=== PATIENT | female | born 1965 | race Caucasian/White ===

== ENCOUNTER 2021-06-22 12:53 | Emergency (ER) | payer OTHER, SELFPAY ==
--- NOTE | ~2021-06-22 | CT_ITS ---
EXAMINATION: CT abdomen pelvis w con EXAM DATE: 06/22/2021 15:27 INDICATION: RUQ abdominal pain RUQ pain x mo worsening today with hx of liver cancer. TECHNIQUE: Spiral CT of the abdomen and pelvis was performed following intravenous injection of 100 m L Omnipaque 350. Axial, coronal and sagittal images of the abdomen and pelvis were reviewed. The do se-length product (DLP) for this examination was 1462.34 mGy-cm. The exposure was tailored according to patient size (auto mA exposure control), and iterative reconstruction (ASIR) was used as addition al dose reduction technique. There is no prior study for comparison. FINDINGS: There are several subcentimeter liver hypodensities, appearance consistent with cysts. No s uspicious liver mass identified. The liver, spleen, adrenal glands and pancreas are otherwise unrema rkable. Gallbladder is unremarkable. No biliary obstruction. Portal and splenic veins are patent. Kidneys enhance symmetrically. There is no hydronephrosis. The uterus is not identified and has l ikely been surgically resected. The bladder is unremarkable. There is no retroperitoneal or pelvic lymphadenopathy. The appendix is normal. The stomach and small bowel are unremarkable. There is expected amount of c olonic stool. No free intraperitoneal gas. The heart is normal in size. There are no pericardial or pleural effusions. The lung bases are unremarkable. The bones are unremarkable. IMPRESSION: 1. No acute intra-abdominal findings. Reviewed, dictated and finalized at location A. 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
[2021-06-22 13:17] VITALS: BP 110/60; PULSE 65; RESP 18; TEMP 35.8; O2SAT 97
[2021-06-22] MEDS: KETOROLAC (*BKC) 60 MG/2 ML VIAL IM (13:59)
[2021-06-22 14:06] LABS: Basophils Absolute Auto 0.03 K/mm3 (0.00-0.10); Basophils Percent Auto 0.6 % (0.0-1.0); Eosinophils Absolute Auto 0.09 K/mm3 (0.02-0.50); Eosinophils Percent Auto 1.9 % (1.0-6.0); Hemoglobin 11.2 g/dL (12.0-15.0); Immature Granulocyte Absolute 0.01 K/mm3 (0.00-0.00); Immature Granulocyte Percent A 0.2 % (0.0-0.0); Lymphocytes Absolute Auto 2.13 K/mm3 (1.10-4.50); Lymphocytes Percent Auto 43.8 % (18.0-42.0); Mean Corpuscular HGB Conc 32.9 g/dL (32.0-36.0); Mean Corpuscular Hemoglobin 31.2 pg (27.0-31.0); Mean Corpuscular Volume 94.7 fL (78.0-102.0); Mean Platelet Volume 11.2 fl (9.2-11.8); Monocytes Absolute Auto 0.34 K/mm3 (0.10-0.90); Neutrophils Absolute Auto 2.3 K/mm3 (1.7-7.2); Neutrophils Percent Auto 46.5 % (50.0-70.0); Platelet Count Result 255 K/mm3 (150-420); Red Blood Count 3.59 M/mm3 (4.20-5.40); Red Cell Distribution Width 13.2 % (11.6-14.4); White Blood Count 4.9 K/mm3 (4.8-10.8)
[2021-06-22 14:07] LABS: Add Urine Microscopic? NO; Appearance Urine Clear (Clear); Bilirubin Urine Negative (Negative); Blood Urine Negative (Negative); Color Urine Light Yellow (Yellow); Glucose Urine UA Negative (Negative); Ketones Urine Negative (Negative); Leukocyte Esterase Ur Negative (Negative); Nitrate Urine Negative (Negative); Protein Urine Negative (Negative); Specific Grav Ur <= 1.005 (1.010-1.020); Urobilinogen Urine 0.2 mg/dL (0.2-1.0)
[2021-06-22 14:24] LABS: Alanine Aminotransferase 29 U/L (14-59); Albumin Level 3.5 g/dL (3.4-5.0); Alkaline Phosphatase 92 U/L (46-116); Anion Gap 9 mmol/L (8-16); Aspartate Amino Transferase 15 U/L (15-37); Bilirubin,Total 0.5 mg/dL (0.00-1.00); Blood Urea Nitrogen 12 mg/dL (7-18); Calcium 9.1 mg/dL (8.5-10.1); Carbon Dioxide 31 mmol/L (21-32); Chloride 103 mmol/L (98-108); Estimated CRCL calculation 74 ml/min; Estimated Glomerular Filt Rate > 60; Glucose 108 mg/dL (70-99); Lipase 44 U/L (73-393); Osmolality Calculated 296 mOsm/kg (285-295); Sodium 143 mmol/L (136-145); Total Protein 7.1 g/dL (6.4-8.2)
[2021-06-22 14:27] LABS: SARS-CoV-2 Ag Negative (Negative)
--- NOTE | 2021-06-22 15:21 | PC.NURSE ---
report given to jocelin
--- NOTE | 2021-06-22 16:08 | ED.ABDPAIN ---
HPI - Abdominal Pain General Chief Complaint: Abdominal Pain Stated Complaint: pain in back and abdomen Time Seen by Provider: 06/22/21 12:57 Source: patient and RN notes reviewed Mode of arrival: ambulatory Limitations: no limitations History of Present Illness MD elicited complaint: abdominal pain Pertinent past history: gastritis Onset (ago): day(s) (1) Pain Consistency: constant and colicky Location: epigastric Severity: mild Pain scale (0-10): 7 Quality: cramping and aching Radiation: epigastric Migration to: no migration Exacerbating factors: nothing Relieving factors: nothing Associated symptoms: nausea Related Data Patient : No Home Medications Medication Instructions Recorded Confirmed amitriptyline 25 mg PO DAILY 06/22/21 06/22/21 benazepril 40 mg PO DAILY 06/22/21 06/22/21 carvedilol 12.5 mg PO DAILY 06/22/21 06/22/21 furosemide 20 mg PO DAILY 06/22/21 06/22/21 gabapentin 600 mg PO DAILY 06/22/21 06/22/21 nifedipine 30 mg PO DAILY 06/22/21 06/22/21 promethazine 25 mg PO DAILY PRN 06/22/21 06/22/21 quetiapine 50 mg PO DAILY 06/22/21 06/22/21 Allergies Allergy/AdvReac Type Severity Reaction Status Date / Time Penicillins Allergy Unknown Verified 07/13/21 12:16 [id number] Reductase Allergy Unknown Verified 07/13/21 12:16 Inhibitor Sulfa (Sulfonamide Allergy Unknown Verified 07/13/21 12:16 Antibiotics) Review of Systems Review of Systems: All systems reviewed & are unremarkable except as noted in HPI and below Gastrointestinal: Gastrointestinal: Reports abdominal pain and Reports nausea PMFSH Past Medical History Medical History Anemia Congestive heart failure Elective GERD (gastroesophageal reflux disease) Heart attack Heart disease HPV in female Hypertension Miscarriage Surgical History Surgical History H/O laparoscopy History of cholecystectomy History of dilation and curettage History of hysterectomy [place] teeth removed Family History Family History Father Carcinoma of colon Hypertension Grandparent Hypertension Anxiety Social History Social History Smoking status: Former smoker Alcohol intake: never Substance use: never Agree to blood products: Yes Exam Const: General: no acute distress and alert Nutritional Appearance: obese Orientation/consciousness: patient oriented x3 Limitations: no limitations HENMT: Head: normal to inspection Ears: external ears normal and TM's normal bilaterally General nose exam: Normal external nose present and Normal nares present Mouth: Yes lip normal and Yes moist mucous membranes Eyes: Conjunctivae: conjunctivae normal Pupils: Equal, round and reactive pupils present EOM: EOMs intact bilaterally Neck: Neck: normal visual inspection and no lymphadenopathy Chest: Chest palpation & inspection: normal inspection of the chest Resp: Effort & Inspection: normal respiratory effort Auscultation: clear to auscultation bilaterally Cardio: Rate: regular rate Rhythm: regular rhythm GI: GI Palp: Yes Soft to palpation and Yes Tenderness to palpation present (GI) Auscultation: normal bowel sounds : General: Yes no CVA tenderness Back/Spine/Pelvis: Back: no CVA tenderness Skin: General skin exam: normal color Rashes: no rashes Neuro: General: patient oriented x3, moves all extremities, no meningeal signs, no focal motor deficits and CN's II-XI intact bilaterally Extrem: General: normal to inspection and no pedal edema Psych: Appearance: grossly normal Mental Status: mental status grossly normal Affect: normal affect Attitude: cooperative Thought content: Yes Normal thought content present Course Course Emergency Course: pt was less painful in the ED. Reevaluat
--- NOTE | 2021-08-27 01:24 | PC.NURSE ---
RN received call from [facility] ER asking for pt information on any visits within the last three months. [place] [facility] faxed a medical file release and this RN faxed the chart. The medical file release form was placed into pt medical records.
== END 2021-06-22 16:50 | disposition home or self-care (01) ==
PROVIDERS: Emergency Provider Emergency Medicine; PCP Nurse Practitioner
DX: K29.00 Acute gastritis without bleeding (principal); Z20.822 Contact with and (suspected) exposure to COVID-19
CPT/HCPCS: 36415; 74177; 80053; 81003; 83690; 85025; 87426; 96372; 99283; 99284; C9803; J1885; Q9967

== ENCOUNTER 2022-05-29 08:24 | Emergency (ER) | payer OTHER, SELFPAY ==
[2022-05-29 08:25] VITALS: BP 130/88; PULSE 79; PULSE 85; RESP 18; RESP 20; TEMP 36.3; O2SAT 98
--- NOTE | 2022-05-29 08:36 | ED.SKABFB ---
HPI - Skin/Abscess/Foreign Bdy General Chief complaint: Extremity Injury, Lower Stated complaint: Doctor refered celulitis right leg Time Seen by Provider: 05/29/22 08:33 Source: patient Mode of arrival: ambulatory Limitations: no limitations History of Present Illness HPI narrative: 56-year-old female with a history of hypertension, CAG, CHF, GERD presents to the ER with -- right leg cellulitis noted 5 days ago for which she was prescribed doxycycline by physician. Patient has worsening pain and cellulitis -- she had blood work and was noted to have a positive D-dimer. she went on to have a negative venous Dopplers and PE study. complaint: rash Onset (ago): day(s) ( started 5 days ago) Tetanus up to date: yes Location: RLE Severity: mild Quality: aching ( aching in her right lower leg. patient able to walk and bear weight) Pain Consistency: constant Relieving factors: none Exacerbating factors: none Context: none Associated symptoms: denies other symptoms Treatments prior to arrival: none ( patient is currently on doxycycline.) Related Data Home Medications Medication Instructions Recorded Confirmed amitriptyline 25 mg tablet 25 mg PO DAILY 06/22/21 06/22/21 benazepril 40 mg tablet 40 mg PO DAILY 06/22/21 06/22/21 carvedilol 12.5 mg tablet 12.5 mg PO DAILY 06/22/21 06/22/21 furosemide 20 mg tablet 20 mg PO DAILY 06/22/21 06/22/21 gabapentin 600 mg tablet 600 mg PO DAILY 06/22/21 06/22/21 nifedipine 30 mg tablet,extended 30 mg PO DAILY 06/22/21 06/22/21 release promethazine 25 mg tablet 25 mg PO DAILY PRN Nausea 06/22/21 06/22/21 quetiapine 50 mg tablet 50 mg PO DAILY 06/22/21 06/22/21 Allergies Allergy/AdvReac Type Severity Reaction Status Date / Time fenofibrate Allergy Itching Verified 05/29/22 08:48 Penicillins Allergy Unknown Verified 05/29/22 08:48 [id number] Reductase Allergy Unknown Verified 05/29/22 08:48 Inhibitor Sulfa (Sulfonamide Allergy Unknown Verified 05/29/22 08:48 Antibiotics) Review of Systems Review of Systems: All systems reviewed & are unremarkable except as noted in HPI and below Constitutional: Constitutional: Reports as per HPI and Reports no additional constitutional complaints Eyes: Eyes: Reports as per HPI and Reports no additional eye complaints ENT: Reports system reviewed and no additional complaints, except as documented and Reports as per HPI Cardiovascular: Cardiovascular: Reports as per HPI and Reports no additional cardiovascular complaints Respiratory: Respiratory: Reports as per HPI Gastrointestinal: Gastrointestinal: Reports as per HPI and Reports no additional gastrointestinal complaints Genitourinary: Genitourinary: Reports no additional female genitourinary complaints Musculoskeletal: Musculoskeletal: Reports no additional musculoskeletal complaints and Reports as per HPI Integumentary/Breasts: Skin/Breast: Reports system reviewed and no additional complaints, except as docu Comments: redness right leg Neurologic: Reports system reviewed and no additional complaints, except as documented and Reports as per HPI Psychiatric: Psychiatric: Reports as per HPI, Reports anxiety and Reports depression Endocrine: Endocrine: Reports no additional endocrine complaints and Reports as per HPI Hematologic/Lymphatic: Hematologic/Lymphatic: Reports no additional hematologic/lymphatic complaints and Reports as per HPI Allergic/Immunologic: Allergic/Immunologic: Reports no additional allergic/immunologic complaints and Reports as per HPI [facility] Past Medical History Medical History Anemia Congestive heart failure Elective GERD (gastroesophageal reflux disease) Heart attack Heart disease HPV in female Hypertension Miscarriage Surgical History Surgical History H/O laparoscopy History of cholecystectomy History of dilatio
== END 2022-05-29 09:20 | disposition home or self-care (01) ==
PROVIDERS: Emergency Provider Internal Medicine Critical Care Medicine
DX: L03.115 Cellulitis of right lower limb (principal)
CPT/HCPCS: 99281

== ENCOUNTER 2022-09-27 16:21 | Emergency (ER) | payer OTHER, SELFPAY ==
[2022-09-27] VITALS (12 sets, daily range): BP systolic 136–161; BP diastolic 86–98; PULSE 64–82; RESP 9–21; TEMP 36.7; O2SAT 97–98
--- NOTE | ~2022-09-27 | XR_ITS ---
EXAMINATION: XR chest 2V Exam Date/Time: 09/27/2022 18:25 CDT HISTORY: LEFT SIDED CHEST PAIN WITH LEFT ARM RADIATION 2 DAYS. Comparison: None available. RESULT: Lines, tubes, and devices: Cholecystectomy clips. Lungs and pleura: Low volumes with crowding. Streaky bibasilar opacities likely representing atelect asis/scar. Cardiomediastinal silhouette: Stable. Other: No acute osseous or upper abdominal finding. IMPRESSION: No acute cardiopulmonary process. Reviewed, dictated and finalized at location K.
--- NOTE | 2022-09-27 16:32 | ECG_ITS ---
Measurements Intervals [place] Rate: 67 P: -13 CT: 157 QRS: 23 QRSD: 76 T: 25 QT: 373 QTc: 395 Interpretive Statements SINUS RHYTHM BASELINE ARTIFACT LOW QRS VOLTAGE IN PRECORDIAL LEADS BORDERLINE ECG NO PREVIOUS ECG AVAILABLE FOR COMPARISON Electronically Signed On 09-27-2022 18:20:45 CDT by Jeremy Buck M.D.
--- NOTE | 2022-09-27 16:57 | ED.GENADULT ---
HPI - General Adult General Chief complaint: Dizziness Stated complaint: chest pain and dizziness Time Seen by Provider: 09/27/22 16:46 History of Present Illness HPI narrative: The patient is a 57-year-old woman with reportedly a myocardial infarction 2 years ago, no records available. She had a cardiac catheterization 8 years ago per her report. She states she has coronary artery disease, obesity (123 kg), depression, hypertension, congestive heart failure on lasix therapy, gastritis. Status post prior laparoscopic hysterectomy with bilateral salpingo-oophorectomy and a cholecystectomy. She takes aspirin 81 mg 3 tablets daily. The patient has had chest pain for the last 2 years, intermittent, off and on. For the last 3 days, the patient has had worsening of her chest pain, still mild, increasing in intensity, radiating to the left shoulder and down the left arm for the last 3 days. Associated with dizziness which has been ongoing for 1 month, and near-syncope, ongoing for 1 week. Much of the history is difficult to obtain since the patient changes her story at different times during the questioning. Has had night sweats last night but no fevers or chills. No nausea vomiting. No cough. No dyspnea. The patient demands that she go to the labor contract analyst due to her chest pain. Related Data Home Medications Medication Instructions Recorded Confirmed amitriptyline 25 mg tablet 25 mg PO DAILY 06/22/21 09/27/22 benazepril 40 mg tablet 40 mg PO DAILY 06/22/21 09/27/22 carvedilol 12.5 mg tablet 12.5 mg PO DAILY 06/22/21 09/27/22 furosemide 20 mg tablet 20 mg PO DAILY 06/22/21 09/27/22 gabapentin 600 mg tablet 600 mg PO DAILY 06/22/21 09/27/22 nifedipine 30 mg tablet,extended 30 mg PO DAILY 06/22/21 09/27/22 release quetiapine 50 mg tablet 50 mg PO DAILY 06/22/21 09/27/22 paroxetine HCl 20 mg tablet 20 mg PO DAILY 09/27/22 09/27/22 potassium chloride 10 mEq 20 meq PO DAILY 09/27/22 09/27/22 tablet,extended release Allergies Allergy/AdvReac Type Severity Reaction Status Date / Time fenofibrate Allergy Itching Verified 09/27/22 16:47 Penicillins Allergy Unknown Verified 09/27/22 16:47 [id number]-[id number] Reductase Allergy Unknown Verified 09/27/22 16:47 Inhibitor Sulfa (Sulfonamide Allergy Unknown Verified 09/27/22 16:47 Antibiotics) Review of Systems Review of Systems: All systems reviewed & are unremarkable except as noted in HPI and below Constitutional: Constitutional: Reports as per HPI, Reports no additional constitutional complaints, Denies chills, Denies excessive sweating, Reports fatigue, Denies fever(s), Denies headache(s) and Reports weakness Eyes: Eyes: Reports as per HPI, Reports no additional eye complaints, Denies change in vision and Denies photophobia ENT: Reports system reviewed and no additional complaints, except as documented, Reports as per HPI, Denies dysphagia, Denies vertigo, Reports dizziness, Denies headache(s), Denies lip swelling, Denies nasal congestion, Denies sore throat, Denies throat swelling and Denies tongue swelling Cardiovascular: Cardiovascular: Reports as per HPI, Reports no additional cardiovascular complaints, Reports chest pain, Denies syncope, Denies rapid heart rate, Reports radiating jaw, neck or arm pain and Denies dyspnea Respiratory: Respiratory: Reports as per HPI, Reports no additional respiratory complaints, Denies chest congestion, Denies cough, Denies dyspnea and Denies wheezing Gastrointestinal: Gastrointestinal: Reports as per HPI, Reports no additional gastrointestinal complaints, Denies abdominal pain, Denies constipation, Denies dysphagia, Denies diarrhea, Denies nausea and Denies vomiting Genitourinary: Genitourinary: Reports as per HPI, Denies hematuria, Denies urinary frequency, Denies dysuria, Denies urinary incontinence and Denies urinary urgency Musculoskeletal: Musculoskeletal: Reports no additional musculoskeletal complaints, Denies back pain, Reports myal
--- NOTE | 2022-09-27 17:23 | PC.NURSE ---
PT UP TO RR WITHOUT DIFFICULTY. PT REPORTS SHE REMAINS PAIN FREE AT THIS TIME. FAMILY AT BEDSIDE. NAD NOTED. WILL CONTINUE TO MONITOR.
--- NOTE | 2022-09-27 17:54 | PC.NURSE ---
PT IS AGAIN INSISTING ON GETTING A CARDIAC CATH, CONTINUES TO DENY ANY CP AT THIS TIME. WILL CONTINUE TO MONITOR.
[2022-09-27 17:57] LABS: Appearance Urine Clear (Clear); Bilirubin Urine Negative (Negative); Blood Urine Trace-Intact (Negative); Color Urine Yellow (Yellow); Glucose Urine UA Negative (Negative); Ketones Urine Negative (Negative); Leukocyte Esterase Ur Negative LEU/UL (Negative); Nitrate Urine Negative (Negative); Protein Urine Negative (Negative); Specific Grav Ur 1.015 (1.010-1.020); Urobilinogen Urine 0.2 mg/dL (0.2-1.0)
[2022-09-27 18:05] LABS: Basophils Absolute Auto 0.02 K/mm3 (0.00-0.10); Basophils Percent Auto 0.3 % (0.0-1.0); Eosinophils Absolute Auto 0.16 K/mm3 (0.02-0.50); Eosinophils Percent Auto 2.6 % (1.0-6.0); Hematocrit 34.5 % (35.0-49.0); Hemoglobin 11.4 g/dL (12.0-15.0); Immature Granulocyte Absolute 0.03 K/mm3 (0.00-0.00); Immature Granulocyte Percent A 0.5 % (0.0-0.0); Lymphocytes Absolute Auto 2.16 K/mm3 (1.10-4.50); Lymphocytes Percent Auto 34.4 % (18.0-42.0); Mean Corpuscular Hemoglobin 30.5 pg (27.0-31.0); Mean Corpuscular Volume 92.2 fL (78.0-102.0); Mean Platelet Volume 11.1 fl (9.2-11.8); Monocytes Absolute Auto 0.37 K/mm3 (0.10-0.90); Monocytes Percent Auto 5.9 % (2.0-11.0); Neutrophils Absolute Auto 3.5 K/mm3 (1.7-7.2); Neutrophils Percent Auto 56.3 % (50.0-70.0); Platelet Count Result 294 K/mm3 (150-420); Red Blood Count 3.74 M/mm3 (4.20-5.40); Red Cell Distribution Width 13.9 % (11.6-14.4); White Blood Count 6.3 K/mm3 (4.8-10.8)
[2022-09-27 18:10] LABS: Add Urine Microscopic? YES; Bacteria Urine 1+ /hpf; RBC Urine 0-2 /hpf (0-2); Squamous Epithelial Cell Urine Few /hpf (Few); WBC Urine 0-3 /hpf (0-3)
[2022-09-27 18:17] LABS: D Dimer 0.34 mg/L (0.19-0.50)
[2022-09-27] MEDS: SODIUM CHLORIDE 0.9% IV 1,000 ML 999 ML IV CONT (18:24)
[2022-09-27 18:25] LABS: Alanine Aminotransferase 37 U/L (14-59); Albumin Level 3.7 g/dL (3.4-5.0); Alkaline Phosphatase 95 U/L (46-116); Anion Gap 8 mmol/L (8-16); Aspartate Amino Transferase 16 U/L (15-37); Bilirubin,Total 0.5 mg/dL (0.00-1.00); Blood Urea Nitrogen 11 mg/dL (7-18); Calcium 9.3 mg/dL (8.5-10.1); Carbon Dioxide 32 mmol/L (21-32); Chloride 103 mmol/L (98-108); Creatine Kinase 43 U/L (26-192); Estimated CRCL calculation 77 ml/min; Estimated Glomerular Filt Rate > 60; Glucose 110 mg/dL (70-99); Osmolality Calculated 296 mOsm/kg (285-295); Potassium 3.6 mmol/L (3.5-5.1); Sodium 143 mmol/L (136-145); Total Protein 7.4 g/dL (6.4-8.2)
[2022-09-27] MEDS: MECLIZINE HCL 25 MG TABLET 50 MG PO (18:25)
--- NOTE | 2022-09-27 18:28 | PC.NURSE ---
PT NOW REPORTS HER PAIN IS 7/10 AND IS DEMANDING [facility] FOR PAIN. PT IS DEMANDING INSTRUMENTATION DESIGNER AND CARDIAC CATH. PT IS TALKING OVER STAFF AND BEING BELLIGERENT. NAD AT THIS TIME. ERP IS AWARE OF PT COMPLAINTS. PT IS IN XRAY AT THIS TIME. WILL CONTINUE TO MONITOR.
[2022-09-27 18:31] LABS: CRP < 0.5 mg/dL (0.0-0.9); Troponin I < 4.0 ng/L (0.00-60.4)
[2022-09-27 19:07] LABS: Erythrocyte Sedimentation Rate 44 mm/hr (0-20)
--- NOTE | 2022-09-27 19:48 | PC.NURSE ---
This RN called the number listed for the handcrew foreman of the pt, Dr. Tyson. The number listed forwarded me to the cardiology Nurse practitioner neuropsychology medical consultant INFORMATION SPECIALIST Troy Velasquez. After discussing that the pt is requesting a Cardiac cath and believes that she has a blockage, and then explaining to the INFORMATION SPECIALIST that the lab results that we took on the pt, which included a normal troponin and a negative D Dimmer. Nurse practitioner Eva, suggested that we take another troponin level at around 2100 and if it is negative to have the patient follow up with her handcrew foreman tomorrow at [facility].
[2022-09-27 21:25] LABS: Troponin I < 4.0 ng/L (0.00-60.4)
== END 2022-09-27 21:49 | disposition home or self-care (01) ==
PROVIDERS: Emergency Provider Emergency Medicine; PCP Family Medicine
DX: R07.9 Chest pain, unspecified (principal); I25.2 Old myocardial infarction; I25.10 Atherosclerotic heart disease of native coronary artery without angina pectoris; I11.0 Hypertensive heart disease with heart failure; I50.9 Heart failure, unspecified; Z79.82 Long term (current) use of aspirin; Z87.891 Personal history of nicotine dependence
CPT/HCPCS: 36415; 71046; 80053; 81001; 82550; 84484; 85025; 85380; 85652; 86140; 93005; 96360; 96361; 99283; A9270; J7030

== ENCOUNTER 2022-10-03 17:36 | Emergency (ER) | payer OTHER, SELFPAY ==
--- NOTE | ~2022-10-03 | XR_ITS ---
EXAMINATION: XR chest 2V 10/03/2022 18:30 INDICATION: Chest pain. CHF. PROCEDURE: 2 view chest COMPARISON: 09/27/2022 FINDINGS: The lungs are clear. The cardiomediastinal silhouette is within normal limits. There are no pleural effusions. There is no pneumothorax suspected. IMPRESSION: 1: NO ACUTE CARDIOPULMONARY DISEASE. Reviewed, dictated and finalized at location A.
--- NOTE | ~2022-10-03 | CT_ITS ---
EXAMINATION: CTA chest PE protocol DATE: 10/03/2022 21:08 CDT INDICATION: Chest pain and shortness of breath TECHNIQUE: Computed tomographic angiography (CTA) of the chest was performed with 100 mL Omnipaque-35 0 intravenous contrast. The dose-length product was 851.94 mGy-cm. Maximum intensity projection 3D-re constructions of the aorta and other arteries were constructed by the technologist on a separate work station. Automated exposure control and iterative reconstruction technique were employed. COMPARISON: None. FINDINGS: Study is technically adequate without evidence for pulmonary embolism. Cardiomegaly. No sig nificant pleural or pericardial effusion. No thoracic lymphadenopathy. No evidence for aortic aneurys m or dissection. There is a calcified granuloma left lung base. There are a few small subpleural nodu les measuring 2 mm or less, likely benign. There is atelectasis of the lung bases. No endobronchial l esions. No pneumothorax. Small subcentimeter hypodensities of the liver, likely benign. Status post c holecystectomy. Mild thoracic spondylosis. IMPRESSION: 1. No evidence for pulmonary embolism. 2: Small bilateral subpleural nodules measuring 2 mm or less, likely benign. Reviewed, dictated and finalized at location A.
--- NOTE | 2022-10-03 17:37 | ECG_ITS ---
Measurements Intervals [place] Rate: 73 P: 73 DE: 164 QRS: 45 QRSD: 69 T: 63 QT: 352 QTc: 390 Interpretive Statements SINUS RHYTHM LOW QRS VOLTAGE IN PRECORDIAL LEADS [QRS DEFLECTION < 1.0 mV IN CHEST LEADS] COMPARED TO ECG 09/27/2022 16:35:49 NO SIGNIFICANT CHANGES Electronically Signed On 10-03-2022 18:15:24 CDT by Enedelia Simms M.D.
[2022-10-03 17:44] VITALS: BP 145/71; PULSE 16; RESP 16; TEMP 36.4; O2SAT 100
[2022-10-03 18:15] LABS: Basophils Absolute Auto 0.1 K/mm3 (0.0-0.1); Basophils Percent Auto 0.8 % (0.2-1.2); Eosinophils Absolute Auto 0.1 K/mm3 (0-0.3); Eosinophils Percent Auto 1.8 % (0-4.4); Hematocrit 37.5 % (37.0-47.0); Hemoglobin 12.3 g/dL (12.0-15.0); Immature Granulocyte Absolute 0.02 K/mm3 (0.00-0.031); Immature Granulocyte Percent A 0.3 % (0-0.5); Lymphocytes Absolute Auto 2.47 K/mm3 (0.9-3.2); Lymphocytes Percent Auto 40.5 % (18.3-44.2); Mean Corpuscular HGB Conc 32.8 g/dl (32-36); Mean Corpuscular Hemoglobin 30.8 pg (26-34); Monocytes Absolute Auto 0.5 K/mm3 (0.1-0.6); Monocytes Percent Auto 8.2 % (2.6-8.5); Neutrophils Percent Auto 48.4 % (45.5-73.1); Platelet Count Result 313 k/mm3 (150-375); Red Blood Count 3.99 M/mm3 (4.2-5.4); Red Cell Distribution Width 14.5 % (11.5-14.5); White Blood Count 6.1 K/mm3 (4.5-10.0)
[2022-10-03 18:24] LABS: Alanine Aminotransferase 26 U/L (6-35); Albumin Level 4.6 g/dL (3.5-5.1); Alkaline Phosphatase 89 U/L (38-126); Anion Gap 5 mmol/L (8-16); Aspartate Amino Transferase 27 U/L (14-36); Bilirubin,Total 0.5 mg/dL (0.2-1.3); Blood Urea Nitrogen 13 mg/dL (7-17); Calcium 9.3 mg/dL (8.4-10.2); Carbon Dioxide 32 mmol/L (22-30); Chloride 100 mmol/L (98-107); Estimated CRCL calculation 85 ml/min; Estimated Glomerular Filt Rate > 60; Glucose 115 mg/dL (65-110); Lipase 58 U/L (23-300); Potassium 4.1 mmol/L (3.4-5.0); Sodium 137 mmol/L (137-145)
[2022-10-03 18:27] LABS: Prothrombin Time 12.7 Seconds (11.1-14.7)
[2022-10-03 18:28] LABS: Partial Thromboplastin Time 27.6 SECONDS (22.3-36.8)
[2022-10-03 18:36] LABS: Troponin I < 0.012 ng/mL (0.000-0.034)
[2022-10-03 20:07] VITALS: O2SAT 100
[2022-10-03] MEDS: ASPIRIN 81 MG CHEWABLE TABLET 324 MG PO (20:13)
--- NOTE | 2022-10-03 20:25 | ED.CHESTPAIN ---
HPI - Chest Pain General Chief Complaint: Chest Pain Stated Complaint: chest pain Time Seen by Provider: 10/03/22 20:25 History of Present Illness HPI narrative: 57-year-old female here for evaluation of chest pain over the past month. Patient states the pain is present in the left side of her chest and occasionally radiates into her left arm. Patient is a poor historian and is difficult to orient. She tells me that this pain has been going on over the past month, she was admitted at [facility] for cardiac stress testing that was normal, results reviewed on patient's phone. She has had continued pain ever since. She presented to the [facility] emergency department 6 days ago demanding cardiac catheterization for her symptoms, which she is doing again today. She has a history of a heart attack but she tells me she has never had a cardiac catheterization or stents. When asked why she believes she had a heart attack she states she does not know. She said no leg swelling, fevers or chills, cough or congestion, other symptoms. Related Data Home Medications Medication Instructions Recorded Confirmed amitriptyline 25 mg tablet 25 mg PO DAILY 06/22/21 10/03/22 benazepril 40 mg tablet 40 mg PO DAILY 06/22/21 10/03/22 carvedilol 12.5 mg tablet 12.5 mg PO DAILY 06/22/21 10/03/22 furosemide 20 mg tablet 20 mg PO DAILY 06/22/21 10/03/22 gabapentin 600 mg tablet 600 mg PO DAILY 06/22/21 10/03/22 nifedipine 30 mg tablet,extended 30 mg PO DAILY 06/22/21 10/03/22 release quetiapine 50 mg tablet 50 mg PO DAILY 06/22/21 10/03/22 paroxetine HCl 20 mg tablet 20 mg PO DAILY 09/27/22 10/03/22 potassium chloride 10 mEq 20 meq PO DAILY 09/27/22 10/03/22 tablet,extended release Allergies Allergy/AdvReac Type Severity Reaction Status Date / Time fenofibrate Allergy Itching Verified 10/03/22 20:15 Penicillins Allergy Unknown Verified 10/03/22 20:15 [id number]-[id number]-AfO Reductase Allergy Unknown Verified 10/03/22 20:15 Inhibitor Sulfa (Sulfonamide Allergy Unknown Verified 10/03/22 20:15 Antibiotics) Review of Systems Review of Systems: Gen: Denies fevers or chills Eyes: Denies eye pain or visual change ENT: Denies congestion Respiratory: Denies shortness of breath or cough CV: Reports chest pain GI: Denies abdominal pain nausea, emesis or diarrhea denies burning, urgency, frequency or hematuria Musculoskeletal: Denies back pain or muscle pain Neuro: Denies numbness, tingling, weakness or focal weakness Skin: Denies rash Except as documented, all other systems reviewed and negative [facility] Past Medical History Medical History Anemia Congestive heart failure Elective GERD (gastroesophageal reflux disease) Heart attack Heart disease HPV in female Hypertension Miscarriage Surgical History Surgical History H/O laparoscopy History of cholecystectomy History of dilation and curettage History of hysterectomy [place] teeth removed Family History Family History Father Carcinoma of colon Hypertension Grandparent Hypertension Anxiety Social History Social History Smoking status: Former smoker Alcohol intake: never Substance use: never Agree to blood products: Yes Exam Narrative: APPEARANCE: Well appearing, no pain in distress. Obese. Head: Normocephalic and atraumatic. EYES: PERRLA/EOMI, conjunctivae clear NOSE: No nasal drainage EARS: External ear normal in appearance THROAT: Oropharynx is clear. Mucous membranes are moist. NECK: Supple. No adenopathy, no masses. RESPIRATORY: Airway patent, respirations nonlabored. Clear to auscultation bilaterally, no rales, rhonchi, wheezing. CARDIOVASCULAR: Regular rate and rhythm without murmurs, rubs, or gallops. ABDOMINAL:
[2022-10-03 20:26] VITALS: PULSE 59
[2022-10-03 21:09] LABS: NT Pro B Type Natriuretic Pept 53 pg/mL (19.9-100)
[2022-10-03 21:27] LABS: Troponin I < 0.012 ng/mL (0.000-0.034)
[2022-10-03 21:34] VITALS: BP 126/75; PULSE 64; RESP 14; O2SAT 100
== END 2022-10-03 21:43 | disposition home or self-care (01) ==
PROVIDERS: Emergency Medicine; Emergency Provider Physician Assistant; PCP Family Medicine
DX: R07.89 Other chest pain (principal); I50.9 Heart failure, unspecified; I11.0 Hypertensive heart disease with heart failure; I25.2 Old myocardial infarction; K21.9 Gastro-esophageal reflux disease without esophagitis; Z90.49 Acquired absence of other specified parts of digestive tract; Z90.710 Acquired absence of both cervix and uterus; Z86.2 Personal history of diseases of the blood and blood-forming organs and certain disorders involving the immune mechanism; Z87.891 Personal history of nicotine dependence; R91.8 Other nonspecific abnormal finding of lung field
CPT/HCPCS: 36415; 71046; 71275; 80053; 83690; 83880; 84484; 85025; 85610; 85730; 93005; 99284; A9270; Q9967

== ENCOUNTER 2023-08-23 13:59 | Emergency (ER) | payer MEDICARE, MEDICAID, SELFPAY ==
[2023-08-23] VITALS (15 sets, daily range): BP systolic 120–150; BP diastolic 59–122; PULSE 71–111; RESP 15–21; TEMP 36.8–36.9; O2SAT 93–100
--- NOTE | ~2023-08-23 | CT_ITS ---
EXAMINATION: CT abdomen pelvis w con DATE: 08/23/2023 15:41 INDICATION: Abdominal pain. TECHNIQUE: Computed tomography (CT) of the abdomen and pelvis was performed with 100 mL Omnipaque 350 intravenous contrast. Automated exposure control and iterative reconstruction technique were employe d. The dose-length product was 1725.23 mGy-cm. COMPARISON: CT abdomen and pelvis 06/22/2021 FINDINGS: The visualized portions of the lung bases demonstrate mild atelectasis. A calcified left dara ng nodule is consistent with old granulomatous disease. No pleural effusion. The heart size is normal . There are coronary artery calcifications. No pericardial effusion. There are cysts in the liver scar suring up to 14 mm. There are changes of cholecystectomy. The spleen, pancreas, adrenal glands, and k idneys are normal. There are no dilated loops of bowel. The appendix is normal. There are no patholog ically enlarged lymph nodes. There is no free intraperitoneal fluid. There is mild thoracic and lumba r spondylosis. IMPRESSION: 1. No etiology for the patient's symptoms. Reviewed, dictated and finalized at location E. 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
--- NOTE | 2023-08-23 14:19 | ECG_ITS ---
Measurements Intervals [place] Rate: 85 P: 76 RI: 160 QRS: 48 QRSD: 79 T: 54 QT: 346 QTc: 412 Interpretive Statements SINUS RHYTHM LOW QRS VOLTAGE IN PRECORDIAL LEADS BORDERLINE ST-T WAVE ABNORMALITY- ANTERIOR LEADS BORDERLINE ECG COMPARED TO ECG 10/03/2022 17:41:41 NO SIGNIFICANT CHANGES Electronically Signed On 08-23-2023 18:37:29 BALLISTIC TECHNICIAN by Mike Andrade D.O.
[2023-08-23] MEDS: SODIUM CHLORIDE 0.9% IV 1,000 ML 999 ML IV CONT (14:41)
[2023-08-23 14:43] LABS: Appearance Urine Clear (Clear); Basophils Absolute Auto 0.05 K/mm3 (0.00-0.10); Basophils Percent Auto 0.7 % (0.0-1.0); Bilirubin Urine Negative (Negative); Blood Urine Trace-Intact (Negative); Color Urine Light Yellow (Yellow); Eosinophils Absolute Auto 0.09 K/mm3 (0.02-0.50); Eosinophils Percent Auto 1.3 % (1.0-6.0); Glucose Urine UA Negative (Negative); Hematocrit 36.6 % (35.0-49.0); Hemoglobin 12.4 g/dL (12.0-15.0); Immature Granulocyte Absolute 0.02 K/mm3 (0.00-0.00); Immature Granulocyte Percent A 0.3 % (0.0-0.0); Ketones Urine Trace (Negative); Leukocyte Esterase Ur Negative LEU/UL (Negative); Lymphocytes Absolute Auto 2.16 K/mm3 (1.10-4.50); Lymphocytes Percent Auto 32.3 % (18.0-42.0); Mean Corpuscular HGB Conc 33.9 g/dL (32.0-36.0); Mean Corpuscular Hemoglobin 30.4 pg (27.0-31.0); Mean Corpuscular Volume 89.7 fL (78.0-102.0); Mean Platelet Volume 10.6 fl (9.2-11.8); Monocytes Absolute Auto 0.45 K/mm3 (0.10-0.90); Monocytes Percent Auto 6.7 % (2.0-11.0); Neutrophils Absolute Auto 3.9 K/mm3 (1.7-7.2); Neutrophils Percent Auto 58.7 % (50.0-70.0); Nitrate Urine Negative (Negative); Platelet Count Result 342 K/mm3 (150-420); Protein Urine Negative (Negative); Red Blood Count 4.08 M/mm3 (4.20-5.40); Red Cell Distribution Width 13.2 % (11.6-14.4); Specific Grav Ur <= 1.005 (1.010-1.020); Urobilinogen Urine 0.2 mg/dL (0.2-1.0); White Blood Count 6.7 K/mm3 (4.8-10.8); pH Urine 5.5 (5.0-8.0)
[2023-08-23 14:48] LABS: Add Urine Microscopic? YES; RBC Urine 0-2 /hpf (0-2); Squamous Epithelial Cell Urine Moderate /hpf (Few); WBC Urine 0-3 /hpf (0-3)
[2023-08-23 14:49] LABS: Bacteria Urine 4+ /hpf
[2023-08-23 15:02] LABS: Lactic Acid Reflex 1.4 mmol/L (0.4-2.0)
[2023-08-23 15:08] LABS: Alanine Aminotransferase 68 U/L (14-59); Albumin Level 4.1 g/dL (3.4-5.0); Alkaline Phosphatase 139 U/L (46-116); Anion Gap 12 mmol/L (8-16); Aspartate Amino Transferase 27 U/L (15-37); Bilirubin Direct 0.2 mg/dL (0-0.2); Bilirubin,Total 0.7 mg/dL (0.00-1.00); Blood Urea Nitrogen 7 mg/dL (7-18); Calcium 9.6 mg/dL (8.5-10.1); Carbon Dioxide 29 mmol/L (21-32); Chloride 100 mmol/L (98-108); Estimated CRCL calculation 72 ml/min; Estimated Glomerular Filt Rate 60; Glucose 122 mg/dL (70-99); Osmolality Calculated 291 mOsm/kg (285-295); Partial Thromboplastin Time 27.9 SEC (23.90-30.70); Potassium 3.6 mmol/L (3.5-5.1); Sodium 141 mmol/L (136-145); Total Protein 7.8 g/dL (6.4-8.2)
[2023-08-23 15:09] LABS: CRP 1.3 mg/dL (0.0-0.9); Lipase 17 U/L (16-77); NT Pro B Type Natriuretic Pept 43 pg/mL (0-125); Troponin I 4.3 ng/L (0.00-60.4)
[2023-08-23] MEDS: ONDANSETRON INJ 4 MG/2 ML VIAL IV PUSH (15:48)
--- NOTE | 2023-08-23 15:53 | ED.GENADULT ---
HPI - General Adult General Chief complaint: Chest Pain Stated complaint: SOB; right chest pain Time Seen by Provider: 08/23/23 14:12 Source: patient Mode of arrival: ambulatory Limitations: no limitations History of Present Illness HPI narrative: this is a 57-year-old female with some vague symptoms with no abdominal pain not having any nausea or vomiting no fever chills no shortness of breath. The patient was seen at [facility] not too long ago and was sent home from the ER and advised to follow-up with her primary. The patient presents today with vague symptoms she denies abdominal pain denied any nausea or vomiting no diarrhea constipation no chest pain or shortness of breath. 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 Onset (ago): week(s) Severity: mild Related Data Home Medications Medication Instructions Recorded Confirmed amitriptyline 25 mg tablet 25 mg PO DAILY 06/22/21 08/23/23 benazepril 40 mg tablet 40 mg PO DAILY 06/22/21 08/23/23 carvedilol 12.5 mg tablet 12.5 mg PO DAILY 06/22/21 08/23/23 furosemide 20 mg tablet 20 mg PO DAILY 06/22/21 08/23/23 gabapentin 600 mg tablet 600 mg PO DAILY 06/22/21 08/23/23 nifedipine 30 mg tablet,extended 30 mg PO DAILY 06/22/21 08/23/23 release quetiapine 50 mg tablet 50 mg PO DAILY 06/22/21 08/23/23 paroxetine HCl 20 mg tablet 20 mg PO DAILY 09/27/22 08/23/23 potassium chloride 10 mEq 20 meq PO DAILY 09/27/22 08/23/23 tablet,extended release Allergies Allergy/AdvReac Type Severity Reaction Status Date / Time fenofibrate Allergy Itching Verified 08/23/23 14:09 Penicillins Allergy Unknown Verified 08/23/23 14:09 Lvuwwev-WXQ-GpH Reductase Allergy Unknown Verified 08/23/23 14:09 Inhibitor Sulfa (Sulfonamide Allergy Unknown Verified 08/23/23 14:09 Antibiotics) Review of Systems Review of Systems: All systems reviewed & are unremarkable except as noted in HPI and below PMFSH Past Medical History Medical History Anemia Congestive heart failure Elective GERD (gastroesophageal reflux disease) Heart attack Heart disease HPV in female Hypertension Miscarriage Surgical History Surgical History H/O laparoscopy History of cholecystectomy History of dilation and curettage History of hysterectomy Perry teeth removed Family History Family History Father Carcinoma of colon Hypertension Grandparent Hypertension Anxiety Social History Social History Smoking status: Former smoker Alcohol intake: never Substance use: never Agree to blood products: Yes Exam Const: General: healthy appearing and no acute distress Nutritional Appearance: well nourished and obese Limitations: no limitations HENMT: Head: normal to inspection Eyes: Conjunctivae: conjunctivae normal EOM: EOMs intact bilaterally Neck: Neck: normal visual inspection Chest: Chest palpation & inspection: normal inspection of the chest Resp: Effort & Inspection: normal respiratory effort Auscultation: clear to auscultation bilaterally Cardio: Rate: regular rate Rhythm: regular rhythm GI: GI Palp: Yes Soft to palpation Auscultation: normal bowel sounds : General: Yes bladder normal to palpation Skin: General skin exam: normal color Rashes: no rashes Neuro: General: patient oriented x3 and moves all extremities Extrem: General: normal to inspection Course Course Emergency Course: Labs reviewed with patient did have mildly elevated liver function test, patient did receive IV fluids and did complain afterwards that she felt a little nauseated and Zofran was administered. The
--- NOTE | 2023-08-23 16:00 | PC.NURSE ---
On 08/23/23, the student, Lily Acosta, provided care and completed [facility] documentation on this patient. I have reviewed the student's documentation and agree with the findings.
[2023-08-24 09:35] LABS: Hemoglobin A1C 5.8 % (<5.7)
== END 2023-08-23 16:05 | disposition home or self-care (01) ==
PROVIDERS: Emergency Provider Emergency Medicine; PCP Family Medicine
DX: K29.70 Gastritis, unspecified, without bleeding (principal); I11.0 Hypertensive heart disease with heart failure; I50.9 Heart failure, unspecified; I25.2 Old myocardial infarction; Z87.891 Personal history of nicotine dependence; Z79.899 Other long term (current) drug therapy
CPT/HCPCS: 36415; 74177; 80048; 80076; 81001; 83036; 83605; 83690; 83880; 84484; 85025; 85610; 85730; 86140; 93005; 96361; 96374; 99284; J2405; J7030; Q9967

== ENCOUNTER 2024-08-22 01:08 | Emergency (ER) | payer MEDICARE, MEDICAID, SELFPAY ==
[2024-08-22] VITALS (14 sets, daily range): BP systolic 126–139; BP diastolic 82–83; PULSE 75–90; RESP 14–18; TEMP 36.3–36.4; O2SAT 96–100
--- OUTSIDE RECORDS SUMMARY | 2024-08-22 01:12 | XMS_ITS ---
Author Organization Unknown Address [address] [place] [address] [phone] Phone Care Team Providers Care State Tested Nursing Assistant Name Role Phone OLGA Hampton Attending Unavailable CESAR ESPINOZA Primary Unavailable Immunization Immunization Date Status Additional Notes Code Code System Hep B, adult 11/26/2015 Completed 43 CVX Hep A, adult 09/23/2015 Completed 52 CVX influenza, unspecified formulation 06/22/2013 Completed 88 CVX influenza, unspecified formulation 05/24/2017 Completed 88 CVX Td (adult), 5 Lf tetanus toxoid, preservative free, adsorbed 06/18/2014 Completed 113 CVX Tdap 03/09/2022 Completed 115 CVX Influenza, split virus, trivalent, PF 03/20/2015 Completed 140 CVX Influenza, split virus, quadrivalent, PF 06/23/2014 Completed 150 CVX Influenza, split virus, quadrivalent, PF 03/17/2016 Completed 150 CVX Influenza, split virus, quadrivalent, PF 03/17/2020 Completed 150 CVX Influenza, split virus, quadrivalent, PF 03/23/2021 Completed 150 CVX Influenza, split virus, quadrivalent, preservative 04/10/2019 Completed 158 C VX COVID-19, mRNA, LNP-S, PF, 1 00 mcg/0.5mL dose or 50 mcg/0.25mL dose 06/25/2020 Completed 207 CVX COVID-19, mRNA, LNP-S, PF, 1 00 mcg/0.5mL dose or 50 mcg/0.25mL dose 08/24/2020 Completed 207 CVX Results US ABDOMEN COMPLETE - Comple raul: 10/08/2023 08:10 LOINC: EXAM DESCRIPTION: US ABDOMEN COMPLETE REASON FOR STUDY: Right upper quadrant pain, history of cholecystectomy. Symptoms for few years. TECHNIQUE: Dynamic and static images acquired of the abdomen and recorded on PACS. Additional selected color Doppler and spectral images recorded. COMPARISON: 12/06/2020. FINDINGS: PANCREAS: Visualized portions of the pancreas are within normal limits. Portions of the pancreatic body and tail are obscured due to bowel gas. LIVER: Measures 12.7 cm and is slightly increased in echogenicity. There has an anechoic cyst left hepatic lobe 1.2 x 1.0 x 1.2 cm. LIVER VASCULATURE: Normal directional flow of the main portal and hepatic veins. GALLBLADDER: Surgically absent. BILIARY: No intrahepatic ductal dilatation. Common bile duct measures 0.3 cm. INFERIOR VENA CAVA: Unremarkable. AORTA: No abdominal aortic aneurysm. RIGHT KIDNEY: Kidney measures 10.7 cm. There is normal echogenicity and normal cortical thickness. There is no hydronephrosis. No cystic or solid mass. LEFT KIDNEY: Kidney measures 8.7 cm. There is normal echogenicity and normal cortical thickness. There is no hydronephrosis. No cystic or solid mass. SPLEEN: Not optimally seen, measured at 10.4 cm with no focal lesion. PERITONEAL AND PLEURAL SPACES: No ascites or pleural effusion. OTHER: No other significant abnormality. IMPRESSION: ? ? No evidence of an acute abnormality. ? ? Cholecystectomy. ? ? Mild hepatic steatosis. ? ? Left hepatic lobe cyst. THIS IS AN ELECTRONICALLY VERIFIED FINAL REPORT 10/08/2023 8:10 AM - Electronically signed by Rajat Pugh M.D. CH: GABY Report ID: [id number] Reading Location: [id number] Social History Type Status Start Date End Date Code Code Syst em Smoking History Never smoker (Never Smoked) 938010209 SNOMED CT Sex Female Medications Medication Start Date End Date Route Frequency Dose Code Code System Medication Instructions Home Meds Lasix 20MG Oral Tablet 06/02/2016 Unknown ORAL ONCE A DAY 20 MILLIGRAMS RxNorm TAKE 20 MILLIGRAMS ORAL ONCE A DAY POTASSIUM 10 MEQ XR 06/02/2016 Unknown ORAL DAILY WITH MEAL 1 TABLET RxNorm TAKE 1 TABLET ORAL DAILY WITH MEAL Amitriptyl ine 25MG Oral Tablet 10/31/2019 Unknown ORAL NEEDED AT BEDTIME 25 MILLIGRAMS [id number] RxNorm TAKE 25 MILLIGRAMS ORAL NEEDED AT BEDTIME Benazepril Hydrochlor lety 20MG Oral Tablet 10/31/2019 Unknown ORAL ONCE A DAY 2 TABLET 690879 RxNorm TAKE 2 TABLET ORAL ONCE A DAY Carvedilol 12.5MG Oral Tablet 10/31/2019 Unknown ORAL TWICE A DAY 12.5 MILLIGRAMS 19990818 RxNorm TAKE 12.5 MILLIGRAMS ORAL TWICE A DAY Paxil 20MG Oral Tablet 10/31/2019 Unknown ORAL AT BEDTIME 20 MILLIGRAMS 303563 RxNorm TAKE 20 MILLIGRAMS ORAL AT BEDTIME Vitamin D3 1000IU Oral Tablet 10/31/2019 Unknown ORAL ONCE A DAY 1000 INTERNATIONAL UNITS 19921117 RxNorm TAKE 1000 INTERNATIONAL UNITS ORAL ONCE A DAY Vitamin E 400 IU Oral Tablet 10/31/2019 10/15/19 24 ORAL ONCE A DAY 2 CAPSULE RxNorm TAKE 2 CAPSULE ORAL ONCE A DAY Gabapentin 600MG Oral Tablet 11/05/2020 Unknown ORAL AT BEDTIME 600 MILLIGRAMS 586665 RxNorm TAKE 600 MILLIGRAMS ORAL AT BEDTIME NIFEdipine 30MG Oral Tablet, Extended Release 11/05/2020 10/15/19 24 ORAL ONCE A DAY 30 MILLIGRAMS 5692039 RxNorm TAKE 30 MILLIGRAMS ORAL ONCE A DAY Omeprazole 40MG Oral Capsule, Delayed Release 11/05/2020 Unknown ORAL TWICE A DAY 40 MILLIGRAMS 20020727 RxNorm TAKE 40 MILLIGRAMS ORAL TWICE A DAY SEROquel 25MG QUEtiapine Oral Tablet 11/05/2020 Unknown ORAL AT BEDTIME 25 MG QUEtiapine 927827 RxNorm TAKE 25 MG QUEtiapine ORAL AT BEDTIME Aspirin 81MG Oral Tablet, Enteric Coated 11/02/2023 Unknown ORAL 81 MILLIGRAMS 749193 RxNorm TAKE 81 MILLIGRAMS ORAL Multivitam in Oral Tablet 11/02/2023 Unknown ORAL ONCE A DAY 1 unit(s) RxNorm TAKE 1 EACH ORAL ONCE A DAY NIFEdipine 30MG Oral Tablet, Extended Release 11/02/2023 Unknown ORAL ONCE A DAY 90 MILLIGRAMS 3545600 RxNorm TAKE 90 MILLIGRAMS ORAL ONCE A DAY Assessment You had the following problems:ABNORMAL FINDINGS ON DIAGNOSTIC IMAGING OF LIVER AND BILIARY TRACTOTHER FATIGUEDIZZINESS Hospital Discharge Instructions Should you have any questions prior to discharge, please contact a member of your healthcare team. If you have left the hospital and have any questions, please contact your primary care physician. Reason For Referral No Data Found Problems Problem Start Date Resolved Date Status Code Code System ABNORMAL FINDINGS ON DIAGNOS TIC IMAGING OF LIVER AND BILIARY TRACT active 632964000 SNOMED-CT OTHER FATIGUE active 72701693 SNOMED -CT DIZZINESS active 302859498 SNOMED-CT Allergies and Adverse Reactions Allergy Substance Reaction Severity Start Date Concern Status Code Code System SULFA (sulfonamide) ANAPHYLACTIC (SNOMED-CT: null) Moderate Active 69262 RxNorm PENICILLINS (CLASS) Itching (SNOMED-CT: 529739973) Moderate Active 94482 RxNorm PREDNISONE Vomiting (SNOMED-CT: 291453022) Moderate Active 8640 RxNorm FENOFIBRATE TORSADES (SNOMED-CT: null) Active 8703 RxNorm DIFLUCAN ABD pain (SNOMED-CT: 89381640) Moderate Active 20270620 RxNorm Plan of Treatment US Abdomen Complete (66465) 10/08/2023 Colonoscopy 11/02/2023 Encounters Encounter Diagnosis Start Date Code Code Sys tem Fatty (change of) liver, not elsewhere classified 09/17 SNOMED-CT Personal Care Team Section Performer Name Performer Role Active Date Inactive DEYSI Webb DIRECTOR [employer]ER[employer] AGENCY PCP - Primary care physician 2021-10-17 4 2022-01-10 RAJANI TSANG PCP - Primary care physician 20202021-11-08 RAVIN CASTAÑEDA PCP - Primary care physician 2022-01-10 2023-05-27 ALEXIS GUERRERO PCP - Primary care physician Imaging Narrative Notes
--- OUTSIDE RECORDS SUMMARY | 2024-08-22 01:12 | XMS_ITS ---
Author Organization Unknown Address [id number] [place] [address] [phone] Phone Care Team Providers Care Neon Sign Erector Name Role Phone ERASMO HENLEY Attending Unavailable CESAR ESPINOZA Primary Unavailable Immunization [...] mcg/0.25mL dose 08/24/2020 Completed 207 CVX Results URINALYSIS w/Microscopy/C&S if indicated - Collect Date/Time: 06/07/2024 21:38 [facility] ID: [id number] [place], [place], [id number] LOINC: 28140-9 Test Value Unit Reference Range Code Code System Flag UR SOURCE VOIDED 72475-9 LOINC COLOR YELLOW YELLOW 5778-6 LOINC CLARITY CLOUDY CLEAR 36524-8 LOINC SPEC GRAVITY >=1.030 1.000-1.030 5811-5 LOINC A PH 5.5 5.0 - 6.5 5803-2 LOINC LEUK EST NEGATIVE NEGATIVE 5799-2 LOINC NITRATE NEGATIVE NEGATIVE PROTEIN TRACE NEGATIVE 5804-0 LOINC GLUCOSE NEGATIVE NEGATIVE 86402-4 LOINC KETONES NEGATIVE NEGATIVE 15132-6 LOINC UROBILINOGEN 0.2 0.2 - 1.0 5818-0 LOINC BILIRUBIN NEGATIVE NEGATIVE 33108-1 LOINC BLOOD 1+ NEGATIVE 12411-8 LOINC WBC 0-2 0 - 2 36336-3 LOINC RBC 2-5 0 - 2 27124-5 LOINC EPITHELIAL MODERATE RARE-FEW 76604-4 LOINC A BACTERIA 3+ NONE SEEN 61551-7 LOINC A MUCUS MANY NONE SEEN 8247-9 LOINC A YEAST NOT PRESENT NOT PRESENT 95389-0 LOINC CASTS SEE BELOW 04129-3 LOINC CRYSTALS NONE SEEN 38116-8 LOINC CULTURE? NO 8251-1 LOINC DIAGNOSIS N/A TV Trich genital swab/urine PCR CEPHEID - Collect Date/Time: 06/07/2024 21:38 [facility] ID: [id number] [place], [place], [id number] LOINC: 37774-4 Test Value Unit Reference Range Code Code System Flag TV TRICH SOURCE: URINE TV TRICH NOT DETECTED SEND TO [facility]? NO Social History Type Status Start Date End Date Code Code Syst em Smoking History Never smoker (Never Smoked) 972325135 SNOMED CT Sex Female Medications Medication Start [...] Unknown ORAL NEEDED AT BEDTIME 25 MILLIGRAMS 769566 RxNorm TAKE 25 MILLIGRAMS ORAL NEEDED AT BEDTIME Benazepril Hydrochlor lety 20MG Oral Tablet 10/31/2019 Unknown ORAL ONCE A DAY 2 TABLET 544734 RxNorm TAKE 2 TABLET ORAL ONCE A DAY Carvedilol 12.5MG Oral Tablet 10/31/2019 Unknown ORAL TWICE A DAY 12.5 MILLIGRAMS 19990818 RxNorm TAKE 12.5 MILLIGRAMS ORAL TWICE A DAY Paxil 20MG Oral Tablet 10/31/2019 Unknown ORAL AT BEDTIME 20 MILLIGRAMS 471488 RxNorm TAKE 20 MILLIGRAMS ORAL AT BEDTIME Vitamin D3 1000IU Oral Tablet 10/31/2019 Unknown ORAL ONCE A DAY 1000 INTERNATIONAL UNITS 490966 RxNorm TAKE 1000 INTERNATIONAL UNITS ORAL ONCE A DAY Gabapentin 600MG Oral Tablet 11/05/2020 Unknown ORAL AT BEDTIME 600 MILLIGRAMS 938680 RxNorm TAKE 600 MILLIGRAMS ORAL AT BEDTIME Omeprazole 40MG Oral Capsule, Delayed Release 11/05/2020 Unknown ORAL TWICE A DAY 40 MILLIGRAMS 20020727 RxNorm TAKE 40 MILLIGRAMS ORAL TWICE A DAY SEROquel 25MG QUEtiapine Oral Tablet 11/05/2020 Unknown ORAL AT BEDTIME 25 MG QUEtiapine 394394 RxNorm TAKE 25 MG QUEtiapine ORAL AT BEDTIME Aspirin 81MG Oral Tablet, Enteric Coated 11/02/2023 Unknown ORAL 81 MILLIGRAMS 981730 RxNorm TAKE 81 MILLIGRAMS ORAL Multivitam in Oral Tablet 11/02/2023 Unknown ORAL ONCE A DAY 1 unit(s) RxNorm TAKE 1 EACH ORAL ONCE A DAY NIFEdipine 30MG Oral Tablet, Extended Release 11/02/2023 Unknown ORAL ONCE A DAY 90 MILLIGRAMS 7285985 RxNorm TAKE 90 MILLIGRAMS ORAL ONCE A [...] IMAGING OF LIVER AND BILIARY TRACT active 008046280 SNOMED-CT OTHER FATIGUE active 97971081 SNOMED -CT DIZZINESS active 213695984 SNOMED-CT Allergies and Adverse Reactions Allergy Substance Reaction Severity Start Date Concern Status Code Code System SULFA (sulfonamide) ANAPHYLACTIC (SNOMED-CT: null) Moderate Active 42321 RxNorm PENICILLINS (CLASS) Itching (SNOMED-CT: 041419821) Moderate Active 68920 RxNorm PREDNISONE Vomiting (SNOMED-CT: 096264081) Moderate Active 8640 RxNorm FENOFIBRATE TORSADES (SNOMED-CT: null) Active 8703 RxNorm DIFLUCAN ABD pain (SNOMED-CT: 27248202) Moderate Active 20270620 RxNorm Plan of Treatment US Abdomen Complete (85072) 10/08/2023 Colonoscopy 11/02/2023 Encounters Encounter Diagnosis Start Date Code Code Sys tem Acute cystitis without hematuria 06/07/2024 SNOMED-CT Personal Care Team Section Performer Name Performer Role Active Date Inactive DEYSI Webb OPERATING ROOM COORDINATOR PCP - Primary care physician 2021-10-17 4 2022-01-10 RAJANI TSANG OPERATING ROOM COORDINATOR PCP - Primary care physician 20202021-11-08 RAVIN CASTAÑEDA PCP - Primary care physician 2022-01-10 2023-05-27 ALEXIS GUERRERO PCP - Primary care physician
--- OUTSIDE RECORDS SUMMARY | 2024-08-22 01:12 | XMS_ITS | Data Portability ---
Author Organization [facility], [address] ([place]) Address [address] 4[address] [place] [address] Care Team Providers Care Barrel Plater Name Role Phone MIRANDA SILVA Primary Care Provider Assessment Encounter Date Assessment Date Assessment LastModified by Organization Details LastModified Time 12/13/2023 12/13/2023 Patient was told that she has a rectal prolapse and she states that she can feel things from time to time with bowel movements. What ever is happening spontaneously reduces. I do suspect it is more likely that she has prolapsing internal hemorrhoid disease rather than a true full-thickness rectal prolapse. We discussed dietary fiber and how to get the right amount on a regular basis which I suspect will minimize her symptoms. I did offer her a defocography to get more information but she declined at this time. Follow-up as needed. [email or web address] Not available 12/13/2023 11:06:44 Plan of Treatment Reminders Order Date Submit Date Provider Last Modified By Organization Details Last Modified Time Details Appointments None record ed. Lab None record ed. Referral None record ed. Procedures None record ed. Surgeries None record ed. Imaging None record ed. Medication Orders None record ed. Patient TargetsNo targets recorded. Patient InstructionsNo instructions recorded. Reason for Referral None Reported. Results Created Date Observation Date Name Description Value Unit Range Abnormal Flag Note LastModifiedBy Organization Detail LastModifiedTime 04/15/20 24 09/28/2023 feliciano gonzales/marleni woody tic resul t No observ ation record ed. [email or web address] Not Available 21:27:53 Result Notes None recorded. Problems Name Problem SNOMED Code Status Onset Date Resolution Date Notes Provider Name and Address Organization Details Recorded Time Rectal prolapse 49974647 Active 024 Darrian Delaney MD [address] [place] [address], [phone] , [facility] 11:06:58 Problem Notes None recorded. Procedures Surgical History None recorded. Imaging Results Imaging Date Name Status LastModified by Organiz ation Details LastModified Time 09/28/2023 imaging/diag nostic result completed [email or web address] Information not available 04/15/2024 21:27:53 Procedure Notes None recorded. Medical Equipment None Reported. Allergies Allergen ID Allergen Name Allergen Category Reaction Reaction Severity Criticality Documentation Date Start Date Code Code System Note Provider Name and Address Organization Details Recorded Time 4050557 fenofibra te medicatio n chest pain Not available Not available 07/18/20232017 8703 RxNorm React ion: Chest Pain; Not Available Not Available Not Available 8943634 prednison e medicatio n other Not available Not available 07/18/20232016 8640 RxNorm React ion: GI Upset ; Not Available Not Available Not Available 4544747 Product containin g 3-hydroxy -3-methyl glutaryl- coenzyme A reductase inhibitor (product) medicatio n other Not available Not available 07/18/20232016 70805 009 SNOMED React ion: GI Upset ; Not Available Not Available Not Available 5696044 codeine sulfate medicatio n hallucina tions Not available Not available 07/18/20232007 76163 RxNorm React ion: Hallu cinat ions; Not Available Not Available Not Available 187592 metronida zole medicatio n hives Not available Not available 07/16/20232011 6922 RxNorm React ion: Hives ; Not Available Not Available Not Available 452411 Substance with sulfonami de structure and antibacte rial mechanism of action (substanc e) medicatio n dyspnea Not available Not available 07/16/20232006 35724 8003 SNOMED React ion: Hives ; Short ness of breat h; Not Available Not Available Not Available 705102 Diflucan medicatio n Not available Not available Not available 07/16/2023201881 3 RxNorm React ion: Other : GFR dropp ed to 44; Not Available Not Available Not Available 095809 Product containin g penicilli n (product) medicatio n dyspnea Not available Not available 07/16/20232007 12095 8001 SNOMED React ion: Short ness of breat h; Not Available Not Available Not Available 460786 peanut allergeni c extract food,medi cation anaphylax is Not available Not available 07/16/20232011 72707 8 RxNorm React ion: Throa t Swell ing; Short ness of breat h; Comme nt: Peanu ts ; Not Available Not Available Not Available 641635 tramadol hydrochlo ride medicatio n other Not available Not available 07/16/20232014 35079 RxNorm React ion: Unkno wn to Patie nt; Comme nt: Annot ation s: TERRELL OHARA 2017 2:16P M does not work for pt; ; Not Available Not Available Not Available Medications Name Sig Start Date Stop Date Status Note LastModified by Organization Details LastModified Time celecoxib 200 mg capsule TAKE 1 CAPSULE BY MOUTH TWICE DAILY FOR 7 DAYS THEN NEEDED active Not Available Not Available No t Available gabapentin 600 mg tablet active Not Available Not Available Not Available doxycycline hyclate 100 mg capsule 12/12 completed Not Available Not Available Not Available carvedilol 12.5 mg tablet active Not Available Not Available Not Available valacyclovi r 1 gram tablet TAKE 1 TABLET BY MOUTH THREE TIMES DAILY FOR 7 DAYS. active Not Available Not Available No t Available Nystop 100,000 unit/gram topical powder APPLY TO THE AFFECTED AREA TWICE DAILY active Not Available Not Available No t Available potassium chloride ER 10 mEq tablet,exte nded release active Not Available Not Available Not Available nifedipine ER 30 mg tablet,exte nded release active Not Available Not Available Not Available levofloxaci n 250 mg tablet TAKE 1 TABLET BY MOUTH DAILY FOR UTI active Not Available Not Available No t Available amitriptyli ne 25 mg tablet TAKE 1 TABLET BY MOUTH DAILY active Not Available Not Available No t Available nifedipine ER 60 mg tablet,exte nded release 24 hr active Not Available Not Available Not Available dicyclomine 20 mg tablet 12/12 completed Not Available Not Available Not Available nifedipine ER 90 mg tablet,exte nded release 24 hr TAKE 1 TABLET BY MOUTH EVERY DAY active Not Available Not Available No t Available ascorbic acid (vitamin C) 250 mg tablet TAKE 1 TABLET BY MOUTH ONCE DAILY ALONG WITH THE IRON TABLET active Not Available Not Available No t Available paroxetine 20 mg tablet TAKE 1 TABLET BY MOUTH DAILY active Not Available Not Available No t Available gabapentin 300 mg capsule TAKE 1 CAPSULE BY MOUTH AT BEDTIME active Not Available Not Available No t Available furosemide 20 mg tablet TAKE 1 TABLET BY MOUTH DAILY NEEDED active Not Available Not Available No t Available benazepril 40 mg tablet active Not Available Not Available Not Available ondansetron 4 mg disintegrat ing tablet DISSOLVE 1 TABLET ON THE TONGUE EVERY 6 HOURS NEEDED FOR NAUSEA OR VOMITING active Not Available Not Available No t Available metformin ER 500 mg tablet,exte nded release 24 hr TAKE 1 TABLET BY MOUTH DAILY DIRECTED 12/12 completed Not Available Not Available Not Available aripiprazol e 5 mg tablet TAKE 1 TABLET BY MOUTH DAILY active Not Available Not Available No t Available nitrofurant oin monohydrate /macrocryst als 100 mg capsule 12/12 completed Not Available Not Available Not Available aripiprazol e 2 mg tablet TAKE 1 TABLET BY MOUTH DAILY active Not Available Not Available No t Available FeroSul 325 mg (65 mg iron) tablet TAKE 1 TABLET BY MOUTH DAILY WITH VITAMIN TABLET active Not Available Not Available No t Available cholecalcif odette (vitamin D3) 125 mcg (5,000 unit) tablet TAKE 1 TABLET BY MOUTH DAILY active Not Available Not Available No t Available Lucira Check-It COVID-19 Home Test kit COVID active Not Available Not Available Not Available Vitals Date Recorded Body height Body mass index (BMI) Body weight Systolic blood pressure Diastolic blood pressure Provider Name and Address Organization Details Last Updated DateTime 12/13/2023 157.48 cm 50.1 kg/m2 160487.3 1 g 110 mm[Hg] 82 mm[Hg] [facility] 10:26:15 Social History None recorded. Functional Status None recorded. Mental Status None recorded. Family History Nothing Reported. Medical History No medical history recorded. Gynecological HistoryNo gynecological history recorded. Obstetrics History GPAL:G 0 P 0 0 0 0 Past Encounters Encounter ID Performer Location Encounter Start Date Encounter Closed Date Diagnosis/Indication Diagnosis SNOMED-CT Code Diagnosis ICD10 Code Diagnosis Note [id number] Darrian Delaney MD [address] ([place]) [address] [place] [address] 12/13/2023 10:04:18 12/13/2023 11:07:24 Rectal prolapse 31152993 K62.3 Health Concerns Section Related Observation LastModified by Organization Detai ls LastModified Time None Recorded Concern Status LastModified by Organization Details LastModified Time None Recorded Advance Directives Directive None Recorded Payers Encounter Date Sequence Insurance Name Policy Number Policy Nelson Covered Member ID Nelson Member ID Guarantor Name 12/13/2023 1 [facility] (MEDICARE REPLACEMENT/A DVANTAGE - PPO) [id number] Felicita Cr Jose [id number] Felicita Cr Jose 12/13/2023 2 [place] [facility]ID Felicita Cr Jose [id number] Felicita Cr Jose Notes Date Note Type Note Provider Name and Address Organization Details Recorded Time 12/13/2023 text/html Felicita states bernie tineo has noticed a prolapse when she passes her stool. She states she was in the ER for rectal bleeding that was attributed to her Aspirin intake and when she was there she was told she had a prolapse. She states she has not had any further bleeding since stopping the Aspirin. She states she can feel the prolapse with every bowel movement. She denies any pain when passing her stool. She states the prolapse will go back in on its own. She has bowel movements daily. Her last colonoscopy was August [address] Hoffmann.-History of Present Illness documented by nursing staff, verified and amended as necessary by the Attending Provider who electronically signs this note. Darrian Delaney MD [address] [facility], [place], [address], [facility] 12/13/2023 11:07:06 OBGyn Episode No OBEpisode recorded.
--- OUTSIDE RECORDS SUMMARY | 2024-08-22 01:12 | XMS_ITS ---
Author Organization Unknown Address [address] [place] [phone] Phone Care Team Providers Care Television Tube Inspector Name Role Phone ULYSSES Cope Attending Unavailable WELLINGTON ROD CRM COORDINATOR Unavailable CESAR ESPINOZA Primary Unavailable Immunization Immunization [...] 50 mcg/0.25mL dose 08/24/2020 Completed 207 CVX Social History Type Status Start Date End Date Code Code Syst em Smoking History Never smoker (Never Smoked) 270081386 SNOMED CT Sex Female Vital Signs Vital Sign Value Unit Edwards Value Edwards Unit Date/Time Recent/Initial? Code Code System Body Mass Index 49.20 kg/m2 11/02/2023 09:15 Most Recent 10057 -5 [facility] Body Mass Index 47.55 kg/m2 10/15/2023 14:01 Initial 14590 -5 [facility] Systolic Blood Pressure 129 mm[Hg] 11/02/2023 09:11 Initial 8480- 6 [facility] Diastolic Blood Pressure 63 mm[Hg] 11/02/2023 09:11 Initial 8462- 4 [facility] Body Surface Area 2.31 m2 11/02/2023 09:15 Most Recent 3140- 1 [facility] Body Surface Area 2.27 m2 10/15/2023 14:01 Initial 3140- 1 [facility] Height 157.480 0 cm 62.00 in 11/02/2023 09:15 Most Recent 8302- 2 [facility] Height 157.480 0 cm 62.00 in 10/15/2023 14:01 Initial 8302- 2 [facility] O2 Saturation 95 % 2023 09:11 Initial 28439 -5 [facility] Pulse 66.0 /min 11/02/2023 09:11 Initial 8867- 4 [facility] Respiration 14 /min 11/02/19 09:11 Initial 9279- 1 [facility] Temperature 36.5 Amalia 97.7 F 11/02/19 24 09:11 Initial 8310- 5 [facility] Weight 122.02 kg 269.00 lbs 11/02/2023 09:15 Most Recent 42632 -7 [facility] Weight 117.93 kg 260.00 lbs 10/15/2023 14:01 Initial 02759 -7 [facility] Medications Medication Start Date End Date Route [...] Unknown ORAL NEEDED AT BEDTIME 25 MILLIGRAMS 008631 RxNorm TAKE 25 MILLIGRAMS ORAL NEEDED AT BEDTIME Benazepril Hydrochlor lety 20MG Oral Tablet 10/31/2019 Unknown ORAL ONCE A DAY 2 TABLET 698953 RxNorm TAKE 2 TABLET ORAL ONCE A DAY Carvedilol 12.5MG Oral Tablet 10/31/2019 Unknown ORAL TWICE A DAY 12.5 MILLIGRAMS 19990818 RxNorm TAKE 12.5 MILLIGRAMS ORAL TWICE A DAY Paxil 20MG Oral Tablet 10/31/2019 Unknown ORAL AT BEDTIME 20 MILLIGRAMS 796862 RxNorm TAKE 20 MILLIGRAMS ORAL AT BEDTIME Vitamin D3 1000IU Oral Tablet 10/31/2019 Unknown ORAL ONCE A DAY 1000 INTERNATIONAL UNITS 215919 RxNorm TAKE 1000 INTERNATIONAL UNITS ORAL ONCE A DAY Gabapentin 600MG Oral Tablet 11/05/2020 Unknown ORAL AT BEDTIME 600 MILLIGRAMS 436163 RxNorm TAKE 600 MILLIGRAMS ORAL AT BEDTIME Omeprazole 40MG Oral Capsule, Delayed Release 11/05/2020 Unknown ORAL TWICE A DAY 40 MILLIGRAMS 20020727 RxNorm TAKE 40 MILLIGRAMS ORAL TWICE A DAY SEROquel 25MG QUEtiapine Oral Tablet 11/05/2020 Unknown ORAL AT BEDTIME 25 MG QUEtiapine 197353 RxNorm TAKE 25 MG QUEtiapine ORAL AT BEDTIME Aspirin 81MG Oral Tablet, Enteric Coated 11/02/2023 Unknown ORAL 81 MILLIGRAMS 133795 RxNorm TAKE 81 MILLIGRAMS ORAL Multivitam in Oral Tablet 11/02/2023 Unknown ORAL ONCE A DAY 1 unit(s) RxNorm TAKE 1 EACH ORAL ONCE A DAY NIFEdipine 30MG Oral Tablet, Extended Release 11/02/2023 Unknown ORAL ONCE A DAY 90 MILLIGRAMS 0579544 RxNorm TAKE 90 MILLIGRAMS ORAL ONCE A [...] physician. Reason For Referral No Data Found Procedures Procedure Name Date Status Code Code Syste m Anesthesia for lower intesti nal endoscopic procedures, endoscope introduce 11/02/2023 completed 78015 CPT Colonoscopy, flexible; diagn ostic, including collection of specimen(s) by 11/02/2023 completed 37824 CPT Problems Problem Start Date Resolved Date Status Code Code System ABNORMAL FINDINGS ON DIAGNOS TIC IMAGING OF LIVER AND BILIARY TRACT active 505063066 SNOMED-CT OTHER FATIGUE active 09143219 SNOMED -CT DIZZINESS active 825481746 SNOMED-CT Allergies and Adverse Reactions Allergy Substance Reaction Severity Start Date Concern Status Code Code System SULFA (sulfonamide) ANAPHYLACTIC (SNOMED-CT: null) Moderate Active 71530 RxNorm PENICILLINS (CLASS) Itching (SNOMED-CT: 847617450) Moderate Active 34957 RxNorm PREDNISONE Vomiting (SNOMED-CT: 455839808) Moderate Active 8640 RxNorm FENOFIBRATE TORSADES (SNOMED-CT: null) Active 8703 RxNorm DIFLUCAN ABD pain (SNOMED-CT: 62672269) Moderate Active 20270620 RxNorm Plan of Treatment US Abdomen Complete (33040) 10/08/2023 Colonoscopy 11/02/2023 Encounters Encounter Diagnosis Start Date Code Code Sys clayton Melena 11/02/2023 SNOMED-CT Personal Care Team Section Performer Name Performer Role Active Date Inactive DEYSI Webb [facility] PCP - Primary care physician 2021-10-17 4 2022-01-10 RAJANI TSANG [facility] PCP - Primary care physician 20202021-11-08 RAVIN CASTAÑEDA PCP - Primary care physician 2022-01-10 2023-05-27 ALEXIS GUERRERO PCP - Primary care physician
--- OUTSIDE RECORDS SUMMARY | 2024-08-22 01:12 | XMS_ITS | Encounter Summary ---
Author Organization [facility] Address [facility] [place] [address] Care Team Providers Care Automatic Beam Warper Tender Name Role Phone Jr Morales MD Primary Care Provider Bernardo Leos MD Primary Care Provider Unavailable Bianca Ellis MD Primary Care Provider [phone] Tonya Valladares [facility] Primary Care Provider [phone] Sagar Pineda MD Primary Care Provider [phone] Bianca Mckeon COUNTER TACKER-C Primary Care Provider [phone] Earl Moon MD Primary Care Provider [phone] Earl Moon MD Primary Care Provider [phone] Earl Moon MD Unavailable [phone] Rosario Andrews MD Unavailable Alessio Ro MD Unavailable [phone] Jey Hoang MD Unavailable [phone] Encounter Details Date Type Department Care Team (Late st Contact Info) Description 09/01/2017 Abstract [facility] CONVERSION [address] [place] [address] , Luis Galeas MD Social History Tobacco Use Types Packs/Day Years Used Date Smoking Tobacco: Never Smokeless Tobacco: Never Alcohol Use Standard Drinks/Week Comments No 0 (1 standard drink = 0.6 oz pur e alcohol) Comments Unknown Sex and Gender Information Value Date Recorded Sex Assigned at Not on file Legal Sex Female 7:07 PM CDT Gender Identity Not on file Sexual Orientation Not on file 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 Not on file documented as of this encounter Plan of Treatment Not on file documented as of this encounter Visit Diagnoses Not on filedocumented in this encounter Additional Health Concerns Infection Onset Date Last Indicated Resolved Time COVID-19 Rule Out 08/23/2022 08/23/2022 08/23/2022 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 COVID-19 Rule Out 03/29/2023 03/29/2023 03/29/2023 6:17 AM CDT COVID-19 Rule Out 09/27/2023 09/27/2023 09/27/2023 11:04 AM CDT documented as of this encounter Care Teams Automatic Beam Warper Tender Relationship Specialty Start Date End Date Jr Morales MD [address] [place] [address] PCP - General INTERNAL MEDICINE 11/09/16 09/05/17 Bernardo Leos MD [address] [address] PCP - General INTERNAL MEDICINE 09/06/17 08/27/19 Bianca Ellis MD [address] [place] [address] PCP - General FAMILY PRACTICE 08/28/19 07/23/21 Tonya Valladares, JULISSA- [address] [place] [address] PCP - General NURSE PRACTITIONER 07/24/21 08/23/22 Sagar Pineda MD [address] [place] [address] PCP - General FAMILY PRACTICE 08/24/22 03/01/23 Bianca Mckeon COUNTER TACKER-C [address] [place] [address] PCP - General Nurse Practitioner [facility] 03/02/2308/18 Earl Moon MD [address] [place] [address] PCP - General FAMILY PRACTICE 08/20/23 09/21/23 Earl Moon MD [address] [place] [address] PCP - General FAMILY PRACTICE 09/22/23 Earl Moon MD [address] [place] [address] FAMILY PRACTICE 09/22/23 Rosario Andrews MD [address] [place] [address] CLINICAL CARDIAC ELECTROPHYSIOLOGY 12/08/16 10/23/22 Alessio Ro MD [address] [place] [address] HEART & VASCULAR CARE 12/20/20 Jey Hoang MD [address] [facility] [address] [place] [address] Physician INTERVENTIONAL CARDIOLOGY 12/06/2205/19/24 documented as of this encounter
--- OUTSIDE RECORDS SUMMARY | 2024-08-22 01:13 | XMS_ITS | Encounter Summary ---
Author Organization [facility] Address [facility] [place] [address] Care Team Providers Care Market Risk Manager Name Role Phone Bianca Ellis MD Primary Care Provider [phone] Tonya Valladares [facility] Primary Care Provider [phone] Sagar Pineda MD Primary Care Provider [phone] Bianca Mckeon MANAGER VEHICLE-C Primary Care Provider Earl Moon MD Primary Care Provider [phone] Earl Moon MD Primary Care Provider [phone] Earl Moon MD Unavailable [phone] Rosario Andrews MD Unavailable Alessio Ro MD Unavailable [phone] Jey Hoang MD Unavailable [phone] Encounter Details Date Type Department Care Team (Late st Contact Info) Description 11/24/2020 Isoflux Message [facility] Patient [facility]s [address] [place] [address] [email or web address] Provider Date of service 11/05/20 Social History Tobacco Use Types Packs/Day Years Used Date Smoking Tobacco: Never Smokeless Tobacco: Never Alcohol Use Standard Drinks/Week Comments No 0 (1 standard drink = 0.6 oz pur e alcohol) Comments No Sex and Gender Information Value Date Recorded Sex Assigned at Not on file Legal Sex Female 7:07 PM CDT Gender Identity Not on file Sexual Orientation Not on file 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 COVID-19 Rule Out 03/29/2023 03/29/2023 03/29/2023 6:17 AM CDT COVID-19 Rule Out 09/27/2023 09/27/2023 09/27/2023 11:04 AM CDT documented as of this encounter Care Teams Market Risk Manager Relationship Specialty Start Date End Date Bianca Ellis MD [address] [place] [address] PCP - General FAMILY PRACTICE 08/28/19 07/23/21 Tonya Valladares FNP-CHRISTINA [address] [place] [address] PCP - General NURSE PRACTITIONER 07/24/21 08/23/22 Sagar Pineda MD [address] [place] [address] PCP - General FAMILY PRACTICE 08/24/22 03/01/23 Bianca Mckeon NP-C [address] [place] [address] PCP - General Nurse Practitioner [facility] 03/02/2308/18 Earl Moon MD [address] [place] [address] PCP - General FAMILY PRACTICE 08/20/23 09/21/23 Earl Moon MD [address] [place] [address] PCP - General FAMILY PRACTICE 09/22/23 Earl Moon MD [address] [place] [address] [facility] PRACTICE 09/22/23 Rosario Andrews MD [address] [place] [address] CLINICAL CARDIAC ELECTROPHYSIOLOGY 12/08/16 10/23/22 Alessio Ro MD [address] [place] [address] HEART & VASCULAR CARE 12/20/20 Jey Hoang MD [address] [facility] [address] [address] Physician INTERVENTIONAL CARDIOLOGY 12/06/2205/19/24 documented as of this encounter
--- OUTSIDE RECORDS SUMMARY | 2024-08-22 01:13 | XMS_ITS ---
Author Organization Unknown Address [id number] [place] [phone] Phone Care Team Providers Care Human Resources Supervisor Name Role Phone RIA VARELA Attending Unavailable RICARDO Felipe Primary Unavailable Immunization Immunization Date Status Additional [...] mcg/0.25mL dose 08/24/2020 Completed 207 CVX Results TROPONIN LEVEL - Collect Avinash e/Time: 05/27/2023 11:54 [facility] ID: [id number] [place], [place], [address] LOINC: 24481-2 Test Value Unit Reference Range Code Code System Flag TROPONIN < 0.012 ng/mL L=0.000 H=0.033 19902-1 LOINC URINALYSIS w/Microscopy/C&S if indicated - Collect Date/Time: 05/27/2023 10:31 [facility] ID: [id number] [place], [place], [address] LOINC: 30978-2 Test Value Unit Reference Range Code Code System Flag UR SOURCE UNKNOWN 65449-2 LOINC COLOR YELLOW YELLOW 5778-6 LOINC CLARITY SL CLOUDY CLEAR 77516-9 LOINC SPEC GRAVITY 1.010 1.000-1.030 5811-5 LOINC PH 7.0 5.0 - 6.5 5803-2 LOINC LEUK EST NEGATIVE NEGATIVE 5799-2 LOINC NITRATE NEGATIVE NEGATIVE PROTEIN NEGATIVE NEGATIVE 5804-0 LOINC GLUCOSE NEGATIVE NEGATIVE 15931-6 LOINC KETONES NEGATIVE NEGATIVE 46670-4 LOINC UROBILINOGEN 0.2 NEGATIVE 5818-0 LOINC BILIRUBIN NEGATIVE NEGATIVE 98905-3 LOINC BLOOD TRACE-INT NEGATIVE 08845-4 LOINC WBC 0-2 0 - 2 33931-2 LOINC RBC 0-2 0 - 2 94717-2 LOINC EPITHELIAL MANY RARE-FEW 13656-3 LOINC A ~ COMMENT Prob. contamination due to improper collec ~~ COMMENT RECOLLECT REQUESTED BACTERIA 2+ NONE SEEN 52513-7 LOINC A MUCUS NONE SEEN NONE SEEN 8247-9 LOINC YEAST NOT PRESENT NOT PRESENT 70862-9 LOINC CASTS NONE SEEN 92005-5 LOINC CRYSTALS NONE SEEN 34158-1 LOINC CULTURE? NO 8251-1 LOINC DIAGNOSIS N/A CBC W/ DIFF - Collect Date/T doron: 05/27/2023 09:20 [facility] ID: [id number] [id number] [place], [place], [address] LOINC: 26298-8 Test Value Unit Reference Range Code Code System Flag WBC 5.8 10^3uL L=4.8 H=10.8 RBC 4.02 10^6uL L=4.20 H=5.40 L HEMOGLOBIN 12.3 g/dL L=12.0 H=16.0 718-7 LOINC HEMATOCRIT 36.2 VOL% L=37.0 H=47.0 4544-3 LOINC L MCV 90.0 fL L=81.0 H=99.0 MCH 30.6 pg L=27.0 H=32.0 MCHC 34.0 g/dL L=32.0 H=36.0 PLATELETS 308 10^3uL L=100 H=400 55815-0 LOINC RDW 13.3 % L=11.7 H=15.5 %GRAN 57.0 % L=40.0 H=70.0 73786-4 LOINC %LYMPH 33.3 % L=20.0 H=45.0 736-9 LOINC %MONO 7.5 % L=2.0 H=10.0 87832-2 LOINC %EOS 1.4 % L=0.0 H=6.0 713-8 LOINC %BASO 0.5 % L=0.0 H=3.0 706-2 LOINC #NEUT 3.3 10^3uL L=1.9 H=7.6 06031-0 LOINC #LYMPH 1.9 10^3uL L=0.9 H=4.9 37382-9 LOINC #MONO 0.4 10^3uL L=0.1 H=0.9 93803-3 LOINC #EOS 0.1 10^3uL L=0.0 H=0.6 712-0 LOINC #BASO 0.03 10^3uL L=0.00 H=0.10 69249-6 LOINC #IM GRANS 0.0 10^3uL L=0.0 H=7.0 09461-1 LOINC %IM GRANS 0.3 % L=0.0 H=5.0 51602-2 LOINC %NRB 0.0 L=0.0 H=0.2 15701-0 LOINC #NRB 0.000 L=0.000 H=0.012 72856-8 LOINC MANUAL DIFF NOT INDICATED RBC MORPH NOT INDICATED COMPREHENSIVE METABOLIC PANE L - Collect Date/Time: 05/27/2023 09:20 [facility] ID: [id number] [address] [place], [place], [address] LOINC: 39528-3 Test Value Unit Reference Range Code Code System Flag FASTING UNKNOWN BUN 12 mg/dL L=7 H=20 3094-0 LOINC CREATININE 0.90 mg/dL L=0.52 H=1.04 2160-0 LOINC GLUCOSE 127 mg/dL L=74 H=106 2345-7 LOINC H SODIUM 137 mmol/L L=132 H=144 2951-2 LOINC POTASSIUM 3.5 mmol/L L=3.5 H=5.1 2823-3 LOINC CHLORIDE 99 mmol/L L=98 H=107 2075-0 LOINC CO2 29.0 mmol/L L=22.0 H=30.0 2028-9 LOINC ANION GAP 13 L=10 H=20 86602-6 LOINC OSMOLALITY 285 mOs/kG L=280 H=296 58870-6 LOINC BUN/CREAT 13.3 3097-3 LOINC CALCIUM 9.5 mg/dL L=8.3 H=10.5 29385-1 LOINC AST 23 U/L L=15 H=46 1920-8 LOINC ALT 25 U/L L=9 H=72 1742-6 LOINC ALKALINE PHOS 85 U/L L=38 H=126 6768-6 LOINC TOTAL BILI 0.7 mg/dL L=0.2 H=1.3 1975-2 LOINC ALBUMIN 4.6 G/dL L=3.5 H=5.0 1751-7 LOINC TOTAL PROTEIN 7.9 g/L L=6.3 H=8.2 2885-2 LOINC A/G RATIO 1.4 67948-3 LOINC AGE 57 40247-9 LOINC eGFR NON-AFR 69 ml/min eGFR AFR AMER 83 ml/min TROPONIN LEVEL - Collect Avinash e/Time: 05/27/2023 09:20 [facility] ID: [id number] [place], [place], [address] LOINC: 72659-4 Test Value Unit Reference Range Code Code System Flag TROPONIN < 0.012 ng/mL L=0.000 H=0.033 29122-2 LOINC MAGNESIUM - Collect Date/Greg e: 05/27/2023 09:20 [facility] ID: [id number] [address] [place], [place], [address] LOINC: 89540-8 Test Value Unit Reference Range Code Code System Flag MAGNESIUM 1.9 mg/dL L=1.6 H=2.3 93689-7 LOINC CHEST 1V - Completed: 2022 09:10 LOINC: EXAM DESCRIPTION: CHEST 1V REASON FOR STUDY: onset x4 weeks, Lt. sided chest pain Duration: . TECHNIQUE: Frontal radiographic view(s) of the chest. COMPARISON: Chest radiograph dated 06/01/2019. FINDINGS: LUNGS: Low lung volumes. No focal opacity, pleural effusion, or pneumothorax. HEART/MEDIASTINUM: Cardiac silhouette normal in size. Mediastinal and hilar contours appear normal. LINES/TUBES: None. BONES: No acute osseous abnormality. IMPRESSION: No acute cardiopulmonary abnormality. THIS IS AN ELECTRONICALLY VERIFIED FINAL REPORT 05/27/2023 10:09 AM - Electronically signed by Carlos Light M.D. MF: [email or web address] Report ID: [id number] Reading Location: [id number] CT BRAIN WO CONTRAST - Compl eted: 05/27/2023 11:29 LOINC: EXAM DESCRIPTION: CT BRAIN WO CONTRAST REASON FOR STUDY: headache off and on x2 years Duration: . TECHNIQUE: Axial images acquired through the brain without intravenous contrast. Images stored on PACS. Automated exposure control was used as a dose optimization technique for this examination. COMPARISON: Head CT dated 07/23/2020. FINDINGS: BRAIN: No hemorrhage, edema or mass effect. No recent infarct. Normal white matter. EXTRA-AXIAL SPACES: No fluid collections. No masses. CALVARIUM: No fracture. SINUSES/MASTOIDS: No fluid or mucosal thickening. ORBITS: No significant abnormality. OTHER: No other significant abnormality. IMPRESSION: No acute intracranial findings. THIS IS AN ELECTRONICALLY VERIFIED FINAL REPORT 05/27/2023 12:15 PM - Electronically signed by Carlos Light M.D. MF: [email or web address] Report ID: [id number] Reading Location: [id number] Social History Type Status Start Date End Date Code Code Syst em Smoking History Never smoker (Never Smoked) 503775129 SNOMED CT Sex Female Medications Medication Start [...] Unknown ORAL NEEDED AT BEDTIME 25 MILLIGRAMS 491127 RxNorm TAKE 25 MILLIGRAMS ORAL NEEDED AT BEDTIME Benazepril Hydrochlor lety 20MG Oral Tablet 10/31/2019 Unknown ORAL ONCE A DAY 2 TABLET 537368 RxNorm TAKE 2 TABLET ORAL ONCE A DAY Carvedilol 12.5MG Oral Tablet 10/31/2019 Unknown ORAL TWICE A DAY 12.5 MILLIGRAMS 19990818 RxNorm TAKE 12.5 MILLIGRAMS ORAL TWICE A DAY Paxil 20MG Oral Tablet 10/31/2019 Unknown ORAL AT BEDTIME 20 MILLIGRAMS 374043 RxNorm TAKE 20 MILLIGRAMS ORAL AT BEDTIME Vitamin D3 1000IU Oral Tablet 10/31/2019 Unknown ORAL ONCE A DAY 1000 INTERNATIONAL UNITS 686278 RxNorm TAKE 1000 INTERNATIONAL UNITS ORAL ONCE A DAY Vitamin E 400 IU Oral Tablet 10/31/2019 10/15/19 24 ORAL ONCE A DAY 2 CAPSULE RxNorm TAKE 2 CAPSULE ORAL ONCE A DAY Gabapentin 600MG Oral Tablet 11/05/2020 Unknown ORAL AT BEDTIME 600 MILLIGRAMS 660381 RxNorm TAKE 600 MILLIGRAMS ORAL AT BEDTIME NIFEdipine 30MG Oral Tablet, Extended Release 11/05/2020 10/15/19 24 ORAL ONCE A DAY 30 MILLIGRAMS 18110618 RxNorm TAKE 30 MILLIGRAMS ORAL ONCE A DAY Omeprazole 40MG Oral Capsule, Delayed Release 11/05/2020 Unknown ORAL TWICE A DAY 40 MILLIGRAMS 20020727 RxNorm TAKE 40 MILLIGRAMS ORAL TWICE A DAY SEROquel 25MG QUEtiapine Oral Tablet 11/05/2020 Unknown ORAL AT BEDTIME 25 MG QUEtiapine 157682 RxNorm TAKE 25 MG QUEtiapine ORAL AT BEDTIME Aspirin 81MG Oral Tablet, Enteric Coated 11/02/2023 Unknown ORAL 81 MILLIGRAMS 646744 RxNorm TAKE 81 MILLIGRAMS ORAL Multivitam in Oral Tablet 11/02/2023 Unknown ORAL ONCE A DAY 1 unit(s) RxNorm TAKE 1 EACH ORAL ONCE A DAY NIFEdipine 30MG Oral Tablet, Extended Release 11/02/2023 Unknown ORAL ONCE A DAY 90 MILLIGRAMS 18110618 RxNorm TAKE 90 MILLIGRAMS ORAL ONCE A [...] IMAGING OF LIVER AND BILIARY TRACT active 768561020 SNOMED-CT OTHER FATIGUE active 77807558 SNOMED -CT DIZZINESS active 354009429 SNOMED-CT Allergies and Adverse Reactions Allergy Substance Reaction Severity Start Date Concern Status Code Code System SULFA (sulfonamide) ANAPHYLACTIC (SNOMED-CT: null) Moderate Active 38420 RxNorm PENICILLINS (CLASS) Itching (SNOMED-CT: 598395983) Moderate Active 95126 RxNorm PREDNISONE Vomiting (SNOMED-CT: 026539067) Moderate Active 8640 RxNorm FENOFIBRATE TORSADES (SNOMED-CT: null) Active 8703 RxNorm DIFLUCAN ABD pain (SNOMED-CT: 51102579) Moderate Active 20270620 RxNorm Plan of Treatment US Abdomen Complete (85425) 10/08/2023 Colonoscopy 11/02/2023 Encounters Encounter Diagnosis Start Date Code Code Sys tem Chest pain, unspecified 05/27/2023 SNOM ED-CT Personal Care Team Section Performer Name Performer Role Active Date Inactive Da DEYSI Montejo SUPERVISOR DRY PASTE PCP - Primary care physician 2021-10-17 4 2022-01-10 RAJANI TSANG PCP - Primary care physician 20202021-11-08 RAVIN CASTAÑEDA PCP - Primary care physician 2022-01-10 2023-05-27 ALEXIS GUERRERO PCP - Primary care physician Imaging Narrative Notes
--- OUTSIDE RECORDS SUMMARY | 2024-08-22 01:13 | XMS_ITS | Encounter Summary ---
Author Organization [facility] Address [facility] [place] [address] Care Team Providers Care Kinesiology Internship Name Role Phone Bernardo Leos MD Primary Care Provider Unavailable Bianca Ellis MD Primary Care Provider [phone] Tonya Valladares [facility] Primary Care Provider [phone] Sagar Pineda MD Primary Care Provider [phone] Bianca Mckeon CLINICAL ADMISSIONS MANAGER-C Primary Care Provider [phone] Earl Moon MD Primary Care Provider [phone] Earl Moon MD Primary Care Provider [phone] Earl Moon MD Unavailable [phone] Rosario Andrews MD Unavailable Alessio Ro MD Unavailable Jey Hoang MD Unavailable [phone] Encounter Details Date Type Department Care Team (Late st Contact Info) Description 11/23/2018 Abstract [facility] [address] [place] [address] Luis Ng MD Social History Tobacco Use Types Packs/Day [...] Rule Out 08/23/2022 08/23/2022 08/23/2022 8:00 PM RN CHILD COVID-19 Rule Out 03/29/2023 03/29/2023 03/29/2023 6:17 AM CDT COVID-19 Rule Out 09/27/2023 09/27/2023 09/27/2023 11:04 AM CDT documented as of this encounter Care Teams Kinesiology Internship Relationship Specialty Start Date End Date Bernardo Leos MD PCP - General INTERNAL MEDICINE 09/06/17 08/27/19 Bianca Ellis MD [address] [place] [address] PCP - General FAMILY PRACTICE 08/28/19 07/23/21 [facility] [address] [place] [address] PCP - General NURSE PRACTITIONER 07/24/21 08/23/22 Sagar Pineda MD [address] [place] [address] PCP - General FAMILY PRACTICE 08/24/22 03/01/23 Bianca Mckeon, CLINICAL ADMISSIONS MANAGER-C [address] [place] [address] PCP - General Nurse Practitioner Family 03/02/2308/18 Earl Moon MD [address] [place] [address] PCP - General FAMILY PRACTICE 08/20/23 09/21/23 Earl Moon MD [address] [place] [address] PCP - General FAMILY PRACTICE 09/22/23 Earl Moon MD [address] [place] [address] FAMILY PRACTICE 09/22/23 Rosario Andrews MD [address] [place] [address] CLINICAL CARDIAC ELECTROPHYSIOLOGY 12/08/16 10/23/22 Alessio Ro MD [address] [place] [address] HEART & VASCULAR CARE 12/20/20 Jey Hoang MD [address] [facility] [address] [place] [address] Physician INTERVENTIONAL CARDIOLOGY 12/06/2205/19/24 documented as of this encounter
--- OUTSIDE RECORDS SUMMARY | 2024-08-22 01:13 | XMS_ITS | Encounter Summary ---
Author Organization [facility] Address [facility] [place] [address] Care Team Providers Care Cat Scan Tech Name Role Phone Martha Martinez DO Primary Care Provider [phone] Non-Staff, Provider Primary Care Provider Jr Beck MD Primary Care Provider Bernardo Leos MD Primary Care Provider Unavailable Bianca Ellis MD Primary Care Provider [phone] Tonya Valladares [facility] Primary Care Provider [phone] Sagar Pineda MD Primary Care Provider [phone] Bianca Mckeon A P SUPERVISOR-C Primary Care Provider Earl Moon MD Primary Care Provider [phone] Earl Moon MD Primary Care Provider [phone] Earl Moon MD Unavailable [phone] Rosario Andrews MD Unavailable Alessio Ro MD Unavailable [phone] Jey Hoang MD Unavailable Encounter Details Date Type Department Care Team (Late st Contact Info) Description 02/23/2015 Abstract [facility] [address] [place] [phone] Blanco Crawford MD [address] [facility] [address] [place] [address] Social History Tobacco Use Types Packs/Day Years Used Date Smoking Tobacco: Never Alcohol Use Standard Drinks/Week Comments [...] Rule Out 08/23/2022 08/23/2022 08/23/2022 8:00 PM WEIGH BOSS COVID-19 Rule Out 03/29/2023 03/29/2023 03/29/2023 6:17 AM CDT COVID-19 Rule Out 09/27/2023 09/27/2023 09/27/2023 11:04 AM CDT documented as of this encounter Care Teams Cat Scan Tech Relationship Specialty Start Date End Date Martha Martinez DO PCP - General FAMILY PRACTICE 07/18/16 07/18/16 Non-Staff, Provider PCP - General 07/19/16 11/08/16 Jr Morales MD [address] [facility] [address] [place] [address] PCP - General INTERNAL MEDICINE 11/09/16 09/05/17 Bernardo Leos MD [address] [address] PCP - General INTERNAL MEDICINE 09/06/17 08/27/19 Bianca Ellis MD [address] [place] [address] PCP - General FAMILY PRACTICE 08/28/19 07/23/21 Tonya Valladares FNP- [address] [place] [address] PCP - General NURSE PRACTITIONER 07/24/21 08/23/22 Sagar Pineda MD [address] [place] [address] PCP - General FAMILY PRACTICE 08/24/22 03/01/23 Bianca Mckeon, A P SUPERVISOR-C [address] [place] [address] PCP - General Nurse Practitioner [facility] 03/02/2308/18 Earl Moon MD [address] [place] [address] PCP - General FAMILY PRACTICE 08/20/23 09/21/23 Earl Moon MD [address] [place] [address] PCP - General FAMILY PRACTICE 09/22/23 Earl Moon MD [address] [place] [address] FAMILY PRACTICE 09/22/23 Rosario Andrews MD [address] [place] [address] CLINICAL CARDIAC ELECTROPHYSIOLOGY 12/08/16 10/23/22 Alessio Ro MD [address] [place] [phone] HEART & VASCULAR CARE 12/20/20 Jey Hoang MD [address] [facility] [address] [place] [address] Physician INTERVENTIONAL CARDIOLOGY 12/06/2205/19/24 documented as of this encounter
--- OUTSIDE RECORDS SUMMARY | 2024-08-22 01:13 | XMS_ITS ---
Author Organization Unknown Address [address] [place] [phone] Phone Care Team Providers Care Plant Production Manager Name Role Phone NAM SPEARS Attending Unavailable CESAR ESPINOZA Primary Unavailable Immunization [...] mcg/0.25mL dose 08/24/2020 Completed 207 CVX Results GROUP A STREP BY PCR - Colle ct Date/Time: 08/23/2023 12:25 [facility] ID: [id number] [address] [place], [place], [address] LOINC: 91602-5 Test Value Unit Reference Range Code Code System Flag GRP A STREP PCR NEGATIVE NORMAL: NEGATIVE RESPIRATORY 4 PLEX COVID FLU RSV PCR - Collect Date/Time: 08/23/2023 12:25 [facility] ID: [id number] [address] [place], [place], [address] LOINC: 57484-6 Test Value Unit Reference Range Code Code System Flag SARS CoV2 PCR NEGATIVE FLU A PCR NEGATIVE FLU B PCR NEGATIVE RSV PCR NEGATIVE SEND TO [facility]? YES A Social History Type Status Start Date End Date Code Code Syst em Smoking History Never smoker (Never Smoked) 280060174 SNOMED CT Sex Female Medications Medication Start [...] Unknown ORAL NEEDED AT BEDTIME 25 MILLIGRAMS 701176 RxNorm TAKE 25 MILLIGRAMS ORAL NEEDED AT BEDTIME Benazepril Hydrochlor lety 20MG Oral Tablet 10/31/2019 Unknown ORAL ONCE A DAY 2 TABLET 361406 RxNorm TAKE 2 TABLET ORAL ONCE A DAY Carvedilol 12.5MG Oral Tablet 10/31/2019 Unknown ORAL TWICE A DAY 12.5 MILLIGRAMS 19990818 RxNorm TAKE 12.5 MILLIGRAMS ORAL TWICE A DAY Paxil 20MG Oral Tablet 10/31/2019 Unknown ORAL AT BEDTIME 20 MILLIGRAMS 008436 RxNorm TAKE 20 MILLIGRAMS ORAL AT BEDTIME [...] 11/05/2020 Unknown ORAL AT BEDTIME 600 MILLIGRAMS 294647 RxNorm TAKE 600 MILLIGRAMS ORAL AT BEDTIME [...] Unknown ORAL AT BEDTIME 25 MG QUEtiapine 789295 RxNorm TAKE 25 MG QUEtiapine ORAL AT BEDTIME Aspirin 81MG Oral Tablet, Enteric Coated 11/02/2023 Unknown ORAL 81 MILLIGRAMS 522512 RxNorm TAKE 81 MILLIGRAMS ORAL Multivitam in [...] IMAGING OF LIVER AND BILIARY TRACT active 562062114 SNOMED-CT OTHER FATIGUE active 72893132 SNOMED -CT DIZZINESS active 947029496 SNOMED-CT Allergies and Adverse Reactions Allergy Substance Reaction Severity Start Date Concern Status Code Code System SULFA (sulfonamide) ANAPHYLACTIC (SNOMED-CT: null) Moderate Active 86672 RxNorm PENICILLINS (CLASS) Itching (SNOMED-CT: 544453054) Moderate Active 19456 RxNorm PREDNISONE Vomiting (SNOMED-CT: 180376639) Moderate Active 8640 RxNorm FENOFIBRATE TORSADES (SNOMED-CT: null) Active 8703 RxNorm DIFLUCAN ABD pain (SNOMED-CT: 51654956) Moderate Active 20270620 RxNorm Plan of Treatment US Abdomen Complete (44683) 10/08/2023 Colonoscopy 11/02/2023 Encounters Encounter Diagnosis Start Date Code Code Sys tem Left without being seen 08/23/2023 [id number] SN OMED-CT Personal Care Team Section Performer Name Performer Role Active Date Inactive DEYSI Webb STEM TEACHER PCP - Primary care physician 2021-10-17 4 2022-01-10 RAJANI TSANG PCP - Primary care physician 20202021-11-08 RAVIN CASTAÑEDA PCP - Primary care physician 2022-01-10 2023-05-27 ALEXIS GUERRERO PCP - Primary care physician
--- OUTSIDE RECORDS SUMMARY | 2024-08-22 01:14 | XMS_ITS ---
Author Organization Unknown Address [address] [place] [phone] Phone Care Team Providers Care Scuba Dive Training Instructor Name Role Phone AMBROCIO FELDMAN Attending Unavailable CESAR ESPINOZA Primary Unavailable Immunization [...] mcg/0.25mL dose 08/24/2020 Completed 207 CVX Results CBC W/ DIFF - Collect Date/T doron: 10/03/2023 11:23 [facility] ID: [id number] [address] [place], [place], [address] LOINC: 72405-1 Test Value Unit Reference Range Code Code System Flag WBC 5.2 10^3uL L=4.8 H=10.8 RBC 3.68 10^6uL L=4.20 H=5.40 L HEMOGLOBIN 11.2 g/dL L=12.0 H=16.0 718-7 LOINC L HEMATOCRIT 34.3 VOL% L=37.0 H=47.0 4544-3 LOINC L MCV 93.2 fL L=81.0 H=99.0 MCH 30.4 pg L=27.0 H=32.0 MCHC 32.7 g/dL L=32.0 H=36.0 PLATELETS 340 10^3uL L=100 H=400 49061-2 LOINC RDW 14.3 % L=11.7 H=15.5 %GRAN 37.4 % L=40.0 H=70.0 63089-7 LOINC L %LYMPH 47.6 % L=20.0 H=45.0 736-9 LOINC H %MONO 8.2 % L=2.0 H=10.0 93840-4 LOINC %EOS 5.2 % L=0.0 H=6.0 713-8 LOINC %BASO 1.0 % L=0.0 H=3.0 706-2 LOINC #NEUT 2.0 10^3uL L=1.9 H=7.6 10573-4 LOINC #LYMPH 2.5 10^3uL L=0.9 H=4.9 19004-9 LOINC #MONO 0.4 10^3uL L=0.1 H=0.9 75778-3 LOINC #EOS 0.3 10^3uL L=0.0 H=0.6 712-0 LOINC #BASO 0.05 10^3uL L=0.00 H=0.10 91271-1 LOINC #IM GRANS 0.0 10^3uL L=0.0 H=7.0 64524-1 LOINC %IM GRANS 0.6 % L=0.0 H=5.0 27085-7 LOINC %NRB 0.0 L=0.0 H=0.2 90433-4 LOINC #NRB 0.000 L=0.000 H=0.012 05523-0 LOINC MANUAL DIFF NOT INDICATED RBC MORPH NOT INDICATED COMPREHENSIVE METABOLIC PANE L - Collect Date/Time: 10/03/2023 11:23 [facility] ID: [id number] [address] [place], [place], [address] LOINC: 97999-4 Test Value Unit Reference Range Code Code System Flag FASTING NO BUN 12 mg/dL L=7 H=20 3094-0 LOINC CREATININE 0.90 mg/dL L=0.52 H=1.04 2160-0 LOINC GLUCOSE 130 mg/dL L=74 H=106 2345-7 LOINC H SODIUM 141 mmol/L L=132 H=144 2951-2 LOINC POTASSIUM 3.8 mmol/L L=3.5 H=5.1 2823-3 LOINC CHLORIDE 103 mmol/L L=98 H=107 2075-0 LOINC CO2 28.0 mmol/L L=22.0 H=30.0 8-9 LOINC ANION GAP 14 L=10 H=20 42192-7 LOINC OSMOLALITY 294 mOs/kG L=280 H=296 99698-4 LOINC BUN/CREAT 13.3 3097-3 LOINC CALCIUM 9.6 mg/dL L=8.3 H=10.5 14750-4 LOINC AST 66 U/L L=15 H=46 1920-8 LOINC H ALT 84 U/L L=9 H=72 1742-6 LOINC H ALKALINE PHOS 93 U/L L=38 H=126 6768-6 LOINC TOTAL BILI 0.5 mg/dL L=0.2 H=1.3 1975-2 LOINC ALBUMIN 4.3 G/dL L=3.5 H=5.0 1751-7 LOINC TOTAL PROTEIN 7.5 g/L L=6.3 H=8.2 2885-2 LOINC A/G RATIO 1.3 33445-1 LOINC AGE 58 27383-1 LOINC eGFR NON-AFR 69 ml/min eGFR AFR AMER 83 ml/min MAGNESIUM - Collect Date/Greg e: 10/03/2023 11:23 [facility] ID: [id number] [address] [place], [place], [address] LOINC: 05465-3 Test Value Unit Reference Range Code Code System Flag MAGNESIUM 1.6 mg/dL L=1.6 H=2.3 46634-0 LOINC Social History Type Status Start Date End Date Code Code Syst em Smoking History Never smoker (Never Smoked) 586152988 SNOMED CT Sex Female Medications Medication Start [...] Unknown ORAL NEEDED AT BEDTIME 25 MILLIGRAMS 401904 RxNorm TAKE 25 MILLIGRAMS ORAL NEEDED AT BEDTIME Benazepril Hydrochlor lety 20MG Oral Tablet 10/31/2019 Unknown ORAL ONCE A DAY 2 TABLET 954984 RxNorm TAKE 2 TABLET ORAL ONCE A DAY Carvedilol 12.5MG Oral Tablet 10/31/2019 Unknown ORAL TWICE A DAY 12.5 MILLIGRAMS 19990818 RxNorm TAKE 12.5 MILLIGRAMS ORAL TWICE A DAY Paxil 20MG Oral Tablet 10/31/2019 Unknown ORAL AT BEDTIME 20 MILLIGRAMS 969009 RxNorm TAKE 20 MILLIGRAMS ORAL AT BEDTIME Vitamin D3 1000IU Oral Tablet 10/31/2019 Unknown ORAL ONCE A DAY 1000 INTERNATIONAL UNITS 538847 RxNorm TAKE 1000 INTERNATIONAL UNITS ORAL ONCE A DAY Vitamin E 400 IU Oral Tablet 10/31/2019 10/15/19 24 ORAL ONCE A DAY 2 CAPSULE RxNorm TAKE 2 CAPSULE ORAL ONCE A DAY Gabapentin 600MG Oral Tablet 11/05/2020 Unknown ORAL AT BEDTIME 600 MILLIGRAMS 237204 RxNorm TAKE 600 MILLIGRAMS ORAL AT BEDTIME [...] Unknown ORAL AT BEDTIME 25 MG QUEtiapine [id number] RxNorm TAKE 25 MG QUEtiapine ORAL AT BEDTIME Aspirin 81MG Oral Tablet, Enteric Coated 11/02/2023 Unknown ORAL 81 MILLIGRAMS [id number] RxNorm TAKE 81 MILLIGRAMS ORAL Multivitam in [...] IMAGING OF LIVER AND BILIARY TRACT active [id number] SNOMED-CT OTHER FATIGUE active 48879357 SNOMED -CT DIZZINESS active 509002303 SNOMED-CT Allergies and Adverse Reactions Allergy Substance Reaction Severity Start Date Concern Status Code Code System SULFA (sulfonamide) ANAPHYLACTIC (SNOMED-CT: null) Moderate Active 11400 RxNorm PENICILLINS (CLASS) Itching (SNOMED-CT: 974364299) Moderate Active 24222 RxNorm PREDNISONE Vomiting (SNOMED-CT: 662257656) Moderate Active 8640 RxNorm FENOFIBRATE TORSADES (SNOMED-CT: null) Active 8703 RxNorm DIFLUCAN ABD pain (SNOMED-CT: 08473887) Moderate Active 20270620 RxNorm Plan of Treatment US Abdomen Complete (87672) 10/08/2023 Colonoscopy 11/02/2023 Encounters Encounter Diagnosis Start Date Code Code Sys tem Poisoning by unspecified jovany gs, medicaments and biological substances, accidental (unintentional), initial encounter 10/03/2023 SNOMED-CT Personal Care Team Section Performer Name Performer Role Active Date Inactive Da DEYSI Montejo PCP - Primary care physician 2021-10-17 4 2022-01-10 RAJANI TSANG PCP - Primary care physician 20202021-11-08 RAVIN CASTAÑEDA PCP - Primary care physician 2022-01-10 2023-05-27 ALEXIS GUERRERO PCP - Primary care physician
--- OUTSIDE RECORDS SUMMARY | 2024-08-22 01:14 | XMS_ITS | Clinical Summary ---
Author Organization [facility] Address [address] [place] [address] Phone Care Team Providers Care Home Care Manager Name Role Phone Eral Moon MD Primary Care Provider Jorgito Yarbrough MD Unavailable [phone] Allergies Active Allergy Reactions Criticality Noted Date Comments Fluconazole Anaphylaxis 08/28/2018 Fenofibrate Other (see Comments) 08/28/2018 Torsades Peanut Allergen Powder-Dnfp Shortness of Breath 10/29/2023 Penicillins Itching 08/28/2018 Statins Diarrhea 10/29/2023 Sulfa Antibiotics Anaphylaxis 08/28/2018 Medications amitriptyline (ELAVIL) 25 MG Tablet Take 1 Tab by mouth. 12/14/2016 Active benazepril (LOTENSIN) 40 MG Tablet TK 2 TS PO QD 06/10/2018 Active carvedilol (COREG) 12.5 MG Tablet TK 1 T PO BID 7 08/15/2018 Active cholecalciferol (VITAMIN D-[address]) 1000 UNIT Tablet Take 1 Tab by mouth. Active dicyclomine (BENTYL) 20 MG Tablet TK 1 T PO QID 05/18/2016 Active ferrous sulfate 325 (65 Fe) MG Tablet Take 1 Tab by mouth. 12/22/2011 Active fluticasone (FLONASE) 50 MCG/ACT Suspension 2 Sprays by Nasal route. 02/26/2018 Active furosemide (LASIX) 20 MG Tablet TK 1 T PO QD 7 08/04/2018 Active gabapentin (NEURONTIN) 600 MG Tablet TK 1 T PO QD HS 5 07/03/2018 Active hydrocortisone (ANUSOL-HC) 2.5 % Cream U REC BID 1 08/12/2018 Active ibuprofen (MOTRIN) 800 MG Tablet Take 1 Tab by mouth. 02/14/2018 Active Multiple Vitamin (DAILY VITAMINS) Tablet Take 1 Tab by mouth. 12/22/2011 Active omeprazole (PRILOSEC) 20 MG CAPSULE DELAYED RELEASE Take 20 mg by mouth. Active PARoxetine (PAXIL) 20 MG Tablet TK 1 T PO HS 3 07/24/2018 Active potassium chloride CR (KLORCON) 10 MEQ Tablet Controlled Release Take 10 mEq by mouth. Active promethazine (PHENERGAN) 25 MG Tablet Take 1 Tab by mouth every 6 hours as needed for Nausea - 2nd line. 20 Tab 02/26/2019 Active esomeprazole (NexIUM) 20 MG CAPSULE DELAYED RELEASE Take 20 mg by mouth daily. Active NIFEdipine CR (PROCARDIA-XL) 30 MG TABLET SR 24 HR Take 30 mg by mouth daily. Active ondansetron (ZOFRAN) 4 MG Tablet Take 4 mg by mouth every 8 hours as needed. Active ARIPiprazole (Abilify) 5 MG Tablet Take 5 mg by mouth daily. Active Active Problems No known active problems Encounters Date Type Department Care Team Description 05/28/2024 Telephone [facility] [address] [place] [address] Earl Moon MD from Last 3 Months Family History Medical History Relation Name Comments Colon Cancer Father Other-comment Mother diverticulitis Relation Name Status Comments Father Alive Mother Alive Social History Tobacco Use Types Packs/Day Years Used Date Smoking Tobacco: Never Smokeless Tobacco: Never Tobacco Cessation:Counseling Given: Not Answered Alcohol Use Standard Drinks/Week Comments Never 0 (1 standard drink = 0.6 oz pur e alcohol) AUDIT-C Answer Date Recorded Frequency of Alcohol Consumption Never 08/28/2018 Average Number of Drinks Not on file 019 Frequency of Binge Drinking Not on file 08/16 Sexually Active Control Partners Comments Not Currently Comments No Sex and Gender Information Value Date Recorded Sex Assigned at Not on file Legal Sex Female 2:36 PM CDT Gender Identity Not on file Sexual Orientation Not on file Last Filed Vital Signs Vital Sign Reading Time Taken Comments Blood Pressure 128/84 05/01/2024 10:43 AM PHYSIOTHERAPIST'S ASSISTANT Pulse 83 05/01/2024 10:43 AM PHYSIOTHERAPIST'S ASSISTANT Temperature 36.4 C (97.5 F) 05/01/2024 10:43 AM PHYSIOTHERAPIST'S ASSISTANT Respiratory Rate 16 05/01/2024 10:43 AM PHYSIOTHERAPIST'S ASSISTANT Oxygen Saturation 99% 05/01/2024 10:43 AM PHYSIOTHERAPIST'S ASSISTANT Inhaled Oxygen Concentration - - Weight 124.5 kg (274 lb 8 oz) 05/01/2024 10:43 A M PHYSIOTHERAPIST'S ASSISTANT Height 157.5 cm (5' 2 ) 05/01/2024 10:43 AM PHYSIOTHERAPIST'S ASSISTANT Body Mass Index 50.21 05/01/2024 10:43 AM PHYSIOTHERAPIST'S ASSISTANT Plan of Treatment Upcoming Encounters Date Type Department Care Team (Late st Contact Info) Description 04/27/2025 10:00 AM PHYSIOTHERAPIST'S ASSISTANT Office Visit [facility] [address] [place] [address] Jorgito Yarbrough MD [address] [place] [address] Health Maintenance Due Date Last Done Comments Hepatitis C Virus (HCV) Screening 1966 Mammogram 1966 Pap Smear 09/25/1987 Cervical Cancer Screening (CCS) 1996 HPV/Cotest 1996 Colonoscopy 09/25/2011 Hepatitis B Immunization (2 of 3 - 19+ 3-dose series) 12/24/2015 11/26/2015 Cologuard 2016 Pneumococcal Immunization (50+ years) (1 of 1 - PCV) 2016 Zoster Immunization (1 of 2) 2016 Colorectal Cancer Screening 09/21/2023 Influenza Immunization (#1) 2024 10/0 11/2020, 03/17/2020, 04/10/2019, Additional history exists SARS-COV-2 Immunization ( season) 2024 08/24/2020, 06/25/2020 Immunochemical Fecal Occult Blood 09/19/2024 09/20/2023 Respiratory Syncytial Virus (RSV) Immunization (Adult) (1 - 1-dose 75+ series) 2041 DTaP/Tdap/Td Immunization Discontinued 2021, 06/18/2014, 11/05/2011 TdaP Immunization Completed 03/09/2022, 11/05/2011 Meningococcal Immunization (ACWY) Aged Out No longer eligible based on patient's age to complete this topic Rotavirus Immunization Aged Out No lo nger eligible based on patient's age to [place] [address] MEDICA[place] [id number] [facility] Care Teams Home Care Manager Relationship Specialty Start Date End Date Earl Moon MD [address] [place] [address] PCP - General Pediatrics 08/22/23 Jorgito Yarbrough MD [address] [place] [address] Consulting Physician Neurology 05/06/24
--- OUTSIDE RECORDS SUMMARY | 2024-08-22 01:14 | XMS_ITS | Encounter Summary ---
Author Organization [facility] Address [facility] [place] [address] Care Team Providers Care As400 Programmer Analyst Name Role Phone Bianca Mckeon [employer]NAGER-C Primary Care Provider Earl Moon MD Primary Care Provider Earl Moon MD Primary Care Provider Earl Moon MD Unavailable [phone] Alessio Ro MD Unavailable [phone] Jey Hoang MD Unavailable [phone] Encounter Details Date Type Department Care Team (Late st Contact Info) Description 04/18/2023 Hospital Orders Only [facility] Consultant Pre/Post [address] [place], [place] [id number] Jey Hoang MD [address] [facility] [address] [place], [place] [id number] Social History Tobacco Use Types Packs/Day Years Used Date Smoking Tobacco: Never Smokeless Tobacco: Never Comments:Non smoker Alcohol Use Standard Drinks/Week Comments No 0 (1 standard drink = 0.6 oz pur e alcohol) PHQ-2 Answer Date Recorded Patient Health Questionnaire-2 Score 0 04/02/2023 Comments No Sex and Gender Information Value [...] Last Indicated Resolved Time COVID-19 Rule Out 09/27/2023 09/27/2023 09/27/2023 11:04 AM CDT documented as of this encounter Care Teams As400 Programmer Analyst Relationship Specialty Start Date End Date Bianca Mckeon [employer]GER-C [address] [place] [phone] PCP - General Nurse Practitioner Family 03/02/2308/18 Earl Moon MD [address] [place] [address] PCP - General FAMILY PRACTICE 08/20/23 09/21/23 Earl Moon MD [address] [place] [address] PCP - General FAMILY PRACTICE 09/22/23 Earl Moon MD [address] [place] [address] FAMILY PRACTICE 09/22/23 Alessio Ro MD [address] [place] [address] HEART & VASCULAR CARE 12/20/20 Jey Hoang MD [address] [facility] [address] [place] [address] Physician INTERVENTIONAL CARDIOLOGY 12/06/2205/19/24 documented as of this encounter
--- OUTSIDE RECORDS SUMMARY | 2024-08-22 01:14 | XMS_ITS | Clinical Summary ---
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 Name Role Phone Earl Moon MD Primary Care Provider [phone] Earl Moon MD Unavailable [phone] Alessio Ro MD Unavailable [phone] Allergies Active Allergy Reactions Criticality Noted Date Comments Fluconazole Other (see comment) 2023 Kidney failure Fenofibrate Anaphylaxis High 09/06/2017 Fenofibrate Unknown,Anaphylaxis, O ther (see comment) High 05/23/2017 Torsades Torsades Fenofibrate Other (see comment) High 2023 Rhabdomyolysis Cardiogenic shock Fluconazole Other (see comment),Anaphylaxis High 07/22/2018 Kidney injury Kidney injury Metronidazole Other (see comment) Low 12/30/2020 KIDNEY FAILURE Peanut Oil Unknown,Rash Low 07/17/2016 Peanut-Containing Drug Products Shortness of Breath High 2023 Penicillins Rash,Itching,Anaphyl a xis High 02/16/2014 Penicillins Itching 2023 Statins Anaphylaxis High 09/06/2017 Statins Diarrhea 2023 Sulfa Antibiotics Anaphylaxis,Angioede m a,Other (see comment) High 02/16/2014 Sulfa Antibiotics Anaphylaxis High 2023 Medications Multiple Vitamin (DAILY VITAMINS) Tab Take 1 tablet by mouth daily. 2 Active furosemide 20 MG tablet Lasix (furosemide) Tablet 20 mg; take 1 tablet by mouth daily, PRN; 3; 22-Dec-2011; Active 2 Active potassium chloride 10 MEQ Tab CR tablet Take 1 tablet (10 mEq total) by mouth daily. Active amitriptyline 25 MG tablet Take 1 tablet (25 mg total) by mouth daily. 11 7 Active gabapentin 600 MG tablet Take 1 tablet (600 mg total) by mouth. Active QUEtiapine 25 MG tablet Take 1 tablet (25 mg total) by mouth. prn Active aspirin 81 MG chewable tablet CHEW AND SWALLOW ONE TABLET EVERY DAY 1 Active vitamin D2, ergocalciferol, 97724 UNITS capsule Take 1 capsule (50,000 Units total) by mouth once a week. 1 Active PARoxetine 20 MG tablet Take 1 tablet (20 mg total) by mouth daily. 1 Active NYSTOP powder 2 (two) times daily. 3 Active omeprazole (PRILOSEC) 40 MG capsule Take 1 capsule (40 mg total) by mouth daily. Active NIFEdipine ER (ADALAT CC) 30 MG 24 hr tablet Take 1 tablet (30 mg total) by mouth daily. 90 tablet 3 3 Active benazepril (LOTENSIN) 40 MG tablet 3 Active loratadine (CLARITIN) 10 MG tablet Take 1 tablet (10 mg total) by mouth daily. Active carvedilol (COREG) 12.5 MG tablet TAKE 1 TABLET(12.5 MG) BY MOUTH TWICE DAILY WITH MEALS 3 Active amitriptyline (ELAVIL) 25 MG tablet Take 1 tablet (25 mg total) by mouth daily. 4 Active benazepril (LOTENSIN) 40 MG tablet Take 1 tablet (40 mg total) by mouth daily. 4 Active carvedilol (COREG) 12.5 MG tablet Take 1 tablet (12.5 mg total) by mouth 2 (two) times daily. 4 Active furosemide (LASIX) 20 MG tablet Take 1 tablet (20 mg total) by mouth daily. 4 Active gabapentin (NEURONTIN) 600 MG tablet Take 1 tablet (600 mg total) by mouth nightly at bedtime. 4 Active PARoxetine (PAXIL) 20 MG tablet Take 1 tablet (20 mg total) by mouth daily. 4 Active potassium chloride CR (K-TAB) 10 MEQ Tab CR tablet Take 1 tablet (10 mEq total) by mouth daily. 4 Active ondansetron (ZOFRAN-ODT) 4 MG disintegrating tablet Take 1 tablet (4 mg total) by mouth every 8 (eight) hours as needed for Nausea. 4 Active esomeprazole (NEXIUM) 20 MG capsule Take 1 capsule (20 mg total) by mouth every morning before breakfast. Active Active Problems Problem Noted Date Diagnosed Date Overdose 09/22/2023 Morbid (severe) obesity due to excess calories ([facility]) 01/29/2023 Body mass index (BMI) 50.0-59.9, adult ([facility]) 01/29/2023 CHF (congestive heart failure) ([facility]) 01/29/2023 Hyperlipidemia 02/10/2021 Overview (01/29/2023): Last Assessment & Plan: Patient is allergic to statins. Currently on aspirin. Right upper quadrant abdominal pain 02/07/2020 Urinary tract infection symptoms 02/07/2020 GERD (gastroesophageal reflux disease) 0 Overview (01/29/2023): Last Assessment & Plan: On PPI Hypertension 01/08/2020 Overview (01/29/2023): History of hypertension treated with medication History of hypertension treated with medication Last Assessment & Plan: Continue carvedilol, Lasix, lisinopril nifedipine. Acute NV ([facility]) 01/08/2020 Chest pain, unspecified type 01/08/2020 Overview (01/29/2023): Last Assessment & Plan: Patient developed chest pain status post cardiac stress test. Per chart review treadmill cardiac stress test was negative for any signs of ischemia. Cardiology consulted. Continue with aspirin, currently on Nitro-Bid. Telemetry monitoring. Will trend troponins. Continue Coreg, lisinopril and nifedipine. Last Assessment & Plan: Patient presented with chest pain. Had negative cardiac stress test with echocardiogram earlier today which was negative. Will check for D-dimers. If elevated will obtain CTA of chest to rule out PE sins the patient has a history of of portal vein thrombosis in the past. Episodic mood disorder 01/08/2020 Morbid obesity ([facility]) 01/08/2020 Chronic constipation 03/18/2018 NAFL (nonalcoholic fatty liver) 09/05/2017 Melena 07/02/2017 Palpitations 12/01/2016 Overview (01/29/2023): Last Assessment & Plan: Patient reported recurrent palpitations recently. EKG today showed sinus tachycardia with heart rate in low 110s. Currently heart rate ranging in 80s to 90s. Will monitor on telemetry. Obesity 07/19/2016 Anemia 05/11/2015 Chronic bilateral lower abdominal pain 5 Bizarre behavior 03/28/2015 Amenorrhea 04/15/2012 Irritable bowel syndrome 04/15/2012 Endometriosis 04/15/2012 Chronic diarrhea of unknown origin 08/22/2011 Mitral and aortic valve disease 07/25/2011 Costochondritis 03/11/2011 Depression 01/05/2011 Encounters Date Type Department Care Team Description 06/09/2024 8:35 AM INTEL RECRUITER Office Visit [facility] Priority [facility] - [address] [place] [address] Diane Stevenson NP UTI Symptoms (Patient c/o lower back pain, blood in urine, x 4 days. Pt states she was seen at [place] [facility] and dx her with UTI Sunday and treated her but just today took antibiotics. ) 06/09/2024 Travel from Last 3 Months Immunizations Name Administration Dates Next Due Afluria 36 MONTHS+ (Prefille d Syringe IIV4) 04/10/2019 Hepatitis A (Havrix [address]) 09/23/2015 Hepatitis B (Generic: Adult) 11/26/2015 Influenza (Generic) 05/24/2017,03/20/2015,2013 Influenza Adult (Generic) 03/23/2021,,04/10/2019,2015,06/23/2014 Td, Adsorbed, Preservative F ree, Adult Use, Lf Unspecified 06/18/2014 Tdap (Generic) 03/09/2022,01/16/2018,11/05/2011 Family History Medical History Relation Comments [place] Maternal Grandfather Relation Status Comments Maternal Grandfather Social History Tobacco Use Types Packs/Day Years Used Date Smoking Tobacco: Never Passive Smoke Exposure: Never Smokeless Tobacco: Never Tobacco Cessation:Counseling Given: No Comments:Non smoker Alcohol Use Standard Drinks/Week Comments No 0 (1 standard drink = 0.6 oz pur e alcohol) PHQ-2 Answer Date Recorded Patient Health Questionnaire-2 Score 0 06/09/2024 Comments No Sex and Gender Information Value Date Recorded Sex Assigned at Not on file Legal Sex Female 7:07 PM CDT Gender Identity Not on file Sexual Orientation Not on file 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 Not on file Last Filed Vital Signs Vital Sign Reading Time Taken Comments Blood Pressure 110/60 06/09/2024 9:39 AM INTEL RECRUITER Pulse 83 06/09/2024 9:39 AM INTEL RECRUITER Temperature 37 C (98.6 F) 06/09/2024 9:39 AM INTEL RECRUITER Respiratory Rate 20 06/09/2024 9:39 AM INTEL RECRUITER Oxygen Saturation 96% 06/09/2024 9:39 AM INTEL RECRUITER Inhaled Oxygen Concentration - - Weight 119.8 kg (264 lb 1.8 oz) 09/30/2023 5:00 AM CDT Height 175.3 cm (5' 9 ) 09/22/2023 10:1 7 PM CDT Body Mass Index 39 09/22/2023 10:17 PM CDT Plan of Treatment Health Maintenance Due Date Last Done Comments Annual Physical 1969 Pneumococcal Vaccine: Pediatrics (0 to 5 Years) and At-Risk Patients (6 to 64 Years) (1 of 2 - PCV) 1972 Hepatitis C 1984 Mammogram Screening 2006 Hepatitis B Vaccines (2 of 3 - 19+ 3-dose series) 12/24/2015 11/26/2015 Zoster Vaccines (1 of 2) 2016 COVID-19 Vaccine (3 - season) 2024 08/24/2020, 06/25/2020 Influenza Adult (#1) 2024 03/23/2021, 03/17/2020, 04/10/2019, Additional history exists ASCVD LDL 05/22/2024 05/22/2023, 08/0 12/2022, 11/09/2010 PHQ-2 (Physician [place]) 06/18/2024 06/09/2024 Colorectal Cancer Screening FIT/FOBT (1 Year) 09/19/2024 09/20/2023, 04/29/2017, 10/29/2016, Additional history exists DTaP, Tdap and Td Vaccines (5 - Td or Tdap) 03/09/2032 03/09/2022, 01/16/2018, 06/18/2014, Additional history exists Meningococcal B Vaccine Aged Out No l onger eligible based on patient's age to complete this topic Meningococcal Vaccine Aged Out No [place] eligible based on patient's age to complete this topic RSV Immunizations Under 20 Months Aged Out No longer eligible based on patient's age to complete this topic Goals Goal Patient Goal Type Associated Problems Recent Progress Patient-Stated? Author Family Patient and family will have open conversation regarding patient goals and wishes for treatment Lifestyle No Nahomi Pittman, RN Safety Patient/family will have appropriate support at home upon discharge Lifestyle No Juan C Mosley, journalism instructor Procedure Name Priority Date/Time Associated Diagnosis Comments URINALYSIS, AUTO, COMPLETE Routine 06/09/2024 9:30 AM INTEL RECRUITER UTI symptoms OCCULT BLOOD, FECES STAT 09/20/2023 9:35 AM CDT LIPID PANEL Routine 05/22/2023 12:15 PM INTEL RECRUITER Mixed hyperlipidemia from Last 3 Months or Most Recently Relevant to Health Maintenance Results * (ABNORMAL) URINALYSIS (06/09/2024 9:30 AM INTEL RECRUITER) COLOR (U) YELLOW 06/09/2024 10:37 AM INTEL RECRUITER [facility] TRANSPARENCY HAZY(A) CLEAR 06/09/2024 10:37 AM INTEL RECRUITER [facility] SPECIFIC GRAVITY (U) 1.025 1.003 - 1.040 06/09/2024 10:37 AM INTEL RECRUITER [facility] U PH 5.5 5.0 - 9.0 06/09/2024 10:37 AM INTEL RECRUITER [facility] PROTEIN RANDOM (U) NEGATIVE NEGATIVE 06/09/2024 10:[address] [facility] GLUCOSE (U) NEGATIVE NEGATIVE 06/09/2024 10:[address] [facility] KETONES MG/DL (U) 1+(A) NEGATIVE 06/09/2024 10:[address] [facility] BILIRUBIN (U) NEGATIVE NEGATIVE 06/09/2024 10:[address] [facility] BLOOD (U) 1+(A) NEGATIVE 06/09/2024 10:[address] [facility] UROBILINOGEN 0.2 0.0 - 2.0 EU/DL 06/09/2024 10:[address] [facility] NITRITES NEGATIVE NEGATIVE 06/09/2024 10:[address] [facility] LEUKOCYTES (U) NEGATIVE NEGATIVE 06/09/2024 10:[address] [facility] RBC/HPF 0-3 0 - 3 /HPF 06/09/2024 10:[address] [facility] WBC/HPF 0-3 0 - 3 /HPF 06/09/2024 10:37 AM [facility] EPI/HPF 15-20 /HPF 06/09/2024 10:37 AM INTEL RECRUITER [facility] BACTERIA (U) 1+(A) NONE SEEN 06/09/2024 10:37 AM [facility]CR[facility] [place] URINE SPECIMEN OBTAINED BY CLEAN CATCH PROCEDURE / Unknown 06/09/2024 9:30 AM INTEL RECRUITER Diane Stevenson SCOW CAPTAIN URINE ORDERABLES Final Result [facility] [employer] [address] [place] [address], [place] [phone] * OCCULT BLOOD, FECES (09/20/2023 9:35 AM CDT) OCCULT BLOOD FECAL NEGATIVE NEGATIVE 09/20/2023 9:48 AM CDT [facility] STOOL SPECIMEN / Unknown 09/20/2023 9:35 AM CDT Sabina Cohen MD BODY FLUIDS AND STOOLS ARIANA DELANEY Final Result [facility] [address] [place] [address], [place] [phone] * LIPID PANEL (05/22/2023 12:15 PM INTEL RECRUITER) CHOLESTEROL 288 MG/DL 05/22/2023 1:10 PM INTEL RECRUITER [facility] Comment:HIGH: > OR = 240 TRIGLYCERIDES 136 MG/DL 05/22/2023 1:10 PM INTEL RECRUITER [facility] Comment:<150 NORMAL HDL 83 >49 MG/DL 05/22/2023 1:10 PM INTEL RECRUITER [facility] LDL (CALCULATED) 178 MG/DL 05/22/20 1:10 PM INTEL RECRUITER [facility] Comment:160-189 HIGH VLDL CALCULATION 27 MG/DL 05/22/20 1:10 PM INTEL RECRUITER [facility] Comment:REFERENCE RANGE NOT ESTABLISHED CHOL/HDL RATIO 3.5 05/22/2023 1:10 PM INTEL RECRUITER [facility] Comment:REFERENCE RANGE NOT ESTABLISHED LDL/HDL 2.1 05/22/2023 1:10 PM INTEL RECRUITER [facility] Comment:REFERENCE RANGE NOT ESTABLISHED NON HDL CHOLESTEROL 205 MG/DL 05/22/2023 1:10 PM INTEL RECRUITER [facility] Comment:REFERENCE RANGE NOT ESTABLISHED 05/22/2023 12:1 5 PM INTEL RECRUITER us Jey Hoang MD LABORATORY Final Result [facility] [address] 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 Advance Directives and Living Will 08/15/2017 POWER OF ARTIFICIAL FLOWERS SUPERVISOR FO R HEALTH CARE Advance Directives and Living Will 08/11/2017 POWER OF [employer]IAL [employer]ERS SUPERVISOR FO R HEALTH CARE Advance Directives and Living Will 08/10/2017 POWER OF [employer]IAL [employer]ERS SUPERVISOR FO R HEALTH CARE Advance Directives and Living Will 08/06/2017 POWER OF [employer]IAL [employer]ERS SUPERVISOR FO R HEALTH CARE Advance Directives and Living Will 07/21/2017 POWER OF [employer]IAL [employer]OWERS SUPERVISOR FO R HEALTH CARE Advance Directives and Living Will 07/17/2017 POWER OF [employer]IAL [employer]ERS SUPERVISOR FO R HEALTH CARE Advance Directives and Living Will 07/14/2017 POWER OF [employer]IAL [employer]ERS SUPERVISOR FO R HEALTH CARE Advance Directives and Living Will 06/10/2017 POWER OF [employer]IAL [employer]OWERS SUPERVISOR FO R HEALTH CARE Advance Directives and Living Will 06/04/2017 POWER OF [employer]ERS SUPERVISOR FO R HEALTH CARE Advance Directives and Living Will 05/24/2017 POWER OF [employer]ERS SUPERVISOR FO R HEALTH CARE Advance Directives and Living Will 05/23/2017 POWER OF [employer]IAL [employer]ERS SUPERVISOR FO R HEALTH CARE Advance Directives and Living Will 05/21/2017 POWER OF [employer]IAL [employer]OWERS SUPERVISOR FO R HEALTH CARE Advance Directives and Living Will 05/01/2017 POWER OF [employer]IAL [employer]ERS SUPERVISOR FO R HEALTH CARE Advance Directives and Living Will 04/30/2017 POWER OF [employer]IAL [employer]ERS SUPERVISOR FO R HEALTH CARE Advance Directives and Living Will 04/29/2017 POWER OF [employer]IAL [employer]ERS SUPERVISOR FO R HEALTH CARE Advance Directives and Living Will 04/28/2017 POWER OF [employer]IAL [employer]ERS SUPERVISOR FO R HEALTH CARE Advance Directives and Living Will 03/20/2017 POWER OF [employer]IAL [employer]ERS SUPERVISOR FO R HEALTH CARE Advance Directives and Living Will 03/17/2017 POWER OF [employer]IAL [employer]ERS SUPERVISOR FO R HEALTH CARE Advance Directives and Living Will 03/14/2017 POWER OF [employer]IAL [employer]OWERS SUPERVISOR FO R HEALTH CARE Advance Directives and Living Will 03/14/2017 POWER OF [employer]IAL [employer]ERS SUPERVISOR FO R HEALTH CARE Advance Directives and Living Will 03/12/2017 POWER OF [employer]IAL [employer]ERS SUPERVISOR FO R HEALTH CARE Advance Directives and Living Will 02/15/2017 POWER OF [employer]IAL [employer]ERS SUPERVISOR FO R HEALTH CARE Advance Directives and Living Will 02/12/2017 POWER OF [employer]IAL [employer]ERS SUPERVISOR FO R HEALTH CARE Advance Directives and Living Will 02/11/2017 POWER OF [employer]IAL [employer]ERS SUPERVISOR FO R HEALTH CARE Advance Directives and Living Will 01/16/2017 POWER OF ARTIFICIAL [employer]OWERS SUPERVISOR FO R HEALTH CARE Advance Directives and Living Will 12/18/2016 POWER OF ART[employer]IAL [employer]OWERS SUPERVISOR FO R HEALTH CARE Advance Directives and Living Will 12/17/2016 POWER OF [employer]IAL [employer]OWERS SUPERVISOR FO R HEALTH CARE Advance Directives and Living Will 12/01/2016 POWER OF [employer]IAL [employer]OWERS SUPERVISOR FO R HEALTH CARE Advance Directives and Living Will 11/08/2016 POWER OF ART[employer]IAL [employer]OWERS SUPERVISOR FO R HEALTH CARE Advance Directives and Living Will 11/07/2016 POWER OF ARTIFICIAL [employer]OWERS SUPERVISOR FO R HEALTH CARE Advance Directives and Living Will 11/02/2016 POWER OF ART[employer]IAL FLOWERS SUPERVISOR FO R HEALTH CARE Advance Directives and Living Will 10/28/2016 POWER OF [employer]IAL [employer]OWERS SUPERVISOR FO R HEALTH CARE Advance Directives and Living Will 10/05/2016 POWER OF ARTIFICIAL FLOWERS SUPERVISOR FO R HEALTH CARE Advance Directives and Living Will 09/16/2016 POWER OF ARTIFICIAL FLOWERS SUPERVISOR FO R HEALTH CARE Advance Directives and Living Will 07/05/2016 POWER OF ART[employer]IAL [employer]OWERS SUPERVISOR FO R HEALTH CARE Advance Directives and Living Will 04/19/2016 POWER OF ARTIFICIAL FLOWERS SUPERVISOR FO R HEALTH CARE Advance Directives and Living Will 04/19/2016 POWER OF ARTIFICIAL FLOWERS SUPERVISOR FO R HEALTH CARE Advance Directives and Living Will 03/16/2016 POWER OF ARTIFICIAL FLOWERS SUPERVISOR FO R HEALTH CARE * Full Code (Latest Code Status on File) Date Activated Date Inactivated Comments 09/23/2023 12:50 AM 09/30/2023 2:03 PM Care Teams [employer]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
--- OUTSIDE RECORDS SUMMARY | 2024-08-22 01:14 | XMS_ITS | Referral Summary ---
Author Organization [facility] Address [address] [place] [address] Care Team Providers Care Supervisor Travel Information Center Name Role Phone Earl Moon MD Primary Care Provide r Encounters Date Type Department Care Team Description 07/30/2024 Telephone [facility] Sleep Medicine at [address] [place] [address] Coty Phillips MD 07/29/2024 11:45 AM ELECTRICAL INTEGRATOR Office Visit [facility] Medical [facility] Sleep Medicine at [address] [place] [address] Coty Phillips MD Obstructive sleep apnea (Primary Dx); Hypersomnia; Obesity, unspecified class, unspecified obesity type, unspecified whether serious comorbidity present; Insomnia, unspecified type 05/27/[address] [facility] [address] [place] [address] [address] [place] [address] Coty Phillips MD 05/26/2024 9:45 AM ELECTRICAL INTEGRATOR Office Visit [facility] Medical [facility] Sleep Medicine at [address] [place] [address] Coty Phillips MD Obstructive sleep apnea (Primary Dx); Hypersomnia; Obesity, unspecified class, unspecified obesity type, unspecified whether serious comorbidity present; Insomnia, unspecified type from Last 3 Months Allergies Active Allergy Reactions Criticality Noted Date Comments Fluconazole Other (See comments) Low 12/30/2020 KIDNEY FAILURE Fenofibrate Anaphylaxis High 12/30/2020 Metronidazole Other (See comments) Low 12/30/2020 KIDNEY FAILURE Peanut Oil Rash,Unknown Medium 07/17/2016 Penicillins Hives Medium 12/30/2020 Txanpbz-Jju-Puf Reductase Inhibitors Anaphylaxis High 09/06/2017 Sulfa (Sulfonamide Antibiotics) Anaphylaxis High 12/30/2020 Medications amitriptyline (ELAVIL) 25 mg tablet Take 1 tablet (25 mg total) by mouth nightly Active aspirin 81 mg enteric coated tablet Take 1 tablet (81 mg total) by mouth daily Active gabapentin (NEURONTIN) 600 mg tablet Take 1 tablet (600 mg total) by mouth nightly Active omeprazole (PriLOSEC) 40 mg capsule Take 1 capsule (40 mg total) by mouth daily Active PARoxetine (PAXIL) 20 mg tablet Take 1 tablet (20 mg total) by mouth every morning Active cholecalcifero l (VITAMIN D-3) 50,000 unit capsule Take 1 capsule (50,000 Units total) by mouth once a week Active furosemide (LASIX) 20 mg tablet Take 1 tablet (20 mg total) by mouth daily 30 tablet 11 2 Active NIFEdipine (NIFEdipine XL) 30 mg 24 hr tablet Take 1 tablet (30 mg total) by mouth daily 30 tablet 11 2 Active potassium chloride ER 10 mEq CR tablet TAKE 1 TABLET(10 MEQ) BY MOUTH TWICE DAILY 60 tablet 6 3 Active benazepriL (LOTENSIN) 40 mg tablet TAKE 1 TABLET(40 MG) BY MOUTH DAILY 30 tablet 11 4 Active carvediloL (COREG) 12.5 mg tablet TAKE 1 TABLET(12.5 MG) BY MOUTH TWICE DAILY WITH MEALS 180 tablet 3 4 Active loratadine (CLARITIN) 10 mg tablet Take 1 tablet (10 mg total) by mouth daily 07/29/19 25 Discontinued QUEtiapine (SEROquel) 25 mg tablet Take 1 tablet (25 mg total) by mouth nightly 07/29/19 25 Discontinued Active Problems Problem Noted Date Diagnosed Date Obstructive sleep apnea 05/13/2024 Chest pain, unspecified type 02/14/2022 Assessment & Plan (02/14/2022 11:12 PM CDT): Patient presented with chest pain. Had negative cardiac stress test with echocardiogram earlier today which was negative. Will check for D-dimers. If elevated will obtain CTA of chest to rule out PE sins the patient has a history of of portal vein thrombosis in the past. Hyperlipidemia 02/10/2021 Assessment & Plan (02/14/2022 11:17 PM CDT): Patient is allergic to statins. Currently on aspirin. Right upper quadrant abdominal pain 02/07/2020 Urinary tract infection symptoms 02/07/2020 Acute [place] 01/08/2020 Angina pectoris 01/08/2020 Assessment & Plan (02/14/2022 11:07 PM CDT): Patient developed chest pain status post cardiac stress test. Per chart review treadmill cardiac stress test was negative for any signs of ischemia. Cardiology consulted. Continue with aspirin, currently on Nitro-Bid. Telemetry monitoring. Will trend troponins. Continue Coreg, lisinopril and nifedipine. Episodic mood disorder 01/08/2020 GERD (gastroesophageal reflux disease) 0 Assessment & Plan (02/14/2022 11:16 PM CDT): On PPI Hypertension 01/08/2020 Overview (02/10/2021): History of hypertension treated with medication Assessment & Plan (02/14/2022 11:17 PM CDT): Continue carvedilol, Lasix, lisinopril nifedipine. Morbid obesity 01/08/2020 Chronic constipation 03/18/2018 NAFL (nonalcoholic fatty liver) 09/05/2017 Melena 07/02/2017 Palpitations 12/01/2016 Assessment & Plan (02/14/2022 11:19 PM CDT): Patient reported recurrent palpitations recently. EKG today [...] valve disease 07/25/2011 Costochondritis 03/11/2011 Depression 01/05/2011 CHF (congestive heart failure) Social History Tobacco Use Types Packs/Day Years Used Date Smoking Tobacco: Never Smokeless Tobacco: Never Tobacco Cessation:Counseling Given: Not Answered Personal Safety Answer Date Recorded Have you ever been in or are you currently in a harmful physical or emotional relationship or is someone making you feel afraid or unsafe? Denies 05/01/2024 Comments No Sex and Gender Information Value Date Recorded Sex Assigned at Not on file Legal Sex Female 8:58 AM CDT Gender Identity Not on file Sexual Orientation Not on file Last Filed Vital Signs Vital Sign Reading Time Taken Comments Blood Pressure 140/102 07/29/2024 11:44 AM ELECTRICAL INTEGRATOR Pulse 92 07/29/2024 11:44 AM ELECTRICAL INTEGRATOR Temperature 36.1 C (97 F) 05/01/2024 12:38 PM ELECTRICAL INTEGRATOR Respiratory Rate 12 05/01/2024 5:15 PM ELECTRICAL INTEGRATOR Oxygen Saturation 99% 07/29/2024 11:44 AM ELECTRICAL INTEGRATOR Inhaled Oxygen Concentration - - Weight 126.1 kg (278 lb) 07/29/2024 11:44 AM ELECTRICAL INTEGRATOR Height 157.5 cm (5' 2.01 ) 07/29/2024 11:[address] Body Mass Index 50.83 07/29/2024 11:44 AM ELECTRICAL INTEGRATOR Plan of Treatment Not on file Insurance IDPA MEDICARE [employer] [facility]IC[facility] [employer] Advance Directives For more information, please contact: [phone] * Full Code (Latest Code Status on File) Date Activated Date Inactivated Comments 02/15/2022 5:37 AM 02/15/2022 8:34 PM Care Teams Supervisor Travel Information Center Relationship Specialty Start Date End Date Earl Moon MD [address] [place] [address] PCP - General Family Medicine 04/01/24
--- OUTSIDE RECORDS SUMMARY | 2024-08-22 01:14 | XMS_ITS | Clinical Summary ---
Author Organization [facility] Address [address] [place] [address] Care Team Providers Care Land Planner Name Role Phone Earl Moon MD Primary Care Provide r Allergies Active Allergy Reactions Criticality Noted Date Comments Fluconazole Other (See comments) Low 12/30/2020 KIDNEY FAILURE Fenofibrate Anaphylaxis High 12/30/2020 Metronidazole Other (See comments) Low 12/30/2020 KIDNEY FAILURE Peanut Oil Rash,Unknown Medium 07/17/2016 Penicillins Hives Medium 12/30/2020 Ruybtqi-Fif-Pbp Reductase Inhibitors Anaphylaxis High 09/06/2017 Sulfa (Sulfonamide [...] 02/07/2020 Urinary tract infection symptoms 02/07/2020 Acute [place] 01/08/2020 Angina pectoris 01/08/2020 Assessment & Plan [...] 03/11/2011 Depression 01/05/2011 CHF (congestive heart failure) Encounters Date Type Department Care Team Description 07/30/2024 Telephone [facility] Medical [facility] Sleep Medicine at [address] [place] [address] Coty Phillips MD 07/29/2024 11:45 AM WHEEL LACER AND TRUER Office Visit [facility] Medical [facility] Sleep Medicine at [address] [place] [address] Coty Phillips MD Obstructive sleep apnea (Primary Dx); Hypersomnia; Obesity, unspecified class, unspecified obesity type, unspecified whether serious comorbidity present; Insomnia, unspecified type 05/27/2024 Telephone [facility] [address] [place] [address] [address] [place] [address] Coty Phillips MD 05/26/2024 9:45 AM WHEEL LACER AND TRUER Office Visit [facility] Sleep Medicine at [address] [place] [address] Coty Phillips MD Obstructive sleep apnea (Primary Dx); Hypersomnia; Obesity, unspecified class, unspecified obesity type, unspecified whether serious comorbidity present; Insomnia, unspecified type from Last 3 Months Surgical History Surgery Date Site/Laterality Comments CHOLECYSTECTOMY HYSTERECTOMY Medical History Medical History Date Comments [place] (myocardial infarction) (HCC) Liver disease CHF (congestive heart failure) (HCC) Social History Tobacco Use Types Packs/Day Years [...] on file Sexual Orientation Not on file Obstetrics History Last Filed Vital Signs Vital Sign Reading Time Taken Comments Blood Pressure 140/102 07/29/2024 11:44 AM WHEEL LACER AND TRUER Pulse 92 07/29/2024 11:44 AM WHEEL LACER AND TRUER Temperature 36.1 C (97 F) 05/01/2024 12:38 PM WHEEL LACER AND TRUER Respiratory Rate 12 05/01/2024 5:15 PM WHEEL LACER AND TRUER Oxygen Saturation 99% 07/29/2024 11:44 AM WHEEL LACER AND TRUER Inhaled Oxygen Concentration - - Weight 126.1 kg (278 lb) 07/29/2024 11:44 AM WHEEL LACER AND TRUER Height 157.5 cm (5' 2.01 ) 07/29/2024 11:[address] Body Mass Index 50.83 07/29/2024 11:44 AM WHEEL LACER AND TRUER Plan of Treatment Health Maintenance Due Date Last Done Comments Breast Cancer Screening-Mammogram 1966 Colon Cancer Screening-Colonoscopy 1966 Depression Screening 1966 Hepatitis C Screening 1966 Regular Well Visit/Exam 18-64 1984 Pneumococcal vaccine <65 (1 of 2 - PCV) 1985 Zoster Vaccine (1 of 2) 2016 Influenza Vaccine (#1) 2024 , 03/17/2020, 04/10/2019, Additional history exists DTaP/Tdap/Td Vaccine (5 - Td or Tdap) 03/09/2032 03/09/2022, 01/16/2018, 06/18/2014, Additional history exists Insurance [employer] MED[employer] SOLUTIONS [employer] Advance Directives For more information, please contact: [phone] * Full Code (Latest Code Status on File) Date Activated Date Inactivated Comments 02/15/2022 5:37 AM 02/15/2022 8:34 PM Care Teams Land Planner Relationship Specialty Start Date End Date Earl Moon MD [address] [place] [address] PCP - General Family Medicine 04/01/24
--- OUTSIDE RECORDS SUMMARY | 2024-08-22 01:14 | XMS_ITS | Encounter Summary ---
Author Organization [facility] Address [facility] [place] [address] Care Team Providers Care Painting Machine Operator Name Role Phone MikeBianca Lizbeth MID LEVEL CLINICIAN-C Primary Care Provider [phone] Earl Moon MD Primary Care Provider Earl Moon MD Primary Care Provider Earl Moon MD Unavailable [phone] Alessio Ro MD Unavailable [phone] Jey Hoang MD Unavailable [phone] Encounter Details Date Type Department Care Team ([facility] Contact Info) Description 04/23/2023 Prep for Procedure [facility] eld [address] [place] [address] Jey Hoang MD [address] [facility] [address] [place] [address] Social History Tobacco Use Types Packs/Day Years [...] documented as of this encounter Care Teams Painting Machine Operator Relationship Specialty Start Date End Date Bianca Mckeon NP-C [address] [place] [address] PCP - General Nurse Practitioner Family 03/02/2308/18 Earl Moon MD [address] [place] [address] PCP - General FAMILY PRACTICE 08/20/23 09/21/23 Earl Moon MD [address] [place] [address] PCP - General FAMILY PRACTICE 09/22/23 Earl Moon MD [address] [place] [address] FAMILY PRACTICE 09/22/23 Alessio Ro MD [address] [place] [address] HEART & VASCULAR CARE 12/20/20 Jey Hoang MD [address] [address] Physician INTERVENTIONAL CARDIOLOGY 12/06/2205/19/24 documented as of this encounter
--- NOTE | 2024-08-22 01:22 | ECG_ITS ---
Test Date: 2024-08-22 01:27:20 Measurements Intervals [place] Rate: 78 P: 69 DE: 166 QRS: 43 QRSD: 77 T: 54 QT: 356 QTc: 406 Interpretive Statements SINUS RHYTHM LOW QRS VOLTAGE IN PRECORDIAL LEADS [QRS DEFLECTION < 1.0 mV IN CHEST LEADS] No previous ECG available for comparison Electronically Signed On 08-22-2024 16:14:05 SUPERVISOR WELDING EQUIPMENT REPAIRER by Enedelia Simms M.D.
--- NOTE | 2024-08-22 01:27 | PC.NURSE ---
endoscopy tech at patient bedside for registration and EKG performed. patient awake and alert, talking without difficulty and VSS.
--- OUTSIDE RECORDS SUMMARY | 2024-08-22 01:40 | XMS_ITS ---
Author Organization Unknown Address [id number] [place] [phone] Phone Care Team Providers Care Underwriting Account Representative Name Role Phone ERASMO HENLEY Attending Unavailable [...] if indicated - Collect Date/Time: 06/07/2024 21:38 [facility] ID: [id number] [id number] [place], [place], [id number] LOINC: 28733-3 Test Value Unit Reference Range Code Code System Flag UR SOURCE VOIDED 23720-8 LOINC COLOR YELLOW YELLOW 5778-6 LOINC CLARITY CLOUDY CLEAR 89158-5 LOINC SPEC GRAVITY >=1.030 1.000-1.030 5811-5 LOINC A PH 5.5 5.0 - 6.5 5803-2 LOINC LEUK EST NEGATIVE NEGATIVE 5799-2 LOINC NITRATE NEGATIVE NEGATIVE PROTEIN TRACE NEGATIVE 5804-0 LOINC GLUCOSE NEGATIVE NEGATIVE 72188-2 LOINC KETONES NEGATIVE NEGATIVE 86169-5 LOINC UROBILINOGEN 0.2 0.2 - 1.0 5818-0 LOINC BILIRUBIN NEGATIVE NEGATIVE 32495-8 LOINC BLOOD 1+ NEGATIVE 04858-5 LOINC WBC 0-2 0 - 2 67291-5 LOINC RBC 2-5 0 - 2 39153-5 LOINC EPITHELIAL MODERATE RARE-FEW 38723-6 LOINC A BACTERIA 3+ NONE SEEN 47997-2 LOINC A MUCUS MANY NONE SEEN 8247-9 LOINC A YEAST NOT PRESENT NOT PRESENT 07009-5 LOINC CASTS SEE BELOW 89749-8 LOINC CRYSTALS NONE SEEN 02432-9 LOINC CULTURE? NO 8251-1 LOINC DIAGNOSIS N/A TV Trich genital swab/urine PCR CEPHEID - Collect Date/Time: 06/07/2024 21:38 [facility] ID: [id number] [place], [place], [id number] LOINC: 90947-4 Test Value Unit Reference Range Code Code System Flag TV TRICH SOURCE: URINE TV TRICH NOT DETECTED SEND TO [facility]? NO Social History Type Status Start Date End Date Code Code Syst em Smoking History Never smoker (Never Smoked) 054287854 SNOMED CT Sex Female Medications Medication Start [...] Unknown ORAL NEEDED AT BEDTIME 25 MILLIGRAMS 204512 RxNorm TAKE 25 MILLIGRAMS ORAL NEEDED AT BEDTIME Benazepril Hydrochlor lety 20MG Oral Tablet 10/31/2019 Unknown ORAL ONCE A DAY 2 TABLET 059825 RxNorm TAKE 2 TABLET ORAL ONCE A DAY Carvedilol 12.5MG Oral Tablet 10/31/2019 Unknown ORAL TWICE A DAY 12.5 MILLIGRAMS 19990818 RxNorm TAKE 12.5 MILLIGRAMS ORAL TWICE A DAY Paxil 20MG Oral Tablet 10/31/2019 Unknown ORAL AT BEDTIME 20 MILLIGRAMS 173022 RxNorm TAKE 20 MILLIGRAMS ORAL AT BEDTIME Vitamin D3 1000IU Oral Tablet 10/31/2019 Unknown ORAL ONCE A DAY 1000 INTERNATIONAL UNITS 359903 RxNorm TAKE 1000 INTERNATIONAL UNITS ORAL ONCE A DAY Gabapentin 600MG Oral Tablet 11/05/2020 Unknown ORAL AT BEDTIME 600 MILLIGRAMS 697681 RxNorm TAKE 600 MILLIGRAMS ORAL AT BEDTIME Omeprazole 40MG Oral Capsule, Delayed Release 11/05/2020 Unknown ORAL TWICE A DAY 40 MILLIGRAMS 20020727 RxNorm TAKE 40 MILLIGRAMS ORAL TWICE A DAY SEROquel 25MG QUEtiapine Oral Tablet 11/05/2020 Unknown ORAL AT BEDTIME 25 MG QUEtiapine 989443 RxNorm TAKE 25 MG QUEtiapine ORAL AT BEDTIME Aspirin 81MG Oral Tablet, Enteric Coated 11/02/2023 Unknown ORAL 81 MILLIGRAMS 634236 RxNorm TAKE 81 MILLIGRAMS ORAL Multivitam in Oral Tablet 11/02/2023 Unknown ORAL ONCE A DAY 1 unit(s) RxNorm TAKE 1 EACH ORAL ONCE A DAY NIFEdipine 30MG Oral Tablet, Extended Release 11/02/2023 Unknown ORAL ONCE A DAY 90 MILLIGRAMS 9239725 RxNorm TAKE 90 MILLIGRAMS ORAL ONCE A [...] IMAGING OF LIVER AND BILIARY TRACT active 625427628 SNOMED-CT OTHER FATIGUE active 04584647 SNOMED -CT DIZZINESS active 719178020 SNOMED-CT Allergies and Adverse Reactions Allergy Substance Reaction Severity Start Date Concern Status Code Code System SULFA (sulfonamide) ANAPHYLACTIC (SNOMED-CT: null) Moderate Active 21410 RxNorm PENICILLINS (CLASS) Itching (SNOMED-CT: 777056146) Moderate Active 12134 RxNorm PREDNISONE Vomiting (SNOMED-CT: 461628825) Moderate Active 8640 RxNorm FENOFIBRATE TORSADES (SNOMED-CT: null) Active 8703 RxNorm DIFLUCAN ABD pain (SNOMED-CT: 81471088) Moderate Active 20270620 RxNorm Plan of Treatment US Abdomen Complete (36618) 10/08/2023 Colonoscopy 11/02/2023 Encounters Encounter Diagnosis Start Date Code Code Sys tem Acute cystitis without hematuria 06/07/2024 SNOMED-CT Personal Care Team Section Performer Name Performer Role Active Date Inactive DEYSI Webb SERICULTURE TEACHER PCP - Primary care physician 2021-10-17 4 2022-01-10 RAJANI TSANG SERICULTURE TEACHER PCP - Primary care physician 20202021-11-08 RAVIN CASTAÑEDA PCP - Primary care physician 2022-01-10 2023-05-27 ALEXIS GUERRERO PCP - Primary care physician
--- OUTSIDE RECORDS SUMMARY | 2024-08-22 01:40 | XMS_ITS ---
Author Organization Unknown Address [address] [place] [phone] Phone Care Team Providers Care Hourly Manager Name Role Phone OLGA Hampton Attending Unavailable [...] Rajat Pugh M.D. CH: GABY Report ID: [id number] Reading Location: [id number] Social History Type Status Start Date End Date Code Code Syst em Smoking History Never smoker (Never Smoked) 053796208 SNOMED CT Sex Female Medications Medication Start [...] Unknown ORAL NEEDED AT BEDTIME 25 MILLIGRAMS 403502 RxNorm TAKE 25 MILLIGRAMS ORAL NEEDED AT BEDTIME Benazepril Hydrochlor lety 20MG Oral Tablet 10/31/2019 Unknown ORAL ONCE A DAY 2 TABLET 121014 RxNorm TAKE 2 TABLET ORAL ONCE A DAY Carvedilol 12.5MG Oral Tablet 10/31/2019 Unknown ORAL TWICE A DAY 12.5 MILLIGRAMS 19990818 RxNorm TAKE 12.5 MILLIGRAMS ORAL TWICE A DAY Paxil 20MG Oral Tablet 10/31/2019 Unknown ORAL AT BEDTIME 20 MILLIGRAMS 220101 RxNorm TAKE 20 MILLIGRAMS ORAL AT BEDTIME [...] 11/05/2020 Unknown ORAL AT BEDTIME 600 MILLIGRAMS 887084 RxNorm TAKE 600 MILLIGRAMS ORAL AT BEDTIME NIFEdipine 30MG Oral Tablet, Extended Release 11/05/2020 10/15/19 24 ORAL ONCE A DAY 30 MILLIGRAMS 8238270 RxNorm TAKE 30 MILLIGRAMS ORAL ONCE A DAY Omeprazole 40MG Oral Capsule, Delayed Release 11/05/2020 Unknown ORAL TWICE A DAY 40 MILLIGRAMS 20020727 RxNorm TAKE 40 MILLIGRAMS ORAL TWICE A DAY SEROquel 25MG QUEtiapine Oral Tablet 11/05/2020 Unknown ORAL AT BEDTIME 25 MG QUEtiapine 687220 RxNorm TAKE 25 MG QUEtiapine ORAL AT BEDTIME Aspirin 81MG Oral Tablet, Enteric Coated 11/02/2023 Unknown ORAL 81 MILLIGRAMS 325417 RxNorm TAKE 81 MILLIGRAMS ORAL Multivitam in Oral Tablet 11/02/2023 Unknown ORAL ONCE A DAY 1 unit(s) RxNorm TAKE 1 EACH ORAL ONCE A DAY NIFEdipine 30MG Oral Tablet, Extended Release 11/02/2023 Unknown ORAL ONCE A DAY 90 MILLIGRAMS 3358500 RxNorm TAKE 90 MILLIGRAMS ORAL ONCE A [...] IMAGING OF LIVER AND BILIARY TRACT active 666019882 SNOMED-CT OTHER FATIGUE active 57902728 SNOMED -CT DIZZINESS active 625644577 SNOMED-CT Allergies and Adverse Reactions Allergy Substance Reaction Severity Start Date Concern Status Code Code System SULFA (sulfonamide) ANAPHYLACTIC (SNOMED-CT: null) Moderate Active 50207 RxNorm PENICILLINS (CLASS) Itching (SNOMED-CT: 032033473) Moderate Active 37262 RxNorm PREDNISONE Vomiting (SNOMED-CT: 815040163) Moderate Active 8640 RxNorm FENOFIBRATE TORSADES (SNOMED-CT: null) Active 8703 RxNorm DIFLUCAN ABD pain (SNOMED-CT: 84220831) Moderate Active 20270620 RxNorm Plan of Treatment US Abdomen Complete (30595) 10/08/2023 Colonoscopy 11/02/2023 Encounters Encounter Diagnosis Start Date Code Code Sys tem Fatty (change of) liver, not elsewhere classified 09/17 SNOMED-CT Personal Care Team Section Performer Name Performer Role Active Date Inactive DEYSI Webb TRADEMARK AFFIXER PCP - Primary care physician 2021-10-17 4 2022-01-10 RAJANI TSANG PCP - Primary care physician 20202021-11-08 RAVIN CASTAÑEDA PCP - Primary care physician 2022-01-10 2023-05-27 ALEXIS GUERRERO PCP - Primary care physician Imaging Narrative Notes
--- OUTSIDE RECORDS SUMMARY | 2024-08-22 01:40 | XMS_ITS ---
Author Organization Unknown Address [address] [place] [address] [phone] Phone Care Team Providers Care Maintenance Porter Name Role Phone ULYSSES Cope Attending Unavailable [facility] RN Unavailable CESAR ESPINOZA Primary Unavailable Immunization Immunization [...] em Smoking History Never smoker (Never Smoked) 685590669 SNOMED CT Sex Female Vital Signs Vital Sign Value Unit Cache Value Cache Unit Date/Time Recent/Initial? Code Code System Body Mass Index 49.20 kg/m2 11/02/2023 09:15 Most Recent 11366 -5 [facility] Body Mass Index 47.55 kg/m2 10/15/2023 14:01 Initial 39634 -5 [facility] Systolic Blood Pressure 129 mm[Hg] 11/02/2023 09:11 Initial 8480- 6 [facility] Diastolic Blood Pressure 63 mm[Hg] 11/02/2023 09:11 Initial 8462- 4 [facility] Body Surface Area 2.31 m2 11/02/2023 09:15 Most Recent 3140- 1 [facility] Body Surface Area 2.27 m2 10/15/2023 14:01 Initial 3140- 1 [facility] Height 157.480 0 cm 62.00 in 11/02/2023 09:15 Most Recent 8302- 2 [facility] Height 157.480 0 cm 62.00 in 10/15/2023 14:01 Initial 8302- 2 [facility] O2 Saturation 95 % 2023 09:11 Initial 80907 -5 [facility] Pulse 66.0 /min 11/02/2023 09:11 Initial 8867- 4 [facility] Respiration 14 /min 11/02/19 09:11 Initial 9279- 1 [facility] Temperature 36.5 Amalia 97.7 F 11/02/19 24 09:11 Initial 8310- 5 INC Weight 122.02 kg 269.00 lbs 11/02/2023 09:15 Most Recent 59864 -7 [facility] Weight 117.93 kg 260.00 lbs 10/15/2023 14:01 Initial 44293 -7 [facility] Medications Medication Start Date End Date Route [...] Unknown ORAL NEEDED AT BEDTIME 25 MILLIGRAMS 373881 RxNorm TAKE 25 MILLIGRAMS ORAL NEEDED AT BEDTIME Benazepril Hydrochlor lety 20MG Oral Tablet 10/31/2019 Unknown ORAL ONCE A DAY 2 TABLET 542091 RxNorm TAKE 2 TABLET ORAL ONCE A DAY Carvedilol 12.5MG Oral Tablet 10/31/2019 Unknown ORAL TWICE A DAY 12.5 MILLIGRAMS 19990818 RxNorm TAKE 12.5 MILLIGRAMS ORAL TWICE A DAY Paxil 20MG Oral Tablet 10/31/2019 Unknown ORAL AT BEDTIME 20 MILLIGRAMS 243505 RxNorm TAKE 20 MILLIGRAMS ORAL AT BEDTIME Vitamin D3 1000IU Oral Tablet 10/31/2019 Unknown ORAL ONCE A DAY 1000 INTERNATIONAL UNITS 561933 RxNorm TAKE 1000 INTERNATIONAL UNITS ORAL ONCE A DAY Gabapentin 600MG Oral Tablet 11/05/2020 Unknown ORAL AT BEDTIME 600 MILLIGRAMS 459512 RxNorm TAKE 600 MILLIGRAMS ORAL AT BEDTIME Omeprazole 40MG Oral Capsule, Delayed Release 11/05/2020 Unknown ORAL TWICE A DAY 40 MILLIGRAMS 20020727 RxNorm TAKE 40 MILLIGRAMS ORAL TWICE A DAY SEROquel 25MG QUEtiapine Oral Tablet 11/05/2020 Unknown ORAL AT BEDTIME 25 MG QUEtiapine 353079 RxNorm TAKE 25 MG QUEtiapine ORAL AT BEDTIME Aspirin 81MG Oral Tablet, Enteric Coated 11/02/2023 Unknown ORAL 81 MILLIGRAMS 649498 RxNorm TAKE 81 MILLIGRAMS ORAL Multivitam in Oral Tablet 11/02/2023 Unknown ORAL ONCE A DAY 1 unit(s) RxNorm TAKE 1 EACH ORAL ONCE A DAY NIFEdipine 30MG Oral Tablet, Extended Release 11/02/2023 Unknown ORAL ONCE A DAY 90 MILLIGRAMS 9946202 RxNorm TAKE 90 MILLIGRAMS ORAL ONCE A [...] nal endoscopic procedures, endoscope introduce 11/02/2023 completed 43660 CPT Colonoscopy, flexible; diagn ostic, including collection of specimen(s) by 11/02/2023 completed 22525 CPT Problems Problem Start Date Resolved Date Status Code Code System ABNORMAL FINDINGS ON DIAGNOS TIC IMAGING OF LIVER AND BILIARY TRACT active 209023860 SNOMED-CT OTHER FATIGUE active 93622335 SNOMED -CT DIZZINESS active 971319678 SNOMED-CT Allergies and Adverse Reactions Allergy Substance Reaction Severity Start Date Concern Status Code Code System SULFA (sulfonamide) ANAPHYLACTIC (SNOMED-CT: null) Moderate Active 33030 RxNorm PENICILLINS (CLASS) Itching (SNOMED-CT: 160659035) Moderate Active 87304 RxNorm PREDNISONE Vomiting (SNOMED-CT: 034445642) Moderate Active 8640 RxNorm FENOFIBRATE TORSADES (SNOMED-CT: null) Active 8703 RxNorm DIFLUCAN ABD pain (SNOMED-CT: 12583203) Moderate Active 20270620 RxNorm Plan of Treatment US Abdomen Complete (35171) 10/08/2023 Colonoscopy 11/02/2023 Encounters Encounter Diagnosis Start Date Code Code Sys clayton Melena 11/02/2023 SNOMED-CT Personal Care Team Section Performer Name Performer Role Active Date Inactive DEYSI Webb [facility] PCP - Primary care physician 2021-10-17 4 2022-01-10 RAJANI TSANG FLUTE TEACHER PCP - Primary care physician 20202021-11-08 RAVIN CASTAÑEDA PCP - Primary care physician 2022-01-10 2023-05-27 ALEXIS GUERRERO PCP - Primary care physician
--- OUTSIDE RECORDS SUMMARY | 2024-08-22 01:40 | XMS_ITS ---
Author Organization Unknown Address [address] [place] [address] [phone] Phone Care Team Providers Care Electroplater Name Role Phone NAM SPEARS Attending Unavailable [...] PCR - Colle ct Date/Time: 08/23/2023 12:25 [facility] ID: [id number] [address] [place], [place], [id number] LOINC: 05518-4 Test Value Unit Reference Range Code Code System Flag GRP A STREP PCR NEGATIVE NORMAL: NEGATIVE RESPIRATORY 4 PLEX COVID FLU RSV PCR - Collect Date/Time: 08/23/2023 12:25 [facility] ID: [id number] [address] [place], [place], [id number] LOINC: 03824-9 Test Value Unit Reference Range Code Code System Flag SARS CoV2 PCR NEGATIVE FLU A PCR NEGATIVE FLU B PCR NEGATIVE RSV PCR NEGATIVE SEND TO [facility]? YES A Social History Type Status Start Date End Date Code Code Syst em Smoking History Never smoker (Never Smoked) 513289361 SNOMED CT Sex Female Medications Medication Start [...] Unknown ORAL NEEDED AT BEDTIME 25 MILLIGRAMS 731219 RxNorm TAKE 25 MILLIGRAMS ORAL NEEDED AT BEDTIME Benazepril Hydrochlor lety 20MG Oral Tablet 10/31/2019 Unknown ORAL ONCE A DAY 2 TABLET 215900 RxNorm TAKE 2 TABLET ORAL ONCE A DAY Carvedilol 12.5MG Oral Tablet 10/31/2019 Unknown ORAL TWICE A DAY 12.5 MILLIGRAMS 19990818 RxNorm TAKE 12.5 MILLIGRAMS ORAL TWICE A DAY Paxil 20MG Oral Tablet 10/31/2019 Unknown ORAL AT BEDTIME 20 MILLIGRAMS 569021 RxNorm TAKE 20 MILLIGRAMS ORAL AT BEDTIME [...] 11/05/2020 Unknown ORAL AT BEDTIME 600 MILLIGRAMS 724212 RxNorm TAKE 600 MILLIGRAMS ORAL AT BEDTIME [...] Unknown ORAL AT BEDTIME 25 MG QUEtiapine 677196 RxNorm TAKE 25 MG QUEtiapine ORAL AT BEDTIME Aspirin 81MG Oral Tablet, Enteric Coated 11/02/2023 Unknown ORAL 81 MILLIGRAMS 906803 RxNorm TAKE 81 MILLIGRAMS ORAL Multivitam in [...] IMAGING OF LIVER AND BILIARY TRACT active 165404916 SNOMED-CT OTHER FATIGUE active 07248948 SNOMED -CT DIZZINESS active 261669502 SNOMED-CT Allergies and Adverse Reactions Allergy Substance Reaction Severity Start Date Concern Status Code Code System SULFA (sulfonamide) ANAPHYLACTIC (SNOMED-CT: null) Moderate Active 15686 RxNorm PENICILLINS (CLASS) Itching (SNOMED-CT: 848795579) Moderate Active 65146 RxNorm PREDNISONE Vomiting (SNOMED-CT: 195969375) Moderate Active 8640 RxNorm FENOFIBRATE TORSADES (SNOMED-CT: null) Active 8703 RxNorm DIFLUCAN ABD pain (SNOMED-CT: 49825077) Moderate Active 20270620 RxNorm Plan of Treatment US Abdomen Complete (14215) 10/08/2023 Colonoscopy 11/02/2023 Encounters Encounter Diagnosis Start Date Code Code Sys tem Left without being seen 08/23/2023 [id number] SN OMED-CT Personal Care Team Section Performer Name Performer Role Active Date Inactive Da DEYSI Montejo PCP - Primary care physician 2021-10-17 4 2022-01-10 RAJANI TSANG PCP - Primary care physician 20202021-11-08 RAVIN CASTAÑEDA PCP - Primary care physician 2022-01-10 2023-05-27 ALEXIS GUERRERO PCP - Primary care physician
--- OUTSIDE RECORDS SUMMARY | 2024-08-22 01:40 | XMS_ITS | Encounter Summary ---
Author Organization [facility] Address [facility] [place] [address] Care Team Providers Care Bituminous Paving Machine Operator Name Role Phone Jr Morales MD Primary Care Provider Bernardo Leos MD Primary Care Provider Unavailable Bianca Ellis MD Primary Care Provider [phone] Tonya Valladares [facility] Primary Care Provider [phone] Sagar Pineda MD Primary Care Provider [phone] Bianca Mckeon [employer] Primary Care Provider Earl Moon MD Primary Care Provider [phone] Earl Moon MD Primary Care Provider [phone] Earl Moon MD Unavailable [phone] Rosario Andrews MD Unavailable Alessio Ro MD Unavailable [phone] Jey Hoang MD Unavailable [phone] Encounter Details Date Type Department Care Team (Late st Contact Info) Description 09/01/2017 Abstract [facility] [address] [place] [address] , Luis Galeas MD Social History Tobacco [...] Rule Out 08/23/2022 08/23/2022 08/23/2022 8:00 PM FIRST AID NURSE COVID-19 Rule Out 03/29/2023 03/29/2023 03/29/2023 6:17 AM CDT COVID-19 Rule Out 09/27/2023 09/27/2023 09/27/2023 11:04 AM CDT documented as of this encounter Care Teams Bituminous Paving Machine Operator Relationship Specialty Start Date End Date Jr Morales MD [address] [place] [address] PCP - General INTERNAL MEDICINE 11/09/16 09/05/17 Bernardo Leos MD [address] [address] PCP - General INTERNAL MEDICINE 09/06/17 08/27/19 Bianca Ellis MD [address] [place] [address] PCP - General FAMILY PRACTICE 08/28/19 07/23/21 Tonya Valladares, JULISSA- [address] [place] [address] PCP - General NURSE PRACTITIONER 07/24/21 08/23/22 Sagar Pineda MD [address] [place] [address] PCP - General FAMILY PRACTICE 08/24/22 03/01/23 Bianca Mckeon [employer] [address] [place] [address] PCP - General Nurse Practitioner [facility] 03/02/2308/18 Earl Moon MD [address] [place] [address] PCP - General FAMILY PRACTICE 08/20/23 09/21/23 Earl Moon MD [address] [place] [address] PCP - General FAMILY PRACTICE 09/22/23 Earl Moon MD [address] [place] [address] FAMILY PRACTICE 09/22/23 Rosario Andrews MD [address] [place] [phone] CLINICAL CARDIAC ELECTROPHYSIOLOGY 12/08/16 10/23/22 Alessio Ro MD [address] [place] [address] HEART & VASCULAR CARE 12/20/20 Jey Hoang MD [address] [facility] [address] [place] [address] Physician INTERVENTIONAL CARDIOLOGY 12/06/2205/19/24 documented as of this encounter
--- OUTSIDE RECORDS SUMMARY | 2024-08-22 01:41 | XMS_ITS | Encounter Summary ---
Author Organization [facility] Address [facility] [place] [address] Care Team Providers Care Fast Food Supervisor Name Role Phone Martha Martinez DO Primary Care Provider [phone] Non-Staff, Provider Primary Care Provider Jr Beck MD Primary Care Provider Bernardo Leos MD Primary Care Provider Unavailable Bianca Ellis MD Primary Care Provider [phone] Tonya Valladares [facility] Primary Care Provider [phone] Sagar Pineda MD Primary Care Provider [phone] Bianca Mckeon PATTERNATOR-C Primary Care Provider Earl Moon MD Primary Care Provider [phone] Earl Moon MD Primary Care Provider [phone] Earl Moon MD Unavailable [phone] Rosario Andrews MD Unavailable Alessio Ro MD Unavailable [phone] Jey Hoang MD Unavailable Encounter Details Date Type Department Care Team (Late st Contact Info) Description 02/23/2015 Abstract [facility] [address] [place] [phone] Blanco Crawford MD [address] [facility] [address] [place] [address] Social History Tobacco Use Types [...] Rule Out 08/23/2022 08/23/2022 08/23/2022 8:00 PM EMERGENCY DEPARTMENT AIDE COVID-19 Rule Out 03/29/2023 03/29/2023 03/29/2023 6:17 AM CDT COVID-19 Rule Out 09/27/2023 09/27/2023 09/27/2023 11:04 AM CDT documented as of this encounter Care Teams Fast Food Supervisor Relationship Specialty Start Date End Date Martha Martinez DO PCP - General FAMILY PRACTICE 07/18/16 07/18/16 Non-Staff, Provider PCP - General 07/19/16 11/08/16 Jr Morales MD [address] [facility] [address] [place] [address] PCP - General INTERNAL MEDICINE 11/09/16 09/05/17 Bernardo Leos MD [address] [address] PCP - General INTERNAL MEDICINE 09/06/17 08/27/19 Bianca Ellis MD [address] [place] [address] PCP - General FAMILY PRACTICE 08/28/19 07/23/21 Tonya Valladares FNP- [address] [place] [address] PCP - General NURSE PRACTITIONER 07/24/21 08/23/22 aSgar Pineda MD [address] [place] [address] PCP - General FAMILY PRACTICE 08/24/22 03/01/23 Bianca Mckeon, PATTERNATOR-C [address] [place] [address] PCP - General Nurse Practitioner [facility] 03/02/2308/18 Earl Moon MD [address] [place] [address] PCP - General FAMILY PRACTICE 08/20/23 09/21/23 Earl Moon MD [address] [place] [address] PCP - General FAMILY PRACTICE 09/22/23 Earl Moon MD [address] [place] [address] FAMILY PRACTICE 09/22/23 Rosario Andrews MD [address] [place] [address] CLINICAL CARDIAC ELECTROPHYSIOLOGY 12/08/16 10/23/22 Alessio Ro MD [address] [place] [address] HEART & VASCULAR CARE 12/20/20 Jey Hoang MD [address] [facility] [address] [place] [address] Physician INTERVENTIONAL CARDIOLOGY 12/06/2205/19/24 documented as of this encounter
--- OUTSIDE RECORDS SUMMARY | 2024-08-22 01:41 | XMS_ITS | Clinical Summary ---
Author Organization [facility] Address [address] [place] [address] Phone Care Team Providers Care Felt Pad Cutter Name Role Phone Earl Moon MD Primary Care Provider Jorgito Yarbrough MD Unavailable [phone] Allergies Active Allergy Reactions Criticality Noted Date [...] 05/28/2024 Telephone [facility] [address] [place] [phone] Earl Moon MD from Last 3 [...] Comments Blood Pressure 128/84 05/01/2024 10:43 AM CHILD CARE COORDINATOR Pulse 83 05/01/2024 10:43 AM CHILD CARE COORDINATOR Temperature 36.4 C (97.5 F) 05/01/2024 10:43 AM CHILD CARE COORDINATOR Respiratory Rate 16 05/01/2024 10:43 AM CHILD CARE COORDINATOR Oxygen Saturation 99% 05/01/2024 10:43 AM CHILD CARE COORDINATOR Inhaled Oxygen Concentration - - Weight 124.5 kg (274 lb 8 oz) 05/01/2024 10:43 A M CHILD CARE COORDINATOR Height 157.5 cm (5' 2 ) 05/01/2024 10:43 AM CHILD CARE COORDINATOR Body Mass Index 50.21 05/01/2024 10:43 AM CHILD CARE COORDINATOR Plan of Treatment Upcoming Encounters Date Type Department Care Team (Late st Contact Info) Description 04/27/2025 10:00 AM CHILD CARE COORDINATOR Office Visit [facility] [address] [place] [address] Jorgito Yarbrough MD [address] [place] [address] Health Maintenance Due Date Last Done Comments [...] patient's age to complete this topic Insurance MED[place]ID [place] [id number] [facility] Care Teams Felt Pad Cutter Relationship Specialty Start Date End Date Earl Moon MD [address] [place] [address] PCP - General Pediatrics 08/22/23 Jorgito Yarbrough MD [address] [place] [address] Consulting Physician Neurology 05/06/24
--- OUTSIDE RECORDS SUMMARY | 2024-08-22 01:41 | XMS_ITS | Clinical Summary ---
Author Organization [facility] Address [facility] [place] [address] Care Team Providers Care Senior Health Consultant Name Role Phone Earl Moon MD Primary Care Provider [phone] Earl Moon MD Unavailable [phone] Alessio Ro MD Unavailable [phone] Allergies Active Allergy Reactions Criticality Noted Date [...] EVERY DAY 1 Active vitamin D2, ergocalciferol, 14548 UNITS capsule Take 1 capsule (50,000 Units [...] Morbid (severe) obesity due to excess calories ([facility]) 01/29/2023 Body mass index (BMI) 50.0-59.9, adult ([facility]) 01/29/2023 CHF (congestive heart failure) ([facility]) 01/29/2023 Hyperlipidemia 02/10/2021 Overview (01/29/2023): [...] Plan: Continue carvedilol, Lasix, lisinopril nifedipine. Acute [place] ([facility]) 01/08/2020 Chest pain, unspecified type [...] past. Episodic mood disorder 01/08/2020 Morbid obesity ([facility]) 01/08/2020 Chronic constipation 03/18/2018 NAFL [...] Department Care Team Description 06/09/2024 8:35 AM PROPOSAL REVIEW ANALYST Office Visit [facility] Priority Care - SChidi Carrillo [address] [place] [address] Diane Stevenson NP UTI Symptoms (Patient c/o lower back pain, blood in urine, x 4 days. Pt states she was seen at [place] [facility] and dx her with UTI Sunday [...] 03/09/2022,01/16/2018,11/05/2011 Family History Medical History Relation Comments [place] Maternal Grandfather Relation Status Comments Maternal Grandfather [...] Comments Blood Pressure 110/60 06/09/2024 9:39 AM PROPOSAL REVIEW ANALYST Pulse 83 06/09/2024 9:39 AM PROPOSAL REVIEW ANALYST Temperature 37 C (98.6 F) 06/09/2024 9:39 AM PROPOSAL REVIEW ANALYST Respiratory Rate 20 06/09/2024 9:39 AM PROPOSAL REVIEW ANALYST Oxygen Saturation 96% 06/09/2024 9:39 AM PROPOSAL REVIEW ANALYST Inhaled Oxygen Concentration - - Weight 119.8 [...] 05/22/2024 05/22/2023, 08/0 12/2022, 11/09/2010 PHQ-2 (Physician [place]) 06/18/2024 06/09/2024 Colorectal Cancer Screening FIT/FOBT (1 [...] upon discharge Lifestyle No Juan C Mosley, leg breaker Procedure Name Priority Date/Time Associated Diagnosis Comments URINALYSIS, AUTO, COMPLETE Routine 06/09/2024 9:30 AM PROPOSAL REVIEW ANALYST UTI symptoms OCCULT BLOOD, FECES STAT 09/20/2023 9:35 AM CDT LIPID PANEL Routine 05/22/2023 12:15 PM PROPOSAL REVIEW ANALYST Mixed hyperlipidemia from Last 3 Months or Most Recently Relevant to Health Maintenance Results * (ABNORMAL) URINALYSIS (06/09/2024 9:30 AM PROPOSAL REVIEW ANALYST) COLOR (U) YELLOW 06/09/2024 10:37 AM PROPOSAL REVIEW ANALYST [facility] TRANSPARENCY HAZY(A) CLEAR 06/09/2024 10:37 AM PROPOSAL REVIEW ANALYST [facility] SPECIFIC GRAVITY (U) 1.025 1.003 - 1.040 06/09/2024 10:37 AM PROPOSAL REVIEW ANALYST [facility] U PH 5.5 5.0 - 9.0 06/09/2024 10:37 AM PROPOSAL REVIEW ANALYST [facility] PROTEIN RANDOM (U) NEGATIVE NEGATIVE 06/09/2024 10:37 AM [facility] GLUCOSE (U) NEGATIVE NEGATIVE 06/09/2024 10:37 AM [facility] KETONES MG/DL (U) 1+(A) NEGATIVE 06/09/2024 10:37 AM [facility] BILIRUBIN (U) NEGATIVE NEGATIVE 06/09/2024 10:37 AM [facility] BLOOD (U) 1+(A) NEGATIVE 06/09/2024 10:37 AM [facility] UROBILINOGEN 0.2 0.0 - 2.0 EU/DL 06/09/2024 10:37 AM [facility] NITRITES NEGATIVE NEGATIVE 06/09/2024 10:37 AM [facility] LEUKOCYTES (U) NEGATIVE NEGATIVE 06/09/2024 10:37 AM [facility] RBC/HPF 0-3 0 - 3 /HPF 06/09/2024 10:37 AM [facility] WBC/HPF 0-3 0 - 3 /HPF 06/09/2024 10:37 AM PROPOSAL REVIEW ANALYST [facility] ERDEONNA [place] EPI/HPF 15-20 /HPF 06/09/2024 10:37 AM PROPOSAL REVIEW ANALYST [facility] BACTERIA (U) 1+(A) NONE SEEN 06/09/2024 10:37 AM PROPOSAL REVIEW ANALYST [facility] ERRTHURufus [place] URINE SPECIMEN OBTAINED BY CLEAN CATCH PROCEDURE / Unknown 06/09/2024 9:30 AM PROPOSAL REVIEW ANALYST Diane Stevenson CLOTH WINDER URINE ORDERABLES Final Result [facility] [place] [address] [place] [address], [place] [phone] * OCCULT BLOOD, FECES (09/20/2023 9:35 AM CDT) OCCULT BLOOD FECAL NEGATIVE NEGATIVE 09/20/2023 9:48 AM CDT [facility] STOOL SPECIMEN / Unknown 09/20/2023 9:35 AM CDT Sabina Cohen MD BODY FLUIDS AND STOOLS ARIANA DELANEY Final Result [facility] [address] [place] [address], [place] [phone] * LIPID PANEL (05/22/2023 12:15 PM PROPOSAL REVIEW ANALYST) CHOLESTEROL 288 MG/DL 05/22/2023 1:10 PM PROPOSAL REVIEW ANALYST [facility] Comment:HIGH: > OR = 240 TRIGLYCERIDES 136 MG/DL 05/22/2023 1:10 PM PROPOSAL REVIEW ANALYST [facility] Comment:<150 NORMAL HDL 83 >49 MG/DL 05/22/2023 1:10 PM PROPOSAL REVIEW ANALYST [facility] LDL (CALCULATED) 178 MG/DL 05/22/20 1:10 PM PROPOSAL REVIEW ANALYST [facility] Comment:160-189 HIGH VLDL CALCULATION 27 MG/DL 05/22/20 1:10 PM PROPOSAL REVIEW ANALYST [facility] Comment:REFERENCE RANGE NOT ESTABLISHED CHOL/HDL RATIO 3.5 05/22/2023 1:10 PM PROPOSAL REVIEW ANALYST [facility] Comment:REFERENCE RANGE NOT ESTABLISHED LDL/HDL 2.1 05/22/2023 1:10 PM PROPOSAL REVIEW ANALYST [facility] Comment:REFERENCE RANGE NOT ESTABLISHED NON HDL CHOLESTEROL 205 MG/DL 05/22/2023 1:10 PM PROPOSAL REVIEW ANALYST [facility] Comment:REFERENCE RANGE NOT ESTABLISHED 05/22/2023 12:1 5 PM PROPOSAL REVIEW ANALYST us Jey Hoang MD LABORATORY Final Result [facility] [address] [place] [address], [id number] from Last 3 Months or Most Recently Relevant to Health Maintenance Insurance MEDICAID [facility] MEDICAID DEPT OF [address] [place] [address] Advance Directives Documents on File Type Date Recorded Patient Psychiatric Assistant Expl anation Advance Directives and Living Will 08/15/2017 POWER OF CASH TELLER FO R HEALTH CARE Advance Directives and Living Will 08/11/2017 POWER OF CASH TELLER FO R HEALTH CARE Advance Directives and Living Will 08/10/2017 POWER OF CASH TELLER FO R HEALTH CARE Advance Directives and Living Will 08/06/2017 POWER OF CASH TELLER FO R HEALTH CARE Advance Directives and Living Will 07/21/2017 POWER OF CASH TELLER FO R HEALTH CARE Advance Directives and Living Will 07/17/2017 POWER OF CASH TELLER FO R HEALTH CARE Advance Directives and Living Will 07/14/2017 POWER OF CASH TELLER FO R HEALTH CARE Advance Directives and Living Will 06/10/2017 POWER OF CASH TELLER FO R HEALTH CARE Advance Directives and Living Will 06/04/2017 POWER OF CASH TELLER FO R HEALTH CARE Advance Directives and Living Will 05/24/2017 POWER OF CASH TELLER FO R HEALTH CARE Advance Directives and Living Will 05/23/2017 POWER OF CASH TELLER FO R HEALTH CARE Advance Directives and Living Will 05/21/2017 POWER OF CASH TELLER FO R HEALTH CARE Advance Directives and Living Will 05/01/2017 POWER OF CASH TELLER FO R HEALTH CARE Advance Directives and Living Will 04/30/2017 POWER OF CASH TELLER FO R HEALTH CARE Advance Directives and Living Will 04/29/2017 POWER OF CASH TELLER FO R HEALTH CARE Advance Directives and Living Will 04/28/2017 POWER OF CASH TELLER FO R HEALTH CARE Advance Directives and Living Will 03/20/2017 POWER OF CASH TELLER FO R HEALTH CARE Advance Directives and Living Will 03/17/2017 POWER OF CASH TELLER FO R HEALTH CARE Advance Directives and Living Will 03/14/2017 POWER OF CASH TELLER FO R HEALTH CARE Advance Directives and Living Will 03/14/2017 POWER OF CASH TELLER FO R HEALTH CARE Advance Directives and Living Will 03/12/2017 POWER OF CASH TELLER FO R HEALTH CARE Advance Directives and Living Will 02/15/2017 POWER OF CASH TELLER FO R HEALTH CARE Advance Directives and Living Will 02/12/2017 POWER OF CASH TELLER FO R HEALTH CARE Advance Directives and Living Will 02/11/2017 POWER OF CASH TELLER FO R HEALTH CARE Advance Directives and Living Will 01/16/2017 POWER OF CASH TELLER FO R HEALTH CARE Advance Directives and Living Will 12/18/2016 POWER OF CASH TELLER FO R HEALTH CARE Advance Directives and Living Will 12/17/2016 POWER OF CASH TELLER FO R HEALTH CARE Advance Directives and Living Will 12/01/2016 POWER OF CASH TELLER FO R HEALTH CARE Advance Directives and Living Will 11/08/2016 POWER OF CASH TELLER FO R HEALTH CARE Advance Directives and Living Will 11/07/2016 POWER OF CASH TELLER FO R HEALTH CARE Advance Directives and Living Will 11/02/2016 POWER OF CASH TELLER FO R HEALTH CARE Advance Directives and Living Will 10/28/2016 POWER OF CASH TELLER FO R HEALTH CARE Advance Directives and Living Will 10/05/2016 POWER OF CASH TELLER FO R HEALTH CARE Advance Directives and Living Will 09/16/2016 POWER OF CASH TELLER FO R HEALTH CARE Advance Directives and Living Will 07/05/2016 POWER OF CASH TELLER FO R HEALTH CARE Advance Directives and Living Will 04/19/2016 POWER OF CASH TELLER FO R HEALTH CARE Advance Directives and Living Will 04/19/2016 POWER OF CASH TELLER FO R HEALTH CARE Advance Directives and Living Will 03/16/2016 POWER OF CASH TELLER FO R HEALTH CARE * Full Code (Latest Code Status on File) Date Activated Date Inactivated Comments 09/23/2023 12:50 AM 09/30/2023 2:03 PM Care Teams Senior Health Consultant Relationship Specialty Start Date End Date Earl Moon MD [address] [place] [address] PCP - General FAMILY PRACTICE 09/22/23 Earl Moon MD [address] [place] [address] FAMILY PRACTICE 09/22/23 Alessio Ro MD [address] [place] [address] HEART & VASCULAR CARE 12/20/20
--- OUTSIDE RECORDS SUMMARY | 2024-08-22 01:41 | XMS_ITS | Encounter Summary ---
Author Organization [facility] Address Critical access hospital[address] [place] [address] Care Team Providers Care Frozen Yogurt Maker Name Role Phone Bianca Mckeon ORGANISATION AND METHODS ANALYST-C Primary Care Provider Earl Moon MD Primary Care Provider Earl Moon MD Primary Care Provider [phone] Earl Moon MD Unavailable [phone] Alessio Ro MD Unavailable Jey Hoang MD Unavailable [phone] Encounter Details Date Type Department Care Team (Late st Contact Info) Description 04/18/2023 Hospital Orders Only [place] Boiler Water Tester Pre/Post [address] [place], [place] [id number] Jey Hoang MD [address] [facility] [address] [place], [place] [address] Social History Tobacco Use Types Packs/Day Years [...] documented as of this encounter Care Teams Frozen Yogurt Maker Relationship Specialty Start Date End Date Bianca Mckeon ORGANISATION AND METHODS ANALYST-C [address] [place] [address] PCP - General Nurse Practitioner Family 03/02/2308/18 Earl Moon MD [address] [place] [address] PCP - General FAMILY PRACTICE 08/20/23 09/21/23 Earl Moon MD [address] [place] [address] PCP - General FAMILY PRACTICE 09/22/23 Earl Moon MD [address] [place] [address] FAMILY PRACTICE 09/22/23 Alessio Ro MD [address] [place] [address] HEART & VASCULAR CARE 12/20/20 Jey Hoang MD [address] [facility] [address] [place] [address] Physician INTERVENTIONAL CARDIOLOGY 12/06/2205/19/24 documented as of this encounter
--- OUTSIDE RECORDS SUMMARY | 2024-08-22 01:41 | XMS_ITS | Encounter Summary ---
Author Organization [facility] Address [facility] [place] [address] Care Team Providers Care Flanging Roll Operator Name Role Phone Bianca Ellis MD Primary Care Provider [phone] Tonya Valladares [facility] Primary Care Provider [phone] Sagar Pineda MD Primary Care Provider [phone] Bianca Mckeon SUPERVISOR PLATE FORMING-C Primary Care Provider Earl Moon MD Primary Care Provider [phone] Earl Moon MD Primary Care Provider [phone] Earl Moon MD Unavailable [phone] Rosario Andrews MD Unavailable Alessio Ro MD Unavailable [phone] Jey Hoang MD Unavailable [phone] Encounter Details Date Type Department Care Team (Late st Contact Info) Description 11/24/2020 Be my eyes Message [facility] Patient Accounts [address] [place] [address] [facility] Provider Date of service 11/05/20 [...] Rule Out 08/23/2022 08/23/2022 08/23/2022 8:00 PM FILTER WORKER COVID-19 Rule Out 03/29/2023 03/29/2023 03/29/2023 6:17 AM CDT COVID-19 Rule Out 09/27/2023 09/27/2023 09/27/2023 11:04 AM CDT documented as of this encounter Care Teams Flanging Roll Operator Relationship Specialty Start Date End Date Bianca Ellis MD [address] [place] [address] PCP - General FAMILY PRACTICE 08/28/19 07/23/21 Toyna Valladares FNP-CHRISTINA [address] [place] [address] PCP - General NURSE PRACTITIONER 07/24/21 08/23/22 Sagar Pineda MD [address] [place] [address] PCP - General FAMILY PRACTICE 08/24/22 03/01/23 Bianca Mckeon NP-C [address] [place] [address] PCP - General Nurse Practitioner [facility] 03/02/2308/18 Earl Moon MD [address] [place] [address] PCP - General FAMILY PRACTICE 08/20/23 09/21/23 Earl Moon MD [address] [place] [address] PCP - General FAMILY PRACTICE 09/22/23 Earl Moon MD [address] [place] [address] [facility] PRACTICE 09/22/23 Rosario Andrews MD [address] [place] [address] CLINICAL CARDIAC ELECTROPHYSIOLOGY 12/08/16 10/23/22 Alessio Ro MD [address] [place] [address] HEART & VASCULAR CARE 12/20/20 Jey Hoang MD [address] [facility] [address] [address] Physician INTERVENTIONAL CARDIOLOGY 12/06/2205/19/24 documented as of this encounter
--- OUTSIDE RECORDS SUMMARY | 2024-08-22 01:41 | XMS_ITS | Encounter Summary ---
Author Organization [facility] Address [facility] [place] [address] Care Team Providers Care Telecommunications Repairer Name Role Phone Bernardo Leos MD Primary Care Provider Unavailable Bianca Ellis MD Primary Care Provider [phone] Tonya Valladares [facility] Primary Care Provider [phone] Sagar Pinead MD Primary Care Provider [phone] Bianca Mckeon HEALTHCARE MANAGEMENT-C Primary Care Provider Earl Moon MD Primary Care Provider [phone] Earl Moon MD Primary Care Provider [phone] Earl Moon MD Unavailable [phone] Rosario Andrews MD Unavailable Alessio Ro MD Unavailable Jey Hoang MD Unavailable [phone] Encounter Details Date Type Department Care Team (Late st Contact Info) Description 11/23/2018 Abstract SFL CONVERSION [address] [place] [address] Luis Ng MD Social History Tobacco Use [...] Rule Out 08/23/2022 08/23/2022 08/23/2022 8:00 PM SECONDARY ENGLISH TEACHER COVID-19 Rule Out 03/29/2023 03/29/2023 03/29/2023 6:17 AM CDT COVID-19 Rule Out 09/27/2023 09/27/2023 09/27/2023 11:04 AM CDT documented as of this encounter Care Teams Telecommunications Repairer Relationship Specialty Start Date End Date Bernardo Leos MD PCP - General INTERNAL MEDICINE 09/06/17 08/27/19 Bianca Ellis MD [address] [place] [address] PCP - General FAMILY PRACTICE 08/28/19 07/23/21 Tonya Valladares [facility] [address] [place] [address] PCP - General NURSE PRACTITIONER 07/24/21 08/23/22 Sagar Pineda MD [address] [place] [address] PCP - General FAMILY PRACTICE 08/24/22 03/01/23 Bianca Mckeon, HEALTHCARE MANAGEMENT-C [address] [place] [address] PCP - General Nurse Practitioner Family 03/02/2308/18 Earl Moon MD [address] [place] [address] PCP - General FAMILY PRACTICE 08/20/23 09/21/23 Earl Moon MD [address] [place] [address] PCP - General FAMILY PRACTICE 09/22/23 Earl Moon MD [address] [place] [address] FAMILY PRACTICE 09/22/23 Rosario Andrews MD [address] [place] [address] CLINICAL CARDIAC ELECTROPHYSIOLOGY 12/08/16 10/23/22 Alessio Ro MD [address] [place] [address] HEART & VASCULAR CARE 12/20/20 Jey Hoang MD [address] [facility] [address] [place] [address] Physician INTERVENTIONAL CARDIOLOGY 12/06/2205/19/24 documented as of this encounter
--- OUTSIDE RECORDS SUMMARY | 2024-08-22 01:41 | XMS_ITS ---
Author Organization Unknown Address [address] [place] [phone] Phone Care Team Providers Care Dental Amalgam Processor Name Role Phone RIA VARELA Attending Unavailable [...] LEVEL - Collect Avinash e/Time: 05/27/2023 11:54 [facility] [address] [address] ID: [id number] [place], [place], [id number] LOINC: 45302-0 Test Value Unit Reference Range Code Code System Flag TROPONIN < 0.012 ng/mL L=0.000 H=0.033 82583-9 LOINC URINALYSIS w/Microscopy/C&S if indicated - Collect Date/Time: 05/27/2023 10:31 [facility] [address] [address] ID: [id number] [place], [place], [id number] LOINC: 05214-2 Test Value Unit Reference Range Code Code System Flag UR SOURCE UNKNOWN 70252-9 LOINC COLOR YELLOW YELLOW 5778-6 LOINC CLARITY SL CLOUDY CLEAR 10944-8 LOINC SPEC GRAVITY 1.010 1.000-1.030 5811-5 LOINC PH 7.0 5.0 - 6.5 5803-2 LOINC LEUK EST NEGATIVE NEGATIVE 5799-2 LOINC NITRATE NEGATIVE NEGATIVE PROTEIN NEGATIVE NEGATIVE 5804-0 LOINC GLUCOSE NEGATIVE NEGATIVE 60489-4 LOINC KETONES NEGATIVE NEGATIVE 08623-0 LOINC UROBILINOGEN 0.2 NEGATIVE 5818-0 LOINC BILIRUBIN NEGATIVE NEGATIVE 73287-2 LOINC BLOOD TRACE-INT NEGATIVE 70237-6 LOINC WBC 0-2 0 - 2 66396-7 LOINC RBC 0-2 0 - 2 77661-0 LOINC EPITHELIAL MANY RARE-FEW 98066-7 LOINC A ~ COMMENT Prob. contamination due to improper collec ~~ COMMENT RECOLLECT REQUESTED BACTERIA 2+ NONE SEEN 90234-8 LOINC A MUCUS NONE SEEN NONE SEEN 8247-9 LOINC YEAST NOT PRESENT NOT PRESENT 71597-4 LOINC CASTS NONE SEEN 55698-0 LOINC CRYSTALS NONE SEEN 18813-4 LOINC CULTURE? NO 8251-1 LOINC DIAGNOSIS N/A CBC W/ DIFF - Collect Date/T doron: 05/27/2023 09:20 [facility] [address] ID: [id number] [place], [place], [id number] LOINC: 48358-0 Test Value Unit Reference Range Code Code System Flag WBC 5.8 10^3uL L=4.8 H=10.8 RBC 4.02 10^6uL L=4.20 H=5.40 L HEMOGLOBIN 12.3 g/dL L=12.0 H=16.0 718-7 LOINC HEMATOCRIT 36.2 VOL% L=37.0 H=47.0 4544-3 LOINC L MCV 90.0 fL L=81.0 H=99.0 MCH 30.6 pg L=27.0 H=32.0 MCHC 34.0 g/dL L=32.0 H=36.0 PLATELETS 308 10^3uL L=100 H=400 40884-3 LOINC RDW 13.3 % L=11.7 H=15.5 %GRAN 57.0 % L=40.0 H=70.0 35528-9 LOINC %LYMPH 33.3 % L=20.0 H=45.0 736-9 LOINC %MONO 7.5 % L=2.0 H=10.0 06177-5 LOINC %EOS 1.4 % L=0.0 H=6.0 713-8 LOINC %BASO 0.5 % L=0.0 H=3.0 706-2 LOINC #NEUT 3.3 10^3uL L=1.9 H=7.6 77995-3 LOINC #LYMPH 1.9 10^3uL L=0.9 H=4.9 16149-5 LOINC #MONO 0.4 10^3uL L=0.1 H=0.9 38667-6 LOINC #EOS 0.1 10^3uL L=0.0 H=0.6 712-0 LOINC #BASO 0.03 10^3uL L=0.00 H=0.10 47898-6 LOINC #IM GRANS 0.0 10^3uL L=0.0 H=7.0 21467-4 LOINC %IM GRANS 0.3 % L=0.0 H=5.0 04343-0 LOINC %NRB 0.0 L=0.0 H=0.2 15215-0 LOINC #NRB 0.000 L=0.000 H=0.012 29349-3 LOINC MANUAL DIFF NOT INDICATED RBC MORPH NOT INDICATED COMPREHENSIVE METABOLIC PANE L - Collect Date/Time: 05/27/2023 09:20 [facility] [address] ID: [id number] [place], [place], [address] LOINC: 84491-3 Test Value Unit Reference Range Code Code [...] 2028-9 LOINC ANION GAP 13 L=10 H=20 01851-7 LOINC OSMOLALITY 285 mOs/kG L=280 H=296 56972-6 LOINC BUN/CREAT 13.3 3097-3 LOINC CALCIUM 9.5 mg/dL L=8.3 H=10.5 34199-2 LOINC AST 23 U/L L=15 H=46 1920-8 LOINC ALT 25 U/L L=9 H=72 1742-6 LOINC ALKALINE PHOS 85 U/L L=38 H=126 6768-6 LOINC TOTAL BILI 0.7 mg/dL L=0.2 H=1.3 1975-2 LOINC ALBUMIN 4.6 G/dL L=3.5 H=5.0 1751-7 LOINC TOTAL PROTEIN 7.9 g/L L=6.3 H=8.2 2885-2 LOINC A/G RATIO 1.4 26610-3 LOINC AGE 57 94851-0 LOINC eGFR NON-AFR 69 ml/min eGFR AFR AMER 83 ml/min TROPONIN LEVEL - Collect Avinash e/Time: 05/27/2023 09:20 [facility] [address] ID: [id number] [place], [place], [address] LOINC: 04161-7 Test Value Unit Reference Range Code Code System Flag TROPONIN < 0.012 ng/mL L=0.000 H=0.033 78303-1 [facility] - Collect Date/Greg e: 05/27/2023 09:20 [facility] [address] [address] ID: [id number] [place], [place], [address] LOINC: 10446-6 Test Value Unit Reference Range Code Code System Flag MAGNESIUM 1.9 mg/dL L=1.6 H=2.3 14899-9 LOINC CHEST 1V - Completed: 2022 09:10 [...] Carlos Light M.D. MF: [email or web address] Report ID: [id number] Reading Location: [id number] CT BRAIN WO CONTRAST - Compl eted: [...] Carlos Light M.D. MF: [email or web address] Report ID: [id number] Reading Location: [id number] Social History Type Status Start Date End Date Code Code Syst em Smoking History Never smoker (Never Smoked) 230618671 SNOMED CT Sex Female Medications Medication Start [...] Unknown ORAL NEEDED AT BEDTIME 25 MILLIGRAMS 739744 RxNorm TAKE 25 MILLIGRAMS ORAL NEEDED AT BEDTIME Benazepril Hydrochlor lety 20MG Oral Tablet 10/31/2019 Unknown ORAL ONCE A DAY 2 TABLET 806981 RxNorm TAKE 2 TABLET ORAL ONCE A DAY Carvedilol 12.5MG Oral Tablet 10/31/2019 Unknown ORAL TWICE A DAY 12.5 MILLIGRAMS 163002 RxNorm TAKE 12.5 MILLIGRAMS ORAL TWICE A DAY Paxil 20MG Oral Tablet 10/31/2019 Unknown ORAL AT BEDTIME 20 MILLIGRAMS 202856 RxNorm TAKE 20 MILLIGRAMS ORAL AT BEDTIME Vitamin D3 1000IU Oral Tablet 10/31/2019 Unknown ORAL ONCE A DAY 1000 INTERNATIONAL UNITS 144941 RxNorm TAKE 1000 INTERNATIONAL UNITS ORAL ONCE A DAY Vitamin E 400 IU Oral Tablet 10/31/2019 10/15/19 24 ORAL ONCE A DAY 2 CAPSULE RxNorm TAKE 2 CAPSULE ORAL ONCE A DAY Gabapentin 600MG Oral Tablet 11/05/2020 Unknown ORAL AT BEDTIME 600 MILLIGRAMS 862700 RxNorm TAKE 600 MILLIGRAMS ORAL AT BEDTIME [...] Unknown ORAL AT BEDTIME 25 MG QUEtiapine 124957 RxNorm TAKE 25 MG QUEtiapine ORAL AT BEDTIME Aspirin 81MG Oral Tablet, Enteric Coated 11/02/2023 Unknown ORAL 81 MILLIGRAMS 464200 RxNorm TAKE 81 MILLIGRAMS ORAL Multivitam in [...] IMAGING OF LIVER AND BILIARY TRACT active 660483150 SNOMED-CT OTHER FATIGUE active 87321434 SNOMED -CT DIZZINESS active 330820620 SNOMED-CT Allergies and Adverse Reactions Allergy Substance Reaction Severity Start Date Concern Status Code Code System SULFA (sulfonamide) ANAPHYLACTIC (SNOMED-CT: null) Moderate Active 82657 RxNorm PENICILLINS (CLASS) Itching (SNOMED-CT: 518331327) Moderate Active 34407 RxNorm PREDNISONE Vomiting (SNOMED-CT: 287977455) Moderate Active 8640 RxNorm FENOFIBRATE TORSADES (SNOMED-CT: null) Active 8703 RxNorm DIFLUCAN ABD pain (SNOMED-CT: 27438382) Moderate Active 20270620 RxNorm Plan of Treatment US Abdomen Complete (71361) 10/08/2023 Colonoscopy 11/02/2023 Encounters Encounter Diagnosis Start Date Code Code Sys tem Chest pain, unspecified 05/27/2023 [facility] ED-[facility] Personal Care Team Section Performer Name Performer Role Active Date Inactive Da DEYSI Montejo EXHIBITS COORDINATOR PCP - Primary care physician 2021-10-17 4 2022-01-10 RAJANI TSANGP PCP - Primary care physician 20202021-11-08 RAVIN CASTAÑEDA PCP - Primary care physician 2022-01-10 2023-05-27 ALEXIS GUERRERO PCP - Primary care physician Imaging Narrative Notes
--- OUTSIDE RECORDS SUMMARY | 2024-08-22 01:41 | XMS_ITS | Encounter Summary ---
Author Organization [facility] Address [facility] [place] [address] Care Team Providers Care Sales Representative Business Courses Name Role Phone MikeBianca Lizbeth PROTOTYPE ENGINEER MANAGER-C Primary Care Provider Earl Moon MD Primary Care Provider [phone] Earl Moon MD Primary Care Provider Earl Moon MD Unavailable [phone] Alessio Ro MD Unavailable Jey Hoang MD Unavailable Encounter Details Date Type Department Care Team ([facility] Contact Info) Description 04/23/2023 Prep for Procedure [facility] eld [address] [place] [address] Jey Hoang MD [address] [facility] [address] [place] [address] Social History Tobacco Use Types Packs/Day Years [...] documented as of this encounter Care Teams Sales Representative Business Courses Relationship Specialty Start Date End Date Bianca Mckeon NP-C [address] [place] [address] PCP - General Nurse Practitioner Family 03/02/2308/18 Earl Moon MD [address] [place] [address] PCP - General FAMILY PRACTICE 08/20/23 09/21/23 Earl Moon MD [address] [place] [address] PCP - General FAMILY PRACTICE 09/22/23 Earl Moon MD [address] [place] [address] FAMILY PRACTICE 09/22/23 Alessio Ro MD [address] [place] [address] HEART & VASCULAR CARE 12/20/20 Jey Hoang MD [address] [address] Physician INTERVENTIONAL CARDIOLOGY 12/06/2205/19/24 documented as of this encounter
--- OUTSIDE RECORDS SUMMARY | 2024-08-22 01:41 | XMS_ITS ---
Author Organization Unknown Address [address] [place] [phone] Phone Care Team Providers Care Metaphysicist Name Role Phone AMBROCIO FELDMAN Attending Unavailable [...] DIFF - Collect Date/T doron: 10/03/2023 11:23 [facility] ID: [id number] [address] [place], [place], [id number] LOINC: 87193-4 Test Value Unit Reference Range Code Code System Flag WBC 5.2 10^3uL L=4.8 H=10.8 RBC 3.68 10^6uL L=4.20 H=5.40 L HEMOGLOBIN 11.2 g/dL L=12.0 H=16.0 718-7 LOINC L HEMATOCRIT 34.3 VOL% L=37.0 H=47.0 4544-3 LOINC L MCV 93.2 fL L=81.0 H=99.0 MCH 30.4 pg L=27.0 H=32.0 MCHC 32.7 g/dL L=32.0 H=36.0 PLATELETS 340 10^3uL L=100 H=400 34982-3 LOINC RDW 14.3 % L=11.7 H=15.5 %GRAN 37.4 % L=40.0 H=70.0 98934-5 LOINC L %LYMPH 47.6 % L=20.0 H=45.0 736-9 LOINC H %MONO 8.2 % L=2.0 H=10.0 29663-5 LOINC %EOS 5.2 % L=0.0 H=6.0 713-8 LOINC %BASO 1.0 % L=0.0 H=3.0 706-2 LOINC #NEUT 2.0 10^3uL L=1.9 H=7.6 24195-6 LOINC #LYMPH 2.5 10^3uL L=0.9 H=4.9 28063-4 LOINC #MONO 0.4 10^3uL L=0.1 H=0.9 93568-4 LOINC #EOS 0.3 10^3uL L=0.0 H=0.6 712-0 LOINC #BASO 0.05 10^3uL L=0.00 H=0.10 58702-5 LOINC #IM GRANS 0.0 10^3uL L=0.0 H=7.0 18857-3 LOINC %IM GRANS 0.6 % L=0.0 H=5.0 43501-6 LOINC %NRB 0.0 L=0.0 H=0.2 26879-0 LOINC #NRB 0.000 L=0.000 H=0.012 95397-3 LOINC MANUAL DIFF NOT INDICATED RBC MORPH NOT INDICATED COMPREHENSIVE METABOLIC PANE L - Collect Date/Time: 10/03/2023 11:23 [facility] ID: [id number] [address] [place], [place], [id number] LOINC: 35423-3 Test Value Unit Reference Range Code Code [...] 8-9 LOINC ANION GAP 14 L=10 H=20 68997-7 LOINC OSMOLALITY 294 mOs/kG L=280 H=296 70764-9 LOINC BUN/CREAT 13.3 3097-3 LOINC CALCIUM 9.6 mg/dL L=8.3 H=10.5 99088-9 LOINC AST 66 U/L L=15 H=46 1920-8 LOINC H ALT 84 U/L L=9 H=72 1742-6 LOINC H ALKALINE PHOS 93 U/L L=38 H=126 6768-6 LOINC TOTAL BILI 0.5 mg/dL L=0.2 H=1.3 1975-2 LOINC ALBUMIN 4.3 G/dL L=3.5 H=5.0 1751-7 LOINC TOTAL PROTEIN 7.5 g/L L=6.3 H=8.2 2885-2 LOINC A/G RATIO 1.3 58892-3 LOINC AGE 58 30931-3 LOINC eGFR NON-AFR 69 ml/min eGFR AFR AMER 83 ml/min MAGNESIUM - Collect Date/Greg e: 10/03/2023 11:23 [facility] ID: [id number] [address] [place], [place], [id number] LOINC: 79598-7 Test Value Unit Reference Range Code Code System Flag MAGNESIUM 1.6 mg/dL L=1.6 H=2.3 40423-8 LOINC Social History Type Status Start Date End Date Code Code Syst em Smoking History Never smoker (Never Smoked) 596854920 SNOMED CT Sex Female Medications Medication Start [...] Unknown ORAL NEEDED AT BEDTIME 25 MILLIGRAMS 703367 RxNorm TAKE 25 MILLIGRAMS ORAL NEEDED AT BEDTIME Benazepril Hydrochlor lety 20MG Oral Tablet 10/31/2019 Unknown ORAL ONCE A DAY 2 TABLET 200833 RxNorm TAKE 2 TABLET ORAL ONCE A DAY Carvedilol 12.5MG Oral Tablet 10/31/2019 Unknown ORAL TWICE A DAY 12.5 MILLIGRAMS 387757 RxNorm TAKE 12.5 MILLIGRAMS ORAL TWICE A DAY Paxil 20MG Oral Tablet 10/31/2019 Unknown ORAL AT BEDTIME 20 MILLIGRAMS 748340 RxNorm TAKE 20 MILLIGRAMS ORAL AT BEDTIME Vitamin D3 1000IU Oral Tablet 10/31/2019 Unknown ORAL ONCE A DAY 1000 INTERNATIONAL UNITS 993577 RxNorm TAKE 1000 INTERNATIONAL UNITS ORAL ONCE A DAY Vitamin E 400 IU Oral Tablet 10/31/2019 10/15/19 24 ORAL ONCE A DAY 2 CAPSULE RxNorm TAKE 2 CAPSULE ORAL ONCE A DAY Gabapentin 600MG Oral Tablet 11/05/2020 Unknown ORAL AT BEDTIME 600 MILLIGRAMS 712616 RxNorm TAKE 600 MILLIGRAMS ORAL AT BEDTIME [...] Unknown ORAL AT BEDTIME 25 MG QUEtiapine 969583 RxNorm TAKE 25 MG QUEtiapine ORAL AT BEDTIME Aspirin 81MG Oral Tablet, Enteric Coated 11/02/2023 Unknown ORAL 81 MILLIGRAMS 041137 RxNorm TAKE 81 MILLIGRAMS ORAL Multivitam in [...] IMAGING OF LIVER AND BILIARY TRACT active 108924614 SNOMED-CT OTHER FATIGUE active 16533589 SNOMED -CT DIZZINESS active 812430104 SNOMED-CT Allergies and Adverse Reactions Allergy Substance Reaction Severity Start Date Concern Status Code Code System SULFA (sulfonamide) ANAPHYLACTIC (SNOMED-CT: null) Moderate Active 89104 RxNorm PENICILLINS (CLASS) Itching (SNOMED-CT: 129248456) Moderate Active 18426 RxNorm PREDNISONE Vomiting (SNOMED-CT: 291837926) Moderate Active 8640 RxNorm FENOFIBRATE TORSADES (SNOMED-CT: null) Active 8703 RxNorm DIFLUCAN ABD pain (SNOMED-CT: 50875801) Moderate Active 20270620 RxNorm Plan of Treatment US Abdomen Complete (94034) 10/08/2023 Colonoscopy 11/02/2023 Encounters Encounter Diagnosis Start Date Code Code Sys tem Poisoning by unspecified jovany gs, medicaments and biological substances, accidental (unintentional), initial encounter 10/03/2023 SNOMED-CT Personal Care Team Section Performer Name Performer Role Active Date Inactive DEYSI Webb PULVERIZER TENDER PCP - Primary care physician 2021-10-17 4 2022-01-10 RAJANI TSANG PCP - Primary care physician 20202021-11-08 RAVIN CASTAÑEDA PCP - Primary care physician 2022-01-10 2023-05-27 ALEXIS GUERRERO PCP - Primary care physician
--- NOTE | 2024-08-22 01:42 | PC.NURSE ---
engineering technical writer at bedside, gave patient warm blanket per request. call light remains within reach.
--- NOTE | 2024-08-22 01:50 | PC.NURSE ---
RN to bedside to answer patient questions with male model at bedside. patient argumentative with RN stating that she knows my EKG was not normal. patient assured her EKG was looked at by the ER provider, who is trained to interpret the reading. patient awake and alert, states she wants a director financial systems to read my EKG because she knows it was not normal. patient continued on despite RN providing reassurance and education including no director financial systems currently available at this facility at this time. patient continued asking RN several questions to which RN addressed with patient. RN provided update to ERP about patient inquiries and requests.
[2024-08-22 01:56] LABS: Basophils Absolute Auto 0.05 K/mm3 (0.00-0.10); Basophils Percent Auto 0.7 % (0.0-1.0); Eosinophils Absolute Auto 0.08 K/mm3 (0.02-0.50); Eosinophils Percent Auto 1.2 % (1.0-6.0); Hematocrit 37.3 % (35.0-49.0); Hemoglobin 12.6 g/dL (12.0-15.0); Immature Granulocyte Absolute 0.02 K/mm3 (0.00-0.00); Immature Granulocyte Percent A 0.3 % (0.0-0.0); Lymphocytes Absolute Auto 2.96 K/mm3 (1.10-4.50); Lymphocytes Percent Auto 43.9 % (18.0-42.0); Mean Corpuscular HGB Conc 33.8 g/dL (32-36); Mean Corpuscular Volume 91.9 fL (78.0-102.0); Mean Platelet Volume 10.1 fl (9.2-11.8); Monocytes Absolute Auto 0.57 K/mm3 (0.10-0.90); Monocytes Percent Auto 8.4 % (2.0-11.0); Neutrophils Absolute Auto 3.07 K/mm3 (1.70-7.20); Neutrophils Percent Auto 45.5 % (50.0-70.0); Platelet Count Result 309 K/mm3 (150-420); Red Blood Count 4.06 M/mm3 (4.20-5.40); Red Cell Distribution Width 13.2 % (11.6-14.4); White Blood Count 6.8 K/mm3 (4.8-10.8)
--- NOTE | 2024-08-22 02:00 | ED.CHESTPAIN ---
HPI - Chest Pain General Chief Complaint: Chest Pain Stated Complaint: chest pain Time Seen by Provider: 08/22/24 01:12 Source: patient Mode of arrival: ambulatory Limitations: no limitations History of Present Illness HPI narrative: this is a 58-year-old female with a history of obstructive sleep apnea the presents with some chest discomfort that is reproducible on examination with no nausea vomiting no diaphoresis no shortness of breath no fever chills does have a mild headache with no blurry vision no neurological deficits. Patient also has a history of anxiety. MD complaint: chest discomfort Onset (ago): day(s) Timing of current episode: episodic Prior episodes: Yes Onset: during rest Pain location: other ( reproducible chest pain) Related Data Home Medications ?Medication ?Instructions ?Recorded ?Confirmed ?Last Taken ?Type amitriptyline 25 mg tablet 25 mg PO DAILY 06/22/21 08/23/23 Unknown History benazepril 40 mg tablet 40 mg PO DAILY 06/22/21 08/23/23 Unknown History carvedilol 12.5 mg tablet 12.5 mg PO DAILY 06/22/21 08/23/23 Unknown History furosemide 20 mg tablet 20 mg PO DAILY 06/22/21 08/23/23 Unknown History gabapentin 600 mg tablet 600 mg PO DAILY 06/22/21 08/23/23 Unknown History nifedipine 30 mg tablet,extended 30 mg PO DAILY 06/22/21 08/23/23 Unknown History release quetiapine 50 mg tablet 50 mg PO DAILY 06/22/21 08/23/23 Unknown History paroxetine HCl 20 mg tablet 20 mg PO DAILY 09/27/22 08/23/23 Unknown History potassium chloride 10 mEq 20 meq PO DAILY 09/27/22 08/23/23 Unknown History tablet,extended release Allergies Allergy/AdvReac Type Severity Reaction Status Date / Time fenofibrate Allergy Itching Verified 08/22/24 01:26 peanut Allergy Unknown Verified 08/22/24 01:26 Penicillins Allergy Unknown Verified 08/22/24 01:26 Bvfpyct-SKY-AbL Reductase Allergy Unknown Verified 08/22/24 01:26 Inhibitor Sulfa (Sulfonamide Allergy Unknown Verified 08/22/24 01:26 Antibiotics) Review of Systems Review of Systems: All systems reviewed & are unremarkable except as noted in HPI and below PMFSH Past Medical History Medical History Hypertension HPV in female Miscarriage Elective Heart disease Heart attack GERD (gastroesophageal reflux disease) Congestive heart failure Anemia Surgical History Surgical History History of cholecystectomy H/O laparoscopy [place] teeth removed History of hysterectomy History of dilation and curettage Family History Family History Father Carcinoma of colon Hypertension Grandparent Hypertension Anxiety Social History Social History Smoking status: Former smoker Alcohol intake: never Substance use: never Agree to blood products: Yes Exam Const: General: healthy appearing and no acute distress Nutritional Appearance: well nourished and obese Orientation/consciousness: patient oriented x3 Limitations: no limitations Eyes: Conjunctivae: conjunctivae normal Neck: Neck: normal visual inspection and no lymphadenopathy Chest: Chest palpation & inspection: normal inspection of the chest Resp: Effort & Inspection: normal respiratory effort Auscultation: clear to auscultation bilaterally Cardio: Rate: regular rate Rhythm: regular rhythm GI: GI Palp: Yes Soft to palpation Auscultation: normal bowel sounds : General: Yes bladder normal to palpation Urinary Catheter: Urinary Catheter: patent and draining Back/Spine/Pelvis: Back: no CVA tenderness Skin: General skin exam: normal color Rashes: no rashes Neuro: General: patient oriented x3, moves all extremities, no meningeal signs and no focal motor deficits Extrem: General: normal to inspection and no pedal edema Psych: Affect: Anxious affect present Course Course Emergency Course: EKG performed shows normal sinus rhythm with a rate of 78. labs and reviewed for patient. Vital Signs Vital signs: Vital Signs Temperature 36.3 C L 08/22/24 01:12 Pulse Rate 86 08/22/24 01:12 Respiratory Rate 16 08/22/24 01:12 Blood Pressure 139/83 08/22/24 01:12 Pulse Oximetry 99 08/22/24 01:12 Oxygen Delivery Room Air 08/22/24 01:12 Temperature 36.3 C L 08/22/24 01:12 Pulse Rate 86 08/22/24 01:12 Respiratory Rate 16 08/22/24 01:12 Blood Pressure 139/83 08/22/24 01:12 Pulse Oximetry 99 08/22/24 01:12 Oxygen Delivery Room Air 08/22/24 01:12 MDM - Chest Pain Lab Data 08/22/24 01:52 08/22/24 01:52 Labs: Lab Results 08/22/24 08/22/24 Range/Units 01:37 01:52 WBC 6.8 (4.8-10.8) K/mm3 RBC 4.06 L (4.20-5.40) M/mm3 Hgb 12.6 (12.0-15.0) g/dL Hct 37.3 (35.0-49.0) % MCV 91.9 (78.0-102.0) fL MCH 31.0 (27.0-31.0) pg MCHC 33.8 (32-36) g/dL RDW 13.2 (11.6-14.4) % Plt Count 309 (150-420) K/mm3 MPV 10.1 (9.2-11.8) fl Immature Gran % (Auto) 0.3 H (0.0-0.0) % Neut % (Auto) 45.5 L (50.0-70.0) % Lymph % (Auto) 43.9 H (18.0-42.0) % Logan % (Auto) 8.4 (2.0-11.0) % Eos % (Auto) 1.2 (1.0-6.0) % Baso % (Auto) 0.7 (0.0-1.0) % Lymph # (Auto) 2.96 (1.10-4.50) K/mm3 Logan # (Auto) 0.57 (0.10-0.90) K/mm3 Eos # (Auto) 0.08 (0.02-0.50) K/mm3 Baso # (Auto) 0.05 (0.00-0.10) K/mm3 Abs Immat Gran (auto) 0.02 H (0.00-0.00) K/mm3 Absolute Neuts (auto) 3.07 (1.70-7.20) K/mm3 Absolute Nucleated RBC 0.00 (0.00-0.00) K/mm3 Nucleated RBC % 0.0 (0-0.0) % Sodium Pending Potassium Pending Chloride Pending Carbon Dioxide Pending Anion Gap Pending BUN Pending Creatinine Pending Estim Creat Clear Calc Pending Estimated GFR Pending Glucose Pending Calculated Osmolality Pending Calcium Pending Total Bilirubin Pending AST Pending ALT Pending Alkaline Phosphatase Pending Troponin I Pending Total Protein Pending Albumin Pending Influenza A (RT-PCR) Pending Influenza B (RT-PCR) Pending RSV (RT-PCR) Pending SARS-CoV-2 RNA (RT-PCR) Pending Critical Care Time Critical Care Time Critical Care Time: No Discharge Plan Discharge Clinical Impression: Atypical chest pain Patient Disposition: Home, Self-Care Condition: Stable Instructions: Antibiotic Form, Chest Wall Pain (ED) Additional Instructions: Advised patient to follow-up with primary care physician/ lab systems analyst within the next 3 to 4 days for further evaluation treatment. Patient Language: Japanese Prescriptions: No Action ondansetron 4 mg tablet,disintegrating 4 mg PO Q6H PRN (Reason: nausea and vomiting) Qty: 10 0RF gabapentin 600 mg tablet 600 mg PO DAILY carvedilol 12.5 mg tablet 12.5 mg PO DAILY nifedipine 30 mg tablet extended release 30 mg PO DAILY amitriptyline 25 mg tablet 25 mg PO DAILY furosemide 20 mg tablet 20 mg PO DAILY benazepril 40 mg tablet 40 mg PO DAILY quetiapine 50 mg tablet 50 mg PO DAILY ibuprofen 800 mg tablet 800 mg PO TID Qty: 20 0RF omeprazole magnesium [Prilosec OTC] 20 mg tablet,delayed release (DR/EC) 20 mg PO BID Qty: 20 0RF potassium chloride 10 mEq tablet extended release 20 meq PO DAILY paroxetine HCl 20 mg tablet 20 mg PO DAILY Follow-up/Referrals: Earl Moon MD [Primary Care Provider] - Time of Disposition: 02:30
--- NOTE | 2024-08-22 02:01 | PC.NURSE ---
ERP Dr. Faustin at bedside for patient update as patient was argumentative with RN regarding interpretation of EKG completed.
--- NOTE | 2024-08-22 02:11 | PC.NURSE ---
RN called to patient bedside. patient reports she is having nausea, requesting Zofran .
[2024-08-22 02:15] LABS: Alanine Aminotransferase 29 U/L (14-59); Alkaline Phosphatase 115 U/L (46-116); Anion Gap 14 mmol/L (4-12); Aspartate Amino Transferase 16 U/L (15-37); Blood Urea Nitrogen 13 mg/dL (7-18); Calcium 9.3 mg/dL (8.5-10.1); Carbon Dioxide 27 mmol/L (21-32); Chloride 98 mmol/L (98-108); Estimated CRCL calculation 65 ml/min; Estimated Glomerular Filt Rate 53; Glucose 111 mg/dL (70-99); Osmolality Calculated 289 mOsm/kg (285-295); Potassium 3.3 mmol/L (3.5-5.1); Sodium 139 mmol/L (136-145); Total Protein 7.8 g/dL (6.4-8.2); Troponin I 5.4 ng/L (0.00-60.4)
[2024-08-22 02:16] LABS: Influenza A QL RT-PCR Negative (Negative); Influenza B QL RT-PCR Negative (Negative); RSV RNA, RT-PCR Negative (Negative); SARS-CoV-2 RNA PCR Negative (Negative)
[2024-08-22] MEDS: ONDANSETRON HCL ODT 4 MG TABLET PO (02:17)
--- NOTE | 2024-08-22 02:18 | PC.NURSE ---
patient medicated per order, see MAR. call light within reach. RN monitoring.
--- NOTE | 2024-08-22 02:31 | PC.NURSE ---
Dr. Faustin at bedside providing patient update regarding results and plan of care including discharge.
--- NOTE | 2024-08-22 02:45 | PC.NURSE ---
Patient being extremely argumentative with staff. Both RNs at bedside at this time. Patient insists on being admitted and that there is something wrong with her. Patient has been argumentative and extremely demanding since she arrived to the ED. ERP explained all of the patients results in great detail, patient verbalized understanding of results and was made aware that she was up for DC and did not voice any other concerns while ERP was in patient room. Patient was provided her DC instructions by primary RN and is now refusing to leave the facility. [place] [employer] department was called to assist with patient.
== END 2024-08-22 02:55 | disposition home or self-care (01) ==
PROVIDERS: Emergency Provider Emergency Medicine; PCP Family Medicine
DX: R07.89 Other chest pain (principal); I11.0 Hypertensive heart disease with heart failure; I50.9 Heart failure, unspecified; I25.2 Old myocardial infarction; Z87.891 Personal history of nicotine dependence; Z79.899 Other long term (current) drug therapy; Z20.822 Contact with and (suspected) exposure to COVID-19
CPT/HCPCS: 36415; 80053; 84484; 85025; 87637; 93005; 99284; A9270

== ENCOUNTER 2024-11-05 16:58 | Outpatient (CLI) | payer MEDICARE, MEDICAID, SELFPAY ==
--- OUTSIDE RECORDS SUMMARY | 2024-11-05 17:04 | XMS_ITS ---
Author Organization Unknown Address [address] [place] [phone] Phone Care Team Providers Care Translational Specialist Name Role Phone ULYSSES Cope Attending Unavailable WELLINGTON ROD PART MAKER Unavailable CESAR ESPINOZA Primary Unavailable Immunization Immunization [...] em Smoking History Never smoker (Never Smoked) 165854519 SNOMED CT Sex Female Vital Signs Vital Sign Value Unit [place] Value [place] Unit Date/Time Recent/Initial? Code Code System Body Mass Index 49.20 kg/m2 11/02/2023 09:15 Most Recent 08760 -5 [facility] Body Mass Index 47.55 kg/m2 10/15/2023 14:01 Initial 09953 -5 [facility] Systolic Blood Pressure 129 mm[Hg] 11/02/2023 09:11 Initial 8480- 6 [facility] Diastolic Blood Pressure 63 mm[Hg] 11/02/2023 09:11 Initial 8462- 4 [facility] Body Surface Area 2.31 m2 11/02/2023 09:15 Most Recent 3140- 1 [facility] Body Surface Area 2.27 m2 10/15/2023 14:01 Initial 3140- 1 [facility] Height 157.480 0 cm 62.00 in 11/02/2023 09:15 Most Recent 8302- 2 [facility] Height 157.480 0 cm 62.00 in 10/15/2023 14:01 Initial 8302- 2 [facility] O2 Saturation 95 % 2023 09:11 Initial 27583 -5 [facility] Pulse 66.0 /min 11/02/2023 09:11 Initial 8867- 4 [facility] Respiration 14 /min 11/02/19 09:11 Initial 9279- 1 [facility] Temperature 36.5 Amalia 97.7 F 11/02/19 24 09:11 Initial 8310- 5 INC Weight 122.02 kg 269.00 lbs 11/02/2023 09:15 Most Recent 07732 -7 [facility] Weight 117.93 kg 260.00 lbs 10/15/2023 14:01 Initial 81655 -7 [facility] Medications Medication Start Date End Date [...] Unknown ORAL NEEDED AT BEDTIME 25 MILLIGRAMS 135224 RxNorm TAKE 25 MILLIGRAMS ORAL NEEDED AT BEDTIME Benazepril Hydrochlor lety 20MG Oral Tablet 10/31/2019 Unknown ORAL ONCE A DAY 2 TABLET 161850 RxNorm TAKE 2 TABLET ORAL ONCE A DAY Carvedilol 12.5MG Oral Tablet 10/31/2019 Unknown ORAL TWICE A DAY 12.5 MILLIGRAMS 19990818 RxNorm TAKE 12.5 MILLIGRAMS ORAL TWICE A DAY Paxil 20MG Oral Tablet 10/31/2019 Unknown ORAL AT BEDTIME 20 MILLIGRAMS 209518 RxNorm TAKE 20 MILLIGRAMS ORAL AT BEDTIME Vitamin D3 1000IU Oral Tablet 10/31/2019 Unknown ORAL ONCE A DAY 1000 INTERNATIONAL UNITS 371816 RxNorm TAKE 1000 INTERNATIONAL UNITS ORAL ONCE A DAY Gabapentin 600MG Oral Tablet 11/05/2020 Unknown ORAL AT BEDTIME 600 MILLIGRAMS 760604 RxNorm TAKE 600 MILLIGRAMS ORAL AT BEDTIME Omeprazole 40MG Oral Capsule, Delayed Release 11/05/2020 Unknown ORAL TWICE A DAY 40 MILLIGRAMS 20020727 RxNorm TAKE 40 MILLIGRAMS ORAL TWICE A DAY SEROquel 25MG QUEtiapine Oral Tablet 11/05/2020 Unknown ORAL AT BEDTIME 25 MG QUEtiapine 864695 RxNorm TAKE 25 MG QUEtiapine ORAL AT BEDTIME Aspirin 81MG Oral Tablet, Enteric Coated 11/02/2023 Unknown ORAL 81 MILLIGRAMS 538284 RxNorm TAKE 81 MILLIGRAMS ORAL Multivitam in Oral Tablet 11/02/2023 Unknown ORAL ONCE A DAY 1 unit(s) RxNorm TAKE 1 EACH ORAL ONCE A DAY NIFEdipine 30MG Oral Tablet, Extended Release 11/02/2023 Unknown ORAL ONCE A DAY 90 MILLIGRAMS 5298576 RxNorm TAKE 90 MILLIGRAMS ORAL ONCE A [...] nal endoscopic procedures, endoscope introduce 11/02/2023 completed 73355 CPT Colonoscopy, flexible; diagn ostic, including collection of specimen(s) by 11/02/2023 completed 90944 CPT Problems Problem Start Date Resolved Date Status Code Code System ABNORMAL FINDINGS ON DIAGNOS TIC IMAGING OF LIVER AND BILIARY TRACT active 331327429 SNOMED-CT OTHER FATIGUE active 12811809 SNOMED -CT DIZZINESS active 271643494 SNOMED-CT Allergies and Adverse Reactions Allergy Substance Reaction Severity Start Date Concern Status Code Code System SULFA (sulfonamide) ANAPHYLACTIC (SNOMED-CT: null) Moderate Active 02289 RxNorm PENICILLINS (CLASS) Itching (SNOMED-CT: 994746422) Moderate Active 55817 RxNorm PREDNISONE Vomiting (SNOMED-CT: 801218534) Moderate Active 8640 RxNorm FENOFIBRATE TORSADES (SNOMED-CT: null) Active 8703 RxNorm DIFLUCAN ABD pain (SNOMED-CT: 13996369) Moderate Active 20270620 RxNorm Plan of Treatment US Abdomen Complete (58986) 10/08/2023 Colonoscopy 11/02/2023 Encounters Encounter Diagnosis Start Date Code Code Sys clayton Melena 11/02/2023 SNOMED-CT Personal Care Team Section Performer Name Performer Role Active Date Inactive DEYSI Webb DOWEL MAKER PCP - Primary care physician 2021-10-17 4 2022-01-10 RAJANI TSANG DOWEL MAKER PCP - Primary care physician 20202021-11-08 RAVIN CASTAÑEDA PCP - Primary care physician 2022-01-10 2023-05-27 ALEXIS GUERRERO PCP - Primary care physician
--- OUTSIDE RECORDS SUMMARY | 2024-11-05 17:04 | XMS_ITS ---
Author Organization Unknown Address [address] [place] [phone] Phone Care Team Providers Care Biodiesel Production Technician Name Role Phone RIA VARELA Attending Unavailable [...] LEVEL - Collect Avinash e/Time: 05/27/2023 11:54 [facility] ID: [id number] [place], [place], [id number] LOINC: 08444-7 Test Value Unit Reference Range Code Code System Flag TROPONIN < 0.012 ng/mL L=0.000 H=0.033 94094-6 LOINC URINALYSIS w/Microscopy/C&S if indicated - Collect Date/Time: 05/27/2023 10:31 [facility] ID: [id number] [place], [place], [address] LOINC: 60323-9 Test Value Unit Reference Range Code Code System Flag UR SOURCE UNKNOWN 80831-0 LOINC COLOR YELLOW YELLOW 5778-6 LOINC CLARITY SL CLOUDY CLEAR 57741-9 LOINC SPEC GRAVITY 1.010 1.000-1.030 5811-5 LOINC PH 7.0 5.0 - 6.5 5803-2 LOINC LEUK EST NEGATIVE NEGATIVE 5799-2 LOINC NITRATE NEGATIVE NEGATIVE PROTEIN NEGATIVE NEGATIVE 5804-0 LOINC GLUCOSE NEGATIVE NEGATIVE 04646-4 LOINC KETONES NEGATIVE NEGATIVE 55852-4 LOINC UROBILINOGEN 0.2 NEGATIVE 5818-0 LOINC BILIRUBIN NEGATIVE NEGATIVE 48550-2 LOINC BLOOD TRACE-INT NEGATIVE 19443-0 LOINC WBC 0-2 0 - 2 20335-7 LOINC RBC 0-2 0 - 2 79310-9 LOINC EPITHELIAL MANY RARE-FEW 38298-7 LOINC A ~ COMMENT Prob. contamination due to improper collec ~~ COMMENT RECOLLECT REQUESTED BACTERIA 2+ NONE SEEN 39914-4 LOINC A MUCUS NONE SEEN NONE SEEN 8247-9 LOINC YEAST NOT PRESENT NOT PRESENT 00228-1 LOINC CASTS NONE SEEN 09094-7 LOINC CRYSTALS NONE SEEN 91945-3 LOINC CULTURE? NO 8251-1 LOINC DIAGNOSIS N/A CBC W/ DIFF - Collect Date/T doron: 05/27/2023 09:20 [facility] ID: [id number] [place], [place], [address] LOINC: 91646-3 Test Value Unit Reference Range Code Code System Flag WBC 5.8 10^3uL L=4.8 H=10.8 RBC 4.02 10^6uL L=4.20 H=5.40 L HEMOGLOBIN 12.3 g/dL L=12.0 H=16.0 718-7 LOINC HEMATOCRIT 36.2 VOL% L=37.0 H=47.0 4544-3 LOINC L MCV 90.0 fL L=81.0 H=99.0 MCH 30.6 pg L=27.0 H=32.0 MCHC 34.0 g/dL L=32.0 H=36.0 PLATELETS 308 10^3uL L=100 H=400 34010-2 LOINC RDW 13.3 % L=11.7 H=15.5 %GRAN 57.0 % L=40.0 H=70.0 21742-6 LOINC %LYMPH 33.3 % L=20.0 H=45.0 736-9 LOINC %MONO 7.5 % L=2.0 H=10.0 39601-6 LOINC %EOS 1.4 % L=0.0 H=6.0 713-8 LOINC %BASO 0.5 % L=0.0 H=3.0 706-2 LOINC #NEUT 3.3 10^3uL L=1.9 H=7.6 21470-9 LOINC #LYMPH 1.9 10^3uL L=0.9 H=4.9 43615-6 LOINC #MONO 0.4 10^3uL L=0.1 H=0.9 42521-7 LOINC #EOS 0.1 10^3uL L=0.0 H=0.6 712-0 LOINC #BASO 0.03 10^3uL L=0.00 H=0.10 55611-2 LOINC #IM GRANS 0.0 10^3uL L=0.0 H=7.0 25185-4 LOINC %IM GRANS 0.3 % L=0.0 H=5.0 00700-1 LOINC %NRB 0.0 L=0.0 H=0.2 80172-8 LOINC #NRB 0.000 L=0.000 H=0.012 95250-5 LOINC MANUAL DIFF NOT INDICATED RBC MORPH NOT INDICATED COMPREHENSIVE METABOLIC PANE L - Collect Date/Time: 05/27/2023 09:20 [facility] ID: [id number] [place], [place], [address] LOINC: 38894-5 Test Value Unit Reference Range Code Code [...] 2028-9 LOINC ANION GAP 13 L=10 H=20 48374-3 LOINC OSMOLALITY 285 mOs/kG L=280 H=296 65577-6 LOINC BUN/CREAT 13.3 3097-3 LOINC CALCIUM 9.5 mg/dL L=8.3 H=10.5 74580-3 LOINC AST 23 U/L L=15 H=46 1920-8 LOINC ALT 25 U/L L=9 H=72 1742-6 LOINC ALKALINE PHOS 85 U/L L=38 H=126 6768-6 LOINC TOTAL BILI 0.7 mg/dL L=0.2 H=1.3 1975-2 LOINC ALBUMIN 4.6 G/dL L=3.5 H=5.0 1751-7 LOINC TOTAL PROTEIN 7.9 g/L L=6.3 H=8.2 2885-2 LOINC A/G RATIO 1.4 85011-2 LOINC AGE 57 89934-2 LOINC eGFR NON-AFR 69 ml/min eGFR AFR AMER 83 ml/min TROPONIN LEVEL - Collect Avinash e/Time: 05/27/2023 09:20 [facility] ID: [id number] [place], [place], [address] LOINC: 42792-7 Test Value Unit Reference Range Code Code System Flag TROPONIN < 0.012 ng/mL L=0.000 H=0.033 49030-6 LOINC MAGNESIUM - Collect Date/Greg e: 05/27/2023 09:20 [facility] ID: [id number] [place], [place], [address] LOINC: 74365-4 Test Value Unit Reference Range Code Code System Flag MAGNESIUM 1.9 mg/dL L=1.6 H=2.3 82847-0 LOINC CHEST 1V - Completed: 2022 09:10 [...] Carlos Light M.D. MF: [email or web address] Report ID: [id number] Reading Location: [id number] CT BRAIN WO CONTRAST - Compl eted: [...] Carlos Light M.D. MF: SHERI Report ID: [id number] Reading Location: [id number] Social History Type Status Start Date End Date Code Code Syst em Smoking History Never smoker (Never Smoked) 571172641 SNOMED CT Sex Female Medications Medication Start [...] Unknown ORAL NEEDED AT BEDTIME 25 MILLIGRAMS 478725 RxNorm TAKE 25 MILLIGRAMS ORAL NEEDED AT BEDTIME Benazepril Hydrochlor lety 20MG Oral Tablet 10/31/2019 Unknown ORAL ONCE A DAY 2 TABLET 901995 RxNorm TAKE 2 TABLET ORAL ONCE A DAY Carvedilol 12.5MG Oral Tablet 10/31/2019 Unknown ORAL TWICE A DAY 12.5 MILLIGRAMS 19990818 RxNorm TAKE 12.5 MILLIGRAMS ORAL TWICE A DAY Paxil 20MG Oral Tablet 10/31/2019 Unknown ORAL AT BEDTIME 20 MILLIGRAMS 467220 RxNorm TAKE 20 MILLIGRAMS ORAL AT BEDTIME Vitamin D3 1000IU Oral Tablet 10/31/2019 Unknown ORAL ONCE A DAY 1000 INTERNATIONAL UNITS 306155 RxNorm TAKE 1000 INTERNATIONAL UNITS ORAL ONCE A DAY Vitamin E 400 IU Oral Tablet 10/31/2019 10/15/19 24 ORAL ONCE A DAY 2 CAPSULE RxNorm TAKE 2 CAPSULE ORAL ONCE A DAY Gabapentin 600MG Oral Tablet 11/05/2020 Unknown ORAL AT BEDTIME 600 MILLIGRAMS 492333 RxNorm TAKE 600 MILLIGRAMS ORAL AT BEDTIME [...] Unknown ORAL AT BEDTIME 25 MG QUEtiapine 735800 RxNorm TAKE 25 MG QUEtiapine ORAL AT BEDTIME Aspirin 81MG Oral Tablet, Enteric Coated 11/02/2023 Unknown ORAL 81 MILLIGRAMS 288007 RxNorm TAKE 81 MILLIGRAMS ORAL Multivitam in [...] IMAGING OF LIVER AND BILIARY TRACT active 895871545 SNOMED-CT OTHER FATIGUE active 78616493 SNOMED -CT DIZZINESS active 087462798 SNOMED-CT Allergies and Adverse Reactions Allergy Substance Reaction Severity Start Date Concern Status Code Code System SULFA (sulfonamide) ANAPHYLACTIC (SNOMED-CT: null) Moderate Active 89081 RxNorm PENICILLINS (CLASS) Itching (SNOMED-CT: 467072616) Moderate Active 45225 RxNorm PREDNISONE Vomiting (SNOMED-CT: 441054897) Moderate Active 8640 RxNorm FENOFIBRATE TORSADES (SNOMED-CT: null) Active 8703 RxNorm DIFLUCAN ABD pain (SNOMED-CT: 68072106) Moderate Active 20270620 RxNorm Plan of Treatment US Abdomen Complete (17673) 10/08/2023 Colonoscopy 11/02/2023 Encounters Encounter Diagnosis Start Date Code Code Sys tem Chest pain, unspecified 05/27/2023 SNOM ED-CT Personal Care Team Section Performer Name Performer Role Active Date Inactive Da DEYSI Montejo VAL[facility]NER PCP - Primary care physician 2021-10-17 4 2022-01-10 RAJANI TSANG PCP - Primary care physician 20202021-11-08 RAVIN CASTAÑEDA PCP - Primary care physician 2022-01-10 2023-05-27 ALEXIS GUERRERO PCP - Primary care physician Imaging Narrative Notes
--- OUTSIDE RECORDS SUMMARY | 2024-11-05 17:04 | XMS_ITS ---
Author Organization Unknown Address [address] [place] [phone] Phone Care Team Providers Care Endoscopy Registered Nurse Name Role Phone AMBROCIO FELDMAN Attending Unavailable [...] DIFF - Collect Date/T doron: 10/03/2023 11:23 [facility] ID: [id number] [place], [place], [address] LOINC: 14106-0 Test Value Unit Reference Range Code Code System Flag WBC 5.2 10^3uL L=4.8 H=10.8 RBC 3.68 10^6uL L=4.20 H=5.40 L HEMOGLOBIN 11.2 g/dL L=12.0 H=16.0 718-7 LOINC L HEMATOCRIT 34.3 VOL% L=37.0 H=47.0 4544-3 LOINC L MCV 93.2 fL L=81.0 H=99.0 MCH 30.4 pg L=27.0 H=32.0 MCHC 32.7 g/dL L=32.0 H=36.0 PLATELETS 340 10^3uL L=100 H=400 66302-6 LOINC RDW 14.3 % L=11.7 H=15.5 %GRAN 37.4 % L=40.0 H=70.0 32276-9 LOINC L %LYMPH 47.6 % L=20.0 H=45.0 736-9 LOINC H %MONO 8.2 % L=2.0 H=10.0 77396-7 LOINC %EOS 5.2 % L=0.0 H=6.0 713-8 LOINC %BASO 1.0 % L=0.0 H=3.0 706-2 LOINC #NEUT 2.0 10^3uL L=1.9 H=7.6 39154-2 LOINC #LYMPH 2.5 10^3uL L=0.9 H=4.9 10014-1 LOINC #MONO 0.4 10^3uL L=0.1 H=0.9 54485-8 LOINC #EOS 0.3 10^3uL L=0.0 H=0.6 712-0 LOINC #BASO 0.05 10^3uL L=0.00 H=0.10 18975-4 LOINC #IM GRANS 0.0 10^3uL L=0.0 H=7.0 25310-5 LOINC %IM GRANS 0.6 % L=0.0 H=5.0 30628-3 LOINC %NRB 0.0 L=0.0 H=0.2 66943-5 LOINC #NRB 0.000 L=0.000 H=0.012 05477-6 LOINC MANUAL DIFF NOT INDICATED RBC MORPH NOT INDICATED COMPREHENSIVE METABOLIC PANE L - Collect Date/Time: 10/03/2023 11:23 [facility] ID: [id number] [place], [place], [address] LOINC: 19303-6 Test Value Unit Reference Range Code Code [...] 8-9 LOINC ANION GAP 14 L=10 H=20 87224-7 LOINC OSMOLALITY 294 mOs/kG L=280 H=296 95096-2 LOINC BUN/CREAT 13.3 3097-3 LOINC CALCIUM 9.6 mg/dL L=8.3 H=10.5 31482-1 LOINC AST 66 U/L L=15 H=46 1920-8 LOINC H ALT 84 U/L L=9 H=72 1742-6 LOINC H ALKALINE PHOS 93 U/L L=38 H=126 6768-6 LOINC TOTAL BILI 0.5 mg/dL L=0.2 H=1.3 1975-2 LOINC ALBUMIN 4.3 G/dL L=3.5 H=5.0 1751-7 LOINC TOTAL PROTEIN 7.5 g/L L=6.3 H=8.2 2885-2 LOINC A/G RATIO 1.3 07253-8 LOINC AGE 58 99922-8 LOINC eGFR NON-AFR 69 ml/min eGFR AFR AMER 83 ml/min MAGNESIUM - Collect Date/Greg e: 10/03/2023 11:23 [facility] ID: [id number] [address] [place], [place], [address] LOINC: 24365-4 Test Value Unit Reference Range Code Code System Flag MAGNESIUM 1.6 mg/dL L=1.6 H=2.3 [facility] Social History Type Status Start Date End Date Code Code Syst em Smoking History Never smoker (Never Smoked) 378024914 SNOMED CT Sex Female Medications Medication Start [...] Unknown ORAL NEEDED AT BEDTIME 25 MILLIGRAMS 607684 RxNorm TAKE 25 MILLIGRAMS ORAL NEEDED AT BEDTIME Benazepril Hydrochlor lety 20MG Oral Tablet 10/31/2019 Unknown ORAL ONCE A DAY 2 TABLET 654977 RxNorm TAKE 2 TABLET ORAL ONCE A DAY Carvedilol 12.5MG Oral Tablet 10/31/2019 Unknown ORAL TWICE A DAY 12.5 MILLIGRAMS 807844 RxNorm TAKE 12.5 MILLIGRAMS ORAL TWICE A DAY Paxil 20MG Oral Tablet 10/31/2019 Unknown ORAL AT BEDTIME 20 MILLIGRAMS 248780 RxNorm TAKE 20 MILLIGRAMS ORAL AT BEDTIME Vitamin D3 1000IU Oral Tablet 10/31/2019 Unknown ORAL ONCE A DAY 1000 INTERNATIONAL UNITS 377517 RxNorm TAKE 1000 INTERNATIONAL UNITS ORAL ONCE A DAY Vitamin E 400 IU Oral Tablet 10/31/2019 10/15/19 24 ORAL ONCE A DAY 2 CAPSULE RxNorm TAKE 2 CAPSULE ORAL ONCE A DAY Gabapentin 600MG Oral Tablet 11/05/2020 Unknown ORAL AT BEDTIME 600 MILLIGRAMS 157429 RxNorm TAKE 600 MILLIGRAMS ORAL AT BEDTIME [...] Unknown ORAL AT BEDTIME 25 MG QUEtiapine 021646 RxNorm TAKE 25 MG QUEtiapine ORAL AT BEDTIME Aspirin 81MG Oral Tablet, Enteric Coated 11/02/2023 Unknown ORAL 81 MILLIGRAMS 674248 RxNorm TAKE 81 MILLIGRAMS ORAL Multivitam in [...] IMAGING OF LIVER AND BILIARY TRACT active 793273208 SNOMED-CT OTHER FATIGUE active 99312331 SNOMED -CT DIZZINESS active 122961614 SNOMED-CT Allergies and Adverse Reactions Allergy Substance Reaction Severity Start Date Concern Status Code Code System SULFA (sulfonamide) ANAPHYLACTIC (SNOMED-CT: null) Moderate Active 59894 RxNorm PENICILLINS (CLASS) Itching (SNOMED-CT: 639256891) Moderate Active 33098 RxNorm PREDNISONE Vomiting (SNOMED-CT: 623597762) Moderate Active 8640 RxNorm FENOFIBRATE TORSADES (SNOMED-CT: null) Active 8703 RxNorm DIFLUCAN ABD pain (SNOMED-CT: 69253386) Moderate Active 20270620 RxNorm Plan of Treatment US Abdomen Complete (60798) 10/08/2023 Colonoscopy 11/02/2023 Encounters Encounter Diagnosis Start Date Code Code Sys tem Poisoning by unspecified jovany gs, medicaments and biological substances, accidental (unintentional), initial encounter 10/03/2023 SNOMED-CT Personal Care Team Section Performer Name Performer Role Active Date Inactive DEYSI Webb PCP - Primary care physician 2021-10-17 4 2022-01-10 RAJANI TSANG PCP - Primary care physician 20202021-11-08 RAVIN CASTAÑEDA PCP - Primary care physician 2022-01-10 2023-05-27 ALEXIS GUERRERO PCP - Primary care physician
--- OUTSIDE RECORDS SUMMARY | 2024-11-05 17:04 | XMS_ITS | Clinical Summary ---
Author Organization [facility] Address [address] [place] [address] Care Team Providers Care Communication Skills Instructor Name Role Phone Unavailable Primary Care Provider Unavailabl e Source Comments [facility],non-owned Affiliates and Associated Physician Practices is amultiple site organization consisting of ambulatory clinics and hospital sitesin [place], [place], [place] and [place]. This disclosure is being madepursuant to the Care Everywhere program and may not contain all information available regarding this patient. Last updated [employer] Allergies Active Allergy Reactions Criticality Noted Date Comments Fenofibrate Anaphylaxis High 09/19/2024 Hmg-Coa-R Inhibitors Anaphylaxis High 09/19/2024 Sulfur Anaphylaxis High 09/19/2024 Active Problems Problem Noted Date Diagnosed Date Abnormal findings on diagnos tic imaging of liver and biliary tract 09/19/2024 Fatigue 09/19/2024 CHF (congestive heart failure) 01/29/2023 Body mass index (BMI) 50.0-59.9, adult 3 Morbid (severe) obesity due to excess calories 0 01/29/2023 Hyperlipidemia 02/10/2021 Overview (09/19/2024): Last Assessment & Plan: Patient is allergic to statins. Currently on aspirin. Right upper quadrant abdominal pain 02/07/2020 Acute [place] 01/08/2020 Angina pectoris 01/08/2020 Chest pain 01/08/2020 Overview (09/19/2024): Last Assessment & Plan: Patient developed chest [...] in the past. Episodic mood disorder 01/08/2020 GERD (gastroesophageal reflux disease) 0 Overview (09/19/2024): Last Assessment & Plan: On PPI Hypertension 01/08/2020 Overview (09/19/2024): History of hypertension treated with medication History of hypertension treated with medication Last Assessment & Plan: Continue carvedilol, Lasix, lisinopril nifedipine. Chronic constipation 03/18/2018 NAFL (nonalcoholic fatty liver) 09/05/2017 Palpitations 12/01/2016 Overview (09/19/2024): Last Assessment & Plan: Patient reported recurrent palpitations recently. EKG today showed sinus tachycardia with heart rate in low 110s. Currently heart rate ranging in 80s to 90s. Will monitor on telemetry. Anemia 05/11/2015 Chronic bilateral lower abdominal pain 5 Bizarre behavior 03/28/2015 Amenorrhea 04/15/2012 Irritable bowel syndrome 04/15/2012 Depression 01/05/2011 Encounters Date Type Department Care Team Description 09/19/2024 1:49 PM CDT - 09/19/2024 6:34 PM [place] [address] Tri Neri MD Chest pain, unspecified type Discharge Disposition: Home or Self Care 09/19/2024 Travel 08/24/2024 12:17 AM [employer] - 08/24/2024 9:11 AM CDT Emergency ER at [address] [address] Hiram Flores MD Lickerman, Keric, MD Chest pain, unspecified type; Essential hypertension; Bipolar affective disorder, remission status unspecified Discharge Disposition: Home or Self Care from Last 3 Months Social History Tobacco Use Types Packs/Day Years Used Date Smoking Tobacco: Never Assessed AUDIT-C Answer Date Recorded Q1: How often do you have a drink containing alcohol? Never 08/24/2024 Q2: How many drinks containi ng alcohol do you have on a typical day when you are drinking? Patient does not drink Q3: How often do you have si x or more drinks on one occasion? Never 08/24/2024 PHQ-2 Answer Date Recorded Patient Health Questionnaire-2 Score 0 08/24/2024 Comments Unknown Sex and Gender Information Value Date Recorded Sex Assigned at Not on file Legal Sex Female 12:03 PM [employer] Gender Identity Not on file Sexual Orientation Not on file Last Filed Vital Signs Vital Sign Reading Time Taken Comments Blood Pressure 141/63 09/19/2024 6:01 PM CDT Pulse 81 09/19/2024 6:01 PM CDT Temperature 36.3 C (97.3 F) 09/19/2024 1:52 PM CDT Respiratory Rate 14 09/19/2024 6:01 PM CDT Oxygen Saturation 97% 09/19/2024 6:01 PM CDT Inhaled Oxygen Concentration - - Weight 122.5 kg (270 lb) 09/19/2024 1:46 PM CDT Height 157.5 cm (5' 2 ) 09/19/2024 1:46 PM CDT Body Mass Index 49.38 09/19/2024 1:46 PM CDT Plan of Treatment Health Maintenance Due Date Last Done Comments COLOGUARD (AGES 45-75) - COLON CA SCREENING 1966 COLON MONITORING 1966 COLONOSCOPY - COLON CA SCREENING 1966 CT COLONOGRAPHY - COLON CA SCREENING 1966 Colorectal Cancer Screening 1966 FIT - COLON CA SCREENING 1966 FLEX SIG - COLON CA SCREENING 1966 MAMMOGRAM 1966 PAP SMEAR 1966 HIV SCREENING 1981 HEPATITIS C SCREENING 09/19/1984 DTAP/TDAP/TD VACCINES (1 - Tdap) 1985 HEPATITIS B VACCINE (1 of 3 - 19+ 3-dose series) 1985 PNEUMOCOCCAL VACCINE 50+ (1 of 1 - PCV) 2016 ZOSTER VACCINE (1 of 2) 2016 COVID-19 VACCINE (3 - season) 2024 08/24/2020, 06/25/2020 MEDICARE AWV CALENDAR YEAR 2024 INFLUENZA VACCINE (Season Ended) 2025 03/23/2021, 03/17/2020, 04/10/2019, Additional history exists LIPID TESTING 05/22/2028 05/22/2023, 01/09/2020 DEPRESSION SCREENING Completed 08/24/2024 HIB VACCINE Aged Out No longer eligi ble based on patient's age to complete this topic HPV VACCINE Aged Out No longer eligi ble based on patient's age to complete this topic MENINGOCOCCAL (Group B) VACCINE SHARED DECISION-MAKING Aged Out No longer eligible based on patient's age to complete this topic MENINGOCOCCAL GROUPS A/C/Y/W VACCINE Aged Out No longer eligible based on patient's age to complete this topic Procedures Procedure Name Priority Date/Time Associated Diagnosis Comments CARDIAC EKG ORDER 09/23/2024 12: 44 AM CDT TROPONIN-I HIGH SENSITIVE REFLEX 1HOUR Timed 09/19/2024 5:12 PM CDT MAGNESIUM BLOOD STAT 09/19/2024 3:20 PM CDT TROPONIN-I HIGH SENSITIVE BASELINE + 1HR STAT 09/19/2024 3:20 PM CDT COMPREHENSIVE METABOLIC PANEL STAT 09/19/2024 3:20 PM CDT CBC W AUTO DIFFERENTIAL STAT 09/19/2024 3:20 PM CDT XR CHEST 1VW PORTABLE STAT 09/19/2024 3:04 PM CDT Chest pain, unspecified type EKG 12-LEAD STAT 09/19/2024 1:55 PM CDT Chest pain, unspecified type CARDIAC EKG ORDER 08/25/2024 9:3 4 PM CDT CARDIAC EKG ORDER 08/25/2024 8:5 8 PM CDT TROPONIN-I HIGH SENSITIVE STAT 08/24/2024 3:04 AM CDT XR CHEST 1VW PORTABLE STAT 08/24/2024 12:57 AM [employer] Chest pain, unspecified type LIPASE BLOOD STAT 08/24/2024 12:50 AM [employer] COMPREHENSIVE METABOLIC PANEL STAT 08/24/2024 12:50 AM [employer] CBC W AUTO DIFFERENTIAL STAT 08/24/2024 12:50 AM [employer] EKG 12-LEAD STAT 08/24/2024 12:15 AM [employer] Chest pain, unspecified type from Last 3 Months Results * CARDIAC EKG ORDER (09/23/2024 12:44 AM CDT) Only the most recent of3 resultswithin the time period is included. Narrative 09/23/2024 12:44 AM CDT Ordered by an unspecified provider. us Scanned Document CARDIAC SERVICES ORDERABLES Fin al Result * TROPONIN-I HIGH SENSITIVE REFLEX 1HOUR (09/19/2024 5:12 PM CDT) Troponin I High Sensitive <3 <=14 ng/L 09/19/2024 5:45 PM CDT [facility] Delta Troponin I HS 09/19/2024 5:45 PM CDT [facility] Comment:Delta value intentio yeny not calculated. Baseline to 1 hour specimen collection interval exceeded. Blood BLOOD SPECIMEN / Unknown Venipuncture / Unknown 09/19/2024 5:12 PM CDT 09/19/2024 5:18 PM CDT [facility] - CHEMI[facility] ORDERABLE S Final Result Performing Organization Address [facility] Co de Phone Number [facility] [phone] [place] [address] * TROPONIN-I HIGH SENSITIVE BASELINE + 1HR (09/19/2024 3:20 PM CDT) Pathologist [facility] [place] Troponin I High Sensitive <3 <=14 ng/L 09/19/2024 4:02 PM CDT [facility] Blood BLOOD SPECIMEN / Unknown Venipuncture / Unknown 09/19/2024 3:20 PM CDT 09/19/2024 3:32 PM CDT Rachell Gr [facility] - CHEMISTRY ORDERABLE S Final Result Performing Organization Address [facility] de Phone Number [facility] [phone] [place] [address] * CBC W AUTO DIFFERENTIAL (09/19/2024 3:20 PM CDT) Only the most recent of2 resultswithin the time period is included. Pathologist [facility] [place] WBC 6.2 4.0 - 10.7 x10E9/L 09/19/2024 3:48 PM CDT [facility] RBC Count 3.97 3.90 - 5.20 x10E12/L 09/19/2024 3:48 PM CDT [facility] Hemoglobin 12.3 11.9 - 15.8 g/dL 09/19/2024 3:48 PM CDT [facility] Hematocrit 36.3 34.8 - 46.1 % 09/19/2024 3:48 PM CDT [facility] MCV 91.4 80.0 - 98.0 fL 09/19/2024 3:48 PM CDT [facility] MCH 31.0 26.7 - 33.6 pg 09/19/2024 3:48 PM CDT [facility] MCHC 33.9 31.7 - 36.3 g/dL 09/19/2024 3:48 PM CDT [facility] RDW-CV 13.8 11.3 - 14.8 % 09/19/2024 3:48 PM CDT [facility] Platelet Count 316 150 - 420 x10E9/L 09/19/2024 3:48 PM CDT [facility] MPV 11.0 7.8 - 11.4 fL 09/19/2024 3:48 PM CDT [facility] Neutrophil % 64.3 41.0 - 74.0 % 09/19/2024 3:48 PM CDT [facility] Lymphocyte % 27.3 17.0 - 47.0 % 09/19/2024 3:48 PM CDT [facility] Monocyte % 5.8 3.0 - 11.0 % 09/19/2024 3:48 PM CDT [facility] Eosinophil % 1.5 0.0 - 7.0 % 09/19/2024 3:48 PM CDT [facility] Basophil % 0.5 0.0 - 1.6 % 09/19/2024 3:48 PM CDT [facility] Immature Granulocytes % 0.6 0.0 - 1.0 % 09/19/2024 3:48 PM CDT [facility] Neutrophil Absolute 3.98 1.60 - 7.50 x10E9/L 09/19/2024 3:48 PM CDT [facility] Lymphocyte Absolute 1.69 1.00 - 4.40 x10E9/L 09/19/2024 3:48 PM CDT [facility] Monocyte Absolute 0.36 0.15 - 1.00 x10E9/L 09/19/2024 3:48 PM CDT [facility] Eosinophil Absolute 0.09 0.00 - 0.60 x10E9/L 09/19/2024 3:48 PM CDT [facility] Basophil Absolute 0.03 0.00 - 0.13 x10E9/L 09/19/2024 3:48 PM CDT [facility] Blood BLOOD SPECIMEN / Unknown Venipuncture / Unknown 09/19/2024 3:20 PM CDT 09/19/2024 3:32 PM CDT us Rachell Gr [employer] [facility] [facility] - HEMATOLOGY ORDERABL ES Final Result [facility] [address] [place] [address] * (ABNORMAL) COMPREHENSIVE METABOLIC PANEL (09/19/2024 3:20 PM CDT) Only the most recent of2 resultswithin the time period is included. Glucose 135(H) 70 - 99 mg/dL 09/19/2024 3:57 PM CDT [facility] Sodium 140 136 - 145 mmol/L 09/19/2024 3:57 PM CDT [facility] Potassium 3.9 3.5 - 5.1 mmol/L 09/19/2024 3:57 PM CDT [facility] Chloride 104 98 - 107 mmol/L 09/19/2024 3:57 PM CDT [facility] CO2 26 22 - 29 mmol/L 09/19/2024 3:57 PM CDT [facility] Calcium 9.7 8.4 - 10.4 mg/dL 09/19/2024 3:57 PM CDT [facility] Anion Gap 10 6 - 16 mmol/L 09/19/2024 3:57 PM CDT [facility] BUN 14 7 - 26 mg/dL 09/19/2024 3:57 PM CDT [facility] Creatinine 0.82 0.57 - 1.11 mg/dL 09/19/2024 3:57 PM CDT [facility] Alkaline Phosphatase 106 40 - 150 U/L 09/19/2024 3:57 PM CDT [facility] ALT 29 6 - 57 U/L 09/19/2024 3:57 PM CDT [facility] AST 23 10 - 48 U/L 09/19/2024 3:57 PM CDT [facility] Protein Total 7.7 6.4 - 8.3 gm/dL 09/19/2024 3:57 PM CDT [facility] Albumin 4.1 3.4 - 5.0 gm/dL 09/19/2024 3:57 PM CDT [facility] Bilirubin Total 0.6 0.2 - 1.2 mg/dL 09/19/2024 3:57 PM CDT [facility] eGFR by CKD-EPI 83(L) >=90 mL/min/1.7 3 m2 09/19/2024 3:57 PM CDT [facility] Blood BLOOD SPECIMEN / Unknown Venipuncture / Unknown 09/19/2024 3:20 PM CDT 09/19/2024 3:32 PM CDT Rachell Gr [facility] - CHEMISTRY ORDERABLE S Final Result Performing Organization Address City/[facility] Co de Phone Number [facility] [phone] [place] [address] * MAGNESIUM BLOOD (09/19/2024 3:20 PM CDT) [facility] Signature Magnesium 2.0 1.6 - 2.6 mg/dL 09/19/2024 3:57 PM CDT [facility] Blood BLOOD SPECIMEN / Unknown Venipuncture / Unknown 09/19/2024 3:20 PM CDT 09/19/2024 3:32 PM CDT Rachell Gr [facility] - CHEMISTRY ORDERABLE S Final Result Performing Organization Address [facility] de Phone Number [facility] [address] [place] [address] * XR CHEST 1VW PORTABLE (09/19/2024 3:04 PM CDT) Only the most recent of2 resultswithin the time period is included. Anatomical Region Laterality Modality Chest Computed Radiogr aphy 09/19/2024 3:05 PM CDT Narrative 09/19/2024 3:06 PM CDT PROCEDURE: XR CHEST 1VW PORTABLE, DATE/TIME OF EXAM: 09/19/2024 3:04 PM, LOCATION [facility] INDICATION: R07.9: Chest pain, unspecified COMPARISON: Chest radiograph from 08/24/2024 FINDINGS/IMPRESSION: Left basilar interstitial opacities represent atelectasis and/or pneumonia. The cardiomediastinal silhouette is normal. The visible bony thorax is intact. > Interpreting Provider: Hardy Bravo MD on 09/19/2024 3:06 PM Procedure Note Hardy Bravo MD - 09/19/2024 PROCEDURE: XR CHEST 1VW PORTABLE, DATE/TIME OF EXAM: 09/19/2024 3:04 PM, LOCATION [facility] INDICATION: R07.9: Chest pain, unspecified COMPARISON: Chest radiograph from 08/24/2024 FINDINGS/IMPRESSION: Left basilar interstitial opacities represent atelectasis and/orpneumonia. The cardiomediastinal silhouette is normal. The visible bony thorax is intact. > Interpreting Provider: Hardy Bravo MD on 09/19/2024 3:06 PM Rachell Gr [employer] WORK[employer] [facility] DIAGNOSTIC IMAGING ORDERA BLES Final Result * EKG 12-LEAD (09/19/2024 1:55 PM CDT) Only the most recent of2 resultswithin the time period is included. Pathologist [facility] [place] Ventricular Rate 88 BPM [facility] QRS Duration ms 56 ms [facility] Q-T Interval ms 338 ms [facility] QTC Calculation (Bezet) 408 ms [facility] Calculated R Slayden 25 degrees [facility] Calculated T Slayden 56 degrees [facility] Interpretation EKG Accelerated Junctional rhythm Nonspecific ST and T wave abnormality Abnormal ECG Confirmed by SERA KWON MD ([id number]) on 09/20/2024 2:59:46 PM [facility] 09/19/2024 1:55 PM CDT 09/20/2024 2:59 PM CDT Tri Neri MD ECG ORDERABLES Edited Result - Final [facility] * TROPONIN-I HIGH SENSITIVE (08/24/2024 3:04 AM CDT) Pathologist [facility] Troponin I High Sensitive <3 <=14 ng/L 08/24/2024 3:32 AM CDT [facility] Blood BLOOD SPECIMEN / Unknown Venipuncture / Unknown 08/24/2024 3:04 AM CDT 08/24/2024 3:09 AM CDT Hiram Flores MD LAB - CHEMISTRY ORDERABLES Nela l Result Performing Organization Address City/[facility]/ZIP Co de Phone Number [facility] [address] [place] [address] * LIPASE BLOOD (08/24/2024 12:50 AM [employer]) Lipase 12 <60 U/L 08/24/2024 1:13 AM [employer] [facility] Blood BLOOD SPECIMEN / Unknown Venipuncture / Unknown 08/24/2024 12:50 AM [employer] 08/24/2024 12:54 AM [employer] Hiram Flores MD LAB - CHEMISTRY ORDERABLES Nela l Result Performing Organization Address City/[facility] Co de Phone Number [facility] [address] [place] [address] from Last 3 Months Insurance [facility] MANAGED MEDICARE [facility] [place]ICAID [place]
--- OUTSIDE RECORDS SUMMARY | 2024-11-05 17:04 | XMS_ITS | Data Portability ---
Author Organization [facility], [address] ([place]) Address [address] [place] [address] Care Team Providers Care Freight Sales Broker Name Role Phone MIRANDA SILVA Primary Care [...] LastModifiedBy Organization Detail LastModifiedTime 04/15/20 24 09/28/2023 harmani ng/marleni woody tic resul t No observ ation record ed. [email or web address] Not Available 21:27:53 Result Notes None recorded. Problems Name Problem SNOMED Code Status Onset Date Resolution Date Notes Provider Name and Address Organization Details Recorded Time Rectal prolapse 21809900 Active 024 Darrian Delaney MD [address] [place] [address], [phone] , [facility] 4 11:06:58 Problem Notes None recorded. Procedures Surgical History Date Name Laterality Status Provider Name and Address Organization Details Recorded Time Colonoscopy with biopsy completed Not Available Health Note 08/28/2024 11:13:12 Removal of gallbladder completed Not Available Health Note 08/28/2024 11:13:12 Partial hysterectomy completed Not Available Health Note 08/28/2024 11:13:12 Imaging Results Imaging Date Name Status LastModified by Organiz ation Details LastModified Time 09/28/2023 imaging/diag nostic result completed [email or web address] Information not available 04/15/2024 21:27:53 Procedure Notes None recorded. Medical Equipment None Reported. Allergies Allergen ID Allergen Name Allergen Category Reaction Reaction Severity Criticality Documentation Date Start Date Code Code System Note Provider Name and Address Organization Details Recorded Time 3142233 fenofibra te medicatio n chest pain Not available Not available 07/18/20232017 8703 RxNorm React ion: Chest Pain; Not Available [facility] 4 04:27:52 7062362 prednison e medicatio n other Not available Not available 07/18/20232016 8640 RxNorm React ion: GI Upset ; Not Available [facility] 4 04:27:53 8257889 Product containin g 3-hydroxy -3-methyl glutaryl- coenzyme A reductase inhibitor (product) medicatio n other Not available Not available 07/18/20232016 31658 009 SNOMED React ion: GI Upset ; Not Available [facility] 4 04:27:53 7534610 codeine sulfate medicatio n hallucina tions Not available Not available 07/18/20232007 21281 RxNorm React ion: Hallu cinat ions; Not Available [facility] 4 04:27:53 046530 metronida zole medicatio n hives Not available Not available 07/16/20232011 6922 RxNorm React ion: Hives ; Not Available [facility] 4 21:55:33 104826 Substance with sulfonami de structure and antibacte rial mechanism of action (substanc e) medicatio n dyspnea Not available Not available 07/16/20232006 68621 8003 SNOMED React ion: Hives ; Short ness of breat h; Not Available [facility] 4 21:55:33 190110 Diflucan medicatio n Not available Not available Not available 07/16/2023201881 3 RxNorm React ion: Other : GFR dropp ed to 44; Not Available [facility] 4 21:55:33 929696 Product containin g penicilli n (product) medicatio n dyspnea Not available Not available 07/16/20232007 12425 8001 SNOMED React ion: Short ness of breat h; Not Available [facility] 4 21:55:33 613118 peanut allergeni c extract food,medi cation anaphylax is Not available Not available 07/16/20232011 72752 8 RxNorm React ion: Throa t Swell ing; Short ness of breat h; Comme nt: Beatriz ts ; Not Available [facility] 4 21:55:34 147087 tramadol hydrochlo ride medicatio n other Not available Not available 07/16/20232014 46207 RxNorm React ion: Unkno wn to Jerome nt; Comme nt: Annot ation s: TERRELL OHARA 2017 2:16P M does not work for pt; ; Not Available [facility] 4 21:55:34 Medications Name Sig Start Date Stop Date Status Note LastModified by Organization Details LastModified Time celecoxib 200 mg capsule TAKE 1 CAPSULE BY MOUTH TWICE DAILY FOR 7 DAYS THEN NEEDED active Not Available Not Available No t Available gabapentin 600 mg tablet active Not Available Not Available Not Available doxycycline hyclate 100 mg capsule active Not Available Not Available N ot Available carvedilol 12.5 mg tablet active Not [...] Updated DateTime 12/13/2023 157.48 cm 50.1 kg/m2 393129.3 1 g 110 mm[Hg] 82 mm[Hg] Nicky Quiroz [facility] 10:26:15 Social History Question Answer Notes LastModified by [employer] Details LastModified Time Tobacco Smoking Status Never Smoker Not Available Health Note 08/28/2024 11:13:13 Do You Have An Advance Directive? Yes [email or web address] Information not available 08/28/2024 What Is Your Level Of Caffeine Consumption? Moderate [email or web address] Information not available 08/28/2024 What Is Your Code Status? Full Code [email or web address] Information not available 08/28/2024 How Many Times Per Week Do You Exercise? 1-2 Times Per Week [email or web address] Information not available 08/28/2024 What Was The Date Of Your Most Recent Tobacco Screening? 09/04/2024 [email or web address] Information not available 08/28/2024 What Is Your Relationship Status? Single [email or web address] Information not available 08/28/2024 Sex: Unknown Functional Status Question Answer Note LastModified by [employer] Details LastModified Time Do you use any illicit or recreational drugs? No [email or web address] Information not available 08/28/2024 What is your level of alcohol consumption? None [email or web address] Information not available 08/28/2024 Are you currently employed? 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 Occasional [email or web address] Information not available 08/28/2024 Mental Status None recorded. Family History Relationship Description Onset Age of this Age Resolved Age Notes LastModified by Organization Details LastModified Time Father Family history of malignant neoplasm [email or web address] Not available 2024 11:13:11 Paternal Grandfather Family history of malignant neoplasm [email or web address] Not available 2024 11:13:11 Paternal Grandmother Family history of malignant neoplasm [email or web address] Not available 2024 11:13:11 Medical History Condition Response Anxiety Disorder N Diabetes N Bleeding Disorder N Attention-deficit Hyperactivity Disorder N High Blood Pressure Y Arthritis N Hyperlipidemia N Cancer N Thyroid Problems N Stroke N COPD N Depression Y Asthma N Seizures N Anemia Y Heart Disease Y Fibromyalgia N Osteoporosis N Kidney Disease N Gynecological HistoryNo gynecological history recorded. Obstetrics History GPAL:G 0 P 0 0 0 0 Past Encounters Encounter ID Performer Location Encounter Start Date Encounter Closed Date Diagnosis/Indication Diagnosis SNOMED-CT Code Diagnosis ICD10 Code Diagnosis Note [id number] Darrian Delaney MD [address] [place]) [address] [place] [address] 12/13/2023 10:04:18 12/13/2023 11:07:24 Rectal prolapse 99846534 K62.3 Health Concerns Section Related Observation LastModified by Organization Detai ls LastModified Time None Recorded Concern Status LastModified by Organization Details LastModified Time None Recorded Advance Directives Directive Y: Payers Insurance Date Sequence Insurance Name Policy Number Policy Nelson Covered Member ID Nelson Member ID Guarantor Name 08/30/2024 2 [place] [facility] Felicita Cr Jose [id number] Felicita Cr Jose 08/30/2024 1 [facility] (MEDICARE REPLACEMENT/A DVANTAGE - PPO) [id number] Felicita Cr Jose [id number] Felicita Cr Jose Notes Date Note Type [...] this note. Darrian Delaney MD [address] [place] [address], [phone], [facility] 12/13/2023 11:07:06 OBGyn Episode No OBEpisode recorded.
--- OUTSIDE RECORDS SUMMARY | 2024-11-05 17:04 | XMS_ITS ---
Author Organization Unknown Address [address] [place] [phone] Phone Care Team Providers Care Filing And Polishing Supervisor Name Role Phone NAM SPEARS Attending Unavailable [...] PCR - Colle ct Date/Time: 08/23/2023 12:25 [facility] ID: [id number] [address] [place], [place], [id number] LOINC: 15903-9 Test Value Unit Reference Range Code Code System Flag GRP A STREP PCR NEGATIVE NORMAL: NEGATIVE RESPIRATORY 4 PLEX COVID FLU RSV PCR - Collect Date/Time: 08/23/2023 12:25 [facility] ID: [id number] [place], [place], [address] LOINC: 83022-8 Test Value Unit Reference Range Code Code System Flag SARS CoV2 PCR NEGATIVE FLU A PCR NEGATIVE FLU B PCR NEGATIVE RSV PCR NEGATIVE SEND TO [facility]? YES A Social History Type Status Start Date End Date Code Code Syst em Smoking History Never smoker (Never Smoked) 119854467 SNOMED CT Sex Female Medications Medication Start [...] Unknown ORAL NEEDED AT BEDTIME 25 MILLIGRAMS 924629 RxNorm TAKE 25 MILLIGRAMS ORAL NEEDED AT BEDTIME Benazepril Hydrochlor lety 20MG Oral Tablet 10/31/2019 Unknown ORAL ONCE A DAY 2 TABLET 627052 RxNorm TAKE 2 TABLET ORAL ONCE A DAY Carvedilol 12.5MG Oral Tablet 10/31/2019 Unknown ORAL TWICE A DAY 12.5 MILLIGRAMS 19990818 RxNorm TAKE 12.5 MILLIGRAMS ORAL TWICE A DAY Paxil 20MG Oral Tablet 10/31/2019 Unknown ORAL AT BEDTIME 20 MILLIGRAMS 290069 RxNorm TAKE 20 MILLIGRAMS ORAL AT BEDTIME [...] 11/05/2020 Unknown ORAL AT BEDTIME 600 MILLIGRAMS 936738 RxNorm TAKE 600 MILLIGRAMS ORAL AT BEDTIME [...] Unknown ORAL AT BEDTIME 25 MG QUEtiapine 076441 RxNorm TAKE 25 MG QUEtiapine ORAL AT BEDTIME Aspirin 81MG Oral Tablet, Enteric Coated 11/02/2023 Unknown ORAL 81 MILLIGRAMS 827367 RxNorm TAKE 81 MILLIGRAMS ORAL Multivitam in [...] IMAGING OF LIVER AND BILIARY TRACT active 796598106 SNOMED-CT OTHER FATIGUE active 52764598 SNOMED -CT DIZZINESS active 884023201 SNOMED-CT Allergies and Adverse Reactions Allergy Substance Reaction Severity Start Date Concern Status Code Code System SULFA (sulfonamide) ANAPHYLACTIC (SNOMED-CT: null) Moderate Active 92381 RxNorm PENICILLINS (CLASS) Itching (SNOMED-CT: 294404606) Moderate Active 70516 RxNorm PREDNISONE Vomiting (SNOMED-CT: 309834632) Moderate Active 8640 RxNorm FENOFIBRATE TORSADES (SNOMED-CT: null) Active 8703 RxNorm DIFLUCAN ABD pain (SNOMED-CT: 48507607) Moderate Active 20270620 RxNorm Plan of Treatment US Abdomen Complete (65286) 10/08/2023 Colonoscopy 11/02/2023 Encounters Encounter Diagnosis Start Date Code Code Sys tem Left without being seen 08/23/2023 [id number] SN OMED-CT Personal Care Team Section Performer Name Performer Role Active Date Inactive DEYSI Webb SERVICE VEHICLE OPERATOR PCP - Primary care physician 2021-10-17 4 2022-01-10 RAJANI TSANG PCP - Primary care physician 20202021-11-08 RAVIN CASTAÑEDA PCP - Primary care physician 2022-01-10 2023-05-27 ALEXIS GUERRERO PCP - Primary care physician
--- OUTSIDE RECORDS SUMMARY | 2024-11-05 17:04 | XMS_ITS | Clinical Summary ---
Author Organization [facility] Address [address] [place] [address] Phone Care Team Providers Care Pulp Drier Firer Name Role Phone Earl Moon MD Primary Care Provider Jorgito Yarbrough MD Unavailable [phone] Allergies Active Allergy Reactions Criticality Noted [...] Active Active Problems No known active problems Family History Medical History Relation Name Comments [...] Comments Blood Pressure 128/84 05/01/2024 10:43 AM FIN[employer]CIAL REPORT SERVICE SALES AGENT Pulse 83 05/01/2024 10:43 AM [employer] SALES AGENT Temperature 36.4 C (97.5 F) 05/01/2024 10:43 AM FIN[employer] REPORT SERVICE SALES AGENT Respiratory Rate 16 05/01/2024 10:43 AM [employer] RE[employer]ICE SALES AGENT Oxygen Saturation 99% 05/01/2024 10:43 AM FIN[employer] REPORT [employer]ICE SALES AGENT Inhaled Oxygen Concentration - - Weight 124.5 kg (274 lb 8 oz) 05/01/2024 10:43 A M [employer] SALES AGENT Height 157.5 cm (5' 2 ) 05/01/2024 10:43 AM FINANCIAL REPORT SERVICE SALES AGENT Body Mass Index 50.21 05/01/2024 10:43 AM FINANCIAL REPORT SERVICE SALES AGENT Plan of Treatment Upcoming Encounters Date Type Department Care Team (Late st Contact Info) Description 04/27/2025 10:00 AM FINAN[employer] REPORT SERVICE SALES AGENT Office Visit [facility] - Neurology - [place] [address] [place] [address] Jorgito Yarbrough MD [address] [place] [address] Health Maintenance Due Date Last Done Comments Hepatitis C Virus (HCV) Screening 1965 Mammogram 1965 Colonoscopy 09/25/2011 Hepatitis B Immunization (2 of 3 - 19+ 3-dose series) 12/24/2015 11/26/2015 Cologuard 2016 Pneumococcal Immunization (50+ years) (1 of 1 - PCV) 2016 Zoster Immunization (1 of 2) 2016 Colorectal Cancer Screening 09/21/2023 Influenza Immunization (#1) 2024 10/0 11/2020, 03/17/2020, 04/10/2019, Additional history exists SARS-COV-2 Immunization ( - 2023- season) 2024 08/24/2020, 06/25/2020 Immunochemical Fecal Occult [...] patient's age to complete this topic Insurance MEDICARE C [facility] [place] [address] [place] [address] [employer] Care Teams Pulp Drier Firer Relationship Specialty Start Date End Date Earl Moon MD [address] [place] [address] PCP - General Pediatrics 08/22/23 Jorgito Yarbrough MD [address] [place] [address] Consulting Physician Neurology 05/06/24
--- OUTSIDE RECORDS SUMMARY | 2024-11-05 17:05 | XMS_ITS ---
Author Organization Unknown Address [address] [place] [phone] Phone Care Team Providers Care Scheduling Specialist Name Role Phone ERASMO HENLEY Attending Unavailable [...] if indicated - Collect Date/Time: 06/07/2024 21:38 [facility] ID: [id number] [place], [place], [id number] LOINC: 29412-2 Test Value Unit Reference Range Code Code System Flag UR SOURCE VOIDED 01461-9 LOINC COLOR YELLOW YELLOW 5778-6 LOINC CLARITY CLOUDY CLEAR 00389-2 LOINC SPEC GRAVITY >=1.030 1.000-1.030 5811-5 LOINC A PH 5.5 5.0 - 6.5 5803-2 LOINC LEUK EST NEGATIVE NEGATIVE 5799-2 LOINC NITRATE NEGATIVE NEGATIVE PROTEIN TRACE NEGATIVE 5804-0 LOINC GLUCOSE NEGATIVE NEGATIVE 06336-9 LOINC KETONES NEGATIVE NEGATIVE 33932-8 LOINC UROBILINOGEN 0.2 0.2 - 1.0 5818-0 LOINC BILIRUBIN NEGATIVE NEGATIVE 58904-9 LOINC BLOOD 1+ NEGATIVE 80233-6 LOINC WBC 0-2 0 - 2 77936-7 LOINC RBC 2-5 0 - 2 54066-8 LOINC EPITHELIAL MODERATE RARE-FEW 25386-1 LOINC A BACTERIA 3+ NONE SEEN 08460-8 LOINC A MUCUS MANY NONE SEEN 8247-9 LOINC A YEAST NOT PRESENT NOT PRESENT 10519-5 LOINC CASTS SEE BELOW 61430-1 LOINC CRYSTALS NONE SEEN 10604-2 LOINC CULTURE? NO 8251-1 LOINC DIAGNOSIS N/A TV Trich genital swab/urine PCR CEPHEID - Collect Date/Time: 06/07/2024 21:38 [facility] ID: [id number] [place], [place], [address] LOINC: 08260-4 Test Value Unit Reference Range Code Code System Flag TV TRICH SOURCE: URINE TV TRICH NOT DETECTED SEND TO [facility]? NO Social History Type Status Start Date End Date Code Code Syst em Smoking History Never smoker (Never Smoked) 884411251 SNOMED CT Sex Female Medications Medication Start [...] Unknown ORAL NEEDED AT BEDTIME 25 MILLIGRAMS 406388 RxNorm TAKE 25 MILLIGRAMS ORAL NEEDED AT BEDTIME Benazepril Hydrochlor lety 20MG Oral Tablet 10/31/2019 Unknown ORAL ONCE A DAY 2 TABLET 707957 RxNorm TAKE 2 TABLET ORAL ONCE A DAY Carvedilol 12.5MG Oral Tablet 10/31/2019 Unknown ORAL TWICE A DAY 12.5 MILLIGRAMS 19990818 RxNorm TAKE 12.5 MILLIGRAMS ORAL TWICE A DAY Paxil 20MG Oral Tablet 10/31/2019 Unknown ORAL AT BEDTIME 20 MILLIGRAMS 471821 RxNorm TAKE 20 MILLIGRAMS ORAL AT BEDTIME Vitamin D3 1000IU Oral Tablet 10/31/2019 Unknown ORAL ONCE A DAY 1000 INTERNATIONAL UNITS 857157 RxNorm TAKE 1000 INTERNATIONAL UNITS ORAL ONCE A DAY Gabapentin 600MG Oral Tablet 11/05/2020 Unknown ORAL AT BEDTIME 600 MILLIGRAMS 180726 RxNorm TAKE 600 MILLIGRAMS ORAL AT BEDTIME Omeprazole 40MG Oral Capsule, Delayed Release 11/05/2020 Unknown ORAL TWICE A DAY 40 MILLIGRAMS 965456 RxNorm TAKE 40 MILLIGRAMS ORAL TWICE A DAY SEROquel 25MG QUEtiapine Oral Tablet 11/05/2020 Unknown ORAL AT BEDTIME 25 MG QUEtiapine 675507 RxNorm TAKE 25 MG QUEtiapine ORAL AT BEDTIME Aspirin 81MG Oral Tablet, Enteric Coated 11/02/2023 Unknown ORAL 81 MILLIGRAMS 848993 RxNorm TAKE 81 MILLIGRAMS ORAL Multivitam in Oral Tablet 11/02/2023 Unknown ORAL ONCE A DAY 1 unit(s) RxNorm TAKE 1 EACH ORAL ONCE A DAY NIFEdipine 30MG Oral Tablet, Extended Release 11/02/2023 Unknown ORAL ONCE A DAY 90 MILLIGRAMS 9363000 RxNorm TAKE 90 MILLIGRAMS ORAL ONCE A [...] IMAGING OF LIVER AND BILIARY TRACT active 911061946 SNOMED-CT OTHER FATIGUE active 27792788 SNOMED -CT DIZZINESS active 974314215 SNOMED-CT Allergies and Adverse Reactions Allergy Substance Reaction Severity Start Date Concern Status Code Code System SULFA (sulfonamide) ANAPHYLACTIC (SNOMED-CT: null) Moderate Active 43820 RxNorm PENICILLINS (CLASS) Itching (SNOMED-CT: 318797537) Moderate Active 66485 RxNorm PREDNISONE Vomiting (SNOMED-CT: 645601216) Moderate Active 8640 RxNorm FENOFIBRATE TORSADES (SNOMED-CT: null) Active 8703 RxNorm DIFLUCAN ABD pain (SNOMED-CT: 50081880) Moderate Active 20270620 RxNorm Plan of Treatment US Abdomen Complete (13135) 10/08/2023 Colonoscopy 11/02/2023 Encounters Encounter Diagnosis Start Date Code Code Sys tem Acute cystitis without hematuria 06/07/2024 SNOMED-CT Personal Care Team Section Performer Name Performer Role Active Date Inactive DEYSI Webb TECHNICAL SALES ADVISOR PCP - Primary care physician 2021-10-17 4 2022-01-10 RAJANI TSANG TECHNICAL SALES ADVISOR PCP - Primary care physician 20202021-11-08 RAVIN CASTAÑEDA PCP - Primary care physician 2022-01-10 2023-05-27 ALEXIS GUERRERO PCP - Primary care physician
--- OUTSIDE RECORDS SUMMARY | 2024-11-05 17:05 | XMS_ITS | Referral Summary ---
Author Organization [facility] Address [address] [place] [address] Care Team Providers Care Internal Recruiter Name Role Phone Earl Moon MD Primary Care Provide r Encounters Date Type Department Care Team Description 10/31/2024 Telephone Bryce Wood Room Hand [address] [place] [phone] Tonya Carrillo MA Monitor Results 10/27/2024 11:15 AM CDT Office Visit [facility] Sleep Medicine at [address] [phone] Coty Phillips MD Obstructive sleep apnea (Primary Dx); Hypersomnia; Obesity, unspecified class, unspecified obesity type, unspecified whether serious comorbidity present; Insomnia, unspecified type; Severe obesity (HCC); Body mass index (BMI) 50.0-59.9, adult (HCC) 10/13/2024 Orders Only Bryce [facility] Room Hand [address] [place] [phone] Alessio Ro MD Palpitations (Primary Dx) 10/08/2024 11:00 AM CDT Ancillary Procedure [facility] [address] [place] [phone] Palpitations 10/08/2024 10:30 AM CDT Ancillary Procedure Bryce Wood Room Hand [address] [place] [phone] 10/08/2024 10:45 AM CDT Office Visit [facility] [address] [place] [phone] Alessio Ro MD Palpitations (Primary Dx) 10/03/2024 12:31 PM CDT - 10/03/2024 11:59 PM CDT Hospital Encounter [facility] [address] [place] [phone] Chest pain, unspecified type; Congestive heart failure, unspecified HF chronicity, unspecified heart failure type (HCC) Discharge Disposition: Discharge to home or self care 09/22/2024 Orders Only Bryce Wood Room Hand [address] [place] [phone] Randee Bobby MD 09/22/2024 Telephone [facility] [address] [place] [phone] Pauly Fitzgerald 08/29/2024 Telephone Bryce [facility] Room Hand [address] [place] [phone] Tonya Carrillo MA Conversation with 08/28/2024 Orders Only [facility]ce [facility] Room Hand at [address] [phone] Alessio Ro MD Chest pain, unspecified type (Primary Dx); Congestive heart failure, unspecified HF chronicity, unspecified heart failure type (HCC) 08/27/2024 Results Follow-Up Bryce Wood Room Hand [address] [place] [phone] Jeronimo Simon NP Lipid panel, CBC with auto differential, Basic metabolic panel, Additional followed-up results: 2 08/27/2024 12:15 PM CDT Lab [address] [address] Dyslipidemia; SOB (shortness of breath); Coronary artery disease involving big sandy coronary artery of big sandy heart, unspecified whether angina present 08/27/2024 Orders Only Bryce Wood Room Hand [address] [place] [phone] Jeronimo Simon NP Dyslipidemia (Primary Dx); SOB (shortness of breath); Coronary artery disease involving big sandy coronary artery of big sandy heart, unspecified whether angina present 08/27/2024 10:45 AM CDT Office Visit [facility] [address] [place] [phone] Jeronimo Simon NP Palpitations (Primary Dx); BEBETO (obstructive sleep apnea); Amenorrhea; Bizarre behavior; Hypertension, unspecified type; Hyperlipidemia, unspecified hyperlipidemia type 08/26/2024 12:20 AM CDT - 08/26/2024 6:[address] [facility] Emergency Department [address] [place] [phone] Sis Bah MD CASSIUS (acute kidney injury) (Primary Dx); Dehydration; Chest pain, unspecified type Discharge Disposition: Discharge to home or self care 08/25/2024 Telephone Bryce Wood Room Hand at [address] [phone] Jazmin Reyes MA 08/25/2024 Telephone [facility] Room Hand [address] [place] [phone] Tonya Carrillo MA Emergency Room Visit ([facility]) 08/23/2024 5:51 PM FINISHING INSPECTOR - 08/23/2024 11:47 PM FINISHING INSPECTOR Emergency [facility] Emergency Department [address] [place] [phone] Ligia Gusman MD Koyejo, Joshua Yemi, MD Nonspecific chest pain (Primary Dx); Anxiety reaction Discharge Disposition: Discharge to home or self care from Last 3 Months Allergies Active Allergy Reactions Criticality Noted Date Comments Fluconazole Other (See comments) Low 12/30/2020 KIDNEY FAILURE Fenofibrate Anaphylaxis High 12/30/2020 Metronidazole Other (See comments) Low 12/30/2020 KIDNEY FAILURE Peanut Oil Rash,Unknown Medium 07/17/2016 Penicillins Hives Medium 12/30/2020 Cygiawa-Mbt-Wsf Reductase Inhibitors Anaphylaxis High 09/06/2017 Sulfa (Sulfonamide [...] TWICE DAILY 60 tablet 6 3 Active carvediloL (COREG) 12.5 mg tablet TAKE 1 TABLET(12.5 MG) BY MOUTH TWICE DAILY WITH MEALS 180 tablet 3 4 Active NIFEdipine (NIFEdipine XL) 30 mg 24 hr tablet Take 1 tablet (30 mg total) by mouth daily 90 tablet 3 5 09/19/19 26 Active benazepriL (LOTENSIN) 40 mg tablet TAKE 1 TABLET(40 MG) BY MOUTH DAILY 30 tablet 11 5 Active tirzepatide, weight loss, (Zepbound) 5 mg/0.5 mL pen injectorIndica tions:Weight Loss Management for Obese Patient (BMI >= 30),obstructiv e sleep apnea syndrome Inject 0.5 mL (5 mg total) under the skin every 7 days 2 mL 5 Active tirzepatide, weight loss, (ZEPBOUND) 2.5 mg/0.5 mL pen injectorIndica tions:Weight Loss Management for Obese Patient (BMI >= 30),obstructiv e sleep apnea syndrome Inject 0.5 mL (2.5 mg total) under the skin every 7 days 2 mL 5 11/27/19 25 Active naproxen (NAPROSYN) 500 mg tablet Take 1 tablet (500 mg total) by mouth 2 (two) times a day with meals 30 tablet 5 10/28/19 25 Discontinued hydrOXYzine (ATARAX) 25 mg tablet Take 1 tablet (25 mg total) by mouth every 8 (eight) hours as needed for anxiety 30 tablet 5 10/28/19 25 Discontinued Active Problems Problem Noted Date Diagnosed Date Severe obesity 10/27/2024 Body mass index (BMI) 50.0-59.9, adult Obstructive sleep apnea 05/13/2024 Chest pain, unspecified [...] 02/07/2020 Urinary tract infection symptoms 02/07/2020 Acute NM 01/08/2020 Angina pectoris 01/08/2020 Assessment & Plan [...] making you feel afraid or unsafe? Denies 08/25/2024 Comments No Sex and Gender Information Value Date Recorded Sex Assigned at Not on file Legal Sex Female 8:58 AM CDT Gender Identity Not on file Sexual Orientation Not on file Last Filed Vital Signs Vital Sign Reading Time Taken Comments Blood Pressure 126/84 10/27/2024 10:34 AM CDT Pulse 66 10/27/2024 10:34 AM CDT Temperature 37.1 C (98.8 F) 08/25/2024 7:41 PM CDT Respiratory Rate 16 10/08/2024 9:52 AM CDT Oxygen Saturation 98% 10/27/2024 10: 34 AM CDT Inhaled Oxygen Concentration - - Weight 128.1 kg (282 lb 6.4 oz) 025 10:34 AM CDT Height 157.5 cm (5' 2.01 ) 10/27/2024 1 0:34 AM CDT Body Mass Index 51.64 10/27/2024 10:34 AM CDT Plan of Treatment Not on file Procedures Procedure Name Priority Date/Time Associated Diagnosis Comments CT HEART MORPHOLOGY AND CORONARY ARTERIES W CONTRAST Schedule Routine, Read Routine (OP Routine) 10/03/2024 2:01 PM CDT Chest pain, unspecified type Congestive heart failure, unspecified HF chronicity, unspecified heart failure type (HCC) ECG 12-LEAD Routine 09/19/2024 2:30 PM CDT EGFR Routine 08/27/2024 12:36 PM CDT Dyslipidemia SOB (shortness of breath) Coronary artery disease involving big sandy coronary artery of big sandy heart, unspecified whether angina present BASIC METABOLIC PANEL Routine 08/27/2024 12:36 PM CDT Dyslipidemia SOB (shortness of breath) Coronary artery disease involving big sandy coronary artery of big sandy heart, unspecified whether angina present LIPID PANEL Routine 08/27/2024 12:36 PM CDT Dyslipidemia SOB (shortness of breath) Coronary artery disease involving big sandy coronary artery of big sandy heart, unspecified whether angina present DIFFERENTIAL AUTO Routine 08/27/2024 12: 35 PM CDT Dyslipidemia SOB (shortness of breath) Coronary artery disease involving big sandy coronary artery of big sandy heart, unspecified whether angina present CBC WITH AUTO DIFFERENTIAL Routine 08/27/2024 12:35 PM CDT Dyslipidemia SOB (shortness of breath) Coronary artery disease involving big sandy coronary artery of big sandy heart, unspecified whether angina present EGFR STAT 08/26/2024 5:41 AM CDT BASIC METABOLIC PANEL STAT 08/26/2024 5:41 AM CDT TROPONIN T HIGH-SENSITIVITY 2-HOUR Timed 08/26/2024 2:20 AM CDT XR CHEST 1 VIEW ED 08/26/2024 12:31 AM CDT MAGNESIUM Add-On 08/25/2024 11:39 PM CDT PRO B-TYPE NATRIURETIC PEPTIDE Add-On 08/25/2024 11:39 PM CDT EGFR STAT 08/25/2024 11:39 PM CDT DIFFERENTIAL AUTO STAT 08/25/2024 11: 39 PM CDT TROPONIN T HIGH-SENSITIVITY SERIES (BASELINE, 2HR, 4HR, 6HR) STAT 08/25/2024 11:39 PM CDT COMPREHENSIVE METABOLIC PANEL STAT 08/25/2024 11:39 PM CDT CBC WITH AUTO DIFFERENTIAL STAT 08/25/2024 11:39 PM CDT ECG 12-LEAD STAT 08/25/2024 7:[address] CHEST W CONTRAST ED 08/23/2024 9 :06 PM FINISHING INSPECTOR TROPONIN T HIGH-SENSITIVITY 2-HOUR Timed 08/23/2024 7:43 PM FINISHING INSPECTOR D-DIMER, QUANTITATIVE STAT 08/23/2024 6:50 PM FINISHING INSPECTOR EGFR STAT 08/23/2024 5:36 PM FINISHING INSPECTOR DIFFERENTIAL AUTO STAT 08/23/2024 5:3 6 PM FINISHING INSPECTOR TROPONIN T HIGH-SENSITIVITY SERIES (BASELINE, 2HR, 4HR, 6HR) STAT 08/23/2024 5:36 PM FINISHING INSPECTOR COMPREHENSIVE METABOLIC PANEL STAT 08/23/2024 5:36 PM FINISHING INSPECTOR CBC WITH AUTO DIFFERENTIAL STAT 08/23/2024 5:36 PM FINISHING INSPECTOR XR CHEST 1 VIEW ED 08/23/2024 5:24 PM FINISHING INSPECTOR ECG 12-LEAD STAT 08/23/2024 4:33 PM FINISHING INSPECTOR from Last 3 Months Results * CTA Heart and Coronary Arteries W Morphology when Performed (10/03/2024 2:01 PM CDT) Anatomical Region Laterality Modality Chest N/A Computed Tomogra phy 10/03/2024 3:12 PM CDT Impressions 10/03/2024 4:21 PM CDT 1. No obstructive or appreciable coronary artery disease. Due to body habitus there is increased noise limiting the evaluation for small noncalcified plaques. 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 3. Coronary artery calcium score 0. Dictated by: Vicente Verma M.D. The radiology attending physician has personally reviewed this study, and had reviewed and/or edited this written report and agrees with it. Electronically signed by: Jacques Peng M.D. Narrative 10/03/2024 4:21 PM CDT EXAMINATION: CORONARY CT ANGIOGRAM HISTORY: 51-year-old female with history of morbid obesity and obstructive sleep apnea and no anomalous left circumflex origin here for evaluation of chest pain. TECHNIQUE: CT angiography of the coronary arteries was performed after the administration of 95 mL of Optiray 350. Images were also obtained precontrast for the purposes of calcium scoring. 10 mg of metoprolol was administered intravenously prior to the examination. The patient's heart rate and blood pressure at the time of the examination were 67 beats per minute Images were transferred to a 3D workstation for additional post-processing. FINDINGS: The coronary arteries are right system dominant. 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 It then takes a retroaortic course before supplying the lateral wall. Right coronary system: No appreciable coronary artery disease. Left coronary system: The left coronary artery arises from the left coronary cusp, there is no appreciable coronary artery disease. Left circumflex artery arises from the right coronary cusp with the retroaortic course. There is no appreciable coronary artery disease. The calculated calcium score is 0. Other findings: Mild hiatal hernia. Small calcified pulmonary and hilar nodules. Procedure Note Jacques Peng MD - 10/03/2024 EXAMINATION: CORONARY CT ANGIOGRAM HISTORY: 51-year-old female with history of morbid obesity and obstructive sleep apnea and no anomalous left circumflex origin here for evaluation of chest pain. TECHNIQUE: CT angiography of the coronary arteries was performed after the administration of 95 mL of Optiray 350. Images were also obtained precontrast for the purposes of calcium scoring. 10 mg of metoprolol was administered intravenously prior to the examination. The patient's heart rate and blood pressure at the time of the examination were 67 beats per minute Images were transferred to a 3D workstation for additional post-processing. FINDINGS: The coronary arteries are right system dominant. 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 It then takes a retroaortic course before supplying the lateral wall. Right coronary system: No appreciable coronary artery disease. Left coronary system: The left coronary artery arises from the left coronary cusp, there is no appreciable coronary artery disease. Left circumflex artery arises from the right coronary cusp with the retroaortic course. There is no appreciable coronary artery disease. The calculated calcium score is 0. Other findings: Mild hiatal hernia. Small calcified pulmonary and hilar nodules. IMPRESSION: 1. No obstructive or appreciable coronary artery disease. Due to body habitus there is increased noise limiting the evaluation for small noncalcified plaques. 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 3. Coronary artery calcium score 0. Dictated by: Vicente Verma M.D. The radiology attending physician has personally reviewed this study, and had reviewed and/or edited this written report and agrees with it. Electronically signed by: Jacques Peng M.D. Alessio Ro MD IMG CT PROCEDURES Nela l Result * ECG 12 lead (09/19/2024 2:30 PM CDT) Historical Provider ECG ORDERABLES Final Res ult * eGFR (08/27/2024 12:36 PM CDT) eGFR 79 >=60 mL/min/1. 73 m2 Comment: Interpretive Data Reference Interval Normal >/= 90 mL/min/1.73m2 Mildly decreased* 60 - 89 mL/min/1.73m2 Mildly to moderately decreased 45 - 59 mL/min/1.73m2 Moderately to severely decreased 30 - 44 mL/min/1.73m2 Severely decreased 15 - 29 mL/min/1.73m2 Kidney Failure < 15 mL/min/1.73m2 *Relative to young adult level Estimated glomerular filtration rate is determined by the 2020 CKD-EPI equation recommended by the National Kidney Foundation (A Unifying Approach to GFR Estimation: Recommendations of the NKF-ASK Task Force on Reassessing the Inclusion of Race in Diagnosing Kidney Disease, JASN 2020). The CKD-EPI equation should not be used for patients with unstable renal function and has not been validated in children and those over 70. Current interpretive data was last reviewed 2021. Blood 08/27/2024 12:3 6 PM CDT 08/27/2024 12:36 PM CDT us Jeronimo Simon NP LAB BLOOD ORDERABLES Final R esult STEFANIE [id number] [address] Department of Laboratories [place], [place] [phone] * (ABNORMAL) Lipid panel (08/27/2024 12:36 PM CDT) Cholesterol 229(H) 30 - 199 mg/dL Comment: Interpretive Data Ages < or = 19 years Acceptable: <170 mg/dL Borderline high: 170-199 mg/dL High: >or= 200 mg/dL Ages > or = 20 years Desirable: <200 mg/dL Borderline high: 200-239 mg/dL High: >or= 240 mg/dL Literature References: 1. Expert Panel on Integrated Guidelines for Cardiovascular Health and Risk Reduction in Children and Adolescents. Pediatrics 2011;128:S213 2. NCEP Expert Panel. Circulation 2004;110:227 Current Interpretive Data was last revised on 2018. Triglycerides 107 <=149 mg/dL [facility] Comment: Interpretive Data Ages < or = 9 years Acceptable: <75 mg/dL Borderline high: 75-99 mg/dL High: >or= 100 mg/dL Ages 10 to 20 years Acceptable: <90 mg/dL Borderline high: 90-129 mg/dL High: >or= 130 mg/dL Ages > or = 20 years Desirable: <150 mg/dL Borderline high: 150-199 mg/dL High: 200-499 mg/dL Very high: >or= 499 mg/dL Literature References: 1. Expert Panel on Integrated Guidelines for Cardiovascular Health and Risk Reduction in Children and Adolescents. Pediatrics 2011;128:S213 2. NCEP Expert Panel. Circulation 2004;110:227 Current Interpretive Data was last revised on 2018. HDL 80 >=40 mg/dL [facility] Comment: Interpretive Data Ages < or = 19 years Acceptable: >45 mg/dL Borderline low: 40-45 mg/dL Low: <40 mg/dL Ages > or = 20 years Desirable: >or= 60 mg/dL Low: <40 mg/dL Literature References: 1. Expert Panel on Integrated Guidelines for Cardiovascular Health and Risk Reduction in Children and Adolescents. Pediatrics 2011;128:S213 2. NCEP Expert Panel. Circulation 2004;110:227 Current Interpretive Data was last revised on 2018. LDL, calculated 130(H) <=129 mg/dL [facility] Comment: Interpretive Data Ages < or = 19 years Acceptable: <110 mg/dL Borderline high: 110-129 mg/dL High: >or= 130 mg/dL Ages > or = 20 years Optimal: <100 mg/dL Near optimal: 100-129 mg/dL Borderline high: 130-159 mg/dL High: >160 mg/dL Calculated using the Bello LDL-C estimating equation. This equation was implemented on 2024. Prior to this date LDL-C was estimated using the Friedewald equation. Literature References: 1. Expert Panel on Integrated Guidelines for Cardiovascular Health and Risk Reduction in Children and Adolescents. Pediatrics 2011;128:S213 2. NCEP Expert Panel. Circulation 2004;110:227 3. Bello Ryder et al. JESSIKA Cardiol. 2020 October 16;5(5):540-548. doi: 10.1001/jamacardio.2020.0013 Current Interpretive Data was last revised on 2024. Non-HDL Cholesterol 149 mg/dL [facility] Comment: Interpretive Data Ages < or = 19 years Acceptable: <120 mg/dL Borderline high: 120-144 mg/dL High: >145 mg/dL Ages > or = 20 years When triglycerides are >200 mg/dL, Non-HDL cholesterol is a secondary target of therapy with treatment goals that are 30 mg/dL greater than the LDL cholesterol target. Literature References: 1. Expert Panel on Integrated Guidelines for Cardiovascular Health and Risk Reduction in Children and Adolescents. Pediatrics 2011;128:S213 2. NCEP Expert Panel. Circulation 2004;110:227 Current Interpretive Data was last revised on 2018. Chol/HDL ratio 3 CERNER Blood 08/27/2024 12:3 6 PM CDT 08/27/2024 12:36 PM CDT us Jeronimo Simon TRAINING PROGRAM MANAGER LAB BLOOD ORDERABLES Final R esult [facility] [id number] [address] Department [place] [address] * Basic metabolic panel (08/27/2024 12:36 PM CDT) Sodium 141 135 - 145 mmol/L Potassium, pl 4.2 3.3 - 4.9 mmol/L [facility] Chloride 104 97 - 110 mmol/L [facility] CO2 25 22 - 32 mmol/L [facility] Anion gap 12 2 - 15 mmol/L [facility] BUN 14 6 - 25 mg/dL [facility] Creatinine 0.86 0.60 - 1.10 mg/dL [facility] Glucose 110 70 - 199 mg/dL [facility] Comment: Interpretive Data Fasting glucose >/= 126 mg/dl is diagnostic for diabetes. Fasting is defined as no caloric intake for at least 8 hours. Fasting glucose between 100 mg/dl to 125 mg/dl is diagnostic of prediabetes. In a patient with classic symptoms of hyperglycemia or hyperglycemic crisis, a random glucose >/= 200 mg/dl is diagnostic for diabetes. In the absence of unequivocal hyperglycemia, results should be confirmed by repeat testing. The classification and Diagnosis of Diabetes Diabetes Care 2021; 46: S19-S40. Current interpretive data was last revised 2022. Calcium 9.4 8.5 - 10.3 mg/dL [facility] Blood 08/27/2024 12:3 6 PM CDT 08/27/2024 12:36 PM CDT us Jeronimo Simon TRAINING PROGRAM MANAGER LAB BLOOD ORDERABLES Final R esult [facility] [id number] [address] Department [place] [address] * Differential, auto (08/27/2024 12:35 PM CDT) Neutrophil abs 2.2 1.5 - 6.5 K/cumm Imm gran abs 0.0 0.0 - 0.1 K/cumm [facility] Lymphocyte abs 2.5 0.8 - 3.3 K/cumm [facility] Monocyte abs 0.4 0.2 - 0.8 K/cumm [facility] Eosinophil abs 0.1 0.0 - 0.5 K/cumm [facility] Basophil abs 0.0 0.0 - 0.1 K/cumm [facility] Neutrophil pct 41.7 % [facility] Comment: Interpretive Data Percent cell count reference ranges are not reported, since discordance with absolute values may lead to misinterpretation of CBC data. Current Interpretive Data was last revised on 2017. Imm gran pct 0.2 % [facility] Comment: Interpretive Data Percent cell count reference ranges are not reported, since discordance with absolute values may lead to misinterpretation of CBC data. Current Interpretive Data was last revised on 2017. Lymphocyte pct 47.1 % [facility] Comment: Interpretive Data Percent cell count reference ranges are not reported, since discordance with absolute values may lead to misinterpretation of CBC data. Current Interpretive Data was last revised on 2017. Monocyte pct 7.9 % [facility] Comment: Interpretive Data Percent cell count reference ranges are not reported, since discordance with absolute values may lead to misinterpretation of CBC data. Current Interpretive Data was last revised on 2017. Eosinophil pct 2.3 % [facility] Comment: Interpretive Data Percent cell count reference ranges are not reported, since discordance with absolute values may lead to misinterpretation of CBC data. Current Interpretive Data was last revised on 2017. Basophil pct 0.8 % [facility] Comment: Interpretive Data Percent cell count reference ranges are not reported, since discordance with absolute values may lead to misinterpretation of CBC data. Current Interpretive Data was last revised on 2017. Blood 08/27/2024 12:3 5 PM CDT 08/27/2024 12:35 PM CDT Jeronimo Simon NP LAB BLOOD ORDERABLES Final R esult [facility] [id number] [address] Department [place] [address] * (ABNORMAL) CBC with auto differential (08/27/2024 12:35 PM CDT) WBC 5.3 3.8 - 9.9 K/cumm Hgb 11.6(L) 11.9 - 15.5 g/dL [facility] Hct 34.7(L) 35.6 - 45.5 % [facility] Plt 293 150 - 400 K/cumm [facility] MPV 11.4 9.1 - 12.3 fL [facility] RBC 3.78(L) 3.90 - 5.20 M/cumm [facility] MCV 91.8 81.3 - 96.4 fL [facility] MCH 30.7 27.1 - 33.3 pg [facility] MCHC 33.4 32.3 - 35.7 g/dL [facility] RDW CV 13.8 11.1 - 14.9 % [facility] RDW SD 45.8 35.7 - 48.1 fL [facility] NRBC abs 0.00 0.00 - 0.01 K/cumm [facility] Blood 08/27/2024 12:3 5 PM CDT 08/27/2024 12:35 PM CDT Jeronimo Simon NP LAB BLOOD ORDERABLES Final R esult Performing Organization Address [facility] Co de Phone Number STEFANIE [id number] [address] Department [place] [address] * (ABNORMAL) eGFR (08/26/2024 5:41 AM CDT) eGFR 44(L) >=60 mL/min/1. 73 m2 Comment: Interpretive Data Reference Interval Normal >/= 90 mL/min/1.73m2 Mildly decreased* 60 - 89 mL/min/1.73m2 Mildly to moderately decreased 45 - 59 mL/min/1.73m2 Moderately to severely decreased 30 - 44 mL/min/1.73m2 Severely decreased 15 - 29 mL/min/1.73m2 Kidney Failure < 15 mL/min/1.73m2 *Relative to young adult level Estimated glomerular filtration rate is determined by the 2020 CKD-EPI equation recommended by the National Kidney Foundation (A Unifying Approach to GFR Estimation: Recommendations of the NKF-ASK Task Force on Reassessing the Inclusion of Race in Diagnosing Kidney Disease, JASN 2020). The CKD-EPI equation should not be used for patients with unstable renal function and has not been validated in children and those over 70. Current interpretive data was last reviewed 2021. [facility] [address], [place] [address] Blood 08/26/2024 5:41 AM CDT 08/26/2024 5:43 AM CDT Sis Bah MD LAB BLOOD ORDERABLES Nela l Result Performing Organization Address [facility] Co de Phone Number STEFANIE [address] [place] [address] * (ABNORMAL) Basic metabolic panel (08/26/2024 5:41 AM CDT) Sodium 139 135 - 145 mmol/L Comment:Testing performed by : [facility], [place] [address] Potassium, pl 3.8 3.3 - 4.9 mmol/L STEFANIE GRIFFIN Comment:Testing performed by : [facility], [place] [address] Chloride 102 97 - 110 mmol/L [facility] Comment:Testing performed by : [facility] [place] [address] [address] [address] CO2 23 22 - 32 mmol/L CERNER Comment:Testing performed by : [facility] [address], [place] [address] Anion gap 14 2 - 15 mmol/L CERNER Comment:Testing performed by : [facility] [address], [place] [address] BUN 23 6 - 25 mg/dL [facility] Comment:Testing performed by : [facility] [address], [place] [address] Creatinine 1.39(H) 0.60 - 1.10 mg/dL [facility] Comment:Testing performed by : [facility] [address], [place] [address] Glucose 106 70 - 199 mg/dL [facility] Comment: Interpretive Data Fasting glucose >/= 126 mg/dl is diagnostic for diabetes. Fasting is defined as no caloric intake for at least 8 hours. Fasting glucose between 100 mg/dl to 125 mg/dl is diagnostic of prediabetes. In a patient with classic symptoms of hyperglycemia or hyperglycemic crisis, a random glucose >/= 200 mg/dl is diagnostic for diabetes. In the absence of unequivocal hyperglycemia, results should be confirmed by repeat testing. The classification and Diagnosis of Diabetes Diabetes Care 202; 46: S19-S40. Current interpretive data was last revised 2022. Testing performed by: [facility] [address], [place] [facility]31 Calcium 9.0 8.5 - 10.3 mg/dL [facility] Comment:Testing performed by : [facility] [place] [address] Blood 08/26/2024 5:41 AM CDT 08/26/2024 5:43 AM CDT us Sis Bah MD LAB BLOOD ORDERABLES Nela bae Result [facility] [address] [address] Department [place] [address] * Troponin T high-sensitivity 2-hour (08/26/2024 2:20 AM CDT) Trop T hs <6 <=14 ng/L Comment: Interpretive Data For further hscTnT resources including the diagnostic algorithm and an aid in interpretation, copy and paste this link: https://nrl.testcatalog.org/show/hsTrop Current Interpretive Data last revised 2020. Testing performed by: [facility], [address], [place] [address] Trop T hs delta 0 ng/L STEFANIE Comment:Testing performed by : [facility], [address], [place] [address] Trop T hs interp Insignificant STEAFNIE Comment:Testing performed by : [facility], [address], [place] [address] Blood 08/26/2024 2:20 AM CDT 08/26/2024 2:22 AM CDT us Sis Bah MD LAB BLOOD ORDERABLES Nela l Result STEFANIE [address] Department [place] [address] * XR Chest 1 Vw Portable (if patient condition/safety warrant portable) (08/26/2024 12:31 AM CDT) Anatomical Region Laterality Modality Body, Chest N/A Computed Radiogr aphy 08/26/2024 8:28 AM CDT Impressions 08/26/2024 8:28 AM CDT NO ACUTE PULMONARY CHANGE. Electronically signed by: Shankar Suarez M.D. Narrative 08/26/2024 8:28 AM CDT EXAMINATION: XR CHEST 1 VIEW HISTORY: Chest pain ORDER DATE: 08/26/2024 12:25 AM FINDINGS: The lungs are clear of infiltrate. The cardiac and mediastinal outlines are unremarkable. There are no significant pleural effusions . No significant abnormalities are noted in the spine or remainder of the bony thorax. Procedure Note Shankar Suarez MD - 08/26/2024 EXAMINATION: XR CHEST 1 VIEW HISTORY: Chest pain ORDER DATE: 08/26/2024 12:25 AM FINDINGS: The lungs are clear of infiltrate. The cardiac and mediastinal outlines are unremarkable. There are no significant pleural effusions . No significant abnormalities are noted in the spine or remainder of the bony thorax. IMPRESSION: NO ACUTE PULMONARY CHANGE. Electronically signed by: Shankar Suarez M.D. us Sis Bah MD IMG XR PROCEDURES Final R esult * Troponin T high-sensitivity series (baseline, 2hr, 4hr, 6hr) (08/25/2024 11:39 PM CDT) Trop T hs <6 <=14 ng/L Comment: Interpretive Data For further hscTnT resources including the diagnostic algorithm and an aid in interpretation, copy and paste this link: https://nrl.testcatalog.org/show/hsTrop Current Interpretive Data last revised 2020. Testing performed by: [facility], [address] [place] [address], [place] [address] Blood 08/25/2024 11:3 9 PM CDT 08/25/2024 11:40 PM CDT us Sis Bah MD LAB BLOOD ORDERABLES Nela l Result STEFANIE [address] Department [place] [address] * (ABNORMAL) eGFR (08/25/2024 11:39 PM CDT) eGFR 30(L) >=60 mL/min/1. 73 m2 Comment: Interpretive Data Reference Interval Normal >/= 90 mL/min/1.73m2 Mildly decreased* 60 - 89 mL/min/1.73m2 Mildly to moderately decreased 45 - 59 mL/min/1.73m2 Moderately to severely decreased 30 - 44 mL/min/1.73m2 Severely decreased 15 - 29 mL/min/1.73m2 Kidney Failure < 15 mL/min/1.73m2 *Relative to young adult level Estimated glomerular filtration rate is determined by the 2020 CKD-EPI equation recommended by the National Kidney Foundation (A Unifying Approach to GFR Estimation: Recommendations of the NKF-ASK Task Force on Reassessing the Inclusion of Race in Diagnosing Kidney Disease, JASN 202). The CKD-EPI equation should not be used for patients with unstable renal function and has not been validated in children and those over 70. Current interpretive data was last reviewed 2021. Testing performed by: [facility], [facility] [address], [place] [address] Blood 08/25/2024 11:3 9 PM CDT 08/25/2024 11:40 PM CDT us Sis Bah MD LAB BLOOD ORDERABLES Nela bae Result [facility] [address] [address] Department [place] [address] * (ABNORMAL) Differential, auto (08/25/2024 11:39 PM CDT) Neutrophil abs 3.6 1.5 - 6.5 K/cumm Comment:Testing performed by : [facility], [facility] [place] [address] Imm gran abs 0.0 0.0 - 0.1 K/cumm CERNER Comment:Testing performed by : [facility] [place] [address] Lymphocyte abs 4.3(H) 0.8 - 3.3 K/cumm CERNER Comment:Testing performed by : [facility] [address] [place], [place] [address] [place] [address] Monocyte abs 0.6 0.2 - 0.8 K/cumm CERNER Comment:Testing performed by : [facility] [address] [address] Eosinophil abs 0.1 0.0 - 0.5 K/cumm CERNER Comment:Testing performed by : [facility] [place] [address] Basophil abs 0.1 0.0 - 0.1 K/cumm CERNER Comment:Testing performed by : [facility] [place] [address] Neutrophil pct 41.4 % CERNER Comment: Interpretive Data Percent cell count reference ranges are not reported, since discordance with absolute values may lead to misinterpretation of CBC data. Current Interpretive Data was last revised on 2017. Testing performed by: [facility], [facility] [place] [address] [address] Imm gran pct 0.3 % [facility] Comment: Interpretive Data Percent cell count reference ranges are not reported, since discordance with absolute values may lead to misinterpretation of CBC data. Current Interpretive Data was last revised on 2017. Testing performed by: [facility], [place] [address] Lymphocyte pct 49.3 % [facility] Comment: Interpretive Data Percent cell count reference ranges are not reported, since discordance with absolute values may lead to misinterpretation of CBC data. Current Interpretive Data was last revised on 2017. Testing performed by: [facility], [place] [address] Monocyte pct 6.7 % [facility] Comment: Interpretive Data Percent cell count reference ranges are not reported, since discordance with absolute values may lead to misinterpretation of CBC data. Current Interpretive Data was last revised on 2017. Testing performed by: [facility], [facility] [place] [address] Eosinophil pct 1.6 % [facility] Comment: Interpretive Data Percent cell count reference ranges are not reported, since discordance with absolute values may lead to misinterpretation of CBC data. Current Interpretive Data was last revised on 2017. Testing performed by: [facility], [facility] [place] [address] [address] Basophil pct 0.7 % [facility] Comment: Interpretive Data Percent cell count reference ranges are not reported, since discordance with absolute values may lead to misinterpretation of CBC data. Current Interpretive Data was last revised on 2017. Testing performed by: [facility], [facility] [place] [address] Blood 08/25/2024 11:3 9 PM CDT 08/25/2024 11:40 PM CDT us Sis Bah MD LAB BLOOD ORDERABLES Nela catalino Result [facility] [address] Department of Laboratories [place], [place] [id number] * Pro B-type natriuretic peptide (08/25/2024 11:39 PM CDT) NT-proBNP <36 <=300 pg/mL Comment: Interpretive Comments: A. Dyspnea in Acute Care Setting All Ages: < 300 pg/ml, acute heart failure unlikely. < 50 yrs: 300 - 450 pg/ml, further investigation warranted. > 450 pg/ml, acute heart failure likely. 50 - 74 yrs: 300 - 900 pg/ml, further investigation warranted. > 900 pg/ml, acute heart failure likely . > or = 75 yrs: 450 - 1800 pg/ml, further investigation warranted. > 1800 pg/ml, acute heart failure likely. B. Non-acute Setting < 75 yrs < 125 pg/ml, rules out heart failure. > or = 125 pg/ml, further investigation warranted. > or = 75 yrs < 450 pg/ml, rules out heart failure. > or = 450 pg/ml, further investigation warranted. - Knowledge of each individual patient's NT-proBNP range may be more useful than using similar cut-points for every patient. Please note that marked elevations in NT-proBNP levels may be observed in state other than Left Ventricular Congestive Failure, including: acute coronary syndromes, right heart strain/failure (including pulmonary embolism and cor pulmonale), critical illness, renal failure, as well as advanced age. - References: 1. Nitesh BENTLEY et.al. Eur Heart J. 2006:27:330-337. 2. Vicky RW, Reza AM. J. AM Phuong Cardiol: Cardiovasc Imag. 2009;2: 216- 225. Interpretive Data Last Revised Date: 2018. Testing performed by: [facility], [address] [place] [address] Blood 08/25/2024 11:3 9 PM CDT 08/26/2024 1:31 AM CDT us Sis Bah MD LAB BLOOD ORDERABLES Nela bae Result [facility] [address] [address] Department of Laboratories [place], [place] [id number] * CBC with auto differential (08/25/2024 11:39 PM CDT) WBC 8.7 3.8 - 9.9 K/cumm Comment:Testing performed by : [facility] [address], [place] [address] Hgb 12.7 11.9 - 15.5 g/dL CERNER CH Comment:Testing performed by : [facility] [address], [place] [address] Hct 36.9 35.6 - 45.5 % CERNER CH Comment:Testing performed by : [facility] [address], [place] [address] Plt 352 150 - 400 K/cumm CERNER CH Comment:Testing performed by : [facility] [place] [address] MPV 11.0 9.1 - 12.3 fL CERNER CH Comment:Testing performed by : [facility] [place] [address] RBC 4.07 3.90 - 5.20 M/cumm CERNER CH Comment:Testing performed by : [facility] [place] [address] MCV 90.7 81.3 - 96.4 fL CERNER CH Comment:Testing performed by : [facility] [place] [address] MCH 31.2 27.1 - 33.3 pg CERNER CH Comment:Testing performed by : [facility] [address], [place] [address] MCHC 34.4 32.3 - 35.7 g/dL CERNER CH Comment:Testing performed by : [facility] [place] [address] RDW CV 13.3 11.1 - 14.9 % CERNER CH Comment:Testing performed by : [facility] [place] [address] RDW SD 44.3 35.7 - 48.1 fL CERNER CH Comment:Testing performed by : [facility] [place] [address] NRBC abs 0.00 0.00 - 0.01 K/cumm CERNER CH Comment:Testing performed by : [facility] [place] [address] Blood Venous blood specimen / Unknown 08/25/2024 11:39 PM CDT 08/25/2024 11:40 PM CDT Sis Bah MD LAB BLOOD ORDERABLES Nela l Result Performing Organization Address [facility] Co de Phone Number STEFANIE GRIFFIN [address] [place] [address] * Magnesium (08/25/2024 11:39 PM CDT) Pathologist [facility] Magnesium 1.7 1.4 - 2.5 mg/dL Comment:Testing performed by : [facility] [place] [address] Blood 08/25/2024 11:3 9 PM CDT 08/26/2024 1:31 AM CDT Sis Bah MD LAB BLOOD ORDERABLES Neal l Result Performing Organization Address [facility] Phone Number STEFANIE [address] [address] [facility] [place] [address] * (ABNORMAL) Comprehensive metabolic panel (08/25/2024 11:39 PM CDT) Pathologist [facility] Sodium 134(L) 135 - 145 mmol/L Comment:Testing performed by : [facility] [address], [place] [address] Potassium, pl 4.2 3.3 - 4.9 mmol/L CERNER CH Comment: Hemolysis present. Results may be affected. Testing performed by: [facility] [address], [place] [address] Chloride 96(L) 97 - 110 mmol/L CERNER CH Comment:Testing performed by : [facility] [address], [place] [address] CO2 20(L) 22 - 32 mmol/L CERNER CH Comment:Testing performed by : [facility] [address], [place] [address] Anion gap 18(H) 2 - 15 mmol/L CERNER CH Comment:Testing performed by : [facility] [address], [place] [address] BUN 25 6 - 25 mg/dL CERNER CH Comment:Testing performed by : [facility], [place] [address] Creatinine 1.90(H) 0.60 - 1.10 mg/dL CERNER CH Comment:Testing performed by : [facility] [address], [place] [address] Glucose 112 70 - 199 mg/dL CERNER CH Comment: Interpretive Data Fasting glucose >/= 126 mg/dl is diagnostic for diabetes. Fasting is defined as no caloric intake for at least 8 hours. Fasting glucose between 100 mg/dl to 125 mg/dl is diagnostic of prediabetes. In a patient with classic symptoms of hyperglycemia or hyperglycemic crisis, a random glucose >/= 200 mg/dl is diagnostic for diabetes. In the absence of unequivocal hyperglycemia, results should be confirmed by repeat testing. The classification and Diagnosis of Diabetes Diabetes Care 2021; 46: S19-S40. Current interpretive data was last revised 2022. Testing performed by: [facility] [address], [place] [address] Calcium 9.8 8.5 - 10.3 mg/dL CERNER CH Comment:Testing performed by : [facility] [address], [place] [address] Bilirubin, total 0.5 0.1 - 1.2 mg/dL CERNER CH Comment:Testing performed by : [facility] [address], [place] [address] Protein, pl 7.5 6.5 - 8.5 g/dL CERNER CH Comment:Testing performed by : [facility] [address], [place] [address] Albumin 4.1 3.5 - 5.0 g/dL CERNER CH Comment:Testing performed by : [facility] [address], [place] [address] Alk phos 95 40 - 130 Units/L CERNER CH Comment:Testing performed by : [facility] [address], [place] [address] ALT 24 7 - 45 Units/L CERNER CH Comment:Testing performed by : [facility] [address], [place] [address] AST 36 10 - 45 Units/L CERNER CH Comment: Hemolysis present. Results may be affected. Testing performed by: [facility] [address], [place] [address] Blood 08/25/2024 11:3 9 PM CDT 08/25/2024 11:40 PM CDT Sis Bah MD LAB BLOOD ORDERABLES Nela l Result Performing Organization Address [facility] Co de Phone Number STEFANIE GRIFFIN [address] [facility] [place] [address] * ECG 12 lead (08/25/2024 7:52 PM CDT) 08/25/2024 7:52 PM CDT Narrative [facility] - 08/26/2024 7:59 AM CDT Vent Rate: 83 bpm RR Interval: 717 msec [place] Interval: 0 msec QRS Duration: 80 msec QT Interval: 350 msec QTC Interval: 390 msec P-R-T [place]: 0 - 38 - 46 degrees IMPRESSION: Baseline artifact, probable sinus rhythm LOW QRS VOLTAGE IN PRECORDIAL LEADS [QRS DEFLECTION < 1.0 mV IN CHEST LEADS] BORDERLINE ECG NO CHANGE FROM PREVIOUS TRACING NOTED Electronically Signed By: Ahmet Reyes MD Sis Bah MD ECG ORDERABLES Edited Re sult - Final Performing Organization Address [facility] de Phone Number [facility] * CT Chest W Contrast (08/23/2024 9:06 PM FINISHING INSPECTOR) Anatomical Region Laterality Modality Body N/A Computed Tomogra phy 08/23/2024 9:01 PM FINISHING INSPECTOR Impressions 08/24/2024 9:42 AM CDT Clear lungs. No pneumonia. Electronically signed by: Everardo Daugherty M.D. Narrative 08/24/2024 9:42 AM CDT EXAMINATION: Computed tomography of the chest with intravenous contrast HISTORY: Suspected pneumonia TECHNIQUE: Transaxial computed tomographic images of the chest were obtained with intravenous contrast according to the standard protocol after the uneventful administration of 100 mL Opti-Ray 350 intravenous contrast. COMPARISON: Same day radiograph FINDINGS: Mild atelectasis. No pleural effusion, pneumothorax, pneumonia, pulmonary edema, or suspicious pulmonary nodules. No supraclavicular, axillary, mediastinal, or hilar lymphadenopathy. Normal heart size without pericardial effusion. The thoracic aorta and esophagus are normal caliber. No large central pulmonary embolism. Small cyst in hepatic segment 5. Surgically absent gallbladder. No upper abdominal abnormality. Thoracic spine degenerative changes without suspicious bone lesions. Procedure Note Everardo Daugherty MD - 08/24/2024 EXAMINATION: Computed tomography of the chest with intravenous contrast HISTORY: Suspected pneumonia TECHNIQUE: Transaxial computed tomographic images of the chest were obtained with intravenous contrast according to the standard protocol after the uneventful administration of 100 mL Opti-Ray 350 intravenous contrast. COMPARISON: Same day radiograph FINDINGS: Mild atelectasis. No pleural effusion, pneumothorax, pneumonia, pulmonary edema, or suspicious pulmonary nodules. No supraclavicular, axillary, mediastinal, or hilar lymphadenopathy. Normal heart size without pericardial effusion. The thoracic aorta and esophagus are normal caliber. No large central pulmonary embolism. Small cyst in hepatic segment 5. Surgically absent gallbladder. No upper abdominal abnormality. Thoracic spine degenerative changes without suspicious bone lesions. IMPRESSION: Clear lungs. No pneumonia. Electronically signed by: Everardo Daugherty M.D. Ligia Gusman MD IMG CT PROCEDURES Final Result * Troponin T high-sensitivity 2-hour (08/23/2024 7:43 PM FINISHING INSPECTOR) Trop T hs 10 <=14 ng/L Comment: Interpretive Data For further hscTnT resources including the diagnostic algorithm and an aid in interpretation, copy and paste this link: https://nrl.testcatalog.org/show/hsTrop Current Interpretive Data last revised 2020. Trop T hs delta 1 ng/L STEFANIE Trop T hs interp Insignificant STEFANIE Blood 08/23/2024 7:43 PM FINISHING INSPECTOR 08/23/2024 7:45 PM FINISHING INSPECTOR Canelo Cohen DO LAB BLOOD ORDERABLES Final Res ult STEFANIE [address] [address] Department [place] [address] * D-dimer, quantitative (08/23/2024 6:50 PM FINISHING INSPECTOR) D-Dimer 415 <=499 ng/mL FEU Comment: Interpretive data FDA approved the D-dimer, in conjunction with a low or moderate pretest probability score, to exclude venous thromboembolic events (VTE) (PE and DVT) in outpatients when the D-dimer result is < 500 ng/ml FEU. Evidence supports using an age-adjusted D-dimer cut-off for outpatients older than 50 (age x 10) to improve specificity without sacrificing sensitivity. Example: age 68, VTE cut-off 680 ng/ml FEU. References; Ellen HT et al. Brit Med J. 2013;346:f2492. Maddie et al. Annals Int Med. 2015;163:701-11. Current interpretive data was last revised on 2019. Blood 08/23/2024 6:50 PM FINISHING INSPECTOR 08/23/2024 7:05 PM FINISHING INSPECTOR Result [facility] Ligia Gusman MD LAB BLOOD ORDERABLES Final Resu lt Performing Organization Address [facility] de Phone Number STEFANIE GRIFFIN [address] [address] [place] [address] * Troponin T high-sensitivity series (baseline, 2hr, 4hr, 6hr) (08/23/2024 5:36 PM FINISHING INSPECTOR) Trop T hs 9 <=14 ng/L Comment: Interpretive Data For further hscTnT resources including the diagnostic algorithm and an aid in interpretation, copy and paste this link: https://nrl.testcatalog.org/show/hsTrop Current Interpretive Data last revised 2020. Blood 08/23/2024 5:36 PM FINISHING INSPECTOR 08/23/2024 6:06 PM FINISHING INSPECTOR Ligia Gusman MD LAB BLOOD ORDERABLES Final Resu lt Performing Organization Address [facility] [place] [address] [address] [place] [address] * eGFR (08/23/2024 5:36 PM FINISHING INSPECTOR) eGFR 78 >=60 mL/min/1. 73 m2 Comment: Interpretive Data Reference Interval Normal >/= 90 mL/min/1.73m2 Mildly decreased* 60 - 89 mL/min/1.73m2 Mildly to moderately decreased 45 - 59 mL/min/1.73m2 Moderately to severely decreased 30 - 44 mL/min/1.73m2 Severely decreased 15 - 29 mL/min/1.73m2 Kidney Failure < 15 mL/min/1.73m2 *Relative to young adult level Estimated glomerular filtration rate is determined by the 2020 CKD-EPI equation recommended by the National Kidney Foundation (A Unifying Approach to GFR Estimation: Recommendations of the NKF-ASK Task Force on Reassessing the Inclusion of Race in Diagnosing Kidney Disease, JASN 2020). The CKD-EPI equation should not be used for patients with unstable renal function and has not been validated in children and those over 70. Current interpretive data was last reviewed 2021. Blood 08/23/2024 5:36 PM FINISHING INSPECTOR 08/23/2024 6:09 PM FINISHING INSPECTOR us Canelo Cohen DO LAB BLOOD ORDERABLES Final Res ult STEFANIE [address] [address] Department [place] [address] * Differential, auto (08/23/2024 5:36 PM FINISHING INSPECTOR) Pathologist [facility] Neutrophil abs 4.9 1.5 - 6.5 K/cumm Imm gran abs 0.0 0.0 - 0.1 K/cumm [facility] Lymphocyte abs 3.3 0.8 - 3.3 K/cumm [facility] Monocyte abs 0.7 0.2 - 0.8 K/cumm [facility] Eosinophil abs 0.1 0.0 - 0.5 K/cumm [facility] Basophil abs 0.1 0.0 - 0.1 K/cumm [facility] Neutrophil pct 53.9 % [facility] [facility] Comment: Interpretive Data Percent cell count reference ranges are not reported, since discordance with absolute values may lead to misinterpretation of CBC data. Current Interpretive Data was last revised on 2017. Imm gran pct 0.4 % [facility] Comment: Interpretive Data Percent cell count reference ranges are not reported, since discordance with absolute values may lead to misinterpretation of CBC data. Current Interpretive Data was last revised on 2017. Lymphocyte pct 36.7 % [facility] Comment: Interpretive Data Percent cell count reference ranges are not reported, since discordance with absolute values may lead to misinterpretation of CBC data. Current Interpretive Data was last revised on 2017. Monocyte pct 7.4 % [facility] Comment: Interpretive Data Percent cell count reference ranges are not reported, since discordance with absolute values may lead to misinterpretation of CBC data. Current Interpretive Data was last revised on 2017. Eosinophil pct 1.0 % [facility] Comment: Interpretive Data Percent cell count reference ranges are not reported, since discordance with absolute values may lead to misinterpretation of CBC data. Current Interpretive Data was last revised on 2017. Basophil pct 0.6 % [facility] Comment: Interpretive Data Percent cell count reference ranges are not reported, since discordance with absolute values may lead to misinterpretation of CBC data. Current Interpretive Data was last revised on 2017. Blood 08/23/2024 5:36 PM FINISHING INSPECTOR 08/23/2024 6:06 PM FINISHING INSPECTOR us Canelo Cohen DO LAB BLOOD ORDERABLES Final Res ult [facility] [id number] Department [place] [address] * CBC with auto differential (08/23/2024 5:36 PM FINISHING INSPECTOR) WBC 9.1 3.8 - 9.9 K/cumm Hgb 13.9 11.9 - 15.5 g/dL [facility] Hct 41.5 35.6 - 45.5 % [facility] Plt 381 150 - 400 K/cumm [facility] MPV 11.0 9.1 - 12.3 fL [facility] RBC 4.60 3.90 - 5.20 M/cumm [facility] MCV 90.2 81.3 - 96.4 fL [facility] MCH 30.2 27.1 - 33.3 pg [facility] MCHC 33.5 32.3 - 35.7 g/dL [facility] RDW CV 13.2 11.1 - 14.9 % [facility] RDW SD 43.7 35.7 - 48.1 fL [facility] NRBC abs 0.00 0.00 - 0.01 K/cumm [facility] Blood Venous blood specimen / Unknown 08/23/2024 5:36 PM FINISHING INSPECTOR 08/23/2024 6:06 PM FINISHING INSPECTOR us Ligia Gusman MD LAB BLOOD ORDERABLES Final Resu lt [facility] [id number] [address] Department [place] [address] * (ABNORMAL) Comprehensive metabolic panel (08/23/2024 5:36 PM FINISHING INSPECTOR) Sodium 139 135 - 145 mmol/L Potassium, pl 3.4 3.3 - 4.9 mmol/L [facility] Chloride 98 97 - 110 mmol/L [facility] CO2 24 22 - 32 mmol/L [facility] Anion gap 17(H) 2 - 15 mmol/L [facility] BUN 12 6 - 25 mg/dL [facility] Creatinine 0.87 0.60 - 1.10 mg/dL [facility] Glucose 101 70 - 199 mg/dL [facility] Comment: Interpretive Data Fasting glucose >/= 126 mg/dl is diagnostic for diabetes. Fasting is defined as no caloric intake for at least 8 hours. Fasting glucose between 100 mg/dl to 125 mg/dl is diagnostic of prediabetes. In a patient with classic symptoms of hyperglycemia or hyperglycemic crisis, a random glucose >/= 200 mg/dl is diagnostic for diabetes. In the absence of unequivocal hyperglycemia, results should be confirmed by repeat testing. The classification and Diagnosis of Diabetes Diabetes Care 2021; 46: S19-S40. Current interpretive data was last revised 2022. Calcium 10.3 8.5 - 10.3 mg/dL [facility] Bilirubin, total 0.7 0.1 - 1.2 mg/dL [facility] Protein, pl 8.5 6.5 - 8.5 g/dL [facility] Albumin 4.8 3.5 - 5.0 g/dL [facility] Alk phos 106 40 - 130 Units/L [facility] ALT 26 7 - 45 Units/L [facility] AST 26 10 - 45 Units/L [facility] Blood 08/23/2024 5:36 PM FINISHING INSPECTOR 08/23/2024 6:06 PM FINISHING INSPECTOR Ligia Gusman MD LAB BLOOD ORDERABLES Final Resu lt [facility] [id number] [address] Department [place] [address] * XR Chest 1 Vw Portable (08/23/2024 5:24 PM FINISHING INSPECTOR) Anatomical Region Laterality Modality Body, Chest N/A Computed Radiogr aphy 08/24/2024 10:3 7 AM CDT Impressions 08/24/2024 10:37 AM CDT Comparison to 05/01/2024. Small lung volumes. Accentuation of the cardiac silhouette is likely due to technique. No definite pleural effusion or pneumothorax. No focal consolidation. Electronically signed by: Everardo Daugherty M.D. Narrative 08/24/2024 10:37 AM CDT EXAMINATION: 1 view chest radiograph Procedure Note Everardo Daugherty MD - 08/24/2024 EXAMINATION: 1 view chest radiograph IMPRESSION: Comparison to 05/01/2024. Small lung volumes. Accentuation of the cardiac silhouette is likely due to technique. No definite pleural effusion or pneumothorax. No focal consolidation. Electronically signed by: Everardo Daugherty M.D. Ligia Gusman MD IMG XR PROCEDURES Final Result * ECG 12 lead (08/23/2024 4:33 PM FINISHING INSPECTOR) 08/23/2024 4:33 PM FINISHING INSPECTOR Narrative [facility] - 08/29/2024 10:31 AM CDT Vent Rate: 105 bpm RR Interval: 569 msec [place] Interval: 150 msec QRS Duration: 76 msec QT Interval: 326 msec QTC Interval: 387 msec P-R-T [place]: 77 - 42 - 9 degrees IMPRESSION: Baseline artifact, probable SINUS TACHYCARDIA MODERATE ST DEPRESSION ABNORMAL ECG Compared to prior EKG, heart rate has increased T wave changes are new Electronically Signed By: Ahmet Reyes MD us Ligia Gusman MD ECG ORDERABLES Final Result [facility] from Last 3 Months Insurance [facility] Advance Directives For more information, please contact: [phone] Documents on File Type Date Recorded 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
--- OUTSIDE RECORDS SUMMARY | 2024-11-05 17:05 | XMS_ITS ---
Author Organization Unknown Address [id number] [place] [address] [phone] Phone Care Team Providers Care Coke Oven Mason Name Role Phone OLGA Hampton Attending Unavailable [...] Rajat Pugh M.D. CH: GABY Report ID: [id number] Reading Location: [id number] Social History Type Status Start Date End Date Code Code Syst em Smoking History Never smoker (Never Smoked) 078099879 SNOMED CT Sex Female Medications Medication Start [...] Unknown ORAL NEEDED AT BEDTIME 25 MILLIGRAMS [id number] RxNorm TAKE 25 MILLIGRAMS ORAL NEEDED AT BEDTIME Benazepril Hydrochlor lety 20MG Oral Tablet 10/31/2019 Unknown ORAL ONCE A DAY 2 TABLET [id number] RxNorm TAKE 2 TABLET ORAL ONCE A DAY Carvedilol 12.5MG Oral Tablet 10/31/2019 Unknown ORAL TWICE A DAY 12.5 MILLIGRAMS [id number] RxNorm TAKE 12.5 MILLIGRAMS ORAL TWICE A DAY Paxil 20MG Oral Tablet 10/31/2019 Unknown ORAL AT BEDTIME 20 MILLIGRAMS [id number] RxNorm TAKE 20 MILLIGRAMS ORAL AT BEDTIME [...] 11/05/2020 Unknown ORAL AT BEDTIME 600 MILLIGRAMS [id number] RxNorm TAKE 600 MILLIGRAMS ORAL AT BEDTIME NIFEdipine 30MG Oral Tablet, Extended Release 11/05/2020 10/15/19 24 ORAL ONCE A DAY 30 MILLIGRAMS [id number] RxNorm TAKE 30 MILLIGRAMS ORAL ONCE A DAY Omeprazole 40MG Oral Capsule, Delayed Release 11/05/2020 Unknown ORAL TWICE A DAY 40 MILLIGRAMS [id number] RxNorm TAKE 40 MILLIGRAMS ORAL TWICE A DAY SEROquel 25MG QUEtiapine Oral Tablet 11/05/2020 Unknown ORAL AT BEDTIME 25 MG QUEtiapine [id number] RxNorm TAKE 25 MG QUEtiapine ORAL AT BEDTIME Aspirin 81MG Oral Tablet, Enteric Coated 11/02/2023 Unknown ORAL 81 MILLIGRAMS [id number] RxNorm TAKE 81 MILLIGRAMS ORAL Multivitam in Oral Tablet 11/02/2023 Unknown ORAL ONCE A DAY 1 unit(s) RxNorm TAKE 1 EACH ORAL ONCE A DAY NIFEdipine 30MG Oral Tablet, Extended Release 11/02/2023 Unknown ORAL ONCE A DAY 90 MILLIGRAMS [id number] RxNorm TAKE 90 MILLIGRAMS ORAL ONCE A [...] IMAGING OF LIVER AND BILIARY TRACT active [id number] SNOMED-CT OTHER FATIGUE active 45145556 SNOMED -CT DIZZINESS active 120544993 SNOMED-CT Allergies and Adverse Reactions Allergy Substance Reaction Severity Start Date Concern Status Code Code System SULFA (sulfonamide) ANAPHYLACTIC (SNOMED-CT: null) Moderate Active 47310 RxNorm PENICILLINS (CLASS) Itching (SNOMED-CT: 802987098) Moderate Active 58180 RxNorm PREDNISONE Vomiting (SNOMED-CT: 924345832) Moderate Active 8640 RxNorm FENOFIBRATE TORSADES (SNOMED-CT: null) Active 8703 RxNorm DIFLUCAN ABD pain (SNOMED-CT: 78323378) Moderate Active 20270620 RxNorm Plan of Treatment US Abdomen Complete (32989) 10/08/2023 Colonoscopy 11/02/2023 Encounters Encounter Diagnosis Start Date Code Code Sys tem Fatty (change of) liver, not elsewhere classified 09/17 SNOMED-CT Personal Care Team Section Performer Name Performer Role Active Date Inactive DEYSI Webb ACCOUNTING AUDITOR PCP - Primary care physician 2021-10-17 4 2022-01-10 RAJANI TSANG PCP - Primary care physician 20202021-11-08 RAVIN CASTAÑEDA PCP - Primary care physician 2022-01-10 2023-05-27 ALEXIS GUERRERO PCP - Primary care physician Imaging Narrative Notes
--- OUTSIDE RECORDS SUMMARY | 2024-11-05 17:05 | XMS_ITS | Clinical Summary ---
Author Organization [facility] Address [address] [place] [address] Care Team Providers Care Administrative Services Officer Name Role Phone Earl Moon MD Primary Care Provide r Allergies Active Allergy Reactions Criticality Noted Date Comments Fluconazole Other (See comments) Low 12/30/2020 KIDNEY FAILURE Fenofibrate Anaphylaxis High 12/30/2020 Metronidazole Other (See comments) Low 12/30/2020 KIDNEY FAILURE Peanut Oil Rash,Unknown Medium 07/17/2016 Penicillins Hives Medium 12/30/2020 Exuoepk-Qfk-Rjm Reductase Inhibitors Anaphylaxis High 09/06/2017 Sulfa (Sulfonamide [...] 10/27/2024 Body mass index (BMI) 50.0-59.9, adult 5 Obstructive sleep apnea 05/13/2024 Chest pain, unspecified [...] 02/07/2020 Urinary tract infection symptoms 02/07/2020 Acute NE 01/08/2020 Angina pectoris 01/08/2020 Assessment & Plan [...] Type Department Care Team Description 10/31/2024 Telephone [place] [facility] [address] [place] [phone] Tonya Carrillo MA Monitor Results 10/27/2024 11:15 AM CDT Office Visit [facility] Sleep Medicine at [address] [place] [address] Coty Phillips MD Obstructive sleep apnea (Primary Dx); Hypersomnia; Obesity, unspecified class, unspecified obesity type, unspecified whether serious comorbidity present; Insomnia, unspecified type; Severe obesity (HCC); Body mass index (BMI) 50.0-59.9, adult (HCC) 10/13/2024 Orders Only [place] [facility] [address] [place] [phone] Alessio Ro MD Palpitations (Primary Dx) 10/08/2024 11:00 AM CDT Ancillary Procedure [place] [facility] [address] [place] [phone] Palpitations 10/08/2024 10:45 AM CDT Office Visit [place] [facility] [address] [place] [phone] Alessio Ro MD Palpitations (Primary Dx) 10/08/2024 10:30 AM CDT Ancillary Procedure [place] [facility] [address] [place] [phone] 10/03/2024 12:31 PM CDT - 10/03/2024 11:59 PM CDT Hospital Encounter [facility] [address] [place] [phone] Chest pain, unspecified type; Congestive heart failure, unspecified HF chronicity, unspecified heart failure type (HCC) Discharge Disposition: Discharge to home or self care 09/22/2024 Orders Only [place] [facility] [address] [place] [phone] Randee Bobby MD 09/22/2024 Telephone [place] [facility] [address] [place] [phone] Pauly Fitzgerald 08/29/2024 Telephone [place] [facility] [address] [place] [phone] Tonya Carrillo MA Conversation with 08/28/2024 Orders Only [place] [facility] at [address] [place] [phone] Alessio Ro MD Chest pain, unspecified type (Primary Dx); Congestive heart failure, unspecified HF chronicity, unspecified heart failure type (HCC) 08/27/2024 12:15 PM CDT Lab [address] [address] Dyslipidemia; SOB (shortness of breath); Coronary artery disease involving togiak coronary artery of togiak heart, unspecified whether angina present 08/27/2024 10:45 AM CDT Office Visit [place] [facility] [address] [place] [phone] Jeronimo Simon NP Palpitations (Primary Dx); BEBETO (obstructive sleep apnea); Amenorrhea; Bizarre behavior; Hypertension, unspecified type; Hyperlipidemia, unspecified hyperlipidemia type 08/27/2024 Results Follow-Up [place] [facility] [address] [place] [phone] Jeronimo Simon NP Lipid panel, CBC with auto differential, Basic metabolic panel, Additional followed-up results: 2 08/27/2024 Orders Only [place] [facility] [address] [place] [phone] Jeronimo Simon NP Dyslipidemia (Primary Dx); SOB (shortness of breath); Coronary artery disease involving togiak coronary artery of togiak heart, unspecified whether angina present 08/26/2024 12:20 AM CDT - 08/26/2024 6:41 AM CDT Emergency [facility] [address] [place] [address] Sis Bah MD CASSIUS (acute kidney injury) (Primary Dx); Dehydration; Chest pain, unspecified type Discharge Disposition: Discharge to home or self care 08/25/2024 Telephone [place] [facility] at [address] [place] [address] Jazmin Reyes MA 08/25/2024 Telephone [place] [facility] [address] [facility] [address] [place] [phone] Tonya Carrillo MA Emergency Room Visit ([facility]) 08/23/2024 5:51 PM TEST DESK TROUBLE LOCATOR - 08/23/2024 11:47 PM TEST DESK TROUBLE LOCATOR Emergency [facility] Emergency Department [address] [place] [address] Ligia Gusman MD Koyejo, Joshua Yemi, MD Nonspecific chest pain (Primary Dx); Anxiety reaction Discharge Disposition: Discharge to home or self care from Last 3 Months Surgical History Surgery Date Site/Laterality Comments CHOLECYSTECTOMY HYSTERECTOMY Medical History Medical History Date Comments NE (myocardial infarction) (HCC) Liver disease CHF (congestive heart failure) (HCC) Coronary artery disease GERD (gastroesophageal reflux disease) Depression Sleep apnea Anemia Heart disease Hypertension Chronic kidney disease Brain concussion Social History Tobacco Use Types Packs/Day Years [...] 7:41 PM CDT Respiratory Rate 16 10/08/2024 9:5 2 AM CDT Oxygen Saturation 98% 10/27/2024 10: 34 AM CDT Inhaled Oxygen Concentration - - Weight 128.1 kg (282 lb 6.4 oz) 025 10:34 AM CDT Height 157.5 cm (5' 2.01 ) 10/27/2024 1 0:34 AM CDT Body Mass Index 51.64 10/27/2024 10:34 AM CDT Plan of Treatment Health Maintenance Due Date Last Done Comments Breast Cancer Screening-Mammogram 1966 Colon Cancer Screening-Colonoscopy 1966 Depression Screening 1966 Hepatitis C Screening 1966 Regular Well Visit/Exam 18-64 1984 Pneumococcal vaccine <65 (1 of 2 - PCV) 1985 Zoster Vaccine (1 of 2) 2016 Covid-19 Vaccine (3 - 2023-2 5 season) 2024 08/24/2020, 06/25/2020 Influenza Vaccine (Season Ended) 2025 03/23/2021, 03/17/2020, 04/10/2019, Additional history exists DTaP/Tdap/Td Vaccine (5 - Td or Tdap) 03/09/2032 03/09/2022, 01/16/2018, 06/18/2014, Additional history exists Procedures Procedure Name Priority Date/Time Associated Diagnosis Comments CT HEART MORPHOLOGY AND CORONARY ARTERIES W CONTRAST Schedule Routine, Read Routine (OP Routine) 10/03/2024 2:01 PM CDT Chest pain, unspecified type Congestive heart failure, unspecified HF chronicity, unspecified heart failure type (HCC) ECG 12-LEAD Routine 09/19/2024 2:30 PM CDT EGFR Routine 08/27/2024 12:36 PM CDT Dyslipidemia SOB (shortness of breath) Coronary artery disease involving togiak coronary artery of [place]gi[place] heart, unspecified whether angina present BASIC METABOLIC PANEL Routine 08/27/2024 12:36 PM CDT Dyslipidemia SOB (shortness of breath) Coronary artery disease involving togiak coronary artery of [place]giak heart, unspecified whether angina present LIPID PANEL Routine 08/27/2024 12:36 PM CDT Dyslipidemia SOB (shortness of breath) Coronary artery disease involving [place]gi[place] coronary artery of [place]gi[place] heart, unspecified whether angina present DIFFERENTIAL AUTO Routine 08/27/2024 12: 35 PM CDT Dyslipidemia SOB (shortness of breath) Coronary artery disease involving togiak coronary artery of [place]giak heart, unspecified whether angina present CBC WITH AUTO DIFFERENTIAL Routine 08/27/2024 12:35 PM CDT Dyslipidemia SOB (shortness of breath) Coronary artery disease involving togiak coronary artery of [place]giak heart, unspecified whether angina present EGFR STAT [...] W CONTRAST ED 08/23/2024 9 :06 PM TEST DESK TROUBLE LOCATOR TROPONIN T HIGH-SENSITIVITY 2-HOUR Timed 08/23/2024 7:43 PM TEST DESK TROUBLE LOCATOR D-DIMER, QUANTITATIVE STAT 08/23/2024 6:50 PM TEST DESK TROUBLE LOCATOR EGFR STAT 08/23/2024 5:36 PM TEST DESK TROUBLE LOCATOR DIFFERENTIAL AUTO STAT 08/23/2024 5:3 6 PM TEST DESK TROUBLE LOCATOR TROPONIN T HIGH-SENSITIVITY SERIES (BASELINE, 2HR, 4HR, 6HR) STAT 08/23/2024 5:36 PM TEST DESK TROUBLE LOCATOR COMPREHENSIVE METABOLIC PANEL STAT 08/23/2024 5:36 PM TEST DESK TROUBLE LOCATOR CBC WITH AUTO DIFFERENTIAL STAT 08/23/2024 5:36 PM TEST DESK TROUBLE LOCATOR XR CHEST 1 VIEW ED 08/23/2024 5:24 PM TEST DESK TROUBLE LOCATOR ECG 12-LEAD STAT 08/23/2024 4:33 PM TEST DESK TROUBLE LOCATOR from Last 3 Months Results * CTA [...] 08/27/2024 12:36 PM CDT us Jeronimo Simon [employer] WORKER LAB BLOOD ORDERABLES Final R esult [facility] GRIFFIN [address] Department [place] [address] * (ABNORMAL) Lipid panel (08/27/2024 12:36 PM [...] on 2018. Triglycerides 107 <=149 mg/dL ST[facility] GRIFFIN Comment: Interpretive Data Ages < or = [...] on 2018. HDL 80 >=40 mg/dL ST[facility] GRIFFIN Comment: Interpretive Data Ages < or = [...] 2018. LDL, calculated 130(H) <=129 mg/dL ST[facility]IE GRIFFIN Comment: Interpretive Data Ages < or = [...] 3. Bello Ryder et al. JESSIKA Cardiol. 2019October 16;5(5):540-548. doi: 10.1001/jamacardio.2020.0013 Current Interpretive Data was last revised on 2024. Non-HDL Cholesterol 149 mg/dL [facility] GRIFFIN Comment: Interpretive Data Ages < or = [...] last revised on 2018. Chol/HDL ratio 3 [facility]FF[facility] Blood 08/27/2024 12:3 6 PM CDT 08/27/2024 12:36 PM CDT us Jeronimo Carlos Simon [employer] WORK[employer] LAB BLOOD ORDERABLES Final R esult STEFANIE GRIFFIN [address] Department [place] [address] * Basic metabolic panel (08/27/2024 12:36 PM CDT) Sodium 141 135 - 145 mmol/L Potassium, pl 4.2 3.3 - 4.9 mmol/L [facility] Chloride 104 97 - 110 mmol/L [facility] CO2 25 22 - 32 mmol/L [facility] Anion gap 12 2 - 15 mmol/L [facility] BUN 14 6 - 25 mg/dL [facility] Creatinine 0.86 0.60 - 1.10 mg/dL [facility] Glucose 110 70 - 199 mg/dL [facility] Comment: Interpretive Data Fasting glucose >/= [...] 2022. Calcium 9.4 8.5 - 10.3 mg/dL [facility] Blood 08/27/2024 12:3 6 PM CDT 08/27/2024 12:36 PM CDT Jeronimo Simon NP LAB BLOOD ORDERABLES Final R esult ST[facility] GRIFFIN [address] Department [place] [address] * Differential, auto (08/27/2024 12:35 PM CDT) Pathologist [facility] Neutrophil abs 2.2 1.5 - 6.5 K/cumm Imm gran abs 0.0 0.0 - 0.1 K/cumm [facility] Lymphocyte abs 2.5 0.8 - 3.3 K/cumm [facility] Monocyte abs 0.4 0.2 - 0.8 K/cumm [facility] Eosinophil abs 0.1 0.0 - 0.5 K/cumm [facility] Basophil abs 0.0 0.0 - 0.1 K/cumm [facility] Neutrophil pct 41.7 % [facility] Comment: Interpretive Data Percent cell count reference ranges are not reported, since discordance with absolute values may lead to misinterpretation of CBC data. Current Interpretive Data was last revised on 2017. Imm gran pct 0.2 % [facility] Comment: Interpretive Data Percent cell count reference ranges are not reported, since discordance with absolute values may lead to misinterpretation of CBC data. Current Interpretive Data was last revised on 2017. Lymphocyte pct 47.1 % [facility] Comment: Interpretive Data Percent cell count reference ranges are not reported, since discordance with absolute values may lead to misinterpretation of CBC data. Current Interpretive Data was last revised on 2017. Monocyte pct 7.9 % [facility] Comment: Interpretive Data Percent cell count reference ranges are not reported, since discordance with absolute values may lead to misinterpretation of CBC data. Current Interpretive Data was last revised on 2017. Eosinophil pct 2.3 % [facility] Comment: Interpretive Data Percent cell count reference ranges are not reported, since discordance with absolute values may lead to misinterpretation of CBC data. Current Interpretive Data was last revised on 2017. Basophil pct 0.8 % [facility] Comment: Interpretive Data Percent cell count reference ranges are not reported, since discordance with absolute values may lead to misinterpretation of CBC data. Current Interpretive Data was last revised on 2017. Blood 08/27/2024 12:3 5 PM CDT 08/27/2024 12:35 PM CDT us Jeronimo Simon [employer] LAB BLOOD ORDERABLES Final R esult [facility]FFIN [address] Department [place] [address] * (ABNORMAL) CBC with auto differential (08/27/2024 12:35 PM CDT) WBC 5.3 3.8 - 9.9 K/cumm Hgb 11.6(L) 11.9 - 15.5 g/dL [facility] Hct 34.7(L) 35.6 - 45.5 % [facility] Plt 293 150 - 400 K/cumm [facility] MPV 11.4 9.1 - 12.3 fL [facility] RBC 3.78(L) 3.90 - 5.20 M/cumm [facility] MCV 91.8 81.3 - 96.4 fL [facility] MCH 30.7 27.1 - 33.3 pg [facility] MCHC 33.4 32.3 - 35.7 g/dL [facility] RDW CV 13.8 11.1 - 14.9 % [facility] RDW SD 45.8 35.7 - 48.1 fL [facility] NRBC abs 0.00 0.00 - 0.01 K/cumm [facility] Blood 08/27/2024 12:3 5 PM CDT 08/27/2024 12:35 PM CDT us Jeronimo Simon [employer] WORKER LAB BLOOD ORDERABLES Final R esult [facility] [address] Department of Laboratories [place] [phone] * (ABNORMAL) eGFR (08/26/2024 5:41 AM CDT) [...] was last reviewed 2021. Testing performed by: [facility] [address], [place] [address] Blood 08/26/2024 5:41 AM CDT 08/26/2024 5:43 AM CDT Sis Bah MD LAB BLOOD ORDERABLES Nela bae Result [facility] [address] [address] Department [place] [address] * (ABNORMAL) Basic metabolic panel (08/26/2024 5:41 AM CDT) Sodium 139 135 - 145 mmol/L Comment:Testing performed by : [facility] [address], [place] [address] Potassium, pl 3.8 3.3 - 4.9 mmol/L [facility] Comment:Testing performed by : [facility] [address], [place] [address] Chloride 102 97 - 110 mmol/L [facility] Comment:Testing performed by : [facility] [address], [place] [address] CO2 23 22 - 32 mmol/L [facility] Comment:Testing performed by : [facility] [address], [place] [address] Anion gap 14 2 - 15 mmol/L [facility] Comment:Testing performed by : [facility] [address], [place] [address] BUN 23 6 - 25 mg/dL [facility] Comment:Testing performed by : [facility] [address], [place] [address] Creatinine 1.39(H) 0.60 - 1.10 mg/dL [facility] Comment:Testing performed by : [facility] [address], [place] [address] Glucose 106 70 - 199 mg/dL [facility] Comment: Interpretive Data Fasting glucose >/= 126 [...] was last revised 2022. Testing performed by: [facility], [place] [address] Calcium 9.0 8.5 - 10.3 mg/dL STEFANIE Comment:Testing performed by : [facility], [place] [address] Blood 08/26/2024 5:41 AM CDT 08/26/2024 5:43 AM CDT Sis Bah MD LAB BLOOD ORDERABLES Nela l Result Performing Organization Address [facility] Co de Phone Number STEFANIE [address] [facility] [employer] [place], [place] [phone] * Troponin T high-sensitivity 2-hour (08/26/2024 2:20 AM CDT) [facility] Signature Trop T hs <6 <=14 ng/L Comment: Interpretive Data For further hscTnT resources including the diagnostic algorithm and an aid in interpretation, copy and paste this link: https://nrl.testcatalog.org/show/hsTrop Current Interpretive Data last revised 2020. Testing performed by: [facility], [place] [address] Trop T hs delta 0 ng/L STEFANIE Comment:Testing performed by : [facility] [address], [place] [address] Trop T hs interp Insignificant STEFANIE Comment:Testing performed by : [facility] [address], [place] [address] Blood 08/26/2024 2:20 AM CDT 08/26/2024 2:22 AM CDT Sis Bah MD LAB BLOOD ORDERABLES Nela l Result Performing Organization Address [facility] Co de Phone Number [facility] [address] Department [place] [address] * XR Chest 1 Vw Portable (if [...] CHANGE. Electronically signed by: Shankar Suarez M.D. Sis Bah MD IMG XR PROCEDURES Final R esult * Troponin T high-sensitivity series (baseline, 2hr, 4hr, 6hr) (08/25/2024 11:39 PM CDT) Trop T hs <6 <=14 ng/L Comment: Interpretive Data For further hscTnT resources including the diagnostic algorithm and an aid in interpretation, copy and paste this link: https://nrl.testcatalog.org/show/hsTrop Current Interpretive Data last revised 2020. Testing performed by: [facility], [address], [place] [address] Blood 08/25/2024 11:3 9 PM CDT 08/25/2024 11:40 PM CDT Sis Bah MD LAB BLOOD ORDERABLES Nela l Result [facility]IE GRIFFIN [address] [place] [address] * (ABNORMAL) eGFR (08/25/2024 11:39 PM CDT) [...] was last reviewed 2021. Testing performed by: [facility] [address] Blood 08/25/2024 11:3 9 PM CDT 08/25/2024 11:40 PM CDT Sis Bah MD LAB BLOOD ORDERABLES Nela l Result ST[facility]IE GRIFFIN [address] Department [place], [place] [phone] * (ABNORMAL) Differential, auto (08/25/2024 11:39 PM CDT) Neutrophil abs 3.6 1.5 - 6.5 K/cumm Comment:Testing performed by : [facility] [address], [place] [address] Imm gran abs 0.0 0.0 - 0.1 K/cumm [facility] Comment:Testing performed by : [facility] [place] [address] Lymphocyte abs 4.3(H) 0.8 - 3.3 K/cumm [facility] Comment:Testing performed by : [place] [address] [place] [address] Monocyte abs 0.6 0.2 - 0.8 K/cumm [facility] Comment:Testing performed by : [place] [address] [place] [address] Eosinophil abs 0.1 0.0 - 0.5 K/cumm [facility] Comment:Testing performed by : [place] [address] [place] [address] Basophil abs 0.1 0.0 - 0.1 K/cumm [facility] Comment:Testing performed by : [place] [address] [place] [address] Neutrophil pct 41.4 % [facility] Comment: Interpretive Data Percent cell count reference ranges are not reported, since discordance with absolute values may lead to misinterpretation of CBC data. Current Interpretive Data was last revised on 2017. Testing performed by: [place] [address] [place] [address] Imm gran pct 0.3 % [facility] Comment: Interpretive Data Percent cell count reference ranges are not reported, since discordance with absolute values may lead to misinterpretation of CBC data. Current Interpretive Data was last revised on 2017. Testing performed by: [address] [place] [address] Lymphocyte pct 49.3 % [facility] Comment: Interpretive Data Percent cell count reference ranges are not reported, since discordance with absolute values may lead to misinterpretation of CBC data. Current Interpretive Data was last revised on 2017. Testing performed by: [place] [address] [place] [address] Monocyte pct 6.7 % [facility] Comment: Interpretive Data Percent cell count reference ranges are not reported, since discordance with absolute values may lead to misinterpretation of CBC data. Current Interpretive Data was last revised on 2017. Testing performed by: [place] [address] [place] [address] Eosinophil pct 1.6 % [facility] Comment: Interpretive Data Percent cell count reference ranges are not reported, since discordance with absolute values may lead to misinterpretation of CBC data. Current Interpretive Data was last revised on 2017. Testing performed by: [facility], [address] [place] [address] Basophil pct 0.7 % STEFANIE Comment: Interpretive Data Percent cell count reference ranges are not reported, since discordance with absolute values may lead to misinterpretation of CBC data. Current Interpretive Data was last revised on 2017. Testing performed by: [facility], [address] [place] [address] Blood 08/25/2024 11:3 9 PM CDT 08/25/2024 11:40 PM CDT us Sis Bah MD LAB BLOOD ORDERABLES Nela bae Result ST[facility]ANIE GRIFFIN [address] Department [place] [address] * Pro B-type natriuretic peptide (08/25/2024 11:39 [...] et.al. Eur Heart J. 2006:27:330-337. 2. Vicky CAVAZOS, Reza GUERRERO. J. AM Phuong Cardiol: Cardiovasc Imag. 2009;2: 216- 225. Interpretive Data Last Revised Date: 2018. Testing performed by: [facility] [address], [place] [address] Blood 08/25/2024 11:3 9 PM CDT 08/26/2024 1:31 AM CDT us Sis Bah MD LAB BLOOD ORDERABLES Nela bae Result [facility] [address] Department [place] [address] * CBC with auto differential (08/25/2024 11:39 PM CDT) WBC 8.7 3.8 - 9.9 K/cumm Comment:Testing performed by : [facility] [address], [place] [address] Hgb 12.7 11.9 - 15.5 g/dL [facility] Comment:Testing performed by : [facility] [address], [place] [address] Hct 36.9 35.6 - 45.5 % [facility] Comment:Testing performed by : [facility] [address], [place] [address] Plt 352 150 - 400 K/cumm [facility] Comment:Testing performed by : [facility] [address], [place] [address] MPV 11.0 9.1 - 12.3 fL [facility] Comment:Testing performed by : [facility] [address], [place] [address] RBC 4.07 3.90 - 5.20 M/cumm [facility] Comment:Testing performed by : [facility] [address], [place] [address] MCV 90.7 81.3 - 96.4 fL [facility] Comment:Testing performed by : [facility], [facility] [place] [address] MCH 31.2 27.1 - 33.3 pg [facility] Comment:Testing performed by : [facility], [place] [address] MCHC 34.4 32.3 - 35.7 g/dL [facility] Comment:Testing performed by : [facility] [address] [place] [id number] RDW CV 13.3 11.1 - 14.9 % [facility] Comment:Testing performed by : [facility] [address] [place] [id number] RDW SD 44.3 35.7 - 48.1 fL [facility] Comment:Testing performed by : [facility] [address] [place] [address] NRBC abs 0.00 0.00 - 0.01 K/cumm [facility] Comment:Testing performed by : [facility] [place] [address] Blood Venous blood specimen / Unknown 08/25/2024 11:39 PM CDT 08/25/2024 11:40 PM CDT Sis Bah MD LAB BLOOD ORDERABLES Nela l Result STEFANIE [address] [facility] [place] [address] * Magnesium (08/25/2024 11:39 PM CDT) Magnesium 1.7 1.4 - 2.5 mg/dL Comment:Testing performed by : [facility] [place] [address] Blood 08/25/2024 11:3 9 PM CDT 08/26/2024 1:31 AM CDT Sis Bah MD LAB BLOOD ORDERABLES Nela l Result STEFANIE [address] [address] [facility] [place] [address] * (ABNORMAL) Comprehensive metabolic panel (08/25/2024 11:39 PM CDT) Sodium 134(L) 135 - 145 mmol/L Comment:Testing performed by : [facility] [address], [place] [address] Potassium, pl 4.2 3.3 - 4.9 mmol/L [facility] Comment: Hemolysis present. Results may be affected. Testing performed by: [facility] [address], [place] [address] Chloride 96(L) 97 - 110 mmol/L [facility] Comment:Testing performed by : [facility] [address], [place] [address] CO2 20(L) 22 - 32 mmol/L CERNER CH Comment:Testing performed by : [facility] [address], [place] [address] Anion gap 18(H) 2 - 15 mmol/L CERNER CH Comment:Testing performed by : [facility] [address], [place] [address] BUN 25 6 - 25 mg/dL CERNER CH Comment:Testing performed by : [facility] [address], [place] [address] Creatinine 1.90(H) 0.60 - 1.10 mg/dL CERNER CH Comment:Testing performed by : [facility] [address], [place] [address] Glucose 112 70 - 199 mg/dL CERNER Comment: Interpretive Data Fasting glucose >/= 126 [...] was last revised 2022. Testing performed by: [facility] [address], [place] [address] Calcium 9.8 8.5 - 10.3 mg/dL CERNER CH Comment:Testing performed by : [facility] [address], [place] [address] Bilirubin, total 0.5 0.1 - 1.2 mg/dL CERNER Comment:Testing performed by : [facility], [address] [place] [address] [place] [address] Protein, pl 7.5 6.5 - 8.5 g/dL CERNER Comment:Testing performed by : [facility], [address] [place], [place] [address]am [place] [address] Albumin 4.1 3.5 - 5.0 g/dL CERNER Comment:Testing performed by : [address] [place] [address] Alk phos 95 40 - 130 Units/L CERNER Comment:Testing performed by : [address] [place] [address] ALT 24 7 - 45 Units/L CERNER Comment:Testing performed by : [facility], [address] [place] [address] [place] [address] AST 36 10 - 45 Units/L CERNER Comment: Hemolysis present. Results may be affected. Testing performed by: [address] [place] [address] Blood 08/25/2024 11:3 9 PM CDT 08/25/2024 11:40 PM CDT Sis Bah MD LAB BLOOD ORDERABLES Nela l Result [facility] [address] [address] Department [place] [address] * ECG 12 lead (08/25/2024 7:52 PM CDT) 08/25/2024 7:52 PM CDT Narrative [facility] - 08/26/2024 7:59 AM CDT Vent Rate: 83 bpm RR Interval: 717 msec SD Interval: 0 msec QRS Duration: 80 msec QT Interval: 350 msec QTC Interval: 390 msec P-R-T [place]: 0 - 38 - 46 degrees IMPRESSION: Baseline artifact, probable sinus rhythm LOW QRS VOLTAGE IN PRECORDIAL LEADS [QRS DEFLECTION < 1.0 mV IN CHEST LEADS] BORDERLINE ECG NO CHANGE FROM PREVIOUS TRACING NOTED Electronically Signed By: Ahmet Reyes MD Sis Bah MD ECG ORDERABLES Edited Re sult - [facility] CT Chest W Contrast (08/23/2024 9:06 PM TEST DESK TROUBLE LOCATOR) Anatomical Region Laterality Modality Body N/A Computed Tomogra phy 08/23/2024 9:01 PM TEST DESK TROUBLE LOCATOR Impressions 08/24/2024 9:42 AM CDT Clear lungs. [...] changes without suspicious bone lesions. Procedure Note Evreardo Daugherty MD - 08/24/2024 EXAMINATION: Computed tomography [...] Troponin T high-sensitivity 2-hour (08/23/2024 7:43 PM TEST DESK TROUBLE LOCATOR) Trop T hs 10 <=14 ng/L Comment: Interpretive Data For further hscTnT resources including the diagnostic algorithm and an aid in interpretation, copy and paste this link: https://nrl.testcatalog.org/show/hsTrop Current Interpretive Data last revised 2020. Trop T hs delta 1 ng/L STEFANIE Trop T hs interp Insignificant STEFANIE Blood 08/23/2024 7:43 PM TEST DESK TROUBLE LOCATOR 08/23/2024 7:45 PM TEST DESK TROUBLE LOCATOR Canelo Cohen DO LAB BLOOD ORDERABLES Final Res ult Performing Organization Address [facility]/ZIP Co de Phone Number [facility] [address] [address] Department [place] [address] * D-dimer, quantitative (08/23/2024 6:50 PM TEST DESK TROUBLE LOCATOR) D-Dimer 415 <=499 ng/mL FEU Comment: Interpretive [...] 68, VTE cut-off 680 ng/ml FEU. References; Schouten HT et al. Brit Med J. 2013;346:f2492. Maddie et al. Annals Int Med. 2015;163:701-11. Current interpretive data was last revised on 2019. Blood 08/23/2024 6:50 PM TEST DESK TROUBLE LOCATOR 08/23/2024 7:05 PM TEST DESK TROUBLE LOCATOR Ligia Gusman MD LAB BLOOD ORDERABLES Final Resu lt Performing Organization Address City/[facility]/[place] [address] [address] [place] [address] * Troponin T high-sensitivity series (baseline, 2hr, 4hr, 6hr) (08/23/2024 5:36 PM TEST DESK TROUBLE LOCATOR) Trop T hs 9 <=14 ng/L Comment: Interpretive Data For further hscTnT resources including the diagnostic algorithm and an aid in interpretation, copy and paste this link: https://nrl.testcatalog.org/show/hsTrop Current Interpretive Data last revised 2020. Blood 08/23/2024 5:36 PM TEST DESK TROUBLE LOCATOR 08/23/2024 6:06 PM TEST DESK TROUBLE LOCATOR us Ligia Gusman MD LAB BLOOD ORDERABLES Final Resu lt Performing Organization Address [facility] Co de Phone Number STEFANIE GRIFFIN [address] [address] [place] [address] * eGFR (08/23/2024 5:36 PM TEST DESK TROUBLE LOCATOR) eGFR 78 >=60 mL/min/1. 73 m2 Comment: [...] last reviewed 2021. Blood 08/23/2024 5:36 PM TEST DESK TROUBLE LOCATOR 08/23/2024 6:09 PM TEST DESK TROUBLE LOCATOR us Canelo Cohen DO LAB BLOOD ORDERABLES Final Res ult STEFANIE [address] [address] [place] [address] * Differential, auto (08/23/2024 5:36 PM TEST DESK TROUBLE LOCATOR) Neutrophil abs 4.9 1.5 - 6.5 K/cumm Imm gran abs 0.0 0.0 - 0.1 K/cumm [facility]ERNER [facility] Lymphocyte abs 3.3 0.8 - 3.3 K/cumm [facility] Monocyte abs 0.7 0.2 - 0.8 K/cumm [facility] Eosinophil abs 0.1 0.0 - 0.5 K/cumm [facility] Basophil abs 0.1 0.0 - 0.1 K/cumm [facility] Neutrophil pct 53.9 % [facility] Comment: Interpretive Data Percent cell count reference ranges are not reported, since discordance with absolute values may lead to misinterpretation of CBC data. Current Interpretive Data was last revised on 2017. Imm gran pct 0.4 % [facility] Comment: Interpretive Data Percent cell count reference ranges are not reported, since discordance with absolute values may lead to misinterpretation of CBC data. Current Interpretive Data was last revised on 2017. Lymphocyte pct 36.7 % [facility] Comment: Interpretive Data Percent cell count reference ranges are not reported, since discordance with absolute values may lead to misinterpretation of CBC data. Current Interpretive Data was last revised on 2017. Monocyte pct 7.4 % [facility] Comment: Interpretive Data Percent cell count reference ranges are not reported, since discordance with absolute values may lead to misinterpretation of CBC data. Current Interpretive Data was last revised on 2017. Eosinophil pct 1.0 % [facility] Comment: Interpretive Data Percent cell count reference ranges are not reported, since discordance with absolute values may lead to misinterpretation of CBC data. Current Interpretive Data was last revised on 2017. Basophil pct 0.6 % [facility] Comment: Interpretive Data Percent cell count reference ranges are not reported, since discordance with absolute values may lead to misinterpretation of CBC data. Current Interpretive Data was last revised on 2017. Blood 08/23/2024 5:36 PM TEST DESK TROUBLE LOCATOR 08/23/2024 6:06 PM TEST DESK TROUBLE LOCATOR us Canelo Cohen DO LAB BLOOD ORDERABLES Final Res ult Performing Organization Address City/[facility]/ZIP Co de Phone Number STEFANIE GRIFFIN [address] [address] [employer] [place], [place] [id number] * CBC with auto differential (08/23/2024 5:36 PM TEST DESK TROUBLE LOCATOR) WBC 9.1 3.8 - 9.9 K/cumm Hgb 13.9 11.9 - 15.5 g/dL [facility] Hct 41.5 35.6 - 45.5 % [facility] Plt 381 150 - 400 K/cumm [facility] MPV 11.0 9.1 - 12.3 fL C[facility]ER [facility] RBC 4.60 3.90 - 5.20 M/cumm CERNER [...] blood specimen / Unknown 08/23/2024 5:36 PM TEST DESK TROUBLE LOCATOR 08/23/2024 6:06 PM TEST DESK TROUBLE LOCATOR us Ligia Gusman MD LAB BLOOD ORDERABLES Final Resu lt Performing Organization Address [facility]/ZIP Co de Phone Number STEFANIE GRIFFIN [address] [address] [employer] [place], [place] [id number] * (ABNORMAL) Comprehensive metabolic panel (08/23/2024 5:36 PM TEST DESK TROUBLE LOCATOR) Sodium 139 135 - 145 mmol/L Potassium, [...] Units/L CERNER CH Blood 08/23/2024 5:36 PM TEST DESK TROUBLE LOCATOR 08/23/2024 6:06 PM TEST DESK TROUBLE LOCATOR us Ligia Gusman MD LAB BLOOD ORDERABLES Final Resu lt STEFANIE [address] [address] Department [place] [address] * XR Chest 1 Vw Portable (08/23/2024 5:24 PM TEST DESK TROUBLE LOCATOR) Anatomical Region Laterality Modality Body, Chest N/A [...] * ECG 12 lead (08/23/2024 4:33 PM TEST DESK TROUBLE LOCATOR) 08/23/2024 4:33 PM TEST DESK TROUBLE LOCATOR Narrative [facility] - 08/29/2024 10:31 AM CDT Vent Rate: 105 bpm RR Interval: 569 msec SD Interval: 150 msec QRS Duration: 76 msec QT Interval: 326 msec QTC Interval: 387 msec P-R-T [place]: 77 - 42 - 9 degrees IMPRESSION: Baseline artifact, probable SINUS TACHYCARDIA MODERATE ST DEPRESSION ABNORMAL ECG Compared to prior EKG, heart rate has increased T wave changes are new Electronically Signed By: Ahmet Reyes MD Ligia Gusman MD ECG ORDERABLES Final Result [facility] from Last 3 Months Insurance ID[facility] MEDICARE [facility] Address[id number] [place] [address] IDPA [facility] MEDICARE [facility] Address: [address] [address] [place] [address] Advance Directives For more information, please contact: [phone] Documents on File Type Date Recorded Patient Financial Manager Expl anation Power of Supervisor Refining 08/27/2024 12:19 PM * Full Code (Latest Code Status on File) Date Activated Date Inactivated Comments 02/15/2022 5:37 AM 02/15/2022 8:34 PM Care Teams Administrative Services Officer Relationship Specialty Start Date End Date Earl Moon MD [address] [place] [address] PCP - General Family Medicine 04/01/24
[2024-11-05 17:12] LABS: Basophils Absolute Auto 0.04 K/mm3 (0.00-0.10); Basophils Percent Auto 0.6 % (0.0-1.0); Eosinophils Absolute Auto 0.07 K/mm3 (0.02-0.50); Eosinophils Percent Auto 1.1 % (1.0-6.0); Hematocrit 37.4 % (35.0-49.0); Hemoglobin 12.4 g/dL (12.0-15.0); Immature Granulocyte Absolute 0.01 K/mm3 (0.00-0.00); Immature Granulocyte Percent A 0.2 % (0.0-0.0); Lymphocytes Absolute Auto 2.81 K/mm3 (1.10-4.50); Lymphocytes Percent Auto 44.5 % (18.0-42.0); Mean Corpuscular HGB Conc 33.2 g/dL (32-36); Mean Corpuscular Hemoglobin 30.5 pg (27.0-31.0); Mean Corpuscular Volume 92.1 fL (78.0-102.0); Mean Platelet Volume 10.8 fl (9.2-11.8); Monocytes Absolute Auto 0.41 K/mm3 (0.10-0.90); Monocytes Percent Auto 6.5 % (2.0-11.0); Neutrophils Absolute Auto 2.97 K/mm3 (1.70-7.20); Neutrophils Percent Auto 47.1 % (50.0-70.0); Platelet Count Result 285 K/mm3 (150-420); Red Blood Count 4.06 M/mm3 (4.20-5.40); Red Cell Distribution Width 12.9 % (11.6-14.4); White Blood Count 6.3 K/mm3 (4.8-10.8)
[2024-11-05 17:15] LABS: Add Urine Microscopic? YES; Appearance Urine Clear (Clear); Bilirubin Urine Negative (Negative); Blood Urine 1+ (Negative); Color Urine Light Yellow (Yellow); Glucose Urine UA Negative (Negative); Ketones Urine Negative (Negative); Leukocyte Esterase Ur Negative (Negative); Nitrate Urine Negative (Negative); Protein Urine Negative (Negative); Urobilinogen Urine 0.2 mg/dL (0.2-1.0)
[2024-11-05 17:25] LABS: Bacteria Urine 2+ /hpf; Squamous Epithelial Cell Urine Moderate /hpf (Few); WBC Urine None seen /hpf (0-3)
[2024-11-05 17:37] LABS: Alanine Aminotransferase 27 U/L (6-35); Albumin Level 4.5 g/dL (3.5-5.1); Alkaline Phosphatase 93 U/L (38-126); Amylase 50 U/L (30-110); Anion Gap 6 mmol/L (4-12); Aspartate Amino Transferase 28 U/L (14-36); Bilirubin,Total 0.6 mg/dL (0.2-1.3); Blood Urea Nitrogen 14 mg/dL (7-17); Calcium 9.3 mg/dL (8.4-10.2); Carbon Dioxide 26 mmol/L (22-30); Chloride 106 mmol/L (98-107); Estimated Glomerular Filt Rate > 60; Glucose 93 mg/dL (65-110); Lipase 61 U/L (23-300); Osmolality Calculated 286 mOsm/kg (285-295); Potassium 4.4 mmol/L (3.4-5.0); Sodium 138 mmol/L (137-145); Total Protein 7.3 g/dL (6.3-8.2)
== END 2024-11-05 16:59 | disposition home or self-care (01) ==
LOC: CHSLAB 17:01
PROVIDERS: PCP Family Medicine; Visit Provider Family Medicine
DX: R10.9 Unspecified abdominal pain (principal)
CPT/HCPCS: 36415; 80053; 81001; 82150; 83690; 85025

== ENCOUNTER 2025-01-22 10:04 | Outpatient (CLI) | payer MEDICARE, MEDICAID, SELFPAY ==
--- OUTSIDE RECORDS SUMMARY | 2025-01-22 10:14 | XMS_ITS | Clinical Summary ---
Author Organization [facility] Address [address] [place] [address] Care Team Providers Care Edge Stainer Name Role Phone Unavailable Primary Care Provider Unavailabl e Source Comments [facility],non-owned Affiliates and Associated Physician Practices is amultiple site organization consisting of ambulatory clinics and hospital sitesin [place], [place], [place] and [place]. This disclosure is being madepursuant to the Care Everywhere program and may not contain all information available regarding this patient. 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 Gender Identity Not on file Sexual Orientation [...] 1:46 PM CDT Height 157.5 cm (5' 2) 09/19/2024 1:46 PM CDT Body Mass Index [...] - COLON CA SCREENING 1966 MAMMOGRAM 1966 HIV SCREENING 1981 HEPATITIS C SCREENING 09/19/1984 DTAP/TDAP/TD VACCINES (1 - Tdap) 1985 HEPATITIS B VACCINE (1 of 3 - 19+ 3-dose series) 1985 PAP SMEAR 09/25/1987 PNEUMOCOCCAL VACCINE 50+ (1 of 1 - PCV) 2016 ZOSTER VACCINE (1 of 2) 2016 COVID-19 VACCINE (3 - 2023- season) 2024 08/24/2020, 06/25/2020 MEDICARE AWV CALENDAR YEAR 2024 INFLUENZA VACCINE (#1) 2025 , 03/17/2020, 04/10/2019, Additional history exists LIPID TESTING [...] patient's age to complete this topic Insurance [facility] MANAGED MEDICARE [place]
--- OUTSIDE RECORDS SUMMARY | 2025-01-22 10:14 | XMS_ITS | Clinical Summary ---
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 Gender Identity Not on file Sexual Orientation Not on file Plan of Treatment Health Maintenance Due Date Last Done Comments Breast Cancer Screening-Mammogram 1966 CT Colonography 1966 Cervical Cancer Screening 1966 Colonoscopy 1966 Colorectal Cancer Screening 1966 Fecal DNA Test 1966 HPV 1966 Lab-Cholesterol Screening 1966 Lab-Hepatitis C Screening 1966 Sigmoidoscopy 1966 Annual Wellness Visit 1984 Hepatitis B Vaccine (1 of 3 - 19+ 3-dose series) 1985 Tetanus/Pertussis Vaccine Teen/Adult (1 - Tdap) 1985 FOBT/FIT 1986 Pap Smear 09/25/1987 Pneumococcal Vaccines 50+ (1 of 1 - PCV) 2016 Zoster (Shingles) Vaccine 50 + (1 of 2) 2016 COVID-19 Vaccine ( - 2023-2 5 season) 2024 Influenza Vaccine (#1) 2025 RSV Adult (1 - 1-dose 75+ series) 2041 HIB Vaccine Aged Out No longer eligi ble based on patient's age to complete this topic HPV Vaccine (9-26yo & Shared Decision 27-45yo) Aged Out No longer eligible b ased on patient's age to complete this topic Hepatitis A Vaccine Aged Out No longe r eligible based on patient's age to complete this topic IPV Vaccine Aged Out No longer eligi ble based on patient's age to complete this topic Meningococcal Conjugate Vaccine Aged Out No longer eligible based on patient's age to complete this topic RSV < 20 Months Aged Out No longer el igible based on patient's age to complete this topic
--- OUTSIDE RECORDS SUMMARY | 2025-01-22 10:14 | XMS_ITS | Encounter Summary ---
Author Organization [facility] Address [address] [place] [address] Care Team Providers Care Architectural Draftsperson Name Role Phone System, Pcp Not In Primary Care Provider Unavail able Pcp Outside [facility], Unknown Primary Care Provider U navailable Encounter Details Date Type Department Care Team (Late st Contact Info) Description 05/18/2018 Prior Original Records [facility] [place] [phone] Provider, Outside Social History Tobacco Use Types Packs/Day Years Used Date Smoking Tobacco: Never Assessed Comments Unknown Sex and Gender Information Value Date Recorded Sex Assigned at Not on file 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 Gender Identity Not on file Sexual Orientation Not on file documented as of this encounter Plan of Treatment Not on file documented as of this encounter Procedures Procedure Name Priority Date/Time Associated Diagnosis Comments ELECTROCARDIOGRAM 12-LEAD MAGNET Routine 07/27/2018 documented in this encounter Results * Electrocardiogram 12-lead magnet (07/27/2018) us Outside Provider ECG ORDERABLES Final Result documented in this encounter Visit Diagnoses Not on filedocumented in this encounter Care Teams Architectural Draftsperson Relationship Specialty Start Date End Date System, Pcp Not In PCP - General 11/22/18 10/25/23 Pcp Outside [facility], Unknown NO KNOWN ADDRESS ON FILE PCP - General 10/26/23 documented as of this encounter
--- OUTSIDE RECORDS SUMMARY | 2025-01-22 10:15 | XMS_ITS | Clinical Summary ---
Author Organization [facility] Address [address] [place] [address] Phone Care Team Providers Care Professor Of Art Name Role Phone Earl Moon MD Primary Care Provider Jorgito Yarbrough MD Unavailable [phone] Allergies Active Allergy Reactions Criticality Noted Date [...] Comments Blood Pressure 128/84 05/01/2024 10:43 AM WAITER/WAITRESS INFORMAL Pulse 83 05/01/2024 10:43 AM WAITER/WAITRESS INFORMAL Temperature 36.4 C (97.5 F) 05/01/2024 10:43 AM WAITER/WAITRESS INFORMAL Respiratory Rate 16 05/01/2024 10:43 AM WAITER/WAITRESS INFORMAL Oxygen Saturation 99% 05/01/2024 10:43 AM WAITER/WAITRESS INFORMAL Inhaled Oxygen Concentration - - Weight 124.5 kg (274 lb 8 oz) 05/01/2024 10:43 A M WAITER/WAITRESS INFORMAL Height 157.5 cm (5' 2) 05/01/2024 10:43 AM WAITER/WAITRESS INFORMAL Body Mass Index 50.21 05/01/2024 10:43 AM WAITER/WAITRESS INFORMAL Plan of Treatment Upcoming Encounters Date Type Department Care Team (Late st Contact Info) Description 04/27/2025 10:00 AM WAITER/WAITRESS INFORMAL Office Visit [facility] - [facility] - [place] [address] [place] [address] Jorgito Yarbrough MD [address] [place] [address] Health Maintenance Due Date Last Done Comments Hepatitis C Virus (HCV) Screening 1966 Mammogram 1966 Cologuard 09/25/2011 Colonoscopy 09/25/2011 Hepatitis B Immunization (2 of 3 - 19+ 3-dose series) 12/24/2015 11/26/2015 Pneumococcal Immunization (50+ years) (1 of 1 - PCV) 2016 Zoster Immunization (1 of 2) 2016 SARS-COV-2 Immunization (3 - season) 2024 08/24/2020, 06/25/2020 Colorectal Cancer Screening 09/19/2024 Immunochemical Fecal Occult Blood 09/19/2024 09/20/2023 Influenza Immunization (#1) 2025 10/0 11/2020, 03/17/2020, 04/10/2019, Additional history exists Respiratory Syncytial Virus (RSV) Immunization (Adult) (1 - 1-dose 75+ series) 2041 DTaP/Tdap/Td Immunization Discontinued 2021, 06/18/2014, 11/05/2011 TdaP Immunization Completed 03/09/2022, 11/05/2011 Human Papillomavirus (HPV) Immunization Aged Out No longer eligible based on patient's age to complete this topic Meningococcal Immunization (ACWY) Aged Out No longer eligible based on patient's age to complete this topic Rotavirus Immunization Aged Out No lo nger eligible based on patient's age to complete this topic Insurance MEDICAID [facility] Care Teams Professor Of Art Relationship Specialty Start Date End Date Earl Moon MD [address] [place] [address] PCP - General Pediatrics 08/22/23 Jorgito Yarbrough MD [address] [place] [phone] Consulting Physician Neurology 05/06/24
--- OUTSIDE RECORDS SUMMARY | 2025-01-22 10:15 | XMS_ITS | Clinical Summary ---
Author Organization [facility] Address [address] [place] [address] Care Team Providers Care Logistics Tech Name Role Phone Pcp Outside [facility], Unknown Primary Care Provider U navailable Allergies Active Allergy Reactions Criticality Noted Date Comments Fenofibrate ANAPHYLAXIS,Other (S ee Comments) High 09/06/2017 Torsades Fluconazole ANAPHYLAXIS,Other (S ee Comments) High 07/22/2018 Kidney injury Peanut Oil (Food Or Med) RASH Low 07/17/2016 Penicillins PRURITUS,RASH Low 02/16/2014 Statins ANAPHYLAXIS High 09/06/2017 Sulfa Antibiotics ANAPHYLAXIS,Other (S ee Comments) High 02/16/2014 Medications carvedilol (COREG) 12.5 MG tablet TK 1 T PO BID 08/15/2018 Active amitriptyline (ELAVIL) 25 MG tablet Take 1 tablet by mouth nightly. 12/14/2016 Active benazepril (LOTENSIN) 40 MG tablet TK 2 TS PO QD 06/10/2018 Active cholecalciferol (VITAMIN D-[address]) 1000 units tablet Take 1 tablet by mouth daily. Active dicyclomine (BENTYL) 20 MG tablet TK 1 T PO QID 05/18/2016 Active ferrous sulfate 325 (65 FE) MG tablet Take 1 tablet by mouth daily (with breakfast). 12/22/2011 Active fluticasone (FLONASE) 50 MCG/ACT nasal spray [place] 2 sprays in each nostril. 02/26/2018 Active furosemide (LASIX) 20 MG tablet TK 1 T PO QD 12/22/2011 Active gabapentin (NEURONTIN) 600 MG tablet TK 1 T PO QD HS 07/03/2018 Active ibuprofen (MOTRIN) 800 MG tablet Take 1 tablet by mouth. 02/14/2018 Active Multiple Vitamin (DAILY VITAMINS) Tab Take 1 tablet by mouth. 12/22/2011 Active omeprazole (PRILOSEC) 20 MG capsule Take 20 mg by mouth daily. Active PARoxetine (PAXIL) 20 MG tablet TK 1 T PO HS 07/24/2018 Active potassium chloride (KLOR-CON, K-TAB) 10 MEQ ER tablet Take 10 mEq by mouth daily. Active QUEtiapine (SEROQUEL) 100 MG tablet TK 1 T PO QD 07/04/2018 Active Vitamin E 400 units Tab Take 1 tablet by mouth daily. Active Zinc 50 MG Tab Take by mouth daily. Active metroNIDAZOLE (FLAGYL) 500 MG tablet TK 1 T PO BID TAT 06/19/2018 Active Active Problems No known active problems Surgical History Surgery Date Site/Laterality Comments CHOLECYSTECTOMY HYSTERECTOMY Medical History Medical History Date Comments Bipolar 1 disorder (CMD) Anxiety Essential (primary) hypertension GERD (gastroesophageal reflux disease) Anxiety Family History Medical History Relation Comments Patient is unaware of any medical problems Fathe r Patient is unaware of any medical problems Mothe r Relation Status Comments Father Mother Social History Tobacco Use Types Packs/Day Years Used Date Smoking Tobacco: Never Smokeless Tobacco: Never Inadequate Housing Answer Date Recorded Social Determinants: Housing (Overall Score Help er) 0 01/29/2019 Comments Unknown Sex and Gender Information Value Date Recorded Sex Assigned at Not on file 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 Sex 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 Gender Identity Not on file Sexual Orientation Not on file Obstetrics History Last Filed Vital Signs Vital Sign Reading Time Taken Comments Blood Pressure 130/72 11/22/2018 1:45 PM CDT Pulse 90 11/22/2018 1:45 PM CDT Temperature - - Respiratory Rate 18 11/22/2018 1:45 PM CDT Oxygen Saturation 98% 11/22/2018 1:45 PM CDT Inhaled Oxygen Concentration - - Weight 122 kg (269 lb) 11/22/2018 1:45 PM CDT Height 157.5 cm (5' 2) 11/22/2018 1:45 PM CDT Body Mass Index 49.2 11/22/2018 1:45 PM CDT Plan of Treatment Health Maintenance Due Date Last Done Comments Depression Screening 1978 CT Colonography 09/25/2011 Cologuard 09/25/2011 Colonoscopy 09/25/2011 Colorectal Cancer Screening 09/25/2011 Fecal Occult Blood 09/25/2011 Sigmoidoscopy 09/25/2011 Hepatitis B Vaccine (2 of 3 - 19+ 3-dose series) 12/24/2015 11/26/2015 Pneumococcal Vaccine 50+ (1 of 1 - PCV) 2016 Shingles Vaccine (1 of 2) 2016 COVID-19 Vaccine (1 - 2023-25 season) 2024 DTaP/Tdap/Td Vaccine (3 - Tdap) 06/18/2024 06/18/2014, 11/05/2011 Influenza Vaccine (#1) 2025 7, 03/17/2016, 03/20/2015, Additional history exists Hepatitis A Vaccine Aged Out 09/23/2015 No longe r eligible based on patient's age to complete this topic HPV Vaccine Aged Out No longer eligi ble based on patient's age to complete this topic Meningococcal Serogroup B Vaccine Aged Out No longer eligible based on patient's age to complete this topic Meningococcal Vaccine Aged Out No [place] eligible based on patient's age to complete this topic Insurance Member Subscriber Plan / Payer (Ef fective 2020-Present) Name:Felicita Garcia Relation to Subscriber:Self Name:Felicita Garcia Payer ID:Not on file Type:[id number] O Address: [address] [address] Care Teams Logistics Tech Relationship Specialty Start Date End Date Pcp Outside [facility], Unknown NO KNOWN ADDRESS ON FILE PCP - General 10/26/23
--- OUTSIDE RECORDS SUMMARY | 2025-01-22 10:15 | XMS_ITS | Clinical Summary ---
Author Organization [facility] Address [address] [place] [address] Care Team Providers Care Internet Marketing Strategist Name Role Phone Earl Moon MD Primary Care Provide r Allergies Active Allergy Reactions Criticality Noted Date Comments Fluconazole Other (See comments) Low 12/30/2020 KIDNEY FAILURE Fenofibrate Anaphylaxis High 12/30/2020 Metronidazole Other (See comments) Low 12/30/2020 KIDNEY FAILURE Peanut Oil Rash,Unknown Medium 07/17/2016 Penicillins Hives Medium 12/30/2020 Elofdzl-Uuf-Ajm Reductase Inhibitors Anaphylaxis High 09/06/2017 Sulfa (Sulfonamide [...] mg total) by mouth every morning Active cholecalciferol (VITAMIN D-3) 50,000 unit capsule Take 1 [...] weight loss, (Zepbound) 5 mg/0.5 mL pen injectorIndicat ions:Weight Loss Management for Obese Patient (BMI >= 30),obstructive sleep apnea syndrome Inject 0.5 mL (5 mg total) under the skin every 7 days 2 mL 5 Active Additional Information Patient not taking.Reported on 12/30/2024 Active Problems Problem Noted Date Diagnosed Date [...] 02/07/2020 Urinary tract infection symptoms 02/07/2020 Acute DC 01/08/2020 Angina pectoris 01/08/2020 Assessment & Plan [...] Encounters Date Type Department Care Team Description 12/30/2024 11:30 AM CDT Office Visit [facility] at [address] [place] [address] Coty Phillips MD Obstructive sleep apnea (Primary Dx); Hypersomnia; Obesity, unspecified class, unspecified obesity type, unspecified whether serious comorbidity present; Insomnia, unspecified type 12/22/2024 Telephone [facility] [address] [place] [address] [address] [place] [address] Glenny Rodriguez MA 10/31/2024 Telephone [place] [facility] [address] [facility] [address] [place] [address] Tonya Carrillo MA Monitor Results 10/27/2024 11:15 AM CDT Office Visit [facility] at [address] [place] [id number] Coty Phillips MD Obstructive sleep apnea (Primary Dx); Hypersomnia; Obesity, unspecified class, unspecified obesity type, unspecified whether serious comorbidity present; Insomnia, unspecified type; Severe obesity (HCC); Body mass index (BMI) 50.0-59.9, adult (HCC) from Last 3 Months Surgical History Surgery Date Site/Laterality Comments CHOLECYSTECTOMY HYSTERECTOMY Medical History Medical History Date Comments DC (myocardial infarction) (HCC) Liver disease CHF (congestive [...] Sign Reading Time Taken Comments Blood Pressure 110/50 12/30/2024 11:27 AM CDT Pulse 62 12/30/2024 11:27 AM CDT Temperature 37.1 C (98.8 F) 08/25/2024 7:41 PM CDT Respiratory Rate 16 10/08/2024 9:52 AM CDT Oxygen Saturation 99% 12/30/2024 11:27 AM CDT Inhaled Oxygen Concentration - - Weight 122.9 kg (271 lb) 12/30/2024 11:27 AM CDT Height 157.5 cm (5' 2) 12/30/2024 11:27 AM CDT Body Mass Index 49.57 12/30/2024 11:27 AM CDT Plan of Treatment Health Maintenance Due Date Last Done Comments Breast Cancer Screening-Mammogram 1966 Colon Cancer Screening-Colonoscopy 1966 Depression Screening 1966 Hepatitis C Screening 1966 Regular Well Visit/Exam 18-64 1984 Pneumococcal vaccine <65 (1 of 2 - PCV) 1985 Zoster Vaccine (1 of 2) 2016 Covid-19 Vaccine (3 - 2023-2 5 season) 2024 08/24/2020, 06/25/2020 Influenza Vaccine (#1) 2025 , 03/17/2020, 04/10/2019, Additional history exists DTaP/Tdap/Td Vaccine (5 - Td or Tdap) 03/09/2032 03/09/2022, 01/16/2018, 06/18/2014, Additional history exists Insurance [employer] Advance Directives For more information, please contact: [phone] Documents on File Type Date Recorded Patient Software Qa Manager Expl anation Power of Fish Hatchery Inspector 08/27/2024 12:19 PM * Full Code (Latest Code Status on File) Date Activated Date Inactivated Comments 02/15/2022 5:37 AM 02/15/2022 8:34 PM Care Teams Internet Marketing Strategist Relationship Specialty Start Date End Date Earl Moon MD [address] [place] [address] PCP - General Family Medicine 04/01/24
[2025-01-22 10:24] LABS: Hematocrit 38.4 % (35.0-49.0); Hemoglobin 12.8 g/dL (12.0-15.0); Immature Granulocyte Percent A 0.3 % (0.0-0.0); Lymphocytes Absolute Auto 2.19 K/mm3 (1.10-4.50); Mean Corpuscular HGB Conc 33.3 g/dL (32-36); Mean Corpuscular Hemoglobin 30.8 pg (27.0-31.0); Mean Corpuscular Volume 92.3 fL (78.0-102.0); Nucleated Red Blood Cells Absolute Auto 0.00 K/mm3 (0.00-0.00); Nucleated Red Blood Cells Perc 0.0 % (0-0.0); Platelet Count Result 358 K/mm3 (150-420); Red Blood Count 4.16 M/mm3 (4.20-5.40); White Blood Count 5.8 K/mm3 (4.8-10.8)
[2025-01-22 11:06] LABS: Alanine Aminotransferase 27 U/L (6-35); Albumin Level 4.8 g/dL (3.5-5.1); Alkaline Phosphatase 80 U/L (38-126); Anion Gap 8 mmol/L (4-12); Aspartate Amino Transferase 30 U/L (14-36); Bilirubin,Total 0.8 mg/dL (0.2-1.3); Blood Urea Nitrogen 8 mg/dL (7-17); Calcium 9.9 mg/dL (8.4-10.2); Carbon Dioxide 30 mmol/L (22-30); Chloride 103 mmol/L (98-107); Creatine Kinase 48 U/L (30-135); Estimated Glomerular Filt Rate > 60; Glucose 131 mg/dL (65-110); Iron 69 ug/dL (37-170); Osmolality Calculated 292 mOsm/kg (285-295); Potassium 3.9 mmol/L (3.4-5.0); Sodium 141 mmol/L (137-145); Total Protein 7.9 g/dL (6.3-8.2)
[2025-01-22 11:16] LABS: Percent Iron Saturation 21 % (20-50)
[2025-01-22 11:18] LABS: Troponin I < 0.012 ng/mL (0.000-0.034)
[2025-01-22 11:42] LABS: Ferritin 16.50 ng/mL (11.1-264)
[2025-01-23 16:43] LABS: Hemoglobin A1C 5.6 % (<5.7)
== END 2025-01-22 10:05 | disposition home or self-care (01) ==
LOC: CHSLAB 10:06
PROVIDERS: PCP Family Medicine; Visit Provider Family Medicine
DX: E61.1 Iron deficiency (principal); R07.9 Chest pain, unspecified; R73.01 Impaired fasting glucose
CPT/HCPCS: 36415; 80053; 82550; 82553; 82728; 83036; 83540; 83550; 84484; 85025; 85380